=== PATIENT | male | born 1945 | race Caucasian/White ===

== ENCOUNTER → 2017-05-08 | Outpatient (CLI) | payer MEDICARE ==
[~2017-05-08] MED LIST: ALPR1TAB7 PO; ASPIRIN PO; BEANO PO; CHOL100040 PO; ESOM40CA PO; FAMO10TA39 PO; ISOVUE-370 50ML VIAL IV ONE; METOPROLOL PO; SIME80TA PO; [UNRECOGNIZED DRUG - OTHER] PO; [UNRECOGNIZED DRUG - OTHER] PO
== END | disposition home or self-care (01) ==
LOC: OIH 08:23
PROVIDERS: ATTEND Internal Medicine Cardiovascular Disease
DX: R42 Dizziness and giddiness (principal)
CPT/HCPCS: 70496; 70498; Q9967

== ENCOUNTER → 2018-05-14 | Outpatient (CLI) | payer MEDICARE ==
[~2018-05-14] MED LIST changes: -ISOVUE-370 50ML VIAL IV ONE
== END | disposition home or self-care (01) ==
LOC: RAH 13:44
PROVIDERS: ATTEND Urology
DX: N50.9 Disorder of male genital organs, unspecified (principal)
CPT/HCPCS: 76870

== ENCOUNTER → 2021-05-15 | Outpatient (CLI) | payer MEDICARE | END | disposition home or self-care (01) | LOC: RAH 07:57 | PROVIDERS: ATTEND Nurse Practitioner Family | DX: R16.0 Hepatomegaly, not elsewhere classified (principal); R74.8 Abnormal levels of other serum enzymes; Z90.49 Acquired absence of other specified parts of digestive tract | CPT/HCPCS: 76700 ==

== ENCOUNTER → 2021-12-04 | Outpatient (CLI) | payer MEDICARE ==
[2021-12-04 12:21] LABS: CREATININE 0.8 mg/dL (0.5-1.5)
== END | disposition home or self-care (01) ==
LOC: LAB 11:11
PROVIDERS: ATTEND Otolaryngology Plastic Surgery within the Head & Neck
DX: H90.3 Sensorineural hearing loss, bilateral (principal)
CPT/HCPCS: 36415; 82565; 84520

== ENCOUNTER → 2023-09-11 | Outpatient (CLI) | payer MEDICARE ==
[~2023-09-11] MED LIST changes: +AMOX1TAB16 PO
== END | disposition home or self-care (01) ==
LOC: RAH 13:51
PROVIDERS: ATTEND Internal Medicine Critical Care Medicine
DX: J98.11 Atelectasis (principal); J18.1 Lobar pneumonia, unspecified organism; R16.1 Splenomegaly, not elsewhere classified; M47.815 Spondylosis without myelopathy or radiculopathy, thoracolumbar region; Z90.49 Acquired absence of other specified parts of digestive tract
CPT/HCPCS: 71250

== ENCOUNTER → 2023-09-22 | Outpatient (CLI) | payer MEDICARE | END | disposition home or self-care (01) | LOC: RAH 08:56 | PROVIDERS: ATTEND Internal Medicine | DX: R16.2 Hepatomegaly with splenomegaly, not elsewhere classified (principal); K76.0 Fatty (change of) liver, not elsewhere classified; R10.9 Unspecified abdominal pain; D47.1 Chronic myeloproliferative disease; Z90.49 Acquired absence of other specified parts of digestive tract | CPT/HCPCS: 76700 ==

== ENCOUNTER → 2023-11-20 | Outpatient (CLI) | payer MEDICARE | END | disposition home or self-care (01) | LOC: RAH 14:25 | PROVIDERS: ATTEND Internal Medicine | DX: I70.203 Unspecified atherosclerosis of native arteries of extremities, bilateral legs (principal); L97.919 Non-pressure chronic ulcer of unspecified part of right lower leg with unspecified severity; L97.512 Non-pressure chronic ulcer of other part of right foot with fat layer exposed; M79.661 Pain in right lower leg; M79.662 Pain in left lower leg | CPT/HCPCS: 93925; 93971 ==

== ENCOUNTER → 2023-11-24 | Outpatient (CLI) | payer MEDICARE ==
[~2023-11-24] MED LIST changes: +LIDOCAINE HCL 4% LTA SOL 4 ML VIAL TP ONE
== END | disposition home or self-care (01) ==
LOC: WHH 09:41
PROVIDERS: ATTEND Family Medicine
DX: I70.238 Atherosclerosis of native arteries of right leg with ulceration of other part of lower leg (principal); L97.812 Non-pressure chronic ulcer of other part of right lower leg with fat layer exposed; I70.248 Atherosclerosis of native arteries of left leg with ulceration of other part of lower leg; L97.822 Non-pressure chronic ulcer of other part of left lower leg with fat layer exposed; I70.235 Atherosclerosis of native arteries of right leg with ulceration of other part of foot; L97.512 Non-pressure chronic ulcer of other part of right foot with fat layer exposed; I70.245 Atherosclerosis of native arteries of left leg with ulceration of other part of foot; L97.522 Non-pressure chronic ulcer of other part of left foot with fat layer exposed; I70.232 Atherosclerosis of native arteries of right leg with ulceration of calf; L97.211 Non-pressure chronic ulcer of right calf limited to breakdown of skin; L95.8 Other vasculitis limited to the skin; D75.81 Myelofibrosis; K21.9 Gastro-esophageal reflux disease without esophagitis; Z85.51 Personal history of malignant neoplasm of bladder; Z90.49 Acquired absence of other specified parts of digestive tract
CPT/HCPCS: G0463; A4450

== ENCOUNTER → 2023-12-01 | Outpatient (CLI) | payer MEDICARE | END | disposition home or self-care (01) | LOC: WHH 10:00 | PROVIDERS: ATTEND Family Medicine | DX: I70.238 Atherosclerosis of native arteries of right leg with ulceration of other part of lower leg (principal); L97.812 Non-pressure chronic ulcer of other part of right lower leg with fat layer exposed; I70.248 Atherosclerosis of native arteries of left leg with ulceration of other part of lower leg; L97.822 Non-pressure chronic ulcer of other part of left lower leg with fat layer exposed; I70.235 Atherosclerosis of native arteries of right leg with ulceration of other part of foot; L97.512 Non-pressure chronic ulcer of other part of right foot with fat layer exposed; I70.245 Atherosclerosis of native arteries of left leg with ulceration of other part of foot; L97.522 Non-pressure chronic ulcer of other part of left foot with fat layer exposed; I70.232 Atherosclerosis of native arteries of right leg with ulceration of calf; L97.421 Non-pressure chronic ulcer of left heel and midfoot limited to breakdown of skin; L97.211 Non-pressure chronic ulcer of right calf limited to breakdown of skin; L95.8 Other vasculitis limited to the skin; D75.81 Myelofibrosis; K21.9 Gastro-esophageal reflux disease without esophagitis; Z85.51 Personal history of malignant neoplasm of bladder; Z90.49 Acquired absence of other specified parts of digestive tract; Z95.1 Presence of aortocoronary bypass graft; Z79.82 Long term (current) use of aspirin; Z79.899 Other long term (current) drug therapy | CPT/HCPCS: G0463 ==

== ENCOUNTER → 2023-12-08 | Outpatient (CLI) | payer MEDICARE | END | disposition home or self-care (01) | LOC: WHH 08:17 | PROVIDERS: ATTEND Family Medicine | DX: I70.238 Atherosclerosis of native arteries of right leg with ulceration of other part of lower leg (principal); L97.812 Non-pressure chronic ulcer of other part of right lower leg with fat layer exposed; I70.248 Atherosclerosis of native arteries of left leg with ulceration of other part of lower leg; L97.822 Non-pressure chronic ulcer of other part of left lower leg with fat layer exposed; I70.235 Atherosclerosis of native arteries of right leg with ulceration of other part of foot; L97.512 Non-pressure chronic ulcer of other part of right foot with fat layer exposed; I70.245 Atherosclerosis of native arteries of left leg with ulceration of other part of foot; L97.522 Non-pressure chronic ulcer of other part of left foot with fat layer exposed; I70.232 Atherosclerosis of native arteries of right leg with ulceration of calf; L97.421 Non-pressure chronic ulcer of left heel and midfoot limited to breakdown of skin; L97.211 Non-pressure chronic ulcer of right calf limited to breakdown of skin; L95.8 Other vasculitis limited to the skin; D75.81 Myelofibrosis; K21.9 Gastro-esophageal reflux disease without esophagitis; Z85.51 Personal history of malignant neoplasm of bladder; Z90.49 Acquired absence of other specified parts of digestive tract; Z95.1 Presence of aortocoronary bypass graft; Z79.82 Long term (current) use of aspirin; Z79.899 Other long term (current) drug therapy | CPT/HCPCS: 11042; 11045; A4450 ==

== ENCOUNTER 2023-12-11 20:35 | Emergency (ER) | payer MEDICARE ==
[~2023-12-11] VITALS: Ht 180.3 cm; Wt 86.2 kg
[~2023-12-11 20:35] MED LIST changes: -LIDOCAINE HCL 4% LTA SOL 4 ML VIAL TP ONE
[2023-12-11 20:54] VITALS: BP 147/71; PULSE 98; RESP 16; TEMP 98.3; O2SAT 98
[2023-12-11 21:02] LABS: APPEARANCE,URINE CLEAR (CLEAR); BILIRUBIN,URINE NEGATIVE (NEGATIVE); COLOR,URINE YELLOW (YELLOW); GLUCOSE, URINE (UA) NEGATIVE (NEGATIVE); KETONES,URINE NEGATIVE (NEGATIVE); LEUKOCYTE ESTERASE ,URINE NEGATIVE Leu/uL (NEGATIVE); NITRATE,URINE NEGATIVE (NEGATIVE); OCCULT BLOOD,URINE NEGATIVE (NEGATIVE); PH,URINE 5.5 (5.0-8.0); PROTEIN,URINE NEGATIVE (NEGATIVE); UROBILINOGEN,URINE 0.2 mg/dL (0.2-1.0)
[2023-12-11 21:10] LABS: ADD UA MICROSCOPIC NO
== END 2023-12-11 21:45 | disposition home or self-care (01) ==
LOC: EDH 20:35
DX: R35.0 Frequency of micturition (principal); I10 Essential (primary) hypertension; Z90.49 Acquired absence of other specified parts of digestive tract; Z95.1 Presence of aortocoronary bypass graft
CPT/HCPCS: 81003

== ENCOUNTER → 2023-12-15 | Outpatient (CLI) | payer MEDICARE ==
[~2023-12-15] MED LIST changes: +LIDOCAINE HCL 4% LTA SOL 4 ML VIAL TP ONE
== END | disposition home or self-care (01) ==
LOC: WHH 07:55
PROVIDERS: ATTEND Family Medicine
DX: I70.238 Atherosclerosis of native arteries of right leg with ulceration of other part of lower leg (principal); L97.812 Non-pressure chronic ulcer of other part of right lower leg with fat layer exposed; I70.248 Atherosclerosis of native arteries of left leg with ulceration of other part of lower leg; L97.822 Non-pressure chronic ulcer of other part of left lower leg with fat layer exposed; I70.235 Atherosclerosis of native arteries of right leg with ulceration of other part of foot; L97.512 Non-pressure chronic ulcer of other part of right foot with fat layer exposed; I70.245 Atherosclerosis of native arteries of left leg with ulceration of other part of foot; L97.521 Non-pressure chronic ulcer of other part of left foot limited to breakdown of skin; I70.232 Atherosclerosis of native arteries of right leg with ulceration of calf; L97.211 Non-pressure chronic ulcer of right calf limited to breakdown of skin; L97.421 Non-pressure chronic ulcer of left heel and midfoot limited to breakdown of skin; L95.8 Other vasculitis limited to the skin; D75.81 Myelofibrosis; K21.9 Gastro-esophageal reflux disease without esophagitis; Z85.51 Personal history of malignant neoplasm of bladder; Z90.49 Acquired absence of other specified parts of digestive tract; Z95.1 Presence of aortocoronary bypass graft; Z79.82 Long term (current) use of aspirin; Z79.899 Other long term (current) drug therapy
CPT/HCPCS: 11042; 11045

== ENCOUNTER → 2023-12-29 | Outpatient (CLI) | payer MEDICARE | END | disposition home or self-care (01) | LOC: WHH 08:11 | PROVIDERS: ATTEND Family Medicine | DX: I70.238 Atherosclerosis of native arteries of right leg with ulceration of other part of lower leg (principal); L97.812 Non-pressure chronic ulcer of other part of right lower leg with fat layer exposed; I70.248 Atherosclerosis of native arteries of left leg with ulceration of other part of lower leg; L97.822 Non-pressure chronic ulcer of other part of left lower leg with fat layer exposed; I70.235 Atherosclerosis of native arteries of right leg with ulceration of other part of foot; L97.512 Non-pressure chronic ulcer of other part of right foot with fat layer exposed; I70.245 Atherosclerosis of native arteries of left leg with ulceration of other part of foot; L97.521 Non-pressure chronic ulcer of other part of left foot limited to breakdown of skin; I70.232 Atherosclerosis of native arteries of right leg with ulceration of calf; L97.211 Non-pressure chronic ulcer of right calf limited to breakdown of skin; L97.421 Non-pressure chronic ulcer of left heel and midfoot limited to breakdown of skin; L95.8 Other vasculitis limited to the skin; D75.81 Myelofibrosis; K21.9 Gastro-esophageal reflux disease without esophagitis; Z85.51 Personal history of malignant neoplasm of bladder; Z90.49 Acquired absence of other specified parts of digestive tract; Z95.1 Presence of aortocoronary bypass graft; Z79.82 Long term (current) use of aspirin; Z79.899 Other long term (current) drug therapy | CPT/HCPCS: G0463 ==

== ENCOUNTER → 2024-01-05 | Outpatient (CLI) | payer MEDICARE | END | disposition home or self-care (01) | LOC: WHH 08:00 | PROVIDERS: ATTEND Family Medicine | DX: I70.238 Atherosclerosis of native arteries of right leg with ulceration of other part of lower leg (principal); L97.812 Non-pressure chronic ulcer of other part of right lower leg with fat layer exposed; I70.248 Atherosclerosis of native arteries of left leg with ulceration of other part of lower leg; L97.822 Non-pressure chronic ulcer of other part of left lower leg with fat layer exposed; I70.235 Atherosclerosis of native arteries of right leg with ulceration of other part of foot; L97.512 Non-pressure chronic ulcer of other part of right foot with fat layer exposed; I70.245 Atherosclerosis of native arteries of left leg with ulceration of other part of foot; L97.521 Non-pressure chronic ulcer of other part of left foot limited to breakdown of skin; I70.232 Atherosclerosis of native arteries of right leg with ulceration of calf; L97.421 Non-pressure chronic ulcer of left heel and midfoot limited to breakdown of skin; L59.8 Other specified disorders of the skin and subcutaneous tissue related to radiation; D75.81 Myelofibrosis; K21.9 Gastro-esophageal reflux disease without esophagitis; Z85.51 Personal history of malignant neoplasm of bladder; Z90.49 Acquired absence of other specified parts of digestive tract; Z95.1 Presence of aortocoronary bypass graft; Z79.82 Long term (current) use of aspirin; Z79.899 Other long term (current) drug therapy | CPT/HCPCS: 11042; 87086; 87186; 87070; A4450 ==

== ENCOUNTER → 2024-01-12 | Outpatient (CLI) | payer MEDICARE ==
[~2024-01-12] MED LIST changes: -LIDOCAINE HCL 4% LTA SOL 4 ML VIAL TP ONE
== END | disposition home or self-care (01) ==
LOC: WHH 08:21
PROVIDERS: ATTEND Family Medicine
DX: I70.238 Atherosclerosis of native arteries of right leg with ulceration of other part of lower leg (principal); I70.248 Atherosclerosis of native arteries of left leg with ulceration of other part of lower leg; L97.822 Non-pressure chronic ulcer of other part of left lower leg with fat layer exposed; I70.235 Atherosclerosis of native arteries of right leg with ulceration of other part of foot; L97.512 Non-pressure chronic ulcer of other part of right foot with fat layer exposed; I70.245 Atherosclerosis of native arteries of left leg with ulceration of other part of foot; L97.521 Non-pressure chronic ulcer of other part of left foot limited to breakdown of skin; L97.812 Non-pressure chronic ulcer of other part of right lower leg with fat layer exposed; L97.211 Non-pressure chronic ulcer of right calf limited to breakdown of skin; L59.8 Other specified disorders of the skin and subcutaneous tissue related to radiation; D75.81 Myelofibrosis; K21.9 Gastro-esophageal reflux disease without esophagitis; Z85.51 Personal history of malignant neoplasm of bladder; Z90.49 Acquired absence of other specified parts of digestive tract; Z95.1 Presence of aortocoronary bypass graft; Z79.82 Long term (current) use of aspirin; Z79.899 Other long term (current) drug therapy
CPT/HCPCS: 11042

== ENCOUNTER → 2024-01-26 | Outpatient (CLI) | payer MEDICARE | END | disposition home or self-care (01) | LOC: WHH 07:57 | PROVIDERS: ATTEND Family Medicine | DX: I70.238 Atherosclerosis of native arteries of right leg with ulceration of other part of lower leg (principal); L97.812 Non-pressure chronic ulcer of other part of right lower leg with fat layer exposed; I70.248 Atherosclerosis of native arteries of left leg with ulceration of other part of lower leg; L97.521 Non-pressure chronic ulcer of other part of left foot limited to breakdown of skin; L97.822 Non-pressure chronic ulcer of other part of left lower leg with fat layer exposed; I70.235 Atherosclerosis of native arteries of right leg with ulceration of other part of foot; L97.512 Non-pressure chronic ulcer of other part of right foot with fat layer exposed; L97.211 Non-pressure chronic ulcer of right calf limited to breakdown of skin; L59.8 Other specified disorders of the skin and subcutaneous tissue related to radiation; D75.81 Myelofibrosis; K21.9 Gastro-esophageal reflux disease without esophagitis; Z85.51 Personal history of malignant neoplasm of bladder; Z90.49 Acquired absence of other specified parts of digestive tract; Z95.1 Presence of aortocoronary bypass graft; Z79.82 Long term (current) use of aspirin; Z79.899 Other long term (current) drug therapy | CPT/HCPCS: 11042; A6260 ==

== ENCOUNTER → 2024-02-02 | Outpatient (CLI) | payer MEDICARE ==
[~2024-02-02] MED LIST changes: +LIDOCAINE HCL 4% LTA SOL 4 ML VIAL TP ONE
== END | disposition home or self-care (01) ==
LOC: WHH 08:08
PROVIDERS: ATTEND Family Medicine
DX: I70.238 Atherosclerosis of native arteries of right leg with ulceration of other part of lower leg (principal); L97.812 Non-pressure chronic ulcer of other part of right lower leg with fat layer exposed; I70.248 Atherosclerosis of native arteries of left leg with ulceration of other part of lower leg; L97.822 Non-pressure chronic ulcer of other part of left lower leg with fat layer exposed; I70.235 Atherosclerosis of native arteries of right leg with ulceration of other part of foot; L97.512 Non-pressure chronic ulcer of other part of right foot with fat layer exposed; I70.245 Atherosclerosis of native arteries of left leg with ulceration of other part of foot; L97.521 Non-pressure chronic ulcer of other part of left foot limited to breakdown of skin; L97.211 Non-pressure chronic ulcer of right calf limited to breakdown of skin; L59.8 Other specified disorders of the skin and subcutaneous tissue related to radiation; D75.81 Myelofibrosis; K21.9 Gastro-esophageal reflux disease without esophagitis; Z85.51 Personal history of malignant neoplasm of bladder; Z90.49 Acquired absence of other specified parts of digestive tract; Z95.1 Presence of aortocoronary bypass graft; Z79.82 Long term (current) use of aspirin; Z79.899 Other long term (current) drug therapy
CPT/HCPCS: 11042; 11045; A4450

== ENCOUNTER → 2024-02-09 | Outpatient (CLI) | payer MEDICARE | END | disposition home or self-care (01) | LOC: WHH 08:24 | PROVIDERS: ATTEND Family Medicine | DX: I70.238 Atherosclerosis of native arteries of right leg with ulceration of other part of lower leg (principal); L97.812 Non-pressure chronic ulcer of other part of right lower leg with fat layer exposed; I70.248 Atherosclerosis of native arteries of left leg with ulceration of other part of lower leg; L97.822 Non-pressure chronic ulcer of other part of left lower leg with fat layer exposed; I70.235 Atherosclerosis of native arteries of right leg with ulceration of other part of foot; L97.511 Non-pressure chronic ulcer of other part of right foot limited to breakdown of skin; I70.245 Atherosclerosis of native arteries of left leg with ulceration of other part of foot; L97.521 Non-pressure chronic ulcer of other part of left foot limited to breakdown of skin; L97.211 Non-pressure chronic ulcer of right calf limited to breakdown of skin; L95.8 Other vasculitis limited to the skin; D75.81 Myelofibrosis; I10 Essential (primary) hypertension; K21.9 Gastro-esophageal reflux disease without esophagitis; Z85.51 Personal history of malignant neoplasm of bladder; Z90.49 Acquired absence of other specified parts of digestive tract; Z95.1 Presence of aortocoronary bypass graft; Z79.82 Long term (current) use of aspirin; Z79.899 Other long term (current) drug therapy | CPT/HCPCS: G0463 ==

== ENCOUNTER → 2024-02-16 | Outpatient (CLI) | payer MEDICARE | END | disposition home or self-care (01) | LOC: WHH 08:18 | PROVIDERS: ATTEND Family Medicine | DX: I70.238 Atherosclerosis of native arteries of right leg with ulceration of other part of lower leg (principal); L97.812 Non-pressure chronic ulcer of other part of right lower leg with fat layer exposed; I70.248 Atherosclerosis of native arteries of left leg with ulceration of other part of lower leg; L97.822 Non-pressure chronic ulcer of other part of left lower leg with fat layer exposed; I70.235 Atherosclerosis of native arteries of right leg with ulceration of other part of foot; L97.512 Non-pressure chronic ulcer of other part of right foot with fat layer exposed; I70.245 Atherosclerosis of native arteries of left leg with ulceration of other part of foot; L97.521 Non-pressure chronic ulcer of other part of left foot limited to breakdown of skin; L97.211 Non-pressure chronic ulcer of right calf limited to breakdown of skin; S41.102A Unspecified open wound of left upper arm, initial encounter; S41.101A Unspecified open wound of right upper arm, initial encounter; L59.8 Other specified disorders of the skin and subcutaneous tissue related to radiation; D75.81 Myelofibrosis; K21.9 Gastro-esophageal reflux disease without esophagitis; Z85.51 Personal history of malignant neoplasm of bladder; Z90.49 Acquired absence of other specified parts of digestive tract; Z95.1 Presence of aortocoronary bypass graft; Z79.82 Long term (current) use of aspirin; Z79.899 Other long term (current) drug therapy; X58.XXXA Exposure to other specified factors, initial encounter; Y93.89 Activity, other specified; Y92.89 Other specified places as the place of occurrence of the external cause; Y99.8 Other external cause status | CPT/HCPCS: G0463 ==

== ENCOUNTER → 2024-02-23 | Outpatient (CLI) | payer MEDICARE | END | disposition home or self-care (01) | LOC: WHH 08:07 | PROVIDERS: ATTEND Family Medicine | DX: I70.238 Atherosclerosis of native arteries of right leg with ulceration of other part of lower leg (principal); L97.812 Non-pressure chronic ulcer of other part of right lower leg with fat layer exposed; I70.248 Atherosclerosis of native arteries of left leg with ulceration of other part of lower leg; L97.822 Non-pressure chronic ulcer of other part of left lower leg with fat layer exposed; I70.235 Atherosclerosis of native arteries of right leg with ulceration of other part of foot; L97.512 Non-pressure chronic ulcer of other part of right foot with fat layer exposed; I70.245 Atherosclerosis of native arteries of left leg with ulceration of other part of foot; L97.521 Non-pressure chronic ulcer of other part of left foot limited to breakdown of skin; L97.211 Non-pressure chronic ulcer of right calf limited to breakdown of skin; L95.8 Other vasculitis limited to the skin; S41.102D Unspecified open wound of left upper arm, subsequent encounter; S41.101D Unspecified open wound of right upper arm, subsequent encounter; D75.81 Myelofibrosis; I10 Essential (primary) hypertension; K21.9 Gastro-esophageal reflux disease without esophagitis; Z85.51 Personal history of malignant neoplasm of bladder; Z90.49 Acquired absence of other specified parts of digestive tract; Z95.1 Presence of aortocoronary bypass graft; Z79.82 Long term (current) use of aspirin; Z79.899 Other long term (current) drug therapy; X58.XXXD Exposure to other specified factors, subsequent encounter | CPT/HCPCS: 11042; 11045 ==

== ENCOUNTER → 2024-03-01 | Outpatient (CLI) | payer MEDICARE | END | disposition home or self-care (01) | LOC: WHH 08:16 | PROVIDERS: ATTEND Family Medicine | DX: I70.238 Atherosclerosis of native arteries of right leg with ulceration of other part of lower leg (principal); L97.812 Non-pressure chronic ulcer of other part of right lower leg with fat layer exposed; I70.248 Atherosclerosis of native arteries of left leg with ulceration of other part of lower leg; L97.822 Non-pressure chronic ulcer of other part of left lower leg with fat layer exposed; L95.8 Other vasculitis limited to the skin; S41.102D Unspecified open wound of left upper arm, subsequent encounter; S41.101D Unspecified open wound of right upper arm, subsequent encounter; I10 Essential (primary) hypertension; D75.81 Myelofibrosis; K21.9 Gastro-esophageal reflux disease without esophagitis; Z85.51 Personal history of malignant neoplasm of bladder; Z90.49 Acquired absence of other specified parts of digestive tract; Z95.1 Presence of aortocoronary bypass graft; Z79.82 Long term (current) use of aspirin; Z79.899 Other long term (current) drug therapy; X58.XXXD Exposure to other specified factors, subsequent encounter | CPT/HCPCS: 11042 ==

== ENCOUNTER → 2024-03-08 | Outpatient (CLI) | payer MEDICARE ==
[~2024-03-08] MED LIST changes: -LIDOCAINE HCL 4% LTA SOL 4 ML VIAL TP ONE
== END | disposition home or self-care (01) ==
LOC: WHH 08:14
PROVIDERS: ATTEND Family Medicine
DX: I70.238 Atherosclerosis of native arteries of right leg with ulceration of other part of lower leg (principal); L97.812 Non-pressure chronic ulcer of other part of right lower leg with fat layer exposed; I70.248 Atherosclerosis of native arteries of left leg with ulceration of other part of lower leg; L97.822 Non-pressure chronic ulcer of other part of left lower leg with fat layer exposed; L95.8 Other vasculitis limited to the skin; S51.001A Unspecified open wound of right elbow, initial encounter; S41.101D Unspecified open wound of right upper arm, subsequent encounter; S41.102D Unspecified open wound of left upper arm, subsequent encounter; I10 Essential (primary) hypertension; D75.81 Myelofibrosis; K21.9 Gastro-esophageal reflux disease without esophagitis; Z85.51 Personal history of malignant neoplasm of bladder; Z90.49 Acquired absence of other specified parts of digestive tract; Z95.1 Presence of aortocoronary bypass graft; Z79.82 Long term (current) use of aspirin; Z79.899 Other long term (current) drug therapy; X58.XXXD Exposure to other specified factors, subsequent encounter; X58.XXXA Exposure to other specified factors, initial encounter; Y93.89 Activity, other specified; Y92.89 Other specified places as the place of occurrence of the external cause; Y99.8 Other external cause status
CPT/HCPCS: 11042; A4450

== ENCOUNTER → 2024-03-15 | Outpatient (CLI) | payer MEDICARE ==
[~2024-03-15] MED LIST changes: +LIDOCAINE HCL 4% LTA SOL 4 ML VIAL TP ONE
== END | disposition home or self-care (01) ==
LOC: WHH 08:27
PROVIDERS: ATTEND Family Medicine
DX: I70.248 Atherosclerosis of native arteries of left leg with ulceration of other part of lower leg (principal); L97.822 Non-pressure chronic ulcer of other part of left lower leg with fat layer exposed; I70.238 Atherosclerosis of native arteries of right leg with ulceration of other part of lower leg; L97.812 Non-pressure chronic ulcer of other part of right lower leg with fat layer exposed; L95.8 Other vasculitis limited to the skin; S51.001D Unspecified open wound of right elbow, subsequent encounter; S41.101D Unspecified open wound of right upper arm, subsequent encounter; S41.102D Unspecified open wound of left upper arm, subsequent encounter; I10 Essential (primary) hypertension; D75.81 Myelofibrosis; K21.9 Gastro-esophageal reflux disease without esophagitis; Z85.51 Personal history of malignant neoplasm of bladder; Z90.49 Acquired absence of other specified parts of digestive tract; Z95.1 Presence of aortocoronary bypass graft; Z79.82 Long term (current) use of aspirin; Z79.899 Other long term (current) drug therapy; X58.XXXD Exposure to other specified factors, subsequent encounter
CPT/HCPCS: G0463

== ENCOUNTER → 2024-03-22 | Outpatient (CLI) | payer MEDICARE ==
[~2024-03-22] MED LIST changes: -LIDOCAINE HCL 4% LTA SOL 4 ML VIAL TP ONE
== END | disposition home or self-care (01) ==
LOC: WHH 08:08
PROVIDERS: ATTEND Family Medicine
DX: I70.248 Atherosclerosis of native arteries of left leg with ulceration of other part of lower leg (principal); L97.822 Non-pressure chronic ulcer of other part of left lower leg with fat layer exposed; I70.238 Atherosclerosis of native arteries of right leg with ulceration of other part of lower leg; L97.812 Non-pressure chronic ulcer of other part of right lower leg with fat layer exposed; L95.8 Other vasculitis limited to the skin; S51.001D Unspecified open wound of right elbow, subsequent encounter; S41.101D Unspecified open wound of right upper arm, subsequent encounter; S41.102D Unspecified open wound of left upper arm, subsequent encounter; I10 Essential (primary) hypertension; D75.81 Myelofibrosis; K21.9 Gastro-esophageal reflux disease without esophagitis; Z85.51 Personal history of malignant neoplasm of bladder; Z90.49 Acquired absence of other specified parts of digestive tract; Z95.1 Presence of aortocoronary bypass graft; Z79.82 Long term (current) use of aspirin; Z79.899 Other long term (current) drug therapy; X58.XXXD Exposure to other specified factors, subsequent encounter
CPT/HCPCS: 11042; 11045; A6250

== ENCOUNTER → 2024-03-29 | Outpatient (CLI) | payer MEDICARE | END | disposition home or self-care (01) | LOC: WHH 08:11 | PROVIDERS: ATTEND Family Medicine | DX: I70.248 Atherosclerosis of native arteries of left leg with ulceration of other part of lower leg (principal); L97.822 Non-pressure chronic ulcer of other part of left lower leg with fat layer exposed; I70.238 Atherosclerosis of native arteries of right leg with ulceration of other part of lower leg; L97.812 Non-pressure chronic ulcer of other part of right lower leg with fat layer exposed; L95.8 Other vasculitis limited to the skin; S51.001D Unspecified open wound of right elbow, subsequent encounter; S41.101D Unspecified open wound of right upper arm, subsequent encounter; S41.102D Unspecified open wound of left upper arm, subsequent encounter; S90.811A Abrasion, right foot, initial encounter; I10 Essential (primary) hypertension; D75.81 Myelofibrosis; K21.9 Gastro-esophageal reflux disease without esophagitis; Z85.51 Personal history of malignant neoplasm of bladder; Z90.49 Acquired absence of other specified parts of digestive tract; Z95.1 Presence of aortocoronary bypass graft; Z79.82 Long term (current) use of aspirin; Z79.899 Other long term (current) drug therapy; X58.XXXD Exposure to other specified factors, subsequent encounter; X58.XXXA Exposure to other specified factors, initial encounter; Y93.89 Activity, other specified; Y92.89 Other specified places as the place of occurrence of the external cause; Y99.8 Other external cause status | CPT/HCPCS: 15271; A6250; Q4121; A6197 ==

== ENCOUNTER → 2024-04-05 | Outpatient (CLI) | payer MEDICARE ==
[~2024-04-05] MED LIST changes: +AEC81 PO; +CHOL2000 PO; +FERR-82 PO; +FOLI0.4T6 PO; +HYDR-4060 PO; +HYDR500C2 PO; +LIDOCAINE HCL 4% LTA SOL 4 ML VIAL TP ONE; +LISI10TA24 PO; +PREG75CA76 PO; +PYRI100L2 PO; +TAMS-1 PO
== END | disposition home or self-care (01) ==
LOC: WHH 08:03
PROVIDERS: ATTEND Family Medicine
DX: I70.248 Atherosclerosis of native arteries of left leg with ulceration of other part of lower leg (principal); L97.822 Non-pressure chronic ulcer of other part of left lower leg with fat layer exposed; I70.238 Atherosclerosis of native arteries of right leg with ulceration of other part of lower leg; L97.812 Non-pressure chronic ulcer of other part of right lower leg with fat layer exposed; L95.8 Other vasculitis limited to the skin; S51.001D Unspecified open wound of right elbow, subsequent encounter; S41.101D Unspecified open wound of right upper arm, subsequent encounter; S41.102D Unspecified open wound of left upper arm, subsequent encounter; I10 Essential (primary) hypertension; D75.81 Myelofibrosis; K21.9 Gastro-esophageal reflux disease without esophagitis; Z85.51 Personal history of malignant neoplasm of bladder; Z90.49 Acquired absence of other specified parts of digestive tract; Z95.1 Presence of aortocoronary bypass graft; Z79.82 Long term (current) use of aspirin; Z79.899 Other long term (current) drug therapy; X58.XXXD Exposure to other specified factors, subsequent encounter
CPT/HCPCS: 15271; Q4121; A6197; A4450; A6207

== ENCOUNTER → 2024-04-12 | Outpatient (CLI) | payer MEDICARE ==
--- NOTE | 2024-04-12 11:42 | HMCIMG ---
CHEST 2VWS HISTORY: Shortness of breath COMPARISON: None FINDINGS: Frontal and lateral projections of the chest were obtained. There is no acute pulmonary infiltrates or failure. The heart is oral line enlarged. Poststernotomy changes are seen. Aortic calcifications are seen. There may be small left pleural effusion. Degenerative changes are seen of the thoracolumbar spine. IMPRESSION: 1. No acute pulmonary infiltrates.
[2024-04-12 12:22] LABS: ALBUMIN 3.6 g/dL (3.5-5.0); BILIRUBIN,TOTAL 1.2 mg/dL (0.2-1.0); CREATININE 0.8 mg/dL (0.5-1.3); THYROID STIMULATING HORMONE 1.92 uIU/mL (0.36-3.74); TOTAL PROTEIN, SERUM 7.1 g/dL (6.0-8.3)
[2024-04-12 12:23] LABS: B-TYPE NATRIURETIC PEPTIDE 350 pg/mL (0-100)
[2024-04-12 12:49] LABS: BASOPHILS # (AUTO) 0.11 K/uL (0.00-0.20); BASOPHILS % (AUTO) 0.3 % (0.0-5.0); EOSINOPHILS # (AUTO) 0.04 K/uL (0.00-0.70); EOSINOPHILS % (AUTO) 0.1 % (0.0-8.0); IMMATURE GRANULOCYTE ABSOLUTE 4.55 K/uL (0-1); LYMPHOCYTES # (AUTO) 0.5 K/uL (1.0-4.8); LYMPHOCYTES % (AUTO) 1.5 % (21.0-51.0); MEAN CORPUSCULAR HEMOGLOBIN 32.8 pg (27.0-33.0); MEAN CORPUSCULAR HGB CONC 30.8 g/dL (32.0-36.0); MEAN CORPUSCULAR VOLUME 106.4 fL (79-99); MONOCYTES # (AUTO) 1.8 K/uL (0.1-1.0); MONOCYTES % (AUTO) 5.3 % (3.0-13.0); NEUTROPHILS # (AUTO) 26.8 K/uL (1.8-7.7); NEUTROPHILS % (AUTO) 79.4 % (40.0-77.0); NUCLEATED RED BLOOD CELLS 0.1 % (0.0-0.19); RED BLOOD CELL COUNT(AUTO) 2.35 MIL/uL (4.50-6.20); RED CELL DISTRIBUTION WIDTH 17.5 % (11.0-15.5)
[2024-04-12 13:16] LABS: PLATELET COUNT (AUTO) 774 K/uL (130-400)
[2024-04-12 13:17] LABS: WHITE BLOOD COUNT (AUTO) 33.8 K/uL (4.8-10.8)
[2024-04-12 14:20] LABS: BAND NEUTROPHILS % (MANUAL) 4 % (0-2); LYMPHOCYTES % (MANUAL) 3 % (22-44); MAN.DIFF COMMENT-IMPRESSION MANUAL DIFFERENTIAL; MONOCYTES % (MANUAL) 4 % (2-9); PLATELET MORPHOLOGY COMMENT INCREASED; SEGMENTED NEUTROPHILS % 89 % (40-70); TOTAL CELLS COUNTED 100; WBC MORPHOLOGY CONSISTENT W/DIFF
== END | disposition home or self-care (01) ==
LOC: WHH 08:07
PROVIDERS: ATTEND Family Medicine
DX: E11.622 Type 2 diabetes mellitus with other skin ulcer (principal); I70.248 Atherosclerosis of native arteries of left leg with ulceration of other part of lower leg; L97.822 Non-pressure chronic ulcer of other part of left lower leg with fat layer exposed; I70.238 Atherosclerosis of native arteries of right leg with ulceration of other part of lower leg; L97.812 Non-pressure chronic ulcer of other part of right lower leg with fat layer exposed; L95.8 Other vasculitis limited to the skin; S51.001D Unspecified open wound of right elbow, subsequent encounter; I10 Essential (primary) hypertension; K21.9 Gastro-esophageal reflux disease without esophagitis; I25.10 Atherosclerotic heart disease of native coronary artery without angina pectoris; E78.5 Hyperlipidemia, unspecified; D75.81 Myelofibrosis; Z85.51 Personal history of malignant neoplasm of bladder; Z90.49 Acquired absence of other specified parts of digestive tract; Z95.1 Presence of aortocoronary bypass graft; Z79.82 Long term (current) use of aspirin; Z79.899 Other long term (current) drug therapy; X58.XXXD Exposure to other specified factors, subsequent encounter
CPT/HCPCS: 15271; Q4121; 36415; 71046; 80053; 83880; 84443; 85025; A6022; A6197

== ENCOUNTER → 2024-04-19 | Outpatient (CLI) | payer MEDICARE | END | disposition home or self-care (01) | LOC: WHH 07:52 | PROVIDERS: ATTEND Family Medicine | DX: I70.248 Atherosclerosis of native arteries of left leg with ulceration of other part of lower leg (principal); L97.822 Non-pressure chronic ulcer of other part of left lower leg with fat layer exposed; I70.238 Atherosclerosis of native arteries of right leg with ulceration of other part of lower leg; L97.812 Non-pressure chronic ulcer of other part of right lower leg with fat layer exposed; L97.522 Non-pressure chronic ulcer of other part of left foot with fat layer exposed; L95.8 Other vasculitis limited to the skin; S41.101D Unspecified open wound of right upper arm, subsequent encounter; S41.102D Unspecified open wound of left upper arm, subsequent encounter; E11.621 Type 2 diabetes mellitus with foot ulcer; I10 Essential (primary) hypertension; E78.5 Hyperlipidemia, unspecified; D75.81 Myelofibrosis; K21.9 Gastro-esophageal reflux disease without esophagitis; Z85.51 Personal history of malignant neoplasm of bladder; Z90.49 Acquired absence of other specified parts of digestive tract; Z95.1 Presence of aortocoronary bypass graft; Z79.82 Long term (current) use of aspirin; Z79.899 Other long term (current) drug therapy; X58.XXXD Exposure to other specified factors, subsequent encounter | CPT/HCPCS: 15271; 11042; 15272; Q4121; A6197 ==

== ENCOUNTER 2024-04-24 21:23 | Observation (INO) | payer MEDICARE ==
[~2024-04-24] VITALS: Ht 180.3 cm; Wt 80.7 kg
[~2024-04-24 21:23] MED LIST changes: -LIDOCAINE HCL 4% LTA SOL 4 ML VIAL TP ONE
[2024-04-24 21:59] LABS: BASOPHILS # (AUTO) 0.06 K/uL (0.00-0.20); BASOPHILS % (AUTO) 0.2 % (0.0-5.0); EOSINOPHILS # (AUTO) 0.02 K/uL (0.00-0.70); EOSINOPHILS % (AUTO) 0.1 % (0.0-8.0); IMMATURE GRANULOCYTE ABSOLUTE 3.39 K/uL (0-1); LYMPHOCYTES # (AUTO) 0.4 K/uL (1.0-4.8); LYMPHOCYTES % (AUTO) 1.5 % (21.0-51.0); MEAN CORPUSCULAR HEMOGLOBIN 32.2 pg (27.0-33.0); MEAN CORPUSCULAR HGB CONC 31.7 g/dL (32.0-36.0); MEAN CORPUSCULAR VOLUME 101.7 fL (79-99); MONOCYTES # (AUTO) 2.4 K/uL (0.1-1.0); MONOCYTES % (AUTO) 8.6 % (3.0-13.0); NEUTROPHILS # (AUTO) 21.1 K/uL (1.8-7.7); NEUTROPHILS % (AUTO) 77.2 % (40.0-77.0); PLATELET COUNT (AUTO) 420 K/uL (130-400); RED BLOOD CELL COUNT(AUTO) 2.36 MIL/uL (4.50-6.20); RED CELL DISTRIBUTION WIDTH 20.9 % (11.0-15.5); WHITE BLOOD COUNT (AUTO) 27.4 K/uL (4.8-10.8)
[2024-04-24 22:12] LABS: CREATININE 0.7 mg/dL (0.5-1.3); POTASSIUM 4.8 mmol/L (3.5-5.1)
[2024-04-24 22:16] LABS: INR 1.21 (0.85-1.15); PROTHROMBIN TIME 12.6 SEC (9.6-11.6)
[2024-04-24 22:18] LABS: ALBUMIN 3.3 g/dL (3.5-5.0); BILIRUBIN,DIRECT 0.5 mg/dL (0.0-0.3); TOTAL PROTEIN, SERUM 6.1 g/dL (6.0-8.3)
[2024-04-24 22:24] LABS: BAND NEUTROPHILS % (MANUAL) 8 % (0-2); LYMPHOCYTES % (MANUAL) 5 % (22-44); MAN.DIFF COMMENT-IMPRESSION MANUAL DIFFERENTIAL; MONOCYTES % (MANUAL) 6 % (2-9); REACTIVE LYMPHOCYTES 2 % (0-0); SEGMENTED NEUTROPHILS % 79 % (40-70); TOTAL CELLS COUNTED 100; WBC MORPHOLOGY IMMATURE GRAN 1+
[2024-04-24 22:27] LABS: PLATELET MORPHOLOGY COMMENT LARGE PLTS PRESENT
[2024-04-24 22:36] LABS: SARS-CoV-2, RNA, NAAT NEGATIVE SARS CoV-2 (NEGATIVE)
[2024-04-24 22:41] LABS: INFLUENZA TYPE A Negative For Type A (NEGATIVE); INFLUENZA TYPE B Negative For Type B (NEGATIVE)
--- NOTE | 2024-04-24 23:11 | HMCIMG ---
CHEST 1VW HISTORY: Shortness of breath COMPARISON: None FINDINGS: A frontal projection of the chest was obtained. Mild bilateral pulmonary infiltrates are seen may be related to mild pulmonary vascular congestion with possible superimposed pneumonitis. The heart is borderline enlarged. Degenerative changes are seen. Aortic calcifications are seen. IMPRESSION: 1. Mild bilateral pulmonary infiltrates are seen may be related to mild pulmonary vascular congestion with possible superimposed pneumonitis.
[2024-04-25] LABS: APPEARANCE,URINE CLEAR (CLEAR); BILIRUBIN,URINE NEGATIVE (NEGATIVE); COLOR,URINE LIGHT-YELLOW (YELLOW); GLUCOSE, URINE (UA) NEGATIVE (NEGATIVE); KETONES,URINE NEGATIVE (NEGATIVE); LEUKOCYTE ESTERASE ,URINE NEGATIVE Leu/uL (NEGATIVE); NITRATE,URINE NEGATIVE (NEGATIVE); OCCULT BLOOD,URINE NEGATIVE (NEGATIVE); PH,URINE 6.5 (5.0-8.0); PROTEIN,URINE 10 mg/dL (NEGATIVE); UROBILINOGEN,URINE 0.2 mg/dL (0.2-1.0)
[2024-04-25 00:01] LABS: RBC,URINE 0-1 /HPF (0-1); SQUAMOUS EPITHELIAL CELL,UR RARE /HPF (0-2)
[2024-04-25 00:20] LABS: AMPHET/METH SCREEN,URINE NEGATIVE (NEGATIVE); BARBITURATE SCREEN, URINE NEGATIVE (NEGATIVE); BENZODIAZEPINES SCREEN,URINE NEGATIVE (NEGATIVE); CANNABINOID SCREEN,URINE NEGATIVE (NEGATIVE); COCAINE SCREEN,URINE NEGATIVE (NEGATIVE); OPIATE SCREEN,URINE POSITIVE (NEGATIVE); PHENCYCLIDINE SCREEN,URINE NEGATIVE (NEGATIVE)
--- NOTE | 2024-04-25 01:02 | NUR ---
CARE ASSUMED AT THIS TIME
--- NOTE | 2024-04-25 01:13 | ERN ---
General Chief Complaint: Weakness Stated Complaint: GENERALIZED WEAKNESS ONSET THIS AM Time Seen by MD: 21:41 History of Present Illness Initial Comments 78-year-old male came in for generalized body weakness. Patient has history of anemia normally states 70 feels this by his hemoglobin patient was usually low. Patient otherwise has no concerns. Allergies: Coded Allergies: No Known Drug Allergies (Unverified Allergy, Unknown, 12/28/13) Home Meds Active Scripts Amoxicillin/Potassium Clav (Amox Tr-K Clv 875-125 mg Tab) 875 Mg-125 Mg Tablet, 1 EACH PO BIDAC for 7 Days, #14 TAB Prov:BOBBY COSME 04/23/23 Reported Medications Hydroxyurea (Hydroxyurea) 500 Mg Capsule, 1 CAP PO QODAY for 30 Days, #30 CAP 0 Refills 04/13/24 Hydrocodone/Acetaminophen (Hydrocodon-Acetaminophen 5-325) 5 Mg-325 Mg Tablet, 1 TAB PO QODAY PRN for pain for 5 Days, #10 TAB 0 Refills 04/13/24 Hydrocodone/Acetaminophen (Hydrocodon-Acetaminophen 5-325) 5 Mg-325 Mg Tablet, 1-2 TAB PO Q4HPRN PRN for pain for 3 Days, #40 TAB 0 Refills 04/13/24 Lisinopril (Lisinopril) 10 Mg Tablet, 1 TAB PO DAILY for 30 Days, #30 TAB 0 Refills 04/13/24 Pregabalin (Pregabalin) 75 Mg Capsule, 1 CAP PO BID MDD 2 Capsule(s) for 30 Days, #60 CAP 0 Refills 04/13/24 Tamsulosin HCl (Flomax) 0.4 Mg Cap.er.24h, 1 CAP PO DAILY for 30 Days, #30 CAP 0 Refills 04/13/24 Cholecalciferol (Vitamin D3) (Vitamin D3) 50 Mcg (2000 Unit) Capsule, 1 CAP PO DAILY for 30 Days, #30 CAP 0 Refills 04/13/24 Folic Acid (Folic Acid) 0.4 Mg Tablet, 1 TAB PO DAILY for 30 Days, #30 TAB 0 Refills 04/13/24 Pyridoxine HCl (Vitamin B6) (Vitamin B6) 100 Mg/2.5 Ml Liquid, 100 MG PO DAILY 04/13/24 Ferrous Sulfate (Iron) 325 Mg (65 Mg Iron) Tablet, 1 TAB PO QODAY for 30 Days, #60 TAB 0 Refills 04/13/24 Aspirin (ASPIRIN 81 MG ECTAB) 81 Mg Ectab, 81 MG PO DAILY, TAB.EC 04/13/24 [Funnel Tea] No Conflict Check, PO PRN for PRN 12/28/13 [Charcocaps] No Conflict Check, PO PRN for PRN 12/28/13 Simethicone (Gas-X) 80 Mg Tab.chew, 80 MG PO AD PRN for PRN, TAB.CHEW 12/28/13 Famotidine (Pepcid AC) 10 Mg Tablet, 10 MG PO AD PRN for PRN, TAB 12/28/13 [Beano] No Conflict Check, PO PRN for PRN 12/28/13 Esomeprazole Magnesium (Nexium) 40 Mg Capsule.dr, 40 MG PO DAILY, CAP 12/28/13 Cholecalciferol (Vitamin D3) (Vitamin D3) 1,000 Unit Capsule, 1000 UNIT PO DAILY, CAP 12/28/13 Alprazolam (Alprazolam) 1 Mg Tablet, 1 MG PO AD PRN for PRN, TAB 12/28/13 [Aspirin ] No Conflict Check, 325 MG PO DAILY 12/28/13 [Metoprolol] No Conflict Check, 25 MG PO BID 12/28/13 Past Medical History Past Medical History: Cancer, Hypertension Medical History Other: MYELOFIBROSIS, BLOOD TRANSFUSIONS, LEG ULCERS Past Surgical History: Cholecystectomy, CABG Social History Social History: Negative, Lives with family ROS Dictation Generalized body weakness Physical Exam Physical Exam Dictation VITAL SIGNS: Reviewed. GENERAL APPEARANCE: Alert, oriented x3, no acute distress, obese. HEAD AND FACE: Non-traumatic. EYES: PERRL, pink conjunctivas, eyelid no trauma, anterior chamber clear. EARS: Pinnas intact and no signs of trauma or erythema. Ear canals clear and no discharge. TMs no erythema. NOSE: No discharge, no bleeding. OROPHARYNX: Mouth normal, teeth no caries, tongue pink. Pharynx clear, no erythema. Tonsils no exudates, no abscesses noted. Mucous membrane moist. NECK: Supple, non-tender, no thyromegaly, no masses, no JVD, no bruits. BREAST: Deferred. CHEST: No tenderness, no crepitus, no paradoxical movement, no retractions. LUNGS: Clear, well-ventilated, symmetric, no rales, no wheezing, no rhonchi, no stridor, good breath sounds bilaterally. HEART: Regular rate, regular rhythm, no murmur, no gallops. VASCULAR: No peripheral edema. ABDOMEN: Soft, positive bowel sounds, nondistended, no guarding, nontender, no rebound, no masses no hepatomegaly, no splenomegaly, no Morales's sign, no hernias. RECTAL: Deferred. GENITAL: Deferred. NEUROLOGICAL: Normal speech, gross motor function intact, gross sensory function intact. MUSCULOSKELETAL: Neck nontender, full range of motion, back nontender, full range of motion. EXTREMITIES: Nontender, full range of motion. SKIN: Color pink, dry, no turgor, no rash, no lacerations, no abrasions, no contusions. LYMPHATICS: Deferred. Results Laboratory and Microbiology Lab and Micro Result Laboratory Tests Test 04/24/24 21:51 04/24/24 22:16 04/24/24 23:53 White Blood Count 27.4 K/uL (4.8-10.8) H Red Blood Count 2.36 MIL/uL (4.50-6.20) L Hemoglobin 7.6 g/dL (14.0-18.0) L Hematocrit 24.0 % (42-54) L Mean Corpuscular Volume 101.7 fL (79-99) H Mean Corpuscular Hemoglobin 32.2 pg (27.0-33.0) Mean Corpuscular Hemoglobin Concent 31.7 g/dL (32.0-36.0) L Red Cell Distribution Width 20.9 % (11.0-15.5) H Platelet Count 420 K/uL (130-400) H Mean Platelet Volume 9.8 fL (7.5-10.5) Immature Granulocyte % (Auto) 12.4 % (0-1) H Neutrophils (%) (Auto) 77.2 % (40.0-77.0) H Lymphocytes (%) (Auto) 1.5 % (21.0-51.0) L Monocytes (%) (Auto) 8.6 % (3.0-13.0) Eosinophils (%) (Auto) 0.1 % (0.0-8.0) Basophils (%) (Auto) 0.2 % (0.0-5.0) Neutrophils # (Auto) 21.1 K/uL (1.8-7.7) H Lymphocytes # (Auto) 0.4 K/uL (1.0-4.8) L Monocytes # (Auto) 2.4 K/uL (0.1-1.0) H Eosinophils # (Auto) 0.02 K/uL (0.00-0.70) Basophils # (Auto) 0.06 K/uL (0.00-0.20) Absolute Immature Granulocyte (auto 3.39 K/uL (0-1) H Segmented Neutrophils % 79 % (40-70) H Band Neutrophils % 8 % (0-2) H Lymphocytes % (Manual) 5 % (22-44) L Monocytes % (Manual) 6 % (2-9) Nucleated Red Blood Cells 0.0 % (0.0-0.19) Differential Comment MANUAL DIFFERENTIAL Reactive Lymphocytes 2 % (0-0) H White Cell Morphology Comment IMMATURE GRAN 1+ Platelet Morphology Comment LARGE PLTS PRESENT Red Blood Cell Morphology See comments Prothrombin Time 12.6 SEC (9.6-11.6) H Prothromb Time International Ratio 1.21 (0.85-1.15) H Activated Partial Thromboplast Time 33.0 SEC (26.3-35.5) Sodium Level 127 mmol/L (136-145) L Potassium Level 4.8 mmol/L (3.5-5.1) Chloride Level 92 mmol/L (101-111) L Carbon Dioxide Level 32 mmol/L (21-32) Blood Urea Nitrogen 16 mg/dL (7-18) Creatinine 0.7 mg/dL (0.5-1.3) Glomerular Filtration Rate Calc 94 mL/min (>90) Random Glucose 114 mg/dL (70-105) H Lactic Acid Level 1.4 mmol/L (0.8-2.5) Total Calcium 8.5 mg/dL (8.5-10.1) Total Bilirubin 1.0 mg/dL (0.2-1.0) Direct Bilirubin 0.5 mg/dL (0.0-0.3) H Aspartate Amino Transf (AST/SGOT) 34 U/L (10-37) Alanine Aminotransferase (ALT/SGPT) 144 U/L (12-78) H Alkaline Phosphatase 86 U/L (50-136) Total Creatine Kinase 14 U/L (21-232) L Troponin I High Sensitivity 7 ng/L (4-75) Total Protein 6.1 g/dL (6.0-8.3) Albumin 3.3 g/dL (3.5-5.0) L Lipase 27 U/L (16-77) Procalcitonin 0.29 ng/mL (0.05-0.5) Influenza Type A Antigen Negative For Type A Influenza Type B Antigen Negative For Type B SARS-CoV-2, RNA, NAAT NEGATIVE SARS CoV-2 Urine Color LIGHT-YELLOW (YELLOW) Urine Appearance CLEAR (CLEAR) Urine pH 6.5 (5.0-8.0) Urine Specific [place] 1.019 (1.001-1.031) Urine Protein 10 mg/dL (NEGATIVE) H Urine Glucose (UA) NEGATIVE mg/dL (NEGATIVE) Urine Ketones NEGATIVE mg/dL (NEGATIVE) Urine Occult Blood NEGATIVE (NEGATIVE) Urine Nitrate NEGATIVE (NEGATIVE) Urine Bilirubin NEGATIVE mg/dL (NEGATIVE) Urine Urobilinogen 0.2 mg/dL (0.2-1.0) Urine Leukocyte Esterase NEGATIVE Ochoa/uL Urine RBC 0-1 /HPF (0-1) Urine WBC 2-5 /HPF (0-1) H Urine Squamous Epithelial Cells RARE /HPF (0-2) Urine Bacteria None /HPF (None Seen) Urine Opiates Screen POSITIVE (NEGATIVE) H Urine Barbiturates Screen NEGATIVE (NEGATIVE) Urine Phencyclidine Screen NEGATIVE (NEGATIVE) Urine Amphetamines Screen NEGATIVE (NEGATIVE) Urine Benzodiazepines Screen NEGATIVE (NEGATIVE) Urine Cocaine Screen NEGATIVE (NEGATIVE) Urine Marijuana (THC) Screen NEGATIVE (NEGATIVE) MDM MDM: Differential diagnosis: Rationale: Tests considered and ordered secondary to shared decision making include: labs, ECG and radiology Previous outside records reviewed: Old ER visits. Risk of complication and/or morbidity or mortality of patient management: None Medications-Per medication reconciliation Need for hospitalization: Patient does meet criteria for hospitalization. Need for emergency major/minor surgery: No There are no social concerns with this patient. Prescription drug management Prescriptions will include symptomatic care Patient's prior external medical records from other ER visits were reviewed by me as indicated. Prior testing and results from previous visits were reviewed. Prior tests were taken into account with medical decision making and resource utilization, independent historian/historians were used to obtain complete medical history. I independently interpreted the test that were performed, results were reviewed by me and considered findings on radiology if ordered. Medical management and examination interpretation discussions were had by me with other qualified healthcare professionals as indicated for the patient's care. ED Course Orders Procedure Category Date Status Time 12 Lead Ekg Tracing- EKG 04/24/24 Logged Technical 21:45 Cbc With Differential LAB 04/24/24 Complete 21:45 Basic Metabolic Panel LAB 04/24/24 Complete 21:45 Covid Rna Naat LAB 04/24/24 Complete 21:45 Creatine Kinase, Total LAB 04/24/24 Complete 21:45 Drug Screen Urine LAB 04/24/24 Complete 21:45 Hepatic Function Panel LAB 04/24/24 Complete 21:45 Influenza Type A & B, LAB 04/24/24 Complete Rapid 21:45 Lactic Acid LAB 04/24/24 Complete 21:45 Lipase LAB 04/24/24 Complete 21:45 Procalcitonin LAB 04/24/24 Complete 21:45 Pt And Ptt LAB 04/24/24 Complete 21:45 Troponin I High LAB 04/24/24 Complete Sensitivity 21:45 Urinalysis LAB 04/24/24 Complete W/Microscopic 21:45 Chest 1vw RAD 04/24/24 Resulted 21:45 Manual Differential LAB 04/24/24 Complete 21:51 Type And Screen BBK 04/24/24 In Process 23:53 Rbc-No Active Bleeding BBK 04/24/24 In Process 23:53 Rbc-No Active Bleeding BBK 04/24/24 In Process 23:54 Vital Signs Date Time Temp Pulse Resp B/P (MAP) Pulse Ox O2 Delivery O2 Flow Rate FiO2 04/25/24 00:27 93 16 132/54 100 Room Air* 0 21 04/24/24 22:19 95 15 128/53 99 Room Air* 0 21 04/24/24 21:28 99.1 101 15 131/72 97 Room Air 0 04/24/24 21:27 99.1 101 16 131/72 97 Room Air* 0 21 DX & DISP Disposition: Inpatient Departure Impression: Primary Impression: Anemia Condition: Stable Referrals: SELF,REFERRAL (PCP) SHADI BARROSO MD Apr 25, 2024 01:13
--- NOTE | 2024-04-25 01:32 | EKG ---
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
--- NOTE | 2024-04-25 01:53 | HP ---
[facility] HISTORY AND PHYSICAL Date of Service: Apr 25, 2024 Time of Service: 01:53 Attending/supervising physicians: Dr. Coelho and Dr. Monterroso HISTORY OF PRESENT ILLNESS: Mr. Mancia is a 78-year-old male with a history of a myeloproliferative disorder, history of bladder cancer, hyperlipidemia, bilateral lower extremity wounds who presented to [facility] ED for evaluation of generally body weakness. Patient has history of chronic anemia and reported he usually feels weak when his hemoglobin is usually low. The patient denied chest pain, shortness of breath, fevers, chills, any recent illness, any pain, other problem or concern. The patient was recently admitted on 04/13/2024 and was discharged on 04/14/2024 with the diagnosis of acute symptomatic anemia and leukocytosis. The patient reports that he saw Dr. Zamora going week ago and is taking oral medications for the myeloproliferative disorder. He states he is receiving wound care to bilateral lower extremities as outpatient by Dr. Salcedo. The patient arrived to the ED with a hemoglobin of 7.6 and 1 unit of PRBC was administered. WBCs were 27.4 on arrival (Per chart review WBCs have been chronically elevated. Since one year ago WBC gave been chronically elevated, in 04/20/2023 WBCs were 27.0). UA was negative for leuk EST and nitrites. UDS: Positive opiates. Patient was negative for influenza and COVID. Chest x-ray: Mild bilateral pulmonary infiltrates, maybe related to mild pulmonary vascular congestion with possible superimposed pneumonitis. ED provider request patient be admitted with the diagnosis of anemia. The patient was admitted under the [facility] hospitalist team. I assessed patient in ED 13. The patient appeared comfortable, breathing was even and unlabored, and in no distress. Patient has bilateral lower extremities with a dressing with minimal discharge. The patient was receiving blood transfusion during my assessment. I informed patient of labs, diagnostics, and plan of care. The patient verbalizes understanding and is in agreement with the plan. Plan and assessment are listed below. REVIEW OF SYSTEMS 12-point ROS reviewed with patient. All pertinent positives are listed above. Otherwise negative, noncontributory, or non-pertinent. PAST MEDICAL HISTORY: As listed above PAST SURGICAL HISTORY: Cholecystectomy, CABG PAST SOCIAL HISTORY: Patient denied alcohol, tobacco, illicit drug use. Patient lives with family. FAMILY HISTORY: Noncontributory Coded Allergies: No Known Drug Allergies (Unverified Allergy, Unknown, 12/28/13) PHYSICAL EXAM GENERAL APPEARANCE: The patient is awake, alert, and oriented, in no acute cardiopulmonary distress. NEUROLOGICAL: Cranial nerves II-XII grossly intact. Motor is 5/5 in bilateral upper and lower extremities proximal to distal. No sensory deficits. HEENT: Face is symmetric. Pupils are equal and reactive. Extraocular movements are intact. NECK: Supple. No JVD. No thyromegaly. No submental, submandibular, pre- /postauricular, occipital or supraclavicular lymphadenopathy. CHEST: Normal chest expansion. No Telemetry. LUNGS: Absence of any rales, rhonchi or any wheezing. CARDIOVASCULAR: Regular. S1 and S2 normal. No appreciable rubs, murmurs or gallops. ABDOMEN: Soft, nontender, and nondistended. There is no rebound, voluntary guarding, or rigidity. : Deferred. No Priest. EXTREMITIES: Non-edematous and not cyanotic. No clubbing. Good capillary refill. Bilateral lower extremities have a dressing with minimal discharge. SKIN: No skin breakdown. Vital Sign (Last 24 Hours) 04/24/24 04/25/24 21:28 00:27 Temp 99.1 Pulse 93 Resp 16 B/P (MAP) 132/54 Pulse Ox 100 O2 Delivery Room Air* O2 Flow Rate 0 FiO2 21 LABS: Laboratory: Test 04/24/24 23:53 04/24/24 22:16 04/24/24 21:51 Range/Units Urine Color LIGHT-YELLOW YELLOW Urine Appearance CLEAR CLEAR Urine pH 6.5 5.0-8.0 Urine Specific [place] 1.019 1.001-1.031 Urine Protein 10 H NEGATIVE mg/dL Urine Glucose (UA) NEGATIVE NEGATIVE mg/dL Urine Ketones NEGATIVE NEGATIVE mg/dL Urine Occult Blood NEGATIVE NEGATIVE Urine Nitrate NEGATIVE NEGATIVE Urine Bilirubin NEGATIVE NEGATIVE mg/dL Urine Urobilinogen 0.2 0.2-1.0 mg/dL Urine Leukocyte Esterase NEGATIVE NEGATIVE Ochoa/uL Urine RBC 0-1 0-1 /HPF Urine WBC 2-5 H 0-1 /HPF Urine Squamous Epithelial Cells RARE 0-2 /HPF Urine Bacteria None None Seen /HPF Urine Opiates Screen POSITIVE H NEGATIVE Urine Barbiturates Screen NEGATIVE NEGATIVE Urine Phencyclidine Screen NEGATIVE NEGATIVE Urine Amphetamines Screen NEGATIVE NEGATIVE Urine Benzodiazepines Screen NEGATIVE NEGATIVE Urine Cocaine Screen NEGATIVE NEGATIVE Urine Marijuana (THC) Screen NEGATIVE NEGATIVE Influenza Type A Antigen Negative For Type A NEGATIVE Influenza Type B Antigen Negative For Type B NEGATIVE SARS-CoV-2, RNA, NAAT NEGATIVE SARS CoV-2 NEGATIVE White Blood Count 27.4 H 4.8-10.8 K/uL Red Blood Count 2.36 L 4.50-6.20 MIL/uL Hemoglobin 7.6 L 14.0-18.0 g/dL Hematocrit 24.0 L 42-54 % Mean Corpuscular Volume 101.7 H 79-99 fL Mean Corpuscular Hemoglobin 32.2 27.0-33.0 pg Mean Corpuscular Hemoglobin Concent 31.7 L 32.0-36.0 g/dL Red Cell Distribution Width 20.9 H 11.0-15.5 % Platelet Count 420 H 130-400 K/uL Mean Platelet Volume 9.8 7.5-10.5 fL Immature Granulocyte % (Auto) 12.4 H 0-1 % Neutrophils (%) (Auto) 77.2 H 40.0-77.0 % Lymphocytes (%) (Auto) 1.5 L 21.0-51.0 % Monocytes (%) (Auto) 8.6 3.0-13.0 % Eosinophils (%) (Auto) 0.1 0.0-8.0 % Basophils (%) (Auto) 0.2 0.0-5.0 % Neutrophils # (Auto) 21.1 H 1.8-7.7 K/uL Lymphocytes # (Auto) 0.4 L 1.0-4.8 K/uL Monocytes # (Auto) 2.4 H 0.1-1.0 K/uL Eosinophils # (Auto) 0.02 0.00-0.70 K/uL Basophils # (Auto) 0.06 0.00-0.20 K/uL Absolute Immature Granulocyte (auto 3.39 H 0-1 K/uL Segmented Neutrophils % 79 H 40-70 % Band Neutrophils % 8 H 0-2 % Lymphocytes % (Manual) 5 L 22-44 % Monocytes % (Manual) 6 2-9 % Nucleated Red Blood Cells 0.0 0.0-0.19 % Differential Comment MANUAL DIFFERENTIAL Reactive Lymphocytes 2 H 0-0 % White Cell Morphology Comment IMMATURE GRAN 1+ Platelet Morphology Comment LARGE PLTS PRESENT Red Blood Cell Morphology See comments Prothrombin Time 12.6 H 9.6-11.6 SEC Prothromb Time International Ratio 1.21 H 0.85-1.15 Activated Partial Thromboplast Time 33.0 26.3-35.5 SEC Sodium Level 127 L 136-145 mmol/L Potassium Level 4.8 3.5-5.1 mmol/L Chloride Level 92 L 101-111 mmol/L Carbon Dioxide Level 32 21-32 mmol/L Blood Urea Nitrogen 16 7-18 mg/dL Creatinine 0.7 0.5-1.3 mg/dL Glomerular Filtration Rate Calc 94 >90 mL/min Random Glucose 114 H 70-105 mg/dL Lactic Acid Level 1.4 0.8-2.5 mmol/L Total Calcium 8.5 8.5-10.1 mg/dL Total Bilirubin 1.0 0.2-1.0 mg/dL Direct Bilirubin 0.5 H 0.0-0.3 mg/dL Aspartate Amino Transf (AST/SGOT) 34 10-37 U/L Alanine Aminotransferase (ALT/SGPT) 144 H 12-78 U/L Alkaline Phosphatase 86 50-136 U/L Total Creatine Kinase 14 L 21-232 U/L Troponin I High Sensitivity 7 4-75 ng/L Total Protein 6.1 6.0-8.3 g/dL Albumin 3.3 L 3.5-5.0 g/dL Lipase 27 16-77 U/L Procalcitonin 0.29 0.05-0.5 ng/mL DIAGNOSTICS / RADIOLOGY: [ ] ASSESSMENT: Acute on chronic symptomatic anemia, POA Chronic leukocytosis 2/2 myeloproliferative disorder Chronic bilateral lower extremity wounds Left lower extremity skin graft Hypertension Mild bilateral pulmonary infiltrates, mild pulmonary vascular congestion with possible superimposed pneumonitis. Chronic problem list: myeloproliferative disorder, history of bladder cancer, hyperlipidemia, bilateral lower extremity wounds, CAD s/p remote CABG History of left-sided pleural effusion PLAN: Admit to medical-surgical floor. Transfuse 1 unit of PRBC. Monitor for bleed and H&H q.6 hours. Start Protonix 40 mg IV b.i.d.. Start Aspirin 81 mg PO daily, Ferrous sulfate, floic acid, Lisinopril, Flomax. Remaining home mediations once provided. Obtain stool guaiac. Consult with photo finish photographer. Consult Dr. Salcedo, Wound Care. (On prior admission Dr. Salcedo recommended not to remove dressing from left lower extremity due to skin graft) P.r.n. medications for: Pain management, fever, hypertension, nausea, vomiting, constipation. Glucometer checks a.c. and HS with insulin regular sliding scale coverage per protocol as needed. Blood pressure checks every4 hours and as needed. Monitor renal and liver function. Monitor electrolytes and treat accordingly. A.m. labs: CBC, BMP, Mag, phos. For orders per hospitalization. ADVANCED CARE PLANNING 1. Which of the following were discussed? Hospice Care - No Therapeutic options - Yes Advance Directives - Yes Other discussions - 2. Discussed with who? Patient 3. Voluntary nature of this service was explained to the patient? Yes 4. Amount of time spent - __ over 35 minutes 5. Reviewed by Physician? (if this service was performed by MORENO) Yes ADDENDUM: - Will order LDH - WIll order reticulocyte count - Follow up with oncology recommendations ATTENDING PHYSICIAN ATTESTATION: I have seen and discussed this patient with the midlevel and I agree with their plan. See my addendum for updates to the medical plan MD ASIYA Biggs [facility] Apr 25, 2024 01:53 ELLIS COELHO MD Apr 25, 2024 16:56
[2024-04-25] MEDS ORDERED: LACTULOSE 20 GM/30 ML UDCUP PO PRN (02:00)
[2024-04-25] MEDS ORDERED: acetaMINOPHEN 650 MG SUPPOSITORY RC PRN (02:00)
[2024-04-25] MEDS ORDERED: acetaMINOPHEN 325 MG TAB PO PRN (02:00)
[2024-04-25] MEDS ORDERED: hydrALAZine 20MG/ML VIAL IV PRN (02:00)
[2024-04-25] MEDS ORDERED: TEMAZepam 15 MG CAPSULE PO PRN (02:00)
[2024-04-25] MEDS ORDERED: ondanSETRON 4MG INJ IVP PRN (02:00)
[2024-04-25] MEDS ORDERED: morPHINE 2 MG SYG IVP PRN (02:00)
[2024-04-25] MEDS ORDERED: doCUSate SODIUM 100 MG CAP PO PRN (02:00)
--- NOTE | 2024-04-25 03:30 | NUR ---
HOME MEDS; PATIENT DOES NOT HAVE HOME MEDS WITH HIM AT THIS TIME; PER PATIENT IS AVAILABLE TO BRING MEDICATIONS IN AM FOR RECONCILLIATION. PATIENT EDUCATED ON IMPORTANCE OF MED RECONCILLIATION. PATIENT STATES UNDERSTANDING.
[2024-04-25 06:02] LABS: BASOPHILS # (AUTO) 0.14 K/uL (0.00-0.20); BASOPHILS % (AUTO) 0.5 % (0.0-5.0); EOSINOPHILS # (AUTO) 0.02 K/uL (0.00-0.70); EOSINOPHILS % (AUTO) 0.1 % (0.0-8.0); HEMATOCRIT 27.9 % (42-54); IMMATURE GRANULOCYTE ABSOLUTE 4.47 K/uL (0-1); LYMPHOCYTES # (AUTO) 0.6 K/uL (1.0-4.8); LYMPHOCYTES % (AUTO) 2.1 % (21.0-51.0); MEAN CORPUSCULAR HEMOGLOBIN 31.4 pg (27.0-33.0); MEAN CORPUSCULAR HGB CONC 31.9 g/dL (32.0-36.0); MEAN CORPUSCULAR VOLUME 98.6 fL (79-99); MONOCYTES # (AUTO) 1.9 K/uL (0.1-1.0); MONOCYTES % (AUTO) 6.5 % (3.0-13.0); NEUTROPHILS # (AUTO) 22.4 K/uL (1.8-7.7); NEUTROPHILS % (AUTO) 75.7 % (40.0-77.0); NUCLEATED RED BLOOD CELLS 0.1 % (0.0-0.19); PLATELET COUNT (AUTO) 571 K/uL (130-400); RED BLOOD CELL COUNT(AUTO) 2.83 MIL/uL (4.50-6.20); RED CELL DISTRIBUTION WIDTH 20.7 % (11.0-15.5); WHITE BLOOD COUNT (AUTO) 29.6 K/uL (4.8-10.8)
[2024-04-25 06:08] LABS: HEMOGLOBIN A1C 6.3 % (4.0-6.0)
[2024-04-25] MEDS: INSULIN humuLIN R 100 UNIT/ML 3ML SQ SCH (07:30)
[2024-04-25 09:32] LABS: CREATININE 0.7 mg/dL (0.5-1.3); POTASSIUM 4.6 mmol/L (3.5-5.1)
[2024-04-25] MEDS ORDERED: PoTASSium chl 10% ELIXIR 20MEQ 20 MEQ/15 ML UDCUP PO PRN (10:30)
[2024-04-25] MEDS ORDERED: PoTASSium chloRIDE 20MEQ ER 20 MEQ ERTAB PO PRN (10:30)
[2024-04-25] MEDS ORDERED: PoTASSium chloRIDE 20MEQ/100ML 100 ML IV PRN (10:30)
[2024-04-25] MEDS ORDERED: GLUCAGON 1MG KIT 1 MG ML IM PRN (10:30)
[2024-04-25] MEDS ORDERED: DEXTROSE 50%-WATER 50 ML DISP.SYRIN IV PRN (10:30)
[2024-04-25] MEDS ORDERED: MAGNESIUM 2GM PREMIX 50ML 50 ML IV PRN (10:30)
[2024-04-25] MEDS: PANTOPrazole 40 MG/VIAL IVP SCH (11:10)
[2024-04-25] MEDS: FOLic ACID 1 MG TABLET PO SCH (11:10)
[2024-04-25] MEDS: tamSULOsin HCL 0.4 MG CAP.ER.24H PO SCH (11:10)
[2024-04-25] MEDS: FERROUS SULFATE 325 MG TABLET.DR PO SCH (11:10)
[2024-04-25 11:19] VITALS: BP 126/57; PULSE 80; RESP 18; TEMP 98
[2024-04-25 13:23] LABS: BASOPHILS # (AUTO) 0.08 K/uL (0.00-0.20); BASOPHILS % (AUTO) 0.4 % (0.0-5.0); EOSINOPHILS # (AUTO) 0.02 K/uL (0.00-0.70); EOSINOPHILS % (AUTO) 0.1 % (0.0-8.0); HEMATOCRIT 25.6 % (42-54); IMMATURE GRANULOCYTE ABSOLUTE 2.75 K/uL (0-1); LYMPHOCYTES # (AUTO) 0.4 K/uL (1.0-4.8); MEAN CORPUSCULAR HEMOGLOBIN 31.5 pg (27.0-33.0); MEAN CORPUSCULAR HGB CONC 31.6 g/dL (32.0-36.0); MEAN CORPUSCULAR VOLUME 99.6 fL (79-99); MONOCYTES % (AUTO) 9.1 % (3.0-13.0); NEUTROPHILS # (AUTO) 16.2 K/uL (1.8-7.7); NEUTROPHILS % (AUTO) 75.6 % (40.0-77.0); PLATELET COUNT (AUTO) 358 K/uL (130-400); RED BLOOD CELL COUNT(AUTO) 2.57 MIL/uL (4.50-6.20); RED CELL DISTRIBUTION WIDTH 20.9 % (11.0-15.5); WHITE BLOOD COUNT (AUTO) 21.5 K/uL (4.8-10.8)
--- NOTE | 2024-04-25 13:32 | NUR ---
DCP Patient lives in a house with walk in shower that has a bench; lives with Ivy Mancia, Spouse [phone]. is retired, remains independent and drives self. able to complete ADL's on his own with occasion help dressing, "putting on socks." has a regular walker, wheelchair and an adjustable bed. [facility] nurse visits his home seven days a week for wound care for bilateral lower extremity wounds post surgical graft. PCP - Pako Zamora MD [facility]. Upon discharge, Ivy Mancia, Spouse [phone] Ivy Mancia, Spouse [phone] requests information for a home care provider to assist with care. Notified CM. Addendum: 04/25/24 at 1340 by KARINA BRIDGES RN CM Amended: Links added.
[2024-04-25 15:30] VITALS: O2SAT 98
[2024-04-25 16:43] VITALS: BP 114/53; PULSE 86; RESP 18; TEMP 97.8
[2024-04-25 17:17] LABS: RETICULOCYTE % (AUTO) 3.85 % (0.42-2.23)
[2024-04-25 19:00] VITALS: BP 130/59; PULSE 90; RESP 16; TEMP 97.3
[2024-04-25 19:00] LABS: BASOPHILS # (AUTO) 0.05 K/uL (0.00-0.20); BASOPHILS % (AUTO) 0.2 % (0.0-5.0); EOSINOPHILS # (AUTO) 0.03 K/uL (0.00-0.70); EOSINOPHILS % (AUTO) 0.1 % (0.0-8.0); HEMATOCRIT 26.8 % (42-54); LYMPHOCYTES # (AUTO) 0.4 K/uL (1.0-4.8); MEAN CORPUSCULAR HEMOGLOBIN 31.4 pg (27.0-33.0); MEAN CORPUSCULAR HGB CONC 31.7 g/dL (32.0-36.0); MEAN CORPUSCULAR VOLUME 98.9 fL (79-99); MONOCYTES # (AUTO) 1.8 K/uL (0.1-1.0); MONOCYTES % (AUTO) 7.9 % (3.0-13.0); NEUTROPHILS # (AUTO) 17.4 K/uL (1.8-7.7); NEUTROPHILS % (AUTO) 77.7 % (40.0-77.0); PLATELET COUNT (AUTO) 344 K/uL (130-400); RED BLOOD CELL COUNT(AUTO) 2.71 MIL/uL (4.50-6.20); RED CELL DISTRIBUTION WIDTH 20.7 % (11.0-15.5); WHITE BLOOD COUNT (AUTO) 22.3 K/uL (4.8-10.8)
[2024-04-25 19:24] LABS: WBC MORPHOLOGY IMMATURE GRAN 1+
[2024-04-25 20:00] VITALS: O2SAT 98
[2024-04-25] MEDS: 0.9%NACL 10ML VIAL ONE (20:23)
[2024-04-25] MEDS: pregABALin 75 MG CAPSULE PO SCH (20:23)
[2024-04-26 00:24] VITALS: BP 155/79; PULSE 97; RESP 16; TEMP 97.6
[2024-04-26 04:00] VITALS: BP 145/72; PULSE 101; RESP 18; TEMP 97.6
[2024-04-26 06:32] LABS: BASOPHILS # (AUTO) 0.09 K/uL (0.00-0.20); BASOPHILS % (AUTO) 0.5 % (0.0-5.0); EOSINOPHILS # (AUTO) 0.03 K/uL (0.00-0.70); EOSINOPHILS % (AUTO) 0.2 % (0.0-8.0); HEMATOCRIT 25.3 % (42-54); IMMATURE GRANULOCYTE ABSOLUTE 1.99 K/uL (0-1); LYMPHOCYTES # (AUTO) 0.4 K/uL (1.0-4.8); LYMPHOCYTES % (AUTO) 2.1 % (21.0-51.0); MEAN CORPUSCULAR HEMOGLOBIN 31.6 pg (27.0-33.0); MEAN CORPUSCULAR HGB CONC 31.6 g/dL (32.0-36.0); MONOCYTES # (AUTO) 1.5 K/uL (0.1-1.0); MONOCYTES % (AUTO) 7.8 % (3.0-13.0); NEUTROPHILS % (AUTO) 78.9 % (40.0-77.0); NUCLEATED RED BLOOD CELLS 0.1 % (0.0-0.19); PLATELET COUNT (AUTO) 344 K/uL (130-400); RED BLOOD CELL COUNT(AUTO) 2.53 MIL/uL (4.50-6.20); RED CELL DISTRIBUTION WIDTH 20.6 % (11.0-15.5)
[2024-04-26 06:56] LABS: CREATININE 0.7 mg/dL (0.5-1.3); PHOSPHORUS 4.2 mg/dL (2.5-4.9); POTASSIUM 4.4 mmol/L (3.5-5.1)
[2024-04-26 08:00] VITALS: BP 130/60; PULSE 97; RESP 20; TEMP 97.8
[2024-04-26] MEDS: LISINOPRIL 10 MG TABLET PO SCH (08:34)
[2024-04-26] MEDS: ASPIRIN 81MG CHEW TAB PO SCH (08:34)
[2024-04-26] MEDS ORDERED: FOLIC ACID PO SCH (09:00)
[2024-04-26] MEDS ORDERED: LISINOPRIL 10 MG TABLET PO SCH (09:00)
[2024-04-26] MEDS ORDERED: ASPIRIN 81 MG EC TAB PO SCH (09:00)
[2024-04-26] MEDS ORDERED: tamSULOsin HCL 0.4 MG CAP.ER.24H PO SCH (09:00)
[2024-04-26 10:19] VITALS: O2SAT 98
[2024-04-26 12:00] VITALS: BP 106/60; PULSE 81; RESP 20; TEMP 97.9
--- NOTE | 2024-04-26 13:50 | NUR ---
[facility] Consult: Patient assessed by wound healing team. See wound assessment. Assessment and recommendations provided to primary nurse. Education provided. Wound care done. Addendum: 04/27/24 at 1527 by ANDRE GAYLE RN RN/ Amended: Links added.
--- NOTE | 2024-04-26 14:30 | NUR ---
REQUESTING AMA FORM. STATES HE DOESN'T WANT TO WAIT FOR THE MD TO ROUND AND HAS A F/U APPT ON FRIDAY WITH DR NAQVI. AMA FORM SIGNED. IV LINE REMOVED. DR URBAN AWARE
[2024-04-27] MEDS ORDERED: FERROUS SULFATE PO SCH (09:00)
[2024-04-27] MEDS ORDERED: hydROXYurea 500 MG CAP PO SCH (09:00)
== END 2024-04-26 15:00 | disposition home or self-care (01) ==
LOC: EDH 21:23 → EDHIP 04-25 01:36 → 3DH 04-25 17:20
PROVIDERS: ADMIT Internal Medicine; ATTEND Internal Medicine
DX: D64.9 Anemia, unspecified (principal); D72.829 Elevated white blood cell count, unspecified; E78.5 Hyperlipidemia, unspecified; I10 Essential (primary) hypertension; I25.10 Atherosclerotic heart disease of native coronary artery without angina pectoris; K59.00 Constipation, unspecified; D47.1 Chronic myeloproliferative disease; Z79.82 Long term (current) use of aspirin; Z20.822 Contact with and (suspected) exposure to COVID-19; Z85.51 Personal history of malignant neoplasm of bladder; Z95.1 Presence of aortocoronary bypass graft; Z79.899 Other long term (current) drug therapy; Z98.890 Other specified postprocedural states
CPT/HCPCS: 81001; 99285; 82550; 80076; 84484; 80048 ×3; 80305; 83690; 85025 ×5; 85610; 85730; 87804 ×2; 83605; 36415 ×3; 87635; 71045; 93005; 84145; 96374; 96376 ×2; 36430; 83036; 84443; 83615; 85045; 86850; 86900; 86901; 86923 ×2; 82948 ×5; 83735; 84100; G0378 ×36; P9016; J2470 ×3

== ENCOUNTER → 2024-05-03 | Outpatient (CLI) | payer MEDICARE ==
[~2024-05-03] MED LIST changes: +LIDOCAINE HCL 4% LTA SOL 4 ML VIAL TP ONE
== END | disposition home or self-care (01) ==
LOC: WHH 08:11
PROVIDERS: ATTEND Family Medicine
DX: I70.248 Atherosclerosis of native arteries of left leg with ulceration of other part of lower leg (principal); E11.622 Type 2 diabetes mellitus with other skin ulcer; L97.822 Non-pressure chronic ulcer of other part of left lower leg with fat layer exposed; I70.238 Atherosclerosis of native arteries of right leg with ulceration of other part of lower leg; L97.812 Non-pressure chronic ulcer of other part of right lower leg with fat layer exposed; E11.621 Type 2 diabetes mellitus with foot ulcer; L97.522 Non-pressure chronic ulcer of other part of left foot with fat layer exposed; L95.8 Other vasculitis limited to the skin; S91.102A Unspecified open wound of left great toe without damage to nail, initial encounter; S41.101D Unspecified open wound of right upper arm, subsequent encounter; S41.102D Unspecified open wound of left upper arm, subsequent encounter; D75.81 Myelofibrosis; I10 Essential (primary) hypertension; E78.5 Hyperlipidemia, unspecified; K21.9 Gastro-esophageal reflux disease without esophagitis; Z85.51 Personal history of malignant neoplasm of bladder; Z90.49 Acquired absence of other specified parts of digestive tract; Z95.1 Presence of aortocoronary bypass graft; Z79.82 Long term (current) use of aspirin; Z79.899 Other long term (current) drug therapy; X58.XXXD Exposure to other specified factors, subsequent encounter; X58.XXXA Exposure to other specified factors, initial encounter; Y93.89 Activity, other specified; Y92.89 Other specified places as the place of occurrence of the external cause; Y99.8 Other external cause status
CPT/HCPCS: 15271; 15272; Q4121; A6197; A6022; A4450

== ENCOUNTER → 2024-05-10 | Outpatient (CLI) | payer MEDICARE ==
[~2024-05-10] MED LIST changes: +LIDOCAINE HCL 1% 20 ML VIAL MISC ONE; -LIDOCAINE HCL 4% LTA SOL 4 ML VIAL TP ONE
== END | disposition home or self-care (01) ==
LOC: WHH 08:08
PROVIDERS: ATTEND Family Medicine
DX: I70.248 Atherosclerosis of native arteries of left leg with ulceration of other part of lower leg (principal); E11.622 Type 2 diabetes mellitus with other skin ulcer; L97.822 Non-pressure chronic ulcer of other part of left lower leg with fat layer exposed; I70.238 Atherosclerosis of native arteries of right leg with ulceration of other part of lower leg; L97.812 Non-pressure chronic ulcer of other part of right lower leg with fat layer exposed; L95.8 Other vasculitis limited to the skin; E11.621 Type 2 diabetes mellitus with foot ulcer; L97.522 Non-pressure chronic ulcer of other part of left foot with fat layer exposed; S91.102D Unspecified open wound of left great toe without damage to nail, subsequent encounter; S41.101D Unspecified open wound of right upper arm, subsequent encounter; S41.102D Unspecified open wound of left upper arm, subsequent encounter; D75.81 Myelofibrosis; I10 Essential (primary) hypertension; E78.5 Hyperlipidemia, unspecified; B35.1 Tinea unguium; K21.9 Gastro-esophageal reflux disease without esophagitis; Z85.51 Personal history of malignant neoplasm of bladder; Z90.49 Acquired absence of other specified parts of digestive tract; Z95.1 Presence of aortocoronary bypass graft; Z79.82 Long term (current) use of aspirin; Z79.899 Other long term (current) drug therapy; X58.XXXD Exposure to other specified factors, subsequent encounter
CPT/HCPCS: 11042; 11730; 15272 ×3; 15271 ×3; A6209; Q4121 ×3; A6197; A6207

== ENCOUNTER → 2024-05-17 | Outpatient (CLI) | payer MEDICARE ==
[~2024-05-17] MED LIST changes: -LIDOCAINE HCL 1% 20 ML VIAL MISC ONE; +LIDOCAINE HCL 4% LTA SOL 4 ML VIAL TP ONE
[2024-05-17 10:00] LABS: HEMATOCRIT 23.1 % (42-54)
== END | disposition home or self-care (01) ==
LOC: WHH 08:13
PROVIDERS: ATTEND Family Medicine
DX: I70.238 Atherosclerosis of native arteries of right leg with ulceration of other part of lower leg (principal); L97.812 Non-pressure chronic ulcer of other part of right lower leg with fat layer exposed; I70.248 Atherosclerosis of native arteries of left leg with ulceration of other part of lower leg; L97.822 Non-pressure chronic ulcer of other part of left lower leg with fat layer exposed; L95.8 Other vasculitis limited to the skin; S91.102D Unspecified open wound of left great toe without damage to nail, subsequent encounter; S41.101D Unspecified open wound of right upper arm, subsequent encounter; S41.102D Unspecified open wound of left upper arm, subsequent encounter; I10 Essential (primary) hypertension; E78.5 Hyperlipidemia, unspecified; K21.9 Gastro-esophageal reflux disease without esophagitis; D75.81 Myelofibrosis; Z85.51 Personal history of malignant neoplasm of bladder; Z90.49 Acquired absence of other specified parts of digestive tract; Z95.1 Presence of aortocoronary bypass graft; Z79.82 Long term (current) use of aspirin; Z79.899 Other long term (current) drug therapy; X58.XXXD Exposure to other specified factors, subsequent encounter
CPT/HCPCS: 11042; 85014; 85018; 36415; A6209; A6197

== ENCOUNTER → 2024-05-24 | Outpatient (CLI) | payer MEDICARE ==
[~2024-05-24] MED LIST changes: -TAMS-1 PO; +TAMS-55 PO
== END | disposition home or self-care (01) ==
LOC: WHH 08:20
PROVIDERS: ATTEND Family Medicine
DX: I70.238 Atherosclerosis of native arteries of right leg with ulceration of other part of lower leg (principal); L97.812 Non-pressure chronic ulcer of other part of right lower leg with fat layer exposed; I70.248 Atherosclerosis of native arteries of left leg with ulceration of other part of lower leg; L97.822 Non-pressure chronic ulcer of other part of left lower leg with fat layer exposed; L95.8 Other vasculitis limited to the skin; S91.102D Unspecified open wound of left great toe without damage to nail, subsequent encounter; S41.101D Unspecified open wound of right upper arm, subsequent encounter; S41.102D Unspecified open wound of left upper arm, subsequent encounter; D75.81 Myelofibrosis; I10 Essential (primary) hypertension; E78.5 Hyperlipidemia, unspecified; K21.9 Gastro-esophageal reflux disease without esophagitis; Z85.51 Personal history of malignant neoplasm of bladder; Z90.49 Acquired absence of other specified parts of digestive tract; Z95.1 Presence of aortocoronary bypass graft; Z79.82 Long term (current) use of aspirin; Z79.899 Other long term (current) drug therapy; X58.XXXD Exposure to other specified factors, subsequent encounter
CPT/HCPCS: 15271; 15272; A6209; Q4121; A6197

== ENCOUNTER → 2024-05-31 | Outpatient (CLI) | payer MEDICARE | END | disposition home or self-care (01) | LOC: WHH 08:04 | PROVIDERS: ATTEND Family Medicine | DX: I70.238 Atherosclerosis of native arteries of right leg with ulceration of other part of lower leg (principal); L97.812 Non-pressure chronic ulcer of other part of right lower leg with fat layer exposed; I70.248 Atherosclerosis of native arteries of left leg with ulceration of other part of lower leg; L97.822 Non-pressure chronic ulcer of other part of left lower leg with fat layer exposed; L97.512 Non-pressure chronic ulcer of other part of right foot with fat layer exposed; L95.8 Other vasculitis limited to the skin; S91.102D Unspecified open wound of left great toe without damage to nail, subsequent encounter; S41.101D Unspecified open wound of right upper arm, subsequent encounter; S41.102D Unspecified open wound of left upper arm, subsequent encounter; D75.81 Myelofibrosis; I10 Essential (primary) hypertension; E78.5 Hyperlipidemia, unspecified; K21.9 Gastro-esophageal reflux disease without esophagitis; Z85.51 Personal history of malignant neoplasm of bladder; Z90.49 Acquired absence of other specified parts of digestive tract; Z95.1 Presence of aortocoronary bypass graft; Z79.82 Long term (current) use of aspirin; Z79.899 Other long term (current) drug therapy; X58.XXXD Exposure to other specified factors, subsequent encounter | CPT/HCPCS: 15271; 11042; 87086; 87186; 15272; 87070; A6209; Q4121; A6197; A6207 ==

== ENCOUNTER → 2024-06-08 | Outpatient (CLI) | payer MEDICARE | END | disposition home or self-care (01) | LOC: WHH 07:50 | PROVIDERS: ATTEND Family Medicine | DX: E11.622 Type 2 diabetes mellitus with other skin ulcer (principal); I70.238 Atherosclerosis of native arteries of right leg with ulceration of other part of lower leg; L97.812 Non-pressure chronic ulcer of other part of right lower leg with fat layer exposed; I70.248 Atherosclerosis of native arteries of left leg with ulceration of other part of lower leg; L97.822 Non-pressure chronic ulcer of other part of left lower leg with fat layer exposed; E11.621 Type 2 diabetes mellitus with foot ulcer; L97.512 Non-pressure chronic ulcer of other part of right foot with fat layer exposed; L97.522 Non-pressure chronic ulcer of other part of left foot with fat layer exposed; L95.8 Other vasculitis limited to the skin; L84 Corns and callosities; S91.102D Unspecified open wound of left great toe without damage to nail, subsequent encounter; S41.101D Unspecified open wound of right upper arm, subsequent encounter; S41.102D Unspecified open wound of left upper arm, subsequent encounter; D75.81 Myelofibrosis; R26.89 Other abnormalities of gait and mobility; I10 Essential (primary) hypertension; B35.1 Tinea unguium; E78.5 Hyperlipidemia, unspecified; K21.9 Gastro-esophageal reflux disease without esophagitis; Z85.51 Personal history of malignant neoplasm of bladder; Z90.49 Acquired absence of other specified parts of digestive tract; Z95.1 Presence of aortocoronary bypass graft; Z79.82 Long term (current) use of aspirin; Z79.899 Other long term (current) drug therapy; Z98.890 Other specified postprocedural states; X58.XXXD Exposure to other specified factors, subsequent encounter | CPT/HCPCS: 15271; 11721; A6209; Q4121; A6197; A4450 ==

== ENCOUNTER → 2024-06-15 | Outpatient (CLI) | payer MEDICARE | END | disposition home or self-care (01) | LOC: WHH 08:53 | PROVIDERS: ATTEND Family Medicine | DX: I70.238 Atherosclerosis of native arteries of right leg with ulceration of other part of lower leg (principal); L97.812 Non-pressure chronic ulcer of other part of right lower leg with fat layer exposed; I70.248 Atherosclerosis of native arteries of left leg with ulceration of other part of lower leg; L97.822 Non-pressure chronic ulcer of other part of left lower leg with fat layer exposed; L97.512 Non-pressure chronic ulcer of other part of right foot with fat layer exposed; L97.522 Non-pressure chronic ulcer of other part of left foot with fat layer exposed; L95.8 Other vasculitis limited to the skin; L84 Corns and callosities; S91.102D Unspecified open wound of left great toe without damage to nail, subsequent encounter; S41.101D Unspecified open wound of right upper arm, subsequent encounter; S41.102D Unspecified open wound of left upper arm, subsequent encounter; D75.81 Myelofibrosis; I10 Essential (primary) hypertension; E78.5 Hyperlipidemia, unspecified; K21.9 Gastro-esophageal reflux disease without esophagitis; Z85.51 Personal history of malignant neoplasm of bladder; Z90.49 Acquired absence of other specified parts of digestive tract; Z95.1 Presence of aortocoronary bypass graft; Z79.82 Long term (current) use of aspirin; Z79.899 Other long term (current) drug therapy; X58.XXXD Exposure to other specified factors, subsequent encounter | CPT/HCPCS: 15271; A6209; Q4121; A6197 ==

== ENCOUNTER → 2024-06-22 | Outpatient (CLI) | payer MEDICARE | END | disposition home or self-care (01) | LOC: WHH 08:46 | PROVIDERS: ATTEND Family Medicine | DX: I70.238 Atherosclerosis of native arteries of right leg with ulceration of other part of lower leg (principal); L97.812 Non-pressure chronic ulcer of other part of right lower leg with fat layer exposed; I70.248 Atherosclerosis of native arteries of left leg with ulceration of other part of lower leg; L97.822 Non-pressure chronic ulcer of other part of left lower leg with fat layer exposed; L97.512 Non-pressure chronic ulcer of other part of right foot with fat layer exposed; L97.522 Non-pressure chronic ulcer of other part of left foot with fat layer exposed; L95.8 Other vasculitis limited to the skin; L84 Corns and callosities; S91.102D Unspecified open wound of left great toe without damage to nail, subsequent encounter; S41.101D Unspecified open wound of right upper arm, subsequent encounter; S41.102D Unspecified open wound of left upper arm, subsequent encounter; D75.81 Myelofibrosis; I10 Essential (primary) hypertension; E78.5 Hyperlipidemia, unspecified; K21.9 Gastro-esophageal reflux disease without esophagitis; Z85.51 Personal history of malignant neoplasm of bladder; Z90.49 Acquired absence of other specified parts of digestive tract; Z95.1 Presence of aortocoronary bypass graft; Z79.82 Long term (current) use of aspirin; Z79.899 Other long term (current) drug therapy; X58.XXXD Exposure to other specified factors, subsequent encounter | CPT/HCPCS: G0463; A6209; A6197 ==

== ENCOUNTER → 2024-06-29 | Outpatient (CLI) | payer MEDICARE | END | disposition home or self-care (01) | LOC: WHH 08:56 | PROVIDERS: ATTEND Family Medicine | DX: I70.238 Atherosclerosis of native arteries of right leg with ulceration of other part of lower leg (principal); L97.812 Non-pressure chronic ulcer of other part of right lower leg with fat layer exposed; I70.248 Atherosclerosis of native arteries of left leg with ulceration of other part of lower leg; L97.822 Non-pressure chronic ulcer of other part of left lower leg with fat layer exposed; L97.522 Non-pressure chronic ulcer of other part of left foot with fat layer exposed; L97.512 Non-pressure chronic ulcer of other part of right foot with fat layer exposed; L95.8 Other vasculitis limited to the skin; L84 Corns and callosities; S91.102D Unspecified open wound of left great toe without damage to nail, subsequent encounter; S41.101D Unspecified open wound of right upper arm, subsequent encounter; S41.102D Unspecified open wound of left upper arm, subsequent encounter; D75.81 Myelofibrosis; I10 Essential (primary) hypertension; E78.5 Hyperlipidemia, unspecified; K21.9 Gastro-esophageal reflux disease without esophagitis; Z85.51 Personal history of malignant neoplasm of bladder; Z90.49 Acquired absence of other specified parts of digestive tract; Z95.1 Presence of aortocoronary bypass graft; Z79.82 Long term (current) use of aspirin; Z79.899 Other long term (current) drug therapy; X58.XXXD Exposure to other specified factors, subsequent encounter | CPT/HCPCS: 11042; A6021; A6209; A6197 ==

== ENCOUNTER → 2024-07-05 | Outpatient (CLI) | payer MEDICARE ==
[~2024-07-05] MED LIST changes: -LIDOCAINE HCL 4% LTA SOL 4 ML VIAL TP ONE
== END | disposition home or self-care (01) ==
LOC: WHH 08:02
PROVIDERS: ATTEND Family Medicine
DX: I70.238 Atherosclerosis of native arteries of right leg with ulceration of other part of lower leg (principal); L97.812 Non-pressure chronic ulcer of other part of right lower leg with fat layer exposed; I70.248 Atherosclerosis of native arteries of left leg with ulceration of other part of lower leg; L97.822 Non-pressure chronic ulcer of other part of left lower leg with fat layer exposed; L97.522 Non-pressure chronic ulcer of other part of left foot with fat layer exposed; L97.512 Non-pressure chronic ulcer of other part of right foot with fat layer exposed; L95.8 Other vasculitis limited to the skin; L84 Corns and callosities; S91.102D Unspecified open wound of left great toe without damage to nail, subsequent encounter; S41.101D Unspecified open wound of right upper arm, subsequent encounter; S41.102D Unspecified open wound of left upper arm, subsequent encounter; D75.81 Myelofibrosis; I10 Essential (primary) hypertension; E78.5 Hyperlipidemia, unspecified; K21.9 Gastro-esophageal reflux disease without esophagitis; Z85.51 Personal history of malignant neoplasm of bladder; Z90.49 Acquired absence of other specified parts of digestive tract; Z95.1 Presence of aortocoronary bypass graft; Z79.82 Long term (current) use of aspirin; Z79.899 Other long term (current) drug therapy; X58.XXXD Exposure to other specified factors, subsequent encounter
CPT/HCPCS: G0463; A6021; A6209; A4450

== ENCOUNTER → 2024-07-12 | Outpatient (CLI) | payer MEDICARE ==
[~2024-07-12] MED LIST changes: +LIDOCAINE HCL 4% LTA SOL 4 ML VIAL TP ONE
== END | disposition home or self-care (01) ==
LOC: WHH 08:03
PROVIDERS: ATTEND Family Medicine
DX: I70.238 Atherosclerosis of native arteries of right leg with ulceration of other part of lower leg (principal); L97.812 Non-pressure chronic ulcer of other part of right lower leg with fat layer exposed; I70.248 Atherosclerosis of native arteries of left leg with ulceration of other part of lower leg; L97.822 Non-pressure chronic ulcer of other part of left lower leg with fat layer exposed; L97.522 Non-pressure chronic ulcer of other part of left foot with fat layer exposed; L97.512 Non-pressure chronic ulcer of other part of right foot with fat layer exposed; L95.8 Other vasculitis limited to the skin; L84 Corns and callosities; S91.102D Unspecified open wound of left great toe without damage to nail, subsequent encounter; S41.101D Unspecified open wound of right upper arm, subsequent encounter; S41.102D Unspecified open wound of left upper arm, subsequent encounter; D75.81 Myelofibrosis; I10 Essential (primary) hypertension; E78.5 Hyperlipidemia, unspecified; K21.9 Gastro-esophageal reflux disease without esophagitis; Z85.51 Personal history of malignant neoplasm of bladder; Z90.49 Acquired absence of other specified parts of digestive tract; Z95.1 Presence of aortocoronary bypass graft; Z79.82 Long term (current) use of aspirin; Z79.899 Other long term (current) drug therapy; X58.XXXD Exposure to other specified factors, subsequent encounter
CPT/HCPCS: G0463; A6021; A6209

== ENCOUNTER → 2024-07-19 | Outpatient (CLI) | payer MEDICARE | END | disposition home or self-care (01) | LOC: WHH 07:59 | PROVIDERS: ATTEND Family Medicine | DX: I70.238 Atherosclerosis of native arteries of right leg with ulceration of other part of lower leg (principal); L97.812 Non-pressure chronic ulcer of other part of right lower leg with fat layer exposed; I70.248 Atherosclerosis of native arteries of left leg with ulceration of other part of lower leg; L97.822 Non-pressure chronic ulcer of other part of left lower leg with fat layer exposed; L97.522 Non-pressure chronic ulcer of other part of left foot with fat layer exposed; L97.512 Non-pressure chronic ulcer of other part of right foot with fat layer exposed; L95.8 Other vasculitis limited to the skin; L84 Corns and callosities; S91.102D Unspecified open wound of left great toe without damage to nail, subsequent encounter; S41.101D Unspecified open wound of right upper arm, subsequent encounter; S41.102D Unspecified open wound of left upper arm, subsequent encounter; D75.81 Myelofibrosis; I10 Essential (primary) hypertension; E78.5 Hyperlipidemia, unspecified; K21.9 Gastro-esophageal reflux disease without esophagitis; Z85.51 Personal history of malignant neoplasm of bladder; Z90.49 Acquired absence of other specified parts of digestive tract; Z95.1 Presence of aortocoronary bypass graft; Z79.82 Long term (current) use of aspirin; Z79.899 Other long term (current) drug therapy; X58.XXXD Exposure to other specified factors, subsequent encounter | CPT/HCPCS: G0463; A6021; A6209 ==

== ENCOUNTER 2024-08-06 22:54 | Inpatient (IN) | payer MEDICARE ==
[~2024-08-06] VITALS: Ht 177.8 cm; Wt 89.0 kg
[~2024-08-06 22:54] MED LIST changes: -LIDOCAINE HCL 4% LTA SOL 4 ML VIAL TP ONE
[2024-08-06] MEDS: acetaMINOPHEN 500 MG TABLET PO ONE (23:22)
[2024-08-06] MEDS: 0.9%NACL 1000ML 1,000 ML IV ONE (23:22)
--- NOTE | 2024-08-06 23:23 | EKG ---
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
[2024-08-06 23:44] LABS: BASOPHILS # (AUTO) 0.05 K/uL (0.00-0.20); BASOPHILS % (AUTO) 0.2 % (0.0-5.0); EOSINOPHILS # (AUTO) 0.01 K/uL (0.00-0.70); HEMATOCRIT 29.9 % (42-54); IMMATURE GRANULOCYTE ABSOLUTE 0.28 K/uL (0-1); LYMPHOCYTES # (AUTO) 0.1 K/uL (1.0-4.8); LYMPHOCYTES % (AUTO) 0.6 % (21.0-51.0); MEAN CORPUSCULAR HEMOGLOBIN 32.9 pg (27.0-33.0); MEAN CORPUSCULAR HGB CONC 32.8 g/dL (32.0-36.0); MEAN CORPUSCULAR VOLUME 100.3 fL (79-99); MONOCYTES # (AUTO) 0.8 K/uL (0.1-1.0); MONOCYTES % (AUTO) 3.4 % (3.0-13.0); NEUTROPHILS # (AUTO) 20.9 K/uL (1.8-7.7); NEUTROPHILS % (AUTO) 94.5 % (40.0-77.0); PLATELET COUNT (AUTO) 252 K/uL (130-400); RED BLOOD CELL COUNT(AUTO) 2.98 MIL/uL (4.50-6.20); RED CELL DISTRIBUTION WIDTH 20.6 % (11.0-15.5); WHITE BLOOD COUNT (AUTO) 22.1 K/uL (4.8-10.8)
[2024-08-06 23:50] LABS: CREATININE 0.6 mg/dL (0.5-1.3); POTASSIUM 4.8 mmol/L (3.5-5.1)
[2024-08-06 23:55] LABS: MAGNESIUM 1.9 mg/dL (1.80-2.40)
[2024-08-07] VITALS (8 sets, daily range): BP systolic 100–140; BP diastolic 52–80; PULSE 86–109; RESP 18–20; TEMP 97.3–100; O2SAT 97–99
[2024-08-07 00:25] LABS: B-TYPE NATRIURETIC PEPTIDE 372 pg/mL (0-100)
[2024-08-07 00:32] LABS: SARS-CoV-2, RNA, NAAT NEGATIVE SARS CoV-2 (NEGATIVE)
[2024-08-07] MEDS: ZOSYN 3.375GM +NS 50ML IV ONE (00:37)
[2024-08-07 00:39] LABS: INFLUENZA TYPE A Negative For Type A (NEGATIVE); INFLUENZA TYPE B Negative For Type B (NEGATIVE)
--- NOTE | 2024-08-07 03:07 | ERN ---
General Chief Complaint: Fatigue Stated Complaint: FEVER AND GBW Time Seen by MD: 23:03 Time Seen by Midlevel: 23:03 Source: patient History of Present Illness Initial Comments The patient is a 78-year-old male with a past medical history of hypertension presents to the emergency department for evaluation of generalized body weakness and fever onset this morning. The patient was admitted to [facility] last week for sepsis. Patient was discharged three days ago. Allergies: Coded Allergies: No Known Drug Allergies (Unverified Allergy, Unknown, 12/28/13) Home Meds Active Scripts Amoxicillin/Potassium Clav (Amox Tr-K Clv 875-125 mg Tab) 875 Mg-125 Mg Tablet, 1 EACH PO BIDAC for 7 Days, #14 TAB Prov:BOBBY COSME 04/23/23 Reported Medications Hydroxyurea (Hydroxyurea) 500 Mg Capsule, 1 CAP PO QODAY for 30 Days, #30 CAP 0 Refills 04/13/24 Hydrocodone/Acetaminophen (Hydrocodon-Acetaminophen 5-325) 5 Mg-325 Mg Tablet, 1 TAB PO QODAY PRN for pain for 5 Days, #10 TAB 0 Refills 04/13/24 Hydrocodone/Acetaminophen (Hydrocodon-Acetaminophen 5-325) 5 Mg-325 Mg Tablet, 1-2 TAB PO Q4HPRN PRN for pain for 3 Days, #40 TAB 0 Refills 04/13/24 Lisinopril (Lisinopril) 10 Mg Tablet, 1 TAB PO DAILY for 30 Days, #30 TAB 0 Re fills 04/13/24 Pregabalin (Pregabalin) 75 Mg Capsule, 1 CAP PO BID MDD 2 Capsule(s) for 30 Days, #60 CAP 0 Refills 04/13/24 Tamsulosin HCl (Flomax) 0.4 Mg Cap.er.24h, 1 CAP PO DAILY for 30 Days, #30 CAP 0 Refills 04/13/24 Cholecalciferol (Vitamin D3) (Vitamin D3) 50 Mcg (2000 Unit) Capsule, 1 CAP PO DAILY for 30 Days, #30 CAP 0 Refills 04/13/24 Folic Acid (Folic Acid) 0.4 Mg Tablet, 1 TAB PO DAILY for 30 Days, #30 TAB 0 Refills 04/13/24 Pyridoxine HCl (Vitamin B6) (Vitamin B6) 100 Mg/2.5 Ml Liquid, 100 MG PO DAILY 04/13/24 Ferrous Sulfate (Iron) 325 Mg (65 Mg Iron) Tablet, 1 TAB PO QODAY for 30 Days, #60 TAB 0 Refills 04/13/24 Aspirin (ASPIRIN 81 MG ECTAB) 81 Mg Ectab, 81 MG PO DAILY, TAB.EC 04/13/24 [Funnel Tea] No Conflict Check, PO PRN for PRN 12/28/13 [Charcocaps] No Conflict Check, PO PRN for PRN 12/28/13 Simethicone (Gas-X) 80 Mg Tab.chew, 80 MG PO AD PRN for PRN, TAB.CHEW 12/28/13 Famotidine (Pepcid AC) 10 Mg Tablet, 10 MG PO AD PRN for PRN, TAB 12/28/13 [Beano] No Conflict Check, PO PRN for PRN 12/28/13 Esomeprazole Magnesium (Nexium) 40 Mg Capsule.dr, 40 MG PO DAILY, CAP 12/28/13 Cholecalciferol (Vitamin D3) (Vitamin D3) 1,000 Unit Capsule, 1000 UNIT PO DAILY, CAP 12/28/13 Alprazolam (Alprazolam) 1 Mg Tablet, 1 MG PO AD PRN for PRN, TAB 12/28/13 [Aspirin ] No Conflict Check, 325 MG PO DAILY 12/28/13 [Metoprolol] No Conflict Check, 25 MG PO BID 12/28/13 Past Medical History Past Medical History: No Pertinent History Medical History Other: MYELOFIBROSIS, BLOOD TRANSFUSIONS, LEG ULCERS Past Surgical History: None Social History Social History: Negative, Lives with family ROS Dictation CONSTITUTIONAL: Negative except for HPI HEAD/FACE: Negative except for HPI EENT: Negative except for HPI RESPIRATORY: Negative except for HPI GASTROINTESTINAL/ABDOMINAL: Negative except for HPI GENITOURINARY: Negative except for HPI MUSCULOSKELETAL: Negative except for HPI INTEGUMENTARY: Negative except for HPI NEUROLOGICAL/PSYCH: Negative except for HPI HEMATOLOGIC/LYMPHATIC: Negative except for HPI All Systems Negative, Except as noted above. 13 point review of systems assessed and all negative except for above. Physical Exam Physical Exam Dictation Vital Signs reviewed General Appearance: Alert, oriented x 3, no acute distress, well developed, nourished. Head and Face: non-traumatic. Eyes: PERRL, pink conjunctivas, eyelid no trauma, anterior chamber with arcus senilis. Ears: Pinnas intact and no signs of trauma or erythema ear canals clear and no discharge TM no erythema Nose: No discharge, no bleeding. Oropharynx: Mouth normal, tongue pink, pharynx clear,no erythema, tonsils no exudates, no abscesses noted, mucous membrane moist Neck: Supple, non-tender, no thyromegaly, no masses, no JVD, no bruits Breast:Deferred Chest:No tenderness, no crepitus, no paradoxical movement, no retractions Lungs:Clear, well-ventilated, symmetric, no rales, no wheezing, no rhonchi, no stridor, good breath sounds bilaterally Heart: Regular rate, regular rhythm, no murmur, no gallops Vascular: no peripheral edema, Abdomen: Soft, positive bowel sounds, nondistended, no guarding, nontender, no rebound, no masses no hepatomegaly, no splenomegaly, no Morales's sign, no hernias. Rectal: Deferred Genital: Deferred Neurological: Normal speech, motor function intact, sensory function intact Musculoskeletal: Neck nontender, full range of motion, back nontender, full range of motion, Extremities: nontender, full range of motion Skin: Multiple open wounds to bilateral lower extremities Lymphatic: Deferred Results Laboratory and Microbiology Lab and Micro Result Laboratory Tests Test 08/06/24 23:35 08/07/24 00:06 White Blood Count 22.1 K/uL (4.8-10.8) H Red Blood Count 2.98 MIL/uL (4.50-6.20) L Hemoglobin 9.8 g/dL (14.0-18.0) L Hematocrit 29.9 % (42-54) L Mean Corpuscular Volume 100.3 fL (79-99) H Mean Corpuscular Hemoglobin 32.9 pg (27.0-33.0) Mean Corpuscular Hemoglobin Concent 32.8 g/dL (32.0-36.0) Red Cell Distribution Width 20.6 % (11.0-15.5) H Platelet Count 252 K/uL (130-400) Mean Platelet Volume 10.6 fL (7.5-10.5) H Immature Granulocyte % (Auto) 1.3 % (0-1) H Neutrophils (%) (Auto) 94.5 % (40.0-77.0) H Lymphocytes (%) (Auto) 0.6 % (21.0-51.0) L Monocytes (%) (Auto) 3.4 % (3.0-13.0) Eosinophils (%) (Auto) 0.0 % (0.0-8.0) Basophils (%) (Auto) 0.2 % (0.0-5.0) Neutrophils # (Auto) 20.9 K/uL (1.8-7.7) H Lymphocytes # (Auto) 0.1 K/uL (1.0-4.8) L Monocytes # (Auto) 0.8 K/uL (0.1-1.0) Eosinophils # (Auto) 0.01 K/uL (0.00-0.70) Basophils # (Auto) 0.05 K/uL (0.00-0.20) Absolute Immature Granulocyte (auto 0.28 K/uL (0-1) Nucleated Red Blood Cells 0.0 % (0.0-0.19) Sodium Level 129 mmol/L (136-145) L Potassium Level 4.8 mmol/L (3.5-5.1) Chloride Level 96 mmol/L (101-111) L Carbon Dioxide Level 27 mmol/L (21-32) Blood Urea Nitrogen 22 mg/dL (7-18) H Creatinine 0.6 mg/dL (0.5-1.3) Glomerular Filtration Rate Calc 99 mL/min (>90) Random Glucose 133 mg/dL (70-105) H Lactic Acid Level 1.8 mmol/L (0.8-2.5) Total Calcium 8.3 mg/dL (8.5-10.1) L Magnesium Level 1.90 mg/dL (1.80-2.40) Total Creatine Kinase 18 U/L (21-232) #L Troponin I High Sensitivity 12 ng/L (4-75) B-Type Natriuretic Peptide 372 pg/mL (0-100) H Influenza Type A Antigen Negative For Type A Influenza Type B Antigen Negative For Type B SARS-CoV-2, RNA, NAAT NEGATIVE SARS CoV-2 Labs Reviewed?: Yes MDM MDM: Differential diagnosis: Sepsis, cellulitis, upper respiratory infection, pneumonia, urinary tract infection Rationale: Tests considered and ordered secondary to shared decision making include: Previous outside records reviewed: Old ER visits. Risk of complication and/or morbidity or mortality of patient management: None Medications-Per medication reconciliation Need for hospitalization: Patient does meet criteria for hospitalization. Need for emergency major/minor surgery: No There are no social concerns with this patient. Prescription drug management Prescriptions will include symptomatic care Patient's prior external medical records from other ER visits were reviewed by me as indicated. Prior testing and results from previous visits were reviewed. Prior tests were taken into account with medical decision making and resource utilization, independent historian/historians were used to obtain complete medical history. I independently interpreted the test that were performed, results were reviewed by me and considered findings on radiology if ordered. Medical management and examination interpretation discussions were had by me with other qualified healthcare professionals as indicated for the patient's care. ED Course Orders Procedure Category Date Status Time 12 Lead Ekg Tracing- EKG 08/06/24 Complete Technical 23:03 B-Type Natriuretic LAB 08/06/24 Complete Peptide 23:03 Basic Metabolic Panel LAB 08/06/24 Complete 23:03 Blood Cult ROSETTA 08/06/24 In Process 23:03 Cbc With Differential LAB 08/06/24 Complete 23:03 Covid Rna Naat LAB 08/06/24 Complete 23:03 Creatine Kinase, Total LAB 08/06/24 Complete 23:03 Influenza Type A & B, LAB 08/06/24 Complete Rapid 23:03 Lactic Acid LAB 08/06/24 Complete 23:03 Magnesium LAB 08/06/24 Complete 23:03 Troponin I High LAB 08/06/24 Complete Sensitivity 23:03 Urinalysis Profile LAB 08/06/24 Logged 23:03 Chest 1vw RAD 08/06/24 Taken 23:03 Acetaminophen 500mg PHA 08/06/24 Complete Tab (Tylenol 500mg T 23:30 0.9%Nacl 1000ml (Ns PHA 08/06/24 Complete 1000ml) 23:30 Zosyn 3.375gm+Ns 50ml PHA 08/07/24 Complete (Zosyn 3.375gm+Ns 00:30 Current Medications Medications (Trade) Dose Ordered Sig/Javed Route PRN Reason Start Time Stop Time Status Last Admin Dose Admin Acetaminophen (TYLenol 500MG TAB) 1,000 mg ONCE ONCE PO 08/06/24 23:30 08/06/24 23:31 DC 08/06/24 23:22 Piperacillin Sod/ Tazobactam Sod (Zosyn 3.375gm+NS 50ml) 3.375 gm ONCE ONCE IV 08/07/24 00:30 08/07/24 00:31 DC 08/07/24 00:37 Sodium Chloride 1,000 ml @ 0 mls/hr ONCE ONCE IV 08/06/24 23:30 08/06/24 23:31 DC 08/06/24 23:22 Vital Signs Date Time Temp Pulse Resp B/P (MAP) Pulse Ox O2 Delivery O2 Flow Rate FiO2 08/07/24 01:04 98.2 89 18 117/52 98 Room Air* 0 21 08/07/24 00:05 99.5 95 17 142/65 97 Room Air* 0 21 08/06/24 23:22 100.9 08/06/24 23:10 101.7 102 17 152/66 98 Room Air* 0 08/06/24 22:56 101.8 92 19 157/57 99 Room Air 0 DX & DISP Disposition: Inpatient Departure Impression: Primary Impression: Sepsis Additional Impression: Cellulitis Condition: Stable Referrals: SELF,REFERRAL (PCP) I have reviewed the case, and I agree with, Diagnosis and Plan I performed the substantive portion of the visit. I have reviewed and personally made and approve the management plan that is documented in the note by myself or the MORENO. I acknowledge for responsibility for the patient's management plan. EILEEN VANESSA Aug 07, 2024 03:07
[2024-08-07] MEDS ORDERED: VANCOMYCIN PROTOCOL PER PHARMACY IV SCH (03:30)
[2024-08-07] MEDS: VANCOMYCIN 2GM/500 ML BAG 500 ML IV ONE (04:21)
[2024-08-07] MEDS ORDERED: ondanSETRON 4MG INJ IV PRN (04:30)
[2024-08-07] MEDS ORDERED: VANCOMYCIN 1G/250ML KIT 250 ML IV SCH (04:30)
--- NOTE | 2024-08-07 05:00 | NUR ---
ADMIT PT ADMITTED TO ROOM 324, AAOX4. DENIES ANY PAINS AT THIS TIME. ADMISSION CARE DONE. PLACED IN BED COMFORTABLY WITH HOB ELEVATED. ADMISSION ASSESSMENT DONE, PLEASE REFER TO CHART. ADMISSION V/S MONITORED, STABLE. PLACED ON TELE MONITOR, NSR WITH HR=88 WITH FIRST DEGREE BLOCK. CONTINUED IV VANCO FROM ER. PICTURES OF WOUNDS TO BLE TAKEN. WOUNDS CLEANSED WITH SALINE, PAT DRY AND COVERED WITH GAUZE. ADMISSION DATA BASE COMPLETED. ORIENTED TO ROOM AND UNIT. IN FOR MORE CARE AND MANAGEMENT. Addendum: 08/07/24 at 0745 by STEPHANIE IZQUIERDO RN RN Amended: Links added.
[2024-08-07 06:49] LABS: BASOPHILS # (AUTO) 0.03 K/uL (0.00-0.20); BASOPHILS % (AUTO) 0.2 % (0.0-5.0); EOSINOPHILS # (AUTO) 0.01 K/uL (0.00-0.70); EOSINOPHILS % (AUTO) 0.1 % (0.0-8.0); HEMATOCRIT 27.2 % (42-54); IMMATURE GRANULOCYTE ABSOLUTE 0.16 K/uL (0-1); LYMPHOCYTES # (AUTO) 0.1 K/uL (1.0-4.8); LYMPHOCYTES % (AUTO) 0.9 % (21.0-51.0); MEAN CORPUSCULAR HEMOGLOBIN 32.7 pg (27.0-33.0); MEAN CORPUSCULAR HGB CONC 32.7 g/dL (32.0-36.0); MONOCYTES # (AUTO) 0.5 K/uL (0.1-1.0); MONOCYTES % (AUTO) 3.3 % (3.0-13.0); NEUTROPHILS # (AUTO) 15.1 K/uL (1.8-7.7); NEUTROPHILS % (AUTO) 94.5 % (40.0-77.0); NUCLEATED RED BLOOD CELLS 0.1 % (0.0-0.19); PLATELET COUNT (AUTO) 193 K/uL (130-400); RED BLOOD CELL COUNT(AUTO) 2.72 MIL/uL (4.50-6.20); RED CELL DISTRIBUTION WIDTH 20.7 % (11.0-15.5)
[2024-08-07 06:58] LABS: HEMOGLOBIN A1C 5.7 % (4.0-6.0)
[2024-08-07 07:05] LABS: ALBUMIN 3.5 g/dL (3.5-5.0); BILIRUBIN,TOTAL 1.3 mg/dL (0.2-1.0); CREATININE 0.7 mg/dL (0.5-1.3); MAGNESIUM 1.8 mg/dL (1.80-2.40); POTASSIUM 3.9 mmol/L (3.5-5.1); TOTAL PROTEIN, SERUM 6.1 g/dL (6.0-8.3)
[2024-08-07 07:50] LABS: ERYTHROCYTE SEDIMENTATION RATE 30 MM/HR (0-20)
--- NOTE | 2024-08-07 08:53 | HMCIMG ---
Exam Type: CHEST 1VW Clinical Information: sepsis Comparison: None Findings: There is cardiomegaly and there is status post median sternotomy. The lungs are clear of infiltrates. Impression: Clear lungs.
[2024-08-07] MEDS: FAMOTIDINE 20MG TAB PO SCH (09:16)
[2024-08-07] MEDS: ZOSYN 3.375GM+NS 50ML 50 ML IV SCH (09:17)
--- NOTE | 2024-08-07 09:24 | HMCIMG ---
US VENOUS DOPPLER BILATERAL INDICATION: Swelling. Bilat. Leg cellulitis TECHNIQUE: US VENOUS DOPPLER BILATERAL Real-time venous Doppler ultrasound was performed using B mode, color flow and spectral analysis. FINDINGS: The visualized right greater saphenous junction, common femoral, deep femoral, superficial femoral, popliteal and posterior tibial veins demonstrate normal compressibility and flow. No DVT is identified. Occlusive DVT seen in the proximal left superficial femoral vein. Left posterior tibial vein was not visualized due to overlying bandage. Remaining pancreas and the left lower extremity are within normal limits. IMPRESSION: Occlusive DVT seen in the proximal left superficial femoral vein. Left posterior tibial vein was not visualized due to overlying bandage.
[2024-08-07 09:29] LABS: APPEARANCE,URINE CLEAR (CLEAR); BILIRUBIN,URINE NEGATIVE (NEGATIVE); COLOR,URINE YELLOW (YELLOW); GLUCOSE, URINE (UA) NEGATIVE (NEGATIVE); KETONES,URINE NEGATIVE (NEGATIVE); LEUKOCYTE ESTERASE ,URINE NEGATIVE Leu/uL (NEGATIVE); NITRATE,URINE NEGATIVE (NEGATIVE); OCCULT BLOOD,URINE NEGATIVE (NEGATIVE); PH,URINE 5.5 (5.0-8.0); PROTEIN,URINE 50 mg/dL (NEGATIVE); UROBILINOGEN,URINE 0.2 mg/dL (0.2-1.0)
[2024-08-07 09:30] LABS: ADD UA MICROSCOPIC YES
[2024-08-07 09:35] LABS: BACTERIA,URINE RARE /HPF (None Seen); CALCIUM OXALATE CRYSTALS,UR RARE /LPF (None Seen); MUCUS,URINE RARE LPF (None Seen); RBC,URINE 0-1 /HPF (0-1); WBC,URINE 0-1 /HPF (0-1)
[2024-08-07] MEDS ORDERED: LAbetaLOL 20MG SYG IV PRN (10:00)
[2024-08-07] MEDS ORDERED: PoTASSium chl 10% ELIXIR 20MEQ 20 MEQ/15 ML UDCUP PO PRN (10:00)
[2024-08-07] MEDS ORDERED: PoTASSium chloRIDE 20MEQ/100ML 100 ML IV PRN ×2 (10:00)
--- NOTE | 2024-08-07 10:07 | HP ---
[facility] HISTORY AND PHYSICAL Date of Service: Aug 07, 2024 Time of Service: 09:32 HISTORY OF PRESENT ILLNESS: [ ] admission date: 08/07/24 PCP: chief complaints: fever, chills This is a 78-year-old male presents in ED with chief complaints of fever and chills. ER initiated sepsis alert: Onset two days ago. Patient was taking Tylenol for fevers. Patient was recently hospitalized for lower extremity cellulitis and discharged on oral antibiotics. metronidazole for Bilateral cellulitis with venous stasis ulcers. Patient reports seen wound care center with Dr. Jason Salcedo. Patient denies abdominal pain diarrhea chest pain, shortness for breath. Sepsis alert was initiated in ED patient came in with a temperature of 101.8 heart rate 102 leukocytosis 22.1. Blood cultures obtained, influenza a and B COVID all negative UA negative. Patient received a dose of Zosyn IV and vancomycin IV ID has been consulted for antibiotics stewardship. Imaging ; venous doppler DVT seen in the proximal left superficial femoral vein. Patient was seen in room 323 patient appears acutely ill having chills. Last temperature check 99.9. Patient denied chest pain, palpitations, dizziness, shortness for breath. spouse at beside: answered all questions and concerns. REVIEW OF SYSTEMS a 14 point ROS obtained all relevant positive documented otherwise ROS negative PAST MEDICAL HISTORY: [ ] Chronic venous stasis ulcers bilateral lower extremity, hypertension, BPH, anemia PAST SURGICAL HISTORY: [ ] CABG x4 2012, heart stents 2018 GB removal PAST SOCIAL HISTORY: [ ] Former smoker denies alcohol use this with spouse FAMILY HISTORY: [ ] Noncontributory Coded Allergies: No Known Drug Allergies (Unverified Allergy, Unknown, 12/28/13) PHYSICAL EXAM GENERAL APPEARANCE: The patient is awake, alert, and oriented, in no acute cardiopulmonary distress. appears acutely ill, NEUROLOGICAL: Cranial nerves II-XII grossly intact. Motor is 5/5 in bilateral upper and lower extremities proximal to distal. No sensory deficits. HEENT: Face is symmetric. Pupils are equal and reactive. Extraocular movements are intact. NECK: Supple. No JVD. No thyromegaly. No submental, submandibular, pre- /postauricular, occipital or supraclavicular lymphadenopathy. CHEST: Normal chest expansion. No Telemetry. LUNGS: Absence of any rales, rhonchi or any wheezing. CARDIOVASCULAR: Regular. S1 and S2 normal. No appreciable rubs, murmurs or gallops. ABDOMEN: Soft, nontender, and nondistended. There is no rebound, voluntary guarding, or rigidity. : Deferred. No Priest. EXTREMITIES: + edematous and not cyanotic. No clubbing. Good capillary refill. SKIN: redness to lower ext bilateral with statis venous ulcer: left leg with dressing Vital Sign (Last 24 Hours) 08/07/24 08/07/24 05:00 08:00 Temp 98.4 Pulse 95 Resp 19 B/P (MAP) 140/74 Pulse Ox 99 O2 Delivery Room Air O2 Flow Rate 0 FiO2 21 LABS: Laboratory: Test 08/07/24 07:25 08/07/24 06:38 08/07/24 00:06 08/06/24 23:35 Range/Units Urine Color YELLOW YELLOW Urine Appearance CLEAR CLEAR Urine pH 5.5 5.0-8.0 Urine Specific [place] 1.027 1.001-1.031 Urine Protein 50 H NEGATIVE mg/dL Urine Glucose (UA) NEGATIVE NEGATIVE mg/dL Urine Ketones NEGATIVE NEGATIVE mg/dL Urine Occult Blood NEGATIVE NEGATIVE Urine Nitrate NEGATIVE NEGATIVE Urine Bilirubin NEGATIVE NEGATIVE mg/dL Urine Urobilinogen 0.2 0.2-1.0 mg/dL Urine Leukocyte Esterase NEGATIVE NEGATIVE [place]/uL White Blood Count 16.0 #H 4.8-10.8 K/uL Red Blood Count 2.72 L 4.50-6.20 MIL/uL Hemoglobin 8.9 L 14.0-18.0 g/dL Hematocrit 27.2 L 42-54 % Mean Corpuscular Volume 100.0 H 79-99 fL Mean Corpuscular Hemoglobin 32.7 27.0-33.0 pg Mean Corpuscular Hemoglobin Concent 32.7 32.0-36.0 g/dL Red Cell Distribution Width 20.7 H 11.0-15.5 % Platelet Count 193 130-400 K/uL Mean Platelet Volume 9.6 7.5-10.5 fL Immature Granulocyte % (Auto) 1.0 0-1 % Neutrophils (%) (Auto) 94.5 H 40.0-77.0 % Lymphocytes (%) (Auto) 0.9 L 21.0-51.0 % Monocytes (%) (Auto) 3.3 3.0-13.0 % Eosinophils (%) (Auto) 0.1 0.0-8.0 % Basophils (%) (Auto) 0.2 0.0-5.0 % Neutrophils # (Auto) 15.1 H 1.8-7.7 K/uL Lymphocytes # (Auto) 0.1 L 1.0-4.8 K/uL Monocytes # (Auto) 0.5 0.1-1.0 K/uL Eosinophils # (Auto) 0.01 0.00-0.70 K/uL Basophils # (Auto) 0.03 0.00-0.20 K/uL Absolute Immature Granulocyte (auto 0.16 0-1 K/uL Nucleated Red Blood Cells 0.1 0.0-0.19 % Erythrocyte Sedimentation Rate 30 H 0-20 MM/HR Sodium Level 132 L 136-145 mmol/L Potassium Level 3.9 3.5-5.1 mmol/L Chloride Level 98 L 101-111 mmol/L Carbon Dioxide Level 28 21-32 mmol/L Blood Urea Nitrogen 20 H 7-18 mg/dL Creatinine 0.7 0.5-1.3 mg/dL Glomerular Filtration Rate Calc 94 >90 mL/min Random Glucose 107 H 70-105 mg/dL Hemoglobin A1c 5.7 4.0-6.0 % Estimated Average Glucose (eAG) 117 70-126 mg/dL Total Calcium 8.3 L 8.5-10.1 mg/dL Magnesium Level 1.80 1.80-2.40 mg/dL Total Bilirubin 1.3 H 0.2-1.0 mg/dL Aspartate Amino Transf (AST/SGOT) 26 10-37 U/L Alanine Aminotransferase (ALT/SGPT) 54 12-78 U/L Alkaline Phosphatase 67 50-136 U/L Total Protein 6.1 6.0-8.3 g/dL Albumin 3.5 3.5-5.0 g/dL Influenza Type A Antigen Negative For Type A NEGATIVE Influenza Type B Antigen Negative For Type B NEGATIVE SARS-CoV-2, RNA, NAAT NEGATIVE SARS CoV-2 NEGATIVE Lactic Acid Level 1.8 0.8-2.5 mmol/L Total Creatine Kinase 18 #L 21-232 U/L Troponin I High Sensitivity 12 4-75 ng/L B-Type Natriuretic Peptide 372 H 0-100 pg/mL Current Medications Medications (Trade) Dose Ordered Sig/Javed Route PRN Reason Start Time Stop Time Status Last Admin Dose Admin Acetaminophen (TYLenol 325MG TAB) 650 mg Q4H PRN PO MILD PAIN (1-3) 08/07/24 04:30 09/06/24 04:29 Acetaminophen (TYLenol 325MG TAB) 650 mg Q6H PRN PO TEMPERATURE GREATER THAN 101.5 08/07/24 04:30 09/06/24 04:29 Famotidine (Pepcid 20mg Tab) 20 mg BID PO 08/07/24 09:00 09/06/24 08:59 Ondansetron HCl (zoFRAN 4MG INJ) 4 mg Q6H PRN IV NAUSEA/VOMITING 08/07/24 04:30 09/06/24 04:29 Piperacillin Sod/ Tazobactam Sod 50 ml @ 12.5 mls/hr Q8H IV 08/07/24 09:00 08/17/24 08:59 Vancomycin HCl 250 ml @ 125 mls/hr ONCE IV 08/07/24 04:30 08/07/24 04:12 DC Vancomycin HCl 250 ml @ 125 mls/hr Q12H IV 08/07/24 16:00 08/17/24 15:59 Vancomycin HCl (Vancomycin Protocol) 1 each AD IV 08/07/24 03:30 08/21/24 03:29 DIAGNOSTICS / RADIOLOGY: [ ] REASON: bilateral leg cellulitis ORDERING PHYSICIAN: LISA LANDERS DIGITAL MEASUREMENT ADVISOR PROCEDURE: VENOUS TOBI - US VENOUS DOPPLER BILATERAL US VENOUS DOPPLER BILATERAL INDICATION: Swelling. Bilat. Leg cellulitis TECHNIQUE: US VENOUS DOPPLER BILATERAL Real-time venous Doppler ultrasound was performed using B mode, color flow and spectral analysis. FINDINGS: The visualized right greater saphenous junction, common femoral, deep femoral, superficial femoral, popliteal and posterior tibial veins demonstrate normal compressibility and flow. No DVT is identified. Occlusive DVT seen in the proximal left superficial femoral vein. Left posterior tibial vein was not visualized due to overlying bandage. Remaining pancreas and the left lower extremity are within normal limits. IMPRESSION: Occlusive DVT seen in the proximal left superficial femoral vein. Left posterior tibial vein was not visualized due to overlying bandage. ASSESSMENT: Sepsis elevated [id number], elevated heart [id number] and WBCs 22 Bilateral cellulitis with venous stasis ulcers infection POA failed outpatient treatment POA acute on chronic anemia POA DVT seen in the proximal left superficial femoral vein. POA electrolytes derangement: hyponatremia POA hyperglycemia POA Recent hospitalization one week ago: dx: sepsis suspecting ROCHELLE POA chronic problems; CAD s/p CABG HTN Prostate PLAN: Admit medical-surgical floor: condition: Guarded Status: Full code IVF: NS at 100 mL/hour Consultants infectious disease and meat specialist: DR Jason Salcedo Antibiotics: IV vancomycin pharmacy to dose and Zosyn IV every 8 hours Test: Blood cultures in process Imaging: ECHO to eval EF and rule out endocarditis Local wound care to bilateral ext: continue Labs cbc, cmp, mag+ procalcitonin and CRP in a.m. Replace electrolytes as needed as per protocol to keep potassium above 4.0 magnesium 2.0. Home medications pending to be reviewed by RN nurse. restarted metoprolol 50 mg daily PRN: MEDICATIONS Tylenol 650 mg po every 4 hrs for fever Zofran 4 mg IV every 6 hrs for n/v Labetalol 5 mg IV every 4 hrs systolic pressure > 160 bowel regiment: lactulose 20 gm PO BID PRN constipation Pain management: Tylenol as needed Supportive measures: DVT ppx, GI ppx heparin sub q 5000 units bid and famotidine 20 mg bid all questions answered time spent: > 35 min Supervising MD: Dr. Brody c/d This document was generated in part using voice recognition software, occasional wrong word or sound alike substitutions may have occurred due to the inherent limitations of voice recognition software. Read the chart carefully and recognize using context, where the substitutions have occurred. Although every effort was made to edit the content, study lead and typing errors may occur ADVANCED CARE PLANNING 1. Which of the following were discussed? Hospice Care - Yes / No Therapeutic options - Yes / No Advance Directives - Yes / No Other discussions - 2. Discussed with who? 3. Voluntary nature of this service was explained to the patient? Yes / No 4. Amount of time spent - ___25 min to_patient and s.o ___ 5. Reviewed by Physician? (if this service was performed by NPP) Yes / No ATTESTATION BY PHYSICIAN I have seen and examined the patient. I reviewed the documentation, medical decision making, and treatment plan as noted by the mid-level provider above. I agree with the findings and plan of care. SULMA BRODY MD, ELIZABETH NP Aug 07, 2024 10:07
[2024-08-07] MEDS: HEParin 5,000 UNIT VIAL SQ SCH (10:30)
[2024-08-07] MEDS: metOPROLol sucCINATE 50 MG TAB.SR.24H PO ONE (10:42)
[2024-08-07] MEDS: acetaMINOPHEN 325 MG TAB PO PRN (10:43)
[2024-08-07] MEDS ORDERED: TAMS-55 PO (11:05)
[2024-08-07] MEDS ORDERED: SUCR1TAB2 PO (11:05)
[2024-08-07] MEDS ORDERED: MECO10005 PO (11:05)
[2024-08-07] MEDS ORDERED: FOLI0.8C PO (11:05)
[2024-08-07] MEDS ORDERED: LISI10TA24 PO (11:05)
[2024-08-07] MEDS ORDERED: ASPI-1443 PO (11:05)
[2024-08-07] MEDS ORDERED: [UNRECOGNIZED DRUG - CODE] PO (11:05)
[2024-08-07] MEDS ORDERED: DIPH50 PO (11:05)
[2024-08-07] MEDS ORDERED: METO-391 PO (11:05)
[2024-08-07] MEDS ORDERED: VITA-300 PO (11:05)
[2024-08-07] MEDS ORDERED: TRAZ-187 PO (11:05)
[2024-08-07] MEDS ORDERED: FERR29CA PO (11:05)
[2024-08-07] MEDS ORDERED: ESOM20CA51 PO (11:05)
[2024-08-07] MEDS ORDERED: PYRI100T10 PO (11:05)
[2024-08-07] MEDS: SUCRALFATE 1 GM TABLET PO SCH (12:42)
[2024-08-07] MEDS: morPHINE 2 MG SYG IVP PRN (12:49)
--- NOTE | 2024-08-07 14:47 | NUR ---
DCP: HOME Pt currently lives with Ivy Mancia [phone]. Pt does not have any insecurities with food, mcfp, and/or utilities. Pt does not any DME. Pt has home health for wound care from Dr. Salcedo. PCP is Dr. Zamora and uses [facility] for any RX needs. At MD pt will go home and family will assist with transportation. Addendum: 08/07/24 at 1451 by ONELIA ORTEGA SS Amended: Links added.
[2024-08-07] MEDS: VANCOMYCIN 1.5 GM/250 ML BAG 250 ML IV SCH (16:18)
[2024-08-07] MEDS: trAZOdone HCL 100 MG TABLET PO SCH (21:06)
[2024-08-07] MEDS: tamSULOsin HCL 0.4 MG CAP.ER.24H PO SCH (21:06)
--- NOTE | 2024-08-07 21:15 | NUR ---
MEDS SHIFT ASSESSMENT DONE, PLEASE REFER TO CHART. PT'S DAUGHTER IN ROOM AND INFORMED HAIR BALER THAT PT HAD TAKEN A DOSE OF HIS OWN TYLENOL AT 1999. INSTRUCTED PT NOT TO TAKE ANY OF HIS OWN MEDS. PT AND FAMILY VERBALIZES UNDERSTANDING. INSTRUCTED PT'S DAUGHTER TO BRING HOME ANY PILLS IN THE ROOM. DUE MEDS ADMINISTERED, TOLERATED WELL. KEPT RESTED AND COMFORTABLE IN BED. CALL LIGHT WITHIN REACH. BED ALARM KEPT ACTIVATED.
[2024-08-07] MEDS: MAGNESIUM 2GM PREMIX 50ML 50 ML IV PRN (22:43)
[2024-08-08] VITALS (9 sets, daily range): BP systolic 108–152; BP diastolic 51–68; PULSE 84–103; RESP 16–20; TEMP 97.3–98.4; O2SAT 96–99
--- NOTE | 2024-08-08 05:30 | NUR ---
ROUNDS PT SLEPT AT INTERVALS DURING THE SHIFT. NO DISTRESS NOTED. KEPT COMFORTABLE IN BED. CALL LIGHT WITHIN REACH. FOR MORE CARE.
[2024-08-08 05:52] LABS: BASOPHILS # (AUTO) 0.03 K/uL (0.00-0.20); BASOPHILS % (AUTO) 0.2 % (0.0-5.0); EOSINOPHILS # (AUTO) 0.02 K/uL (0.00-0.70); EOSINOPHILS % (AUTO) 0.1 % (0.0-8.0); HEMATOCRIT 25.5 % (42-54); LYMPHOCYTES # (AUTO) 0.1 K/uL (1.0-4.8); LYMPHOCYTES % (AUTO) 0.5 % (21.0-51.0); MEAN CORPUSCULAR HEMOGLOBIN 32.5 pg (27.0-33.0); MEAN CORPUSCULAR HGB CONC 32.5 g/dL (32.0-36.0); MONOCYTES # (AUTO) 0.4 K/uL (0.1-1.0); MONOCYTES % (AUTO) 2.6 % (3.0-13.0); NEUTROPHILS # (AUTO) 16.1 K/uL (1.8-7.7); NEUTROPHILS % (AUTO) 95.4 % (40.0-77.0); PLATELET COUNT (AUTO) 202 K/uL (130-400); RED BLOOD CELL COUNT(AUTO) 2.55 MIL/uL (4.50-6.20); RED CELL DISTRIBUTION WIDTH 20.4 % (11.0-15.5); WHITE BLOOD COUNT (AUTO) 16.8 K/uL (4.8-10.8)
[2024-08-08 06:19] LABS: ALBUMIN 3.1 g/dL (3.5-5.0); BILIRUBIN,TOTAL 1.4 mg/dL (0.2-1.0); CREATININE 0.6 mg/dL (0.5-1.3); TOTAL PROTEIN, SERUM 5.7 g/dL (6.0-8.3)
[2024-08-08] MEDS: MECOBALAMIN 1000 MCG PO SCH (09:00)
[2024-08-08] MEDS: VIT K2 PO SCH (09:00)
[2024-08-08] MEDS: CHOLECALCIFEROL PO SCH (09:00)
[2024-08-08] MEDS ORDERED: FOLIC ACID PO SCH (09:00)
--- NOTE | 2024-08-08 09:01 | PN ---
[facility] PROGRESS NOTE Date of Service: Aug 08, 2024 Time of Service: 08:58 SUBJECTIVE: [ ] admission date: 08/07/24 PCP: self referral chief complaints: fever, chills This is a 78-year-old male presents in ED with chief complaints of fever and chills. ER initiated sepsis alert: Onset two days ago. Patient was taking Tylenol for fevers. Patient was recently hospitalized for lower extremity cellulitis and discharged on oral antibiotics. metronidazole for Bilateral cellulitis with venous stasis ulcers. Patient reports seen wound care center with Dr. Jason Salcedo. Patient denies abdominal pain diarrhea chest pain, shortness for breath. Sepsis alert was initiated in ED patient came in with a temperature of 101.8 heart rate 102 leukocytosis 22.1. Blood cultures obtained, influenza a and B COVID all negative UA negative. Patient received a dose of Zosyn IV and vancomycin IV ID has been consulted for antibiotics stewardship. Imaging ; venous doppler DVT seen in the proximal left superficial femoral vein. 08/08/24 patient is seen and examined fevers have improved. Patient refused heparin subQ patient has a DVT superficial to femoral he agree with heparin drip. Patient was reports having difficulty swallowing speech consulted. Patient's skin very dry to lower extremities we will get anterior Doppler and supervisor sewing department consult. Encouraged patient to get out of bed to chair PT services to eval and treat. No chest pain no shortness a breath REVIEW OF SYSTEMS a 14 point ROS obtained all relevant positive documented otherwise ROS negative PHYSICAL EXAM GENERAL APPEARANCE: The patient is awake, alert, and oriented, in no acute cardiopulmonary distress. appears acutely ill, NEUROLOGICAL: Cranial nerves II-XII grossly intact. Motor is 5/5 in bilateral upper and lower extremities proximal to distal. No sensory deficits. HEENT: Face is symmetric. Pupils are equal and reactive. Extraocular movements are intact. NECK: Supple. No JVD. No thyromegaly. No submental, submandibular, pre- /postauricular, occipital or supraclavicular lymphadenopathy. CHEST: Normal chest expansion. No Telemetry. LUNGS: Absence of any rales, rhonchi or any wheezing. CARDIOVASCULAR: Regular. S1 and S2 normal. No appreciable rubs, murmurs or gallops. ABDOMEN: Soft, nontender, and nondistended. There is no rebound, voluntary guarding, or rigidity. : Deferred. No Priest. EXTREMITIES: + edematous and not cyanotic. No clubbing. Good capillary refill. SKIN: redness to lower ext bilateral with statis venous ulcer: left leg with dressing Vital Signs (last 8hr) Date Time Temp Pulse Resp B/P (MAP) Pulse Ox O2 Delivery O2 Flow Rate FiO2 08/08/24 08:00 97.9 91 20 125/59 99 Room Air 21 08/08/24 04:46 97.7 91 19 130/65 99 Room Air LABS: Laboratory: Test 08/08/24 05:45 08/07/24 07:25 08/07/24 06:38 08/07/24 00:06 Range/Units White Blood Count 16.8 H 4.8-10.8 K/uL Red Blood Count 2.55 L 4.50-6.20 MIL/uL Hemoglobin 8.3 L 14.0-18.0 g/dL Hematocrit 25.5 L 42-54 % Mean Corpuscular Volume 100.0 H 79-99 fL Mean Corpuscular Hemoglobin 32.5 27.0-33.0 pg Mean Corpuscular Hemoglobin Concent 32.5 32.0-36.0 g/dL Red Cell Distribution Width 20.4 H 11.0-15.5 % Platelet Count 202 130-400 K/uL Mean Platelet Volume 10.0 7.5-10.5 fL Immature Granulocyte % (Auto) 1.2 H 0-1 % Neutrophils (%) (Auto) 95.4 H 40.0-77.0 % Lymphocytes (%) (Auto) 0.5 L 21.0-51.0 % Monocytes (%) (Auto) 2.6 L 3.0-13.0 % Eosinophils (%) (Auto) 0.1 0.0-8.0 % Basophils (%) (Auto) 0.2 0.0-5.0 % Neutrophils # (Auto) 16.1 H 1.8-7.7 K/uL Lymphocytes # (Auto) 0.1 L 1.0-4.8 K/uL Monocytes # (Auto) 0.4 0.1-1.0 K/uL Eosinophils # (Auto) 0.02 0.00-0.70 K/uL Basophils # (Auto) 0.03 0.00-0.20 K/uL Absolute Immature Granulocyte (auto 0.20 0-1 K/uL Nucleated Red Blood Cells 0.0 0.0-0.19 % Sodium Level 133 L 136-145 mmol/L Potassium Level 4.0 3.5-5.1 mmol/L Chloride Level 99 L 101-111 mmol/L Carbon Dioxide Level 28 21-32 mmol/L Blood Urea Nitrogen 17 7-18 mg/dL Creatinine 0.6 0.5-1.3 mg/dL Glomerular Filtration Rate Calc 99 >90 mL/min Random Glucose 119 H 70-105 mg/dL Total Calcium 8.2 L 8.5-10.1 mg/dL Magnesium Level 2.00 1.80-2.40 mg/dL Total Bilirubin 1.4 H 0.2-1.0 mg/dL Aspartate Amino Transf (AST/SGOT) 22 10-37 U/L Alanine Aminotransferase (ALT/SGPT) 52 12-78 U/L Alkaline Phosphatase 61 50-136 U/L C-Reactive Protein, Quantitative 76.40 H 0.5-3.0 mg/L Total Protein 5.7 L 6.0-8.3 g/dL Albumin 3.1 L 3.5-5.0 g/dL Procalcitonin 0.05 0.05-0.5 ng/mL Urine Color YELLOW YELLOW Urine Appearance CLEAR CLEAR Urine pH 5.5 5.0-8.0 Urine Specific [place] 1.027 1.001-1.031 Urine Protein 50 H NEGATIVE mg/dL Urine Glucose (UA) NEGATIVE NEGATIVE mg/dL Urine Ketones NEGATIVE NEGATIVE mg/dL Urine Occult Blood NEGATIVE NEGATIVE Urine Nitrate NEGATIVE NEGATIVE Urine Bilirubin NEGATIVE NEGATIVE mg/dL Urine Urobilinogen 0.2 0.2-1.0 mg/dL Urine Leukocyte Esterase NEGATIVE NEGATIVE Ochoa/uL Urine RBC 0-1 0-1 /HPF Urine WBC 0-1 0-1 /HPF Urine Calcium Oxalate Crystals RARE None Seen /LPF Urine Bacteria RARE None Seen /HPF Erythrocyte Sedimentation Rate 30 H 0-20 MM/HR Hemoglobin A1c 5.7 4.0-6.0 % Estimated Average Glucose (eAG) 117 70-126 mg/dL Influenza Type A Antigen Negative For Type A NEGATIVE Influenza Type B Antigen Negative For Type B NEGATIVE SARS-CoV-2, RNA, NAAT NEGATIVE SARS CoV-2 NEGATIVE Test 08/06/24 23:35 Range/Units Lactic Acid Level 1.8 0.8-2.5 mmol/L Total Creatine Kinase 18 #L 21-232 U/L Troponin I High Sensitivity 12 4-75 ng/L B-Type Natriuretic Peptide 372 H 0-100 pg/mL Current Medications Medications (Trade) Dose Ordered Sig/Javed Route PRN Reason Start Time Stop Time Status Last Admin Dose Admin Acetaminophen (TYLenol 325MG TAB) 650 mg Q4H PRN PO MILD PAIN (1-3) 08/07/24 04:30 09/06/24 04:29 08/07/24 10:43 650 MG Acetaminophen (TYLenol 325MG TAB) 650 mg Q6H PRN PO TEMPERATURE GREATER THAN 101.5 08/07/24 04:30 09/06/24 04:29 Aspirin (Aspirin 81mg Ec Tab) 81 mg DAILY PO 08/08/24 09:00 09/07/24 08:59 Famotidine (Pepcid 20mg Tab) 20 mg BID PO 08/07/24 09:00 09/06/24 08:59 08/07/24 21:06 20 MG Ferrous Gluconate (Ferrous Gluconate) 325 mg DAILY PO 08/08/24 09:00 09/07/24 08:59 Folic Acid (FOLic ACID 1 MG TABLET) 1 mg DAILY PO 08/08/24 09:00 09/07/24 08:59 Heparin Sodium (Porcine) (HEParin 5,000 UNIT VIAL) 5,000 unit Q12H SQ 08/07/24 10:30 09/06/24 10:29 08/07/24 21:12 5,000 UNIT Home Med (Home Medication) (Mecobalamin (B12 Acti... DAILY PO 08/08/24 09:00 09/07/24 08:59 Home Med (Home Medication) Cholecalciferol (Vitd3)/Vit K2 (D3 Plus... DAILY PO 08/08/24 09:00 09/07/24 08:59 Labetalol HCl (TRANdate 20MG SYG) 5 mg Q6H PRN IV systolic pressure > 160 08/07/24 10:00 09/06/24 09:59 Lisinopril (Prinivil 10mg) 10 mg DAILY PO 08/08/24 09:00 09/07/24 08:59 Magnesium Sulfate 50 ml @ 0 mls/hr PROTOCOL PRN IV low mag level 08/07/24 10:00 09/06/24 09:59 08/07/24 22:43 25 MLS/HR Metoprolol Succinate (TopROL XL) 50 mg DAILY PO 08/08/24 09:00 09/07/24 08:59 Miscellaneous Medication (Folic Acid ) 1 cap DAILY PO 08/08/24 09:00 08/07/24 12:29 DC Morphine Sulfate (morPHINE 2MG SYG) 2 mg Q4H PRN IVP SEVERE PAIN (7-10) 08/07/24 12:30 08/14/24 12:29 08/07/24 22:08 2 MG Ondansetron HCl (zoFRAN 4MG INJ) 4 mg Q6H PRN IV NAUSEA/VOMITING 08/07/24 04:30 09/06/24 04:29 Piperacillin Sod/ Tazobactam Sod 50 ml @ 12.5 mls/hr Q8H IV 08/07/24 09:00 08/17/24 08:59 08/08/24 00:45 12.5 MLS/HR Potassium Chloride 100 ml @ 50 mls/hr AD PRN IV POTASSIUM PROTOCOL 08/07/24 10:00 09/06/24 09:59 Potassium Chloride 100 ml @ 100 mls/hr AD PRN IV POTASSIUM PROTOCOL 08/07/24 10:00 09/06/24 09:59 Potassium Chloride (K-Dur/Klor-Con 20meq) 20 meq AD PRN PO POTASSIUM PROTOCOL 08/07/24 10:00 09/06/24 09:59 Potassium Chloride (KCl 10% Elixir 20meq/15ml) 20 meq AD PRN PO POTASSIUM PROTOCOL 08/07/24 10:00 09/06/24 09:59 Pyridoxine HCl (PYRIDoxine HCL 50 MG TABLET) 100 mg DAILY PO 08/08/24 09:00 09/07/24 08:59 Sucralfate (Carafate) 1 gm TIDHS PO 08/07/24 13:00 09/06/24 12:59 08/07/24 21:06 1 GM Tamsulosin HCl (FloMAX) 0.4 mg HS PO 08/07/24 21:00 09/06/24 20:59 08/07/24 21:06 0.4 MG Trazodone HCl (DesyREL/OlepTRO) 100 mg HS PO 08/07/24 21:00 09/06/24 20:59 08/07/24 21:06 100 MG Vancomycin HCl 250 ml @ 125 mls/hr ONCE IV 08/07/24 04:30 08/07/24 04:12 DC Vancomycin HCl 250 ml @ 125 mls/hr Q12H IV 08/07/24 16:00 08/17/24 15:59 08/08/24 03:47 125 MLS/HR Vancomycin HCl (Vancomycin Protocol) 1 each AD IV 08/07/24 03:30 08/21/24 03:29 DIAGNOSTICS / RADIOLOGY: [ ] ASSESSMENT: Sepsis elevated [id number], elevated heart [id number] and WBCs 22 Bilateral cellulitis with venous stasis ulcers infection POA failed outpatient treatment POA acute on chronic anemia POA Iron deficiency POA DVT seen in the proximal left superficial femoral vein. POA electrolytes derangement: hyponatremia POA hyperglycemia POA Recent hospitalization one week ago: dx: sepsis suspecting ROCHELLE POA Suspecting oropharyngeal dysphagia POA chronic problems; CAD s/p CABG HTN Prostate PLAN: Admit medical-surgical floor: condition: Guarded Status: Full code IVF: NS at 100 mL/hour Consultants infectious disease and insurance customer service specialist: DR Jason Salcedo podiatry imaging: Arterial Doppler Antibiotics: IV vancomycin pharmacy to dose and Zosyn IV every 8 hours Test: Blood cultures in process Continue with antiemetics as needed Imaging: ECHO to eval EF and rule out endocarditis pending results Local wound care to bilateral ext: cream: for dry skin aggressive off loading OOB to chair. speech: aspiration precaution HOB at 45 degree at all time. PT OT eval and treat: disposition discharged Labs cbc, cmp, mag+ Replace electrolytes as needed as per protocol to keep potassium above 4.0 magnesium 2.0. Monitor H/H trends transfuse to keep HGB above 7.0 Home medications reconciled Pain management: Tylenol as needed Supportive measures: DVT ppx, GI ppx heparin drip patient refuse sub q Heparinn and famotidine 20 mg bid all questions answered Supervising MD: Dr. Olivares c/d This document was generated in part using voice recognition software, occasional wrong word or sound alike substitutions may have occurred due to the inherent limitations of voice recognition software. Read the chart carefully and recognize using context, where the substitutions have occurred. Although every effort was made to edit the content, skidder runner and typing errors may occur ATTESTATION BY PHYSICIAN I have seen and examined the patient. I reviewed the documentation, medical decision making, and treatment plan as noted by the mid-level provider above. I agree with the findings and plan of care. SULMA OLIVARES MD, ELIZABETH NP Aug 08, 2024 09:01
[2024-08-08] MEDS: ASPIRIN 81 MG EC TAB PO SCH (09:33)
[2024-08-08] MEDS: FOLic ACID 1 MG TABLET PO SCH (09:33)
[2024-08-08] MEDS: PYRIDOXINE HCL 50 MG PO SCH (09:33)
[2024-08-08] MEDS: metOPROLol sucCINATE 50 MG TAB.SR.24H PO SCH (09:33)
[2024-08-08] MEDS: LISINOPRIL 10 MG TABLET PO SCH (09:33)
[2024-08-08] MEDS: FERROUS GLUCONATE 324MG TABLET.DR PO SCH (09:33)
--- NOTE | 2024-08-08 16:12 | HMCSR ---
APPROVED REPORT EXAM: Two-dimensional and M-mode echocardiogram with Doppler and color Doppler. INDICATION ICD: Rule out endocarditis 2D Dimensions RVDd4.3 cmLVEF(%)50.6 (>50%)LVED Vol(simp.)62.0 mL IVSd0.9 (0.7-1.1cm)FS(%)26 %LVES Vol(simp.)31.0 mL LVDd5.7 (3.8-5.6cm)LA (2D)4.5 (1.6-4.0cm)LVEF(%, simp.)50 % PWd1.0 (0.7-1.1cm)Ao Root(2D)3.4 (2.0-3.7cm)LA ESV INDEX (BP)34.22 mL/m2 IVSs1.1 cmLVOT diam2.3 (1.8-2.4cm) LVDs4.2 (2.5-4.0cm)IVC diam1.7 cm PWs1.3 cm Deformation Strain Apical 4-15.5 % Apical 2-15.9 % Apical 3-13.3 % Global Strain-14.9 % M-Mode Dimensions EPSS1.1 cm LA (MM)3.9 (1.6-4.0cm) Ao Root(MM)3.8 (2.0-3.7cm) Aortic Valve AoV Vmax2.9 m/Mary Peak GR34.5 mmHgLVOT Vmax1.5 m/s AoV VTI0.5 mAo Mean GR20.9 mmHgLVOT VTI0.25 m BEVERLY (VMAX)2.12 cm2AVA (VTI) 2.0 cm2 Mitral Valve MV E Rgii141.8 cm/sDECEL Vref358 ms MV A Qasf158.4 cm/sP 1/2 T42 ms E/A ratio1.1MVA (PHT)5.2 cm2 TDI E/E' Vtueeu34.0E/E' Yhpcfuk96.5 Medial E' Peak V12.31 cm/sLateral E' Peak V9.36 cm/s Pulmonary Valve PV Vmax1.9 m/sPV VTI0.35 mPV Mean GR8.7 mmHg PV Peak GR15.0 mmHg Tricuspid Valve TR Vmax2.8 m/sRAP (EST) 8 vpAwEZKT83.7 mmHg TR Peak GR34.7 mmHg Left Ventricle The left ventricle is normal size. GLS -15.0%. There is normal LV segmental wall motion. There is nor mal left ventricular wall thickness. The LVEF is 50%. 3D volume EF 50%. Indeterminate diastolic dysfu nction. Right Ventricle The right ventricle is mildly dilated. The right ventricular systolic function is normal. Atria The left atrium is borderline dilated. The right atrium size is normal. Aortic Valve Mild aortic annular calcification noted. Aortic valve is trileaflet and the leaflets are thickenee wi th decreased motility. Mild aortic regurgitation is present. No aortic valvular vegetation noted. The re is mild aortic valvular stenosis. Mitral Valve The mitral valve is normal in structure. Thickened chordae tendinaea. There is mild or moderate mitr al valve regurgitation. There are no mitral valve vegetation noted. There is no mitral valve stenosis . Tricuspid Valve The tricuspid valve is normal in structure. There is trace of tricuspid valve regurgitation noted. Th ere is no tricuspid valve vegetation. Pulmonic Valve The pulmonary valve is normal in structure. There is mild pulmonic valvular regurgitation. Great Vessels The aortic root is normal in size. The IVC is normal in size and collapses <50% with inspiration. Pericardium There is no pericardial effusion. Other Information Quality : Technically difficult study due to body habitus Conclusion The LVEF is 50%. 3D volume EF 50%. The left atrium is borderline dilated. There is mild aortic valvular stenosis. Mild aortic regurgitation is present. There is mild or moderate mitral valve regurgitation.
--- NOTE | 2024-08-08 17:25 | NUR ---
DR. NAQVI AWARE OF CONSULT.
--- NOTE | 2024-08-08 17:26 | HMCIMG ---
US ARTERIAL BILAT LOW EXT DUPL HISTORY: pad TECHNIQUE: Real-time arterial doppler ultrasound of the lower extremity was performed using B mode, color flow and spectral analysis. FINDINGS: RIGHT: Abnormal monophasic waveforms seen in the anterior tibial and dorsalis pedis arteries suggesting flow-limiting stenosis. Remaining arteries demonstrate triphasic and biphasic waveforms. LEFT: Abnormal monophasic waveforms seen in the anterior tibial and dorsalis pedis arteries suggesting flow-limiting stenosis. Remaining arteries demonstrate triphasic and biphasic waveforms. IMPRESSION: Abnormal monophasic waveforms seen in the bilateral anterior tibial and dorsalis pedis arteries suggesting flow-limiting stenosis. Remaining arteries demonstrate triphasic and biphasic waveforms.
--- NOTE | 2024-08-08 18:04 | NUR ---
DR. ARCE AWARE OF CONSULT.
--- NOTE | 2024-08-08 19:20 | NUR ---
CONFUSED PT IS VERY CONFUSED, DOES NOT KNOW WHERE HE IS AND IS TRYING TO REMOVE HIS TELE MONITOR. TRIED TO RE-ORIENT TO PERSON, SPACE AND TIME. PT'S DAUGHTER IN THE ROOM AND HELPED TO CALM PT DOWN. PLACED BACK TELE MONITOR. KEPT COMFORTABLE IN BED. ASKED FAMILY IF SOMEONE COULD STAY WITH PT TONIGHT. CABLE TELEVISION PROGRAM DIRECTOR CALLED AND MADE AWARE OF PT'S CONDITION. NO SITTER AVAILABLE AT THIS TIME. WILL KEEP PT ON CLOSE WATCH.
--- NOTE | 2024-08-08 20:42 | CONS ---
INFECTIOUS DISEASE CONSULTATION NOTE DATE OF SERVICE: 08/07/2024 REQUESTING PHYSICIAN: Bolivar Brody MD REASON FOR CONSULTATION: Sepsis and leg ulcer. HISTORY OF PRESENT ILLNESS: This is a 78-year-old male with history of coronary artery disease, lower extremity cellulitis and chronic venous ulcer, presented to hospital with fever and chills. The patient's symptoms started two days prior to presentation. No cough, no hemoptysis or pleuritic pain. T-max in the Emergency Room was 101.2. WBC was elevated at 16,000. The patient admitted as a case of sepsis. The patient was recently admitted to this facility, was sent home with oral antibiotic. The patient' venous Doppler came back positive for thrombosis in the left superficial femoral artery. No cough. No dysuria or hematuria. No sick contact. PAST MEDICAL HISTORY: * Coronary artery disease. * Lower extremity cellulitis. * Chronic venous ulcer. * Hypertension. * Anemia. * BPH. PAST SURGICAL HISTORY: * CABG. * Cholecystectomy. * PTCA. ALLERGIES: No known drug allergies. CURRENT MEDICATIONS: Reviewed. SOCIAL HISTORY: No alcohol, tobacco or illicit drug use. FAMILY HISTORY: Noncontributory. REVIEW OF SYSTEMS: CONSTITUTIONAL: Positive for fever and chills. No weight loss or night sweats. EYES: No eye pain. No photophobia or diplopia. HENT: No sore throat. No rhinorrhea or earache. NECK: No neck pain or neck swelling. RESPIRATORY: No cough. No hemoptysis or pleuritic pain. CARDIOVASCULAR: No chest pain. No palpitations or orthopnea. GASTROINTESTINAL: Denies nausea, vomiting, or abdominal pain. GENITOURINARY: No dysuria, urgency or urinary frequency. CENTRAL NERVOUS SYSTEM: No headache, dyspnea, or slurred speech. PSYCHIATRY: No depression. No suicidal ideation. MUSCULOSKELETAL: Positive for bilateral leg ulcer, pain and swelling. PHYSICAL EXAMINATION: GENERAL: Elderly male, awake. VITAL SIGNS: Temperature 100.0, pulse 109, respiratory rate 20, BP 125/53. EYES: No icterus. Pupils equal and reactive. HENT: No oral thrush seen. Moist oral mucosa. NECK: Supple. No JVD or thyromegaly. LUNGS: Good air entry. No rales. No rhonchi. CARDIOVASCULAR: S1 and S2, regular. No murmur heard. ABDOMEN: Soft and nontender. Bowel sound is present. CENTRAL NERVOUS SYSTEM: The patient has some eczematous rashes involving the upper extremities. SKIN: No itchiness. LYMPHATIC: No peripheral lymphadenopathy. BACK: No deformity. No pressure ulcer. EXTREMITIES: Ulcer and cellulitis involving both lower legs, worse on the left side. No drainage is seen. LABORATORY DATA: BNP is 372. Sodium 132, potassium 3.9, BUN 20, creatinine 0.7. WBC 16.0, hemoglobin 8.9, platelet 193. Influenza antigen negative. Urinalysis negative. RADIOLOGY: Chest x-ray unremarkable. Venous Doppler shows left lower leg superficial vein thrombosis. ASSESSMENT: A 78-year-old male presented with fever. CURRENT PROBLEMS: Include: * Sepsis. * Left lower extremity cellulitis. * Left leg ulcer. * Left lower extremity venous thrombosis. * Hypertension. * Coronary artery disease. PLAN: * Continue vancomycin. * Continue Zosyn. * Continue wound care. * Continue pain management. * Continue anticoagulation. * Continue antiemetics. * Monitor electrolyte and correct as needed. * The patient will be followed up closely. Thank you for allowing me to participate in the care of this patient. TID: [id number] RECEIPT: [id number] [facility]
--- NOTE | 2024-08-08 20:55 | NUR ---
MEDS SHIFT ASSESSMENT DONE, PLEASE REFER TO CHART. DUE MEDS ADMINISTERED, TOLERATED WELL. KEPT RESTED AND COMFORTABLE IN BED. CALL LIGHT WITHIN REACH. FAMILY AT BEDSIDE, KEEPING CLOSE WATCH.
[2024-08-08] MEDS: MINERAL OIL/PETROLATUM,WHITE 454 GM CREAM.GM. TP SCH (20:57)
[2024-08-09] VITALS (7 sets, daily range): BP systolic 107–144; BP diastolic 46–91; PULSE 79–89; RESP 16–19; TEMP 97.5–98.3; O2SAT 97–100
--- NOTE | 2024-08-09 03:45 | NUR ---
SITTER COSMETOLOGY PROFESSOR, RICA, MADE AWARE THAT PT'S SPOUSE WILL NOT BE ABLE TO WATCH PT ALL DAY. RESOURCE NURSE INFORMS JIG BORE OPERATOR THAT A SITTER WILL BE PROVIDED FOR DAY SHIFT.
--- NOTE | 2024-08-09 05:20 | NUR ---
PIV PT IS CALM AND VERY COOPERATIVE, MORE COHERENT AT THIS TIME. NO DISTRESS NOTED. PIV NOTED TO BE LEAKING, DISCONTINUED PIV WITH CATHETER INTACT. RE-INSERTED PIV TO RT HAND G20, PT TOLERATED RE-INSERTION WELL. CONTINUED IV VANCO INFUSION. KEPT COMFORTABLE IN BED. SPOUSE AT BEDSIDE KEEPING CLOSE WATCH.
[2024-08-09 06:23] LABS: BASOPHILS # (AUTO) 0.03 K/uL (0.00-0.20); BASOPHILS % (AUTO) 0.2 % (0.0-5.0); EOSINOPHILS # (AUTO) 0.01 K/uL (0.00-0.70); EOSINOPHILS % (AUTO) 0.1 % (0.0-8.0); HEMATOCRIT 23.3 % (42-54); LYMPHOCYTES # (AUTO) 0.2 K/uL (1.0-4.8); LYMPHOCYTES % (AUTO) 0.9 % (21.0-51.0); MEAN CORPUSCULAR HEMOGLOBIN 33.3 pg (27.0-33.0); MEAN CORPUSCULAR HGB CONC 33.5 g/dL (32.0-36.0); MEAN CORPUSCULAR VOLUME 99.6 fL (79-99); MONOCYTES # (AUTO) 0.5 K/uL (0.1-1.0); MONOCYTES % (AUTO) 3.3 % (3.0-13.0); NEUTROPHILS # (AUTO) 15.5 K/uL (1.8-7.7); NEUTROPHILS % (AUTO) 94.3 % (40.0-77.0); PLATELET COUNT (AUTO) 195 K/uL (130-400); RED BLOOD CELL COUNT(AUTO) 2.34 MIL/uL (4.50-6.20); RED CELL DISTRIBUTION WIDTH 20.4 % (11.0-15.5); WHITE BLOOD COUNT (AUTO) 16.4 K/uL (4.8-10.8)
[2024-08-09 06:35] LABS: ALBUMIN 2.9 g/dL (3.5-5.0); BILIRUBIN,TOTAL 1.2 mg/dL (0.2-1.0); CREATININE 0.7 mg/dL (0.5-1.3); POTASSIUM 3.8 mmol/L (3.5-5.1); TOTAL PROTEIN, SERUM 5.5 g/dL (6.0-8.3)
--- NOTE | 2024-08-09 08:42 | HP ---
DOROTA BLOOM MD 08/09/24 0842: ADMISSION CC: Anemia, history of myeloproliferative disorder HPI: Patient is a 78-year-old male presents in ED with chief complaints of fever and chills. Patient reports a recent hospitalization for lower extremity cellulitis, where he was discharged on Metronidazole for bilateral cellulitis with venous stasis ulcers. The patient follows Dr. Jason Salcedo at the [facility]. Upon arrival to the emergency room, sepsis alert was initiated. Remarkable labs upon arrival include a temperature of 101.8, heart rate 102, leukocytosis 22.1. Blood cultures were obtained, and are negative. 2D echocardiogram was ordered showing a LVEF of 50%, and ruled out evidence of endocarditis. Influenza A, B, and COVID were all negative. Urinalysis was negative. Patient received a dose of Zosyn IV and vancomycin IV, and Infectious Disease has been consulted for antibiotics stewardship. A venous Doppler was preformed, and a DVT seen in the proximal left superficial femoral vein. Hematology/oncology was consulted due to anemia. Latest hgb 7.8 trending down, hct 23.3, MCV 99.6, platelet count 195. Patient reports having a history of myeloproliferative disorder, and is a patient of Dr. Naqvi. HISTORY PHM: Chronic venous stasis ulcers in bilateral lower extremities, hypertension, BPH, anemia. PSH: CABG x 4 in 2012, heart stents in 2018, cholecystectomy SH: former smoker, denies alcohol use FH: Noncontributory ALLERGIES: Coded Allergies: No Known Drug Allergies (Unverified Allergy, Unknown, 12/28/13) REVIEW OF SYSTEMS HEENT: No JAUNDICE, No SORE THROAT, No SINUS PRESSURE, No VISION CHANGES RESPIRATORY: No COUGH, No CHEST PAIN, No SHORTNESS OF BREATH, No HEMOPTYSIS CARDIOVASCULAR: No PALPATIONS, No DYSPNEA ON EXERTION, No SYNCOPE GASTROINTESTINAL: No NAUSEA, No VOMITING, No DIARRHEA, No DYSPHAGIA, No CONSTIPATION, No ABDOMINAL PAIN, No HEMATEMESIS, No HEMATOCHEZIA, No MELENA GENITOURINARY: DYSURIA; No HEMATURIA HEMATOLOGIC/LYMPHATIC: EASY BRUISING MUSCULOSKELETAL: No BONE PAIN, No MASS, No NORMAL RANGE OF MOTION SKIN/BREASTS: No BREAST MASS, No NIPPLE INVERSION, No RASH NEUROLOGICAL: No WEAKNESS-EXTREMETIES, No DIPLOPIA, No NUMBNESS, No TINGLING PSYCHOLOGICAL: No SUICIDAL IDEATION PHYSICAL EXAM VITALS: Vital Signs Date Time Temp Pulse Resp B/P (MAP) Pulse Ox O2 Delivery O2 Flow Rate FiO2 08/09/24 08:00 97.5 89 17 121/53 97 Room Air 21 08/08/24 20:55 0 GENERAL: ALERT, ORIENTED, APPEARS-NO ACUTE DISTRESS EYES: No SCLERAE ANICTERIC, No PUPILS EQUAL/REACTIVE, No EXTRAOCULAR MUSCLES IN TCT RESPIRATORY: LUNGS CLEAR-AUSC/PERCUS CARDIOVASCULAR: REGULAR RATE, REGULAR RHYTHM GASTROINTESTINAL: ABDOMEN IS SOFT DIAGNOSTIC STUDIES [place] [id number] [id number] IMAGING REPORT Signed PATIENT: GRETA JOHNSON MR#: [id number] : 1945 SEX: M AGE: 78 LOCATION: [facility] ORDER 1305 STATUS: ADM IN REPORT#: [id number] SERVICE 1204 REASON: pad ORDERING PHYSICIAN: SULMA OLIVARES MD PROCEDURE: ART B LE - US ARTERIAL BILAT LOW EXT DUPL US ARTERIAL BILAT LOW EXT DUPL HISTORY: pad TECHNIQUE: Real-time arterial doppler ultrasound of the lower extremity was performed using B mode, color flow and spectral analysis. FINDINGS: RIGHT: Abnormal monophasic waveforms seen in the anterior tibial and dorsalis pedis arteries suggesting flow-limiting stenosis. Remaining arteries demonstrate triphasic and biphasic waveforms. LEFT: Abnormal monophasic waveforms seen in the anterior tibial and dorsalis pedis arteries suggesting flow-limiting stenosis. Remaining arteries demonstrate triphasic and biphasic waveforms. IMPRESSION: Abnormal monophasic waveforms seen in the bilateral anterior tibial and dorsalis pedis arteries suggesting flow-limiting stenosis. Remaining arteries demonstrate triphasic and biphasic waveforms. DICTATED BY: YEMI CAVANAUGH MD DATE: 08/08/241722 ELECTRONICALLY SIGNED BY: YEMI CAVANAUGH MD DATE: 08/08/241725 [place] [id number] [place] [id number] IMAGING REPORT Signed PATIENT: GRETA JOHNSON MR#: [id number] : 1945 SEX: M AGE: 78 LOCATION: 3D ORDER STATUS: ADM IN REPORT#: [id number] SERVICE REASON: rule out endocardititis ORDERING PHYSICIAN: BELEN TIAN NP PROCEDURE: ECHO CMP - ECHO 2-D COMPLETE APPROVED REPORT EXAM: Two-dimensional and M-mode echocardiogram with Doppler and color Doppler. INDICATION ICD: Rule out endocarditis 2D Dimensions RVDd 4.3 cm LVEF(%) 50.6 (>50%) LVED Vol(simp.) 62.0 mL IVSd 0.9 (0.7-1.1cm) FS(%) 26 % LVES Vol(simp.) 31.0 mL LVDd 5.7 (3.8-5.6cm) LA (2D) 4.5 (1.6-4.0cm) LVEF(%, simp.) 50 % PWd 1.0 (0.7-1.1cm) Ao Root(2D) 3.4 (2.0-3.7cm) LA ESV INDEX (BP) 34.22 mL/m2 IVSs 1.1 cm LVOT diam 2.3 (1.8-2.4cm) LVDs 4.2 (2.5-4.0cm) IVC diam 1.7 cm PWs 1.3 cm Deformation Strain Apical 4 -15.5 % Apical 2 -15.9 % Apical 3 -13.3 % Global Strain -14.9 % M-Mode Dimensions EPSS 1.1 cm LA (MM) 3.9 (1.6-4.0cm) Ao Root(MM) 3.8 (2.0-3.7cm) Aortic Valve AoV Vmax 2.9 m/s Ao Peak GR 34.5 mmHg LVOT Vmax 1.5 m/s AoV VTI 0.5 m Ao Mean GR 20.9 mmHg LVOT VTI 0.25 m BEVERLY (VMAX) 2.12 cm2 BEVERLY (VTI) 2.0 cm2 Mitral Valve MV E Vmax 135.8 cm/s DECEL Time 124 ms MV A Vmax 124.4 cm/s P 1/2 T 42 ms E/A ratio 1.1 MVA (PHT) 5.2 cm2 TDI E/E' Medial 11.0 E/E' Lateral 14.5 Medial E' Peak V 12.31 cm/s Lateral E' Peak V 9.36 cm/s Pulmonary Valve PV Vmax 1.9 m/s PV VTI 0.35 m PV Mean GR 8.7 mmHg PV Peak GR 15.0 mmHg Tricuspid Valve TR Vmax 2.8 m/s RAP (EST) 8 mmHg RVSP 42.7 mmHg TR Peak GR 34.7 mmHg Left Ventricle The left ventricle is normal size. GLS -15.0%. There is normal LV segmental wall motion. There is normal left ventricular wall thickness. The LVEF is 50%. 3D volume EF 50%. Indeterminate diastolic dysfunction. Right Ventricle The right ventricle is mildly dilated. The right ventricular systolic function is normal. Atria The left atrium is borderline dilated. The right atrium size is normal. Aortic Valve Mild aortic annular calcification noted. Aortic valve is trileaflet and the leaflets are thickenee with decreased motility. Mild aortic regurgitation is present. No aortic valvular vegetation noted. There is mild aortic valvular stenosis. Mitral Valve The mitral valve is normal in structure. Thickened chordae tendinaea. There is mild or moderate mitral valve regurgitation. There are no mitral valve vegetation noted. There is no mitral valve stenosis. Tricuspid Valve The tricuspid valve is normal in structure. There is trace of tricuspid valve regurgitation noted. There is no tricuspid valve vegetation. Pulmonic Valve The pulmonary valve is normal in structure. There is mild pulmonic valvular regurgitation. Great Vessels The aortic root is normal in size. The IVC is normal in size and collapses <50% with inspiration. Pericardium There is no pericardial effusion. Other Information Quality : Technically difficult study due to body habitus Conclusion The LVEF is 50%. 3D volume EF 50%. The left atrium is borderline dilated. There is mild aortic valvular stenosis. Mild aortic regurgitation is present. There is mild or moderate mitral valve regurgitation. DICTATED BY: LAURA BANSAL MD DATE: 08/07/24 1142 ELECTRONICALLY SIGNED BY: LAURA BANSAL MD DATE: 08/08/[address] [place] [id number] IMAGING REPORT Signed PATIENT: GRETA JOHNSON MR#: [id number] : 1945 SEX: M AGE: 78 LOCATION: 3D ORDER 0411 STATUS: ADM IN REPORT#: [id number] SERVICE 0404 REASON: bilateral leg cellulitis ORDERING PHYSICIAN: LISA LANDERS PLUMBER HELPER PROCEDURE: VENOUS TOBI - US VENOUS DOPPLER BILATERAL US VENOUS DOPPLER BILATERAL INDICATION: Swelling. Bilat. Leg cellulitis TECHNIQUE: US VENOUS DOPPLER BILATERAL Real-time venous Doppler ultrasound was performed using B mode, color flow and spectral analysis. FINDINGS: The visualized right greater saphenous junction, common femoral, deep femoral, superficial femoral, popliteal and posterior tibial veins demonstrate normal compressibility and flow. No DVT is identified. Occlusive DVT seen in the proximal left superficial femoral vein. Left posterior tibial vein was not visualized due to overlying bandage. Remaining pancreas and the left lower extremity are within normal limits. IMPRESSION: Occlusive DVT seen in the proximal left superficial femoral vein. Left posterior tibial vein was not visualized due to overlying bandage. DICTATED BY: YEMI CAVANAUGH MD DATE: 08/07/24919 ELECTRONICALLY SIGNED BY: YEMI CAVANAUGH MD DATE: 08/07/[address] [address] IMAGING REPORT Signed PATIENT: GRETA JOHNSON MR#: [id number] : 1945 SEX: M AGE: 78 LOCATION: [facility] ORDER 2305 STATUS: ADM IN REPORT#: [id number] SERVICE 2303 REASON: sepsis ORDERING PHYSICIAN: EILEEN VANESSA PROCEDURE: CXR1VW - CHEST 1VW Exam Type: CHEST 1VW Clinical Information: sepsis Comparison: None Findings: There is cardiomegaly and there is status post median sternotomy. The lungs are clear of infiltrates. Impression: Clear lungs. DICTATED BY: TREVIN ROME MD DATE: 08/07/2450 ELECTRONICALLY SIGNED BY: TREVIN ROME MD DATE: 08/07/24 0853 IMPRESSION Assessment: -Acute on chronic anemia -Myeloproliferative disorder -Sepsis -Bilateral cellulitis with venous stasis ulcers -Deep vein thrombosis in proximal left superficial vein seen on venous doppler PLAN: Myeloproliferative disorder -Peripheral blood smear ordered and will be analyzed. -Patient has a history of myeloproliferative disorder. He was previously treated with Hydroxyurea, however due to suboptimal response, he was transitioned to an alternative therapy. Acute on chronic anemia -Discussed with primary about possible GI consultation, due to decreasing hemoglobin levels. Primary agreed, GI has been consulted. -Hgb today 7.8, down from yesterdays 8.3. Sepsis -Infectious disease consulted. -Continue IV Vancomycin and IV Zosyn -Blood cultures-negative. -2D Echocardiogram- LVEF 50%, endocarditis ruled out. Bilateral cellulitis with venous stasis ulcers -Podiatry consulted -Continue local wound care to bilateral extremities. -Continue IV antibiotics. Deep vein thrombosis in proximal left superficial vein seen on venous doppler -Lovenox ordered, per protocol. RISSA NAQVI MD 08/09/24 8859: PLAN: I attest that I was physically present to evaluate the patient and I reviewed and discussed the case with the Resident and agree with the Resident's findings and plans of care as documented above with modifications. Case discussed with resident on the date stated at the beginning of note. Patient was first seen and evaluated by me during this hospitalization. This patient with history of myeloproliferative disorder with the patient used to receive the hydroxyurea. Patient progressed. This patient was changed ruxolitinib Patient need to continue taking the medication while in the hospital. This patient was found to have left lower extremity DVT. This patient need to be treated with anticoagulation. Will start this patient on Lovenox 70 mg subcu twice daily. Then this could be changed to oral medication if there is no obvious bleeding DOROTA BLOOM MD Aug 09, 2024 08:42 RISSA NAQVI MD Aug 09, 2024 17:09
[2024-08-09] MEDS: PoTASSium chloRIDE 20MEQ ER 20 MEQ ERTAB PO PRN (08:53)
[2024-08-09] MEDS: FERROUS GLUCONATE 324MG TABLET.DR PO SCH (08:59)
--- NOTE | 2024-08-09 08:59 | HMCIMG ---
Exam Type: FOOT COMP 3+VWS RT Clinical Information: right 2nd toe ulcer Comparison: None Findings: The examination is unremarkable except for calcaneal spurs. No fractures or dislocations are seen. No radiopaque foreign bodies are noted. Soft tissues are preserved. No osteomyelitis evident. IMPRESSION: Calcaneal spurs.
--- NOTE | 2024-08-09 09:26 | PN ---
[facility] PROGRESS NOTE Date of Service: Aug 09, 2024 Time of Service: 09:23 SUBJECTIVE: [ ] admission date: 08/07/24 PCP: self referral chief complaints: fever, chills This is a 78-year-old male presents in ED with chief complaints of fever and chills. ER initiated sepsis alert: Onset two days ago. Patient was taking Tylenol for fevers. Patient was recently hospitalized for lower extremity cellulitis and discharged on oral antibiotics. metronidazole for Bilateral cellulitis with venous stasis ulcers. Patient reports seen wound care center with Dr. Jason Salcedo. Patient denies abdominal pain diarrhea chest pain, shortness for breath. Sepsis alert was initiated in ED patient came in with a temperature of 101.8 heart rate 102 leukocytosis 22.1. Blood cultures obtained, influenza a and B COVID all negative UA negative. Patient received a dose of Zosyn IV and vancomycin IV ID has been consulted for antibiotics stewardship. Imaging ; venous doppler DVT seen in the proximal left superficial femoral vein. 08/08/24 patient is seen and examined fevers have improved. Patient refused heparin subQ patient has a DVT superficial to femoral he agree with heparin drip. Patient was reports having difficulty swallowing speech consulted. Patient's skin very dry to lower extremities we will get anterior Doppler and air route controller consult. Encouraged patient to get out of bed to chair PT services to eval and treat. No chest pain no shortness a breath 08/09/24 patient is seen and examined patient appears to be doing much better today patient reports that he walks about 70 ft walker at home. Speech pending I encouraged patient out of bed to chair with meals. One-to-one was placed overnight patient has delirium at night. We will waiting for ID final recommendations on IV antibiotics. REVIEW OF SYSTEMS a 14 point ROS obtained all relevant positive documented otherwise ROS negative PHYSICAL EXAM GENERAL APPEARANCE: The patient is awake, alert, and oriented, in no acute cardiopulmonary distress. appears acutely ill, NEUROLOGICAL: Cranial nerves II-XII grossly intact. Motor is 5/5 in bilateral upper and lower extremities proximal to distal. No sensory deficits. HEENT: Face is symmetric. Pupils are equal and reactive. Extraocular movements are intact. NECK: Supple. No JVD. No thyromegaly. No submental, submandibular, pre- /postauricular, occipital or supraclavicular lymphadenopathy. CHEST: Normal chest expansion. No Telemetry. LUNGS: Absence of any rales, rhonchi or any wheezing. CARDIOVASCULAR: Regular. S1 and S2 normal. No appreciable rubs, murmurs or gallops. ABDOMEN: Soft, nontender, and nondistended. There is no rebound, voluntary guarding, or rigidity. : Deferred. No Priest. EXTREMITIES: + edematous and not cyanotic. No clubbing. Good capillary refill. SKIN: redness to lower ext bilateral with statis venous ulcer: left leg with dressing Vital Signs (last 8hr) Date Time Temp Pulse Resp B/P (MAP) Pulse Ox O2 Delivery O2 Flow Rate FiO2 08/09/24 08:00 97.5 89 17 121/53 97 Room Air 21 08/09/24 07:53 97.5 89 17 121/53 97 Room Air 08/09/24 03:36 16 LABS: Laboratory: Test 08/09/24 06:06 08/08/24 15:08 08/08/24 05:45 Range/Units White Blood Count 16.4 H 4.8-10.8 K/uL Red Blood Count 2.34 L 4.50-6.20 MIL/uL Hemoglobin 7.8 L 14.0-18.0 g/dL Hematocrit 23.3 L 42-54 % Mean Corpuscular Volume 99.6 H 79-99 fL Mean Corpuscular Hemoglobin 33.3 H 27.0-33.0 pg Mean Corpuscular Hemoglobin Concent 33.5 32.0-36.0 g/dL Red Cell Distribution Width 20.4 H 11.0-15.5 % Platelet Count 195 130-400 K/uL Mean Platelet Volume 10.6 H 7.5-10.5 fL Immature Granulocyte % (Auto) 1.2 H 0-1 % Neutrophils (%) (Auto) 94.3 H 40.0-77.0 % Lymphocytes (%) (Auto) 0.9 L 21.0-51.0 % Monocytes (%) (Auto) 3.3 3.0-13.0 % Eosinophils (%) (Auto) 0.1 0.0-8.0 % Basophils (%) (Auto) 0.2 0.0-5.0 % Neutrophils # (Auto) 15.5 H 1.8-7.7 K/uL Lymphocytes # (Auto) 0.2 L 1.0-4.8 K/uL Monocytes # (Auto) 0.5 0.1-1.0 K/uL Eosinophils # (Auto) 0.01 0.00-0.70 K/uL Basophils # (Auto) 0.03 0.00-0.20 K/uL Absolute Immature Granulocyte (auto 0.20 0-1 K/uL Nucleated Red Blood Cells 0.0 0.0-0.19 % Sodium Level 134 L 136-145 mmol/L Potassium Level 3.8 3.5-5.1 mmol/L Chloride Level 100 L 101-111 mmol/L Carbon Dioxide Level 29 21-32 mmol/L Blood Urea Nitrogen 18 7-18 mg/dL Creatinine 0.7 0.5-1.3 mg/dL Glomerular Filtration Rate Calc 94 >90 mL/min Random Glucose 114 H 70-105 mg/dL Total Calcium 8.2 L 8.5-10.1 mg/dL Magnesium Level 2.00 1.80-2.40 mg/dL Total Bilirubin 1.2 H 0.2-1.0 mg/dL Aspartate Amino Transf (AST/SGOT) 23 10-37 U/L Alanine Aminotransferase (ALT/SGPT) 46 12-78 U/L Alkaline Phosphatase 55 50-136 U/L Total Protein 5.5 L 6.0-8.3 g/dL Albumin 2.9 L 3.5-5.0 g/dL Vancomycin Level Trough 15.3 10.0-20.0 UG/ML C-Reactive Protein, Quantitative 76.40 H 0.5-3.0 mg/L Procalcitonin 0.05 0.05-0.5 ng/mL Current Medications Medications (Trade) Dose Ordered Sig/Javed Route PRN Reason Start Time Stop Time Status Last Admin Dose Admin Acetaminophen (TYLenol 325MG TAB) 650 mg Q4H PRN PO MILD PAIN (1-3) 08/07/24 04:30 09/06/24 04:29 08/09/24 08:52 650 MG Acetaminophen (TYLenol 325MG TAB) 650 mg Q6H PRN PO TEMPERATURE GREATER THAN 101.5 08/07/24 04:30 09/06/24 04:29 Aspirin (Aspirin 81mg Ec Tab) 81 mg DAILY PO 08/08/24 09:00 09/07/24 08:59 08/09/24 08:53 81 MG Famotidine (Pepcid 20mg Tab) 20 mg BID PO 08/07/24 09:00 09/06/24 08:59 08/09/24 08:53 20 MG Ferrous Gluconate (Ferrous Gluconate) 324 mg DAILY PO 08/09/24 09:00 09/07/24 08:59 08/09/24 08:59 324 MG Ferrous Gluconate (Ferrous Gluconate) 325 mg DAILY PO 08/08/24 09:00 08/09/24 08:58 DC 08/08/24 09:33 324 MG Folic Acid (FOLic ACID 1 MG TABLET) 1 mg DAILY PO 08/08/24 09:00 09/07/24 08:59 08/09/24 08:54 1 MG Heparin Sodium (Porcine) (HEParin 5,000 UNIT VIAL) 5,000 unit Q12H SQ 08/07/24 10:30 09/06/24 10:29 08/09/24 09:18 5,000 UNIT Home Med (Home Medication) (Mecobalamin (B12 Acti... DAILY PO 08/08/24 09:00 09/07/24 08:59 Home Med (Home Medication) Cholecalciferol (Vitd3)/Vit K2 (D3 Plus... DAILY PO 08/08/24 09:00 09/07/24 08:59 Labetalol HCl (TRANdate 20MG SYG) 5 mg Q6H PRN IV systolic pressure > 160 08/07/24 10:00 09/06/24 09:59 Lisinopril (Prinivil 10mg) 10 mg DAILY PO 08/08/24 09:00 09/07/24 08:59 08/09/24 08:53 10 MG Magnesium Sulfate 50 ml @ 0 mls/hr PROTOCOL PRN IV low mag level 08/07/24 10:00 09/06/24 09:59 08/07/24 22:43 25 MLS/HR Metoprolol Succinate (TopROL XL) 50 mg DAILY PO 08/08/24 09:00 09/07/24 08:59 08/09/24 08:53 50 MG Miscellaneous Medication (Folic Acid ) 1 cap DAILY PO 08/08/24 09:00 08/07/24 12:29 DC Morphine Sulfate (morPHINE 2MG SYG) 2 mg Q4H PRN IVP SEVERE PAIN (7-10) 08/07/24 12:30 08/14/24 12:29 08/08/24 17:05 2 MG Multi-Ingred Cream/Lotion/Oil/ Oint (Minerin Creme) 1 APPL BID TP 08/08/24 21:00 09/07/24 20:59 08/09/24 09:06 1 APPL Ondansetron HCl (zoFRAN 4MG INJ) 4 mg Q6H PRN IV NAUSEA/VOMITING 08/07/24 04:30 09/06/24 04:29 Piperacillin Sod/ Tazobactam Sod 50 ml @ 12.5 mls/hr Q8H IV 08/07/24 09:00 08/17/24 08:59 08/09/24 08:50 12.5 MLS/HR Potassium Chloride 100 ml @ 50 mls/hr AD PRN IV POTASSIUM PROTOCOL 08/07/24 10:00 08/09/24 08:59 DC Potassium Chloride 100 ml @ 100 mls/hr AD PRN IV POTASSIUM PROTOCOL 08/07/24 10:00 09/06/24 09:59 Potassium Chloride (K-Dur/Klor-Con 20meq) 20 meq AD PRN PO POTASSIUM PROTOCOL 08/07/24 10:00 09/06/24 09:59 08/09/24 08:53 20 MEQ Potassium Chloride (KCl 10% Elixir 20meq/15ml) 20 meq AD PRN PO POTASSIUM PROTOCOL 08/07/24 10:00 09/06/24 09:59 Pyridoxine HCl (PYRIDoxine HCL 50 MG TABLET) 100 mg DAILY PO 08/08/24 09:00 09/07/24 08:59 08/09/24 08:53 100 MG Sucralfate (Carafate) 1 gm TIDHS PO 08/07/24 13:00 09/06/24 12:59 08/09/24 08:53 1 GM Tamsulosin HCl (FloMAX) 0.4 mg HS PO 08/07/24 21:00 09/06/24 20:59 08/08/24 20:57 0.4 MG Trazodone HCl (DesyREL/OlepTRO) 100 mg HS PO 08/07/24 21:00 09/06/24 20:59 08/08/24 20:57 100 MG Vancomycin HCl 250 ml @ 125 mls/hr ONCE IV 08/07/24 04:30 08/07/24 04:12 DC Vancomycin HCl 250 ml @ 125 mls/hr Q12H IV 08/07/24 16:00 08/17/24 15:59 08/09/24 04:28 125 MLS/HR Vancomycin HCl (Vancomycin Protocol) 1 each AD IV 08/07/24 03:30 08/21/24 03:29 DIAGNOSTICS / RADIOLOGY: [ ] ASSESSMENT: Sepsis elevated [id number], elevated heart [id number] and WBCs 22 Bilateral cellulitis with venous stasis ulcers infection POA failed outpatient treatment POA acute on chronic anemia POA Iron deficiency POA DVT seen in the proximal left superficial femoral vein. POA electrolytes derangement: hyponatremia POA hyperglycemia POA Recent hospitalization one week ago: dx: sepsis suspecting ROCHELLE POA Suspecting oropharyngeal dysphagia POA nonhealing ulcer to his left great toe status post toenail removal 6 months ago Peripheral vascular disease, prior arterial Doppler studies. chronic problems; CAD s/p CABG HTN Prostate PLAN: Admit medical-surgical floor: condition: Guarded Status: Full code IVF: heplock [facility] infectious disease and waste/materials exchange specialist: DR Jason Salcedo podiatry JEWELRY JOBBER DR Lopez: dressing Xeroform Antibiotics: IV vancomycin pharmacy to dose and Zosyn IV every 8 hours Test: Blood cultures so far negative Continue with antiemetics as needed Imaging: ECHO to eval EF LVEF is 50%. 3D volume EF 50%. Local wound care to bilateral ext: cream: for dry skin aggressive off loading OOB to chair. speech: aspiration precaution HOB at 45 degree at all time. PT OT eval and treat: disposition discharged Labs cbc, cmp, mag+ Replace electrolytes as needed as per protocol to keep potassium above 4.0 magnesium 2.0. Monitor H/H trends transfuse to keep HGB above 7.0 Home medications reconciled Pain management: Tylenol as needed Supportive measures: DVT ppx, GI ppx heparin drip patient refuse sub q Heparin and famotidine 20 mg bid all questions answered Supervising MD: Dr. Esha Lawson c/d This document was generated in part using voice recognition software, occasional wrong word or sound alike substitutions may have occurred due to the inherent limitations of voice recognition software. Read the chart carefully and re cognize using context, where the substitutions have occurred. Although every effort was made to edit the content, regulation supervisor and typing errors may occur ATTESTATION BY PHYSICIAN I have seen and examined the patient. I reviewed the documentation, medical decision making, and treatment plan as noted by the mid-level provider above. I agree with the findings and plan of care. Courtney Balbuena MD, ELIZABETH NP Aug 09, 2024 09:26
--- NOTE | 2024-08-09 09:30 | HMCIMG ---
Exam Type: FOOT COMP 3+VWS LT Clinical Information: LT GREAT TOE ULCER Comparison: None Findings: There are degenerative changes of 1st metatarsophalangeal joint. In addition, there are calcaneal spurs. The examination is otherwise unremarkable. No fractures or dislocations are seen. No radiopaque foreign bodies are noted. Soft tissues are preserved. IMPRESSION: Degenerative changes of 1st metatarsophalangeal joint. Calcaneal spurs.
--- NOTE | 2024-08-09 10:05 | PN ---
INFECTIOUS DISEASE FOLLOWUP NOTE DATE OF SERVICE: 08/08/2024 SUBJECTIVE: The patient is seen and examined at bedside. No fever. No chills. No sore throat. No rhinorrhea. No heat or cold intolerance. No palpitations or orthopnea. No dysuria or hematuria. . Denies rashes. Denies neck pain or neck swelling. . PHYSICAL EXAMINATION: VITAL SIGNS: Temperature 98.9. EYES: No icterus. Pupils are equal and reactive. HENT: No oral thrush seen. Moist oral mucosa. NECK: Supple. No JVD or thyromegaly. LUNGS: Good air entry. No rales. No rhonchi. CARDIOVASCULAR: S1 and S2, regular. No murmur heard. ABDOMEN: Obese. Soft. Nontender. Bowel sound is present. CENTRAL NERVOUS SYSTEM: Awake, alert, oriented x 3. No focal deficits. SKIN: The patient has some rashes. LYMPHATIC: No peripheral lymphadenopathy. BACK: No deformity. No pressure ulcer. EXTREMITIES: Ulcer involving both lower legs with cellulitis. LABORATORY DATA: WBC 16.8, hemoglobin 8.3, platelets 202. ASSESSMENT: A 78-year-old male with multiple problems which include: * Left leg ulcer. * Bilateral lower extremities cellulitis. * Obesity. * Leukocytosis. * Hypertension. * BPH. PLAN: * Continue Zosyn. * Continue vancomycin. * Continue wound care. * Continue pain management. * Continue nutritional support. * Monitor electrolytes. * Continue DVT prophylaxis. TID: [id number] RECEIPT: [id number]
--- NOTE | 2024-08-09 10:41 | CONS ---
HISTORY OF PRESENT ILLNESS: The patient is a 78-year-old male who I was asked to see regarding an ulcer to his second toe on the right foot, and an ulcer to his first toe on the left foot. He has a white count of 16.4, H and H 7.8 and 23.3, and platelets 195. He has a venous stasis ulcer to his left ankle being [facility]. He has neutrophils of 94.3. He is being evaluated for cellulitis. He has a BUN and creatinine level of 18 and 0.7, currently receiving IV vancomycin and IV Zosyn. The patient states the swelling in his legs has significantly improved since his hospitalization. The patient states 6 months ago he had his toenail taken off his left great toe by Dr. Salcedo and it is still not healed. He has been followed by Dr. Dotson from an Infectious Disease standpoint. He has had no x-rays of his feet. No MRIs of his feet. He has had ultrasound abnormal monophasic waveforms bilateral anterior tibial and dorsalis pedis suggesting flow-limiting stenosis. PAST MEDICAL HISTORY: Significant for lower extremity edema, cellulitis, history of deep vein thrombosis, chronic venous insufficiency, hypertension, benign prostate hypertrophy, and anemia, coronary artery bypass grafting x 4 in 2012, heart stents in 2018. Gallbladder removed. SOCIAL HISTORY: Former smoker. Does not use alcohol, tobacco, or drugs. ALLERGIES: No known drug allergies. REVIEW OF SYSTEMS: GENERAL: No chills, no fever, no night sweats, no nausea, vomiting, no diarrhea. HEENT: No problems with his eyes, ears, nose or throat. CARDIOVASCULAR: Having no current chest pain. History of coronary artery bypass grafting. History of heart stenting. He has had abnormal arterial Doppler studies anterior and tibial and dorsalis pedis arteries bilateral. GENITOURINARY: No dysuria. GASTROINTESTINAL: No dysphagia. ENDOCRINE: No diabetes. PSYCHIATRIC: Denied any depression. MUSCULOSKELETAL: Bunions and hammertoe. INTEGUMENT: He has an ulcer to the dorsal aspect of the right second toe. He has an ulcer to the distal aspect of the left first toe. PHYSICAL EXAMINATION: The examination today shows I cannot palpate his pedal pulses. He has pitting edema to his feet bilaterally. He has interdigital maceration to his interspaces and he has thickened, elongated toenails. He has an ulcer to the distal tip of the left first toe. It is 8 x 4 x 1 mm. There is an ulcer on the dorsal aspect of the proximal interphalangeal joint of the right second toe. It is 3 x 3 x 1 mm. He has a venous ulcer that is wrapped on the left. ASSESSMENT: The patient 78-year-old non-diabetic male with venous insufficiency, lower extremity cellulitis, peripheral vascular disease, coronary artery disease, hypertension, benign prostatic hypertrophy, anemia, nonhealing ulcer to his left great toe status post toenail removal 6 months ago per the patient. Peripheral vascular disease, prior arterial Doppler studies. PLAN: Xeroform dressing was applied to the first toe left, and second toe, right. I will order an MRI to his feet bilaterally. I will order x-rays to his feet bilaterally. Cardiology to evaluate his abnormal arterial Doppler studies to bilateral lower extremities. Follow the patient closely while in-house. TID: [id number] RECEIPT: [id number]
--- NOTE | 2024-08-09 11:42 | NUR ---
MD SHAHANA JAY AT BEDSIDE COVERING FOR .
--- NOTE | 2024-08-09 13:10 | NUR ---
DR. NAQVI AT BEDSIDE. NEW ORDER TO STOP HEPARIN. START LOVENOX 75MG SQ BID.
--- NOTE | 2024-08-09 14:45 | NUR ---
[facility] Consult: Patient not in room at this time, at MRI. Addendum: 08/10/24 at 1636 by ANDRE GAYLE RN RN/MEENA Amended: Links added.
--- NOTE | 2024-08-09 17:00 | NUR ---
BEDSIDE SWALLOW EVAL COMPLETED. No s/s of aspiration. Recommend regular solids, thin liquids and pills whole 1 per swallow as tolerated. LIBRARY CIRCULATION ASSISTANT reviewed results and recommendations with patient and nurse Summer. LIBRARY CIRCULATION ASSISTANT educated patient on risks and consequences of aspiration. Speech therapy not warranted at this time. All questions answered. Addendum: 08/09/[address] FLACO SIDHU Amended: Links added.
--- NOTE | 2024-08-09 17:03 | HMCIMG ---
MRI of the foot, noncontrast- right Clinical Information: ulcer Comparison: None Technique: Multiecho multiplanar sequences are done without contrast administration. FINDINGS: Standard MR sequences of the foot demonstrate no evidence of soft tissue mass or neuroma. There is no osteomyelitis. The bones of the phalanges, metatarsals and tarsals all have normal marrow signal on all echo sequences. The cortices are intact. The flexor and extensor tendons of the foot have normal low signal on both T1 and T2 weighted sequences. The muscles and fascial planes are unremarkable. IMPRESSION: No evidence of osteomyelitis.
--- NOTE | 2024-08-09 17:03 | HMCIMG ---
MRI of the foot, noncontrast- left Clinical Information: ulcer Comparison: None Technique: Multiecho multiplanar sequences are done without contrast administration. FINDINGS: Standard MR sequences of the foot demonstrate no evidence of soft tissue mass or neuroma. There is no osteomyelitis. The bones of the phalanges, metatarsals and tarsals all have normal marrow signal on all echo sequences. The cortices are intact. The flexor and extensor tendons of the foot have normal low signal on both T1 and T2 weighted sequences. The muscles and fascial planes are unremarkable. IMPRESSION: No evidence of osteomyelitis.
--- NOTE | 2024-08-09 20:19 | CONS ---
GASTROENTEROLOGY CONSULTATION NOTE Date of Consultation: Aug 09, 2024 Time of Consultation: 20:19 History of Present Illness: This is a 78-year-old male with past medical history of chronic venous stasis ulcers to bilateral lower extremity, hypertension, BPH and anemia. He presented due to fever and chills. Patient has been taking Tylenol for fevers. He had a recent hospitalization due to lower extremity cellulitis and discharged on antibiotic therapy. Sepsis alert was initiated in the ER. He was febrile and tachycardic. We were consulted due to downtrending hemoglobin. Hemoglobin on admission was 9.8 and trended down yesterday to 7.8. Hemoglobin today is 8.2, MCV 100.4 with a platelet count of 185. BUN and creatinine are normal. Total bili mildly elevated measuring 1.3 with AST of 41. No abdominal imaging. EGD 12/02/2024 revealing gastritis. Prior to that he had EGD and colonoscopy March 2019 for for which EGD revealed mild erosive gastritis and colonoscopy revealed internal hemorrhoids and mild diverticulosis. Review of Systems: CONSTITUTIONAL: No malaise or change in sensation of wellbeing. ENMT: No rhinorrhea, otorrhea, sinus pain, ear ache. CARDIOVASCULAR: No angina, palpitations, orthopnea or paroxysmal dyspnea. RESPIRATORY: No SOB. GASTROINTESTINAL: No abdominal pain, nausea, vomiting, diarrhea, hematemesis, melena or change in the patient's habitual bowel movements consistency/number. GENITOURINARY: No dysuria, hematuria or change in bladder continence. MUSCULOSKELETAL: No new muscle pain or decrease in muscular strength. No new joint swelling, redness or tenderness. SKIN: No new rash. Past Medical History: [ ] Past Surgical History: [ ] Past Social History: [ ] Family History: [ ] Coded Allergies: No Known Drug Allergies (Unverified Allergy, Unknown, 12/28/13) Physical Exam: GEN: Awake, alert, oriented in person, time and place, and in no acute distress. HEENT: No sinus tenderness. Tympanic membranes were not examined. No rhinorrhea. Oral pharyngeal mucosa is pink, moist and within normal limits. Neck is supple with no cervical lymphadenopathy, thyromegaly or JVD. CHEST: Inspection, palpation and percussion of the chest were unremarkable. Lung auscultation revealed normal breath sounds bilaterally. CARDIAC: PMI is within normal limits. Heart sounds are regular. Normal S1, S2. No gallop or murmur. ABD: Soft, non-tender and not distended. No peritoneal signs on palpation. No organomegaly. Normal bowel sounds. EXT: No cyanosis or clubbing. No edema. SKIN: Intact. No rashes. JOINTS: No evidence of synovitis or acute arthritis. NEURO: Alert and oriented to name, place and person. Cranial nerve examination is unremarkable. No focal motor deficits. Normal speech. Gait is normal. Strength is normal. Vital Sign (Last 24 Hours) 08/08/24 08/09/24 08/09/24 20:55 08:00 16:00 Temp 98.2 Pulse 82 Resp 18 B/P (MAP) 107/46 Pulse Ox 100 O2 Delivery Room Air O2 Flow Rate 0 FiO2 21 Intake & Output (last 24hrs) 0 08/08/24 08/08/24 08/09/24 15:00 23:00 07:00 Intake Total 300.0 ml 345.0 ml Output Total 1 ml Balance 300.0 ml 344.0 ml Laboratory: [ ] Laboratory: Test 08/09/24 06:06 08/08/24 15:08 08/08/24 05:45 Range/Units White Blood Count 16.4 H 4.8-10.8 K/uL Red Blood Count 2.34 L 4.50-6.20 MIL/uL Hemoglobin 7.8 L 14.0-18.0 g/dL Hematocrit 23.3 L 42-54 % Mean Corpuscular Volume 99.6 H 79-99 fL Mean Corpuscular Hemoglobin 33.3 H 27.0-33.0 pg Mean Corpuscular Hemoglobin Concent 33.5 32.0-36.0 g/dL Red Cell Distribution Width 20.4 H 11.0-15.5 % Platelet Count 195 130-400 K/uL Mean Platelet Volume 10.6 H 7.5-10.5 fL Immature Granulocyte % (Auto) 1.2 H 0-1 % Neutrophils (%) (Auto) 94.3 H 40.0-77.0 % Lymphocytes (%) (Auto) 0.9 L 21.0-51.0 % Monocytes (%) (Auto) 3.3 3.0-13.0 % Eosinophils (%) (Auto) 0.1 0.0-8.0 % Basophils (%) (Auto) 0.2 0.0-5.0 % Neutrophils # (Auto) 15.5 H 1.8-7.7 K/uL Lymphocytes # (Auto) 0.2 L 1.0-4.8 K/uL Monocytes # (Auto) 0.5 0.1-1.0 K/uL Eosinophils # (Auto) 0.01 0.00-0.70 K/uL Basophils # (Auto) 0.03 0.00-0.20 K/uL Absolute Immature Granulocyte (auto 0.20 0-1 K/uL Nucleated Red Blood Cells 0.0 0.0-0.19 % Sodium Level 134 L 136-145 mmol/L Potassium Level 3.8 3.5-5.1 mmol/L Chloride Level 100 L 101-111 mmol/L Carbon Dioxide Level 29 21-32 mmol/L Blood Urea Nitrogen 18 7-18 mg/dL Creatinine 0.7 0.5-1.3 mg/dL Glomerular Filtration Rate Calc 94 >90 mL/min Random Glucose 114 H 70-105 mg/dL Total Calcium 8.2 L 8.5-10.1 mg/dL Magnesium Level 2.00 1.80-2.40 mg/dL Total Bilirubin 1.2 H 0.2-1.0 mg/dL Aspartate Amino Transf (AST/SGOT) 23 10-37 U/L Alanine Aminotransferase (ALT/SGPT) 46 12-78 U/L Alkaline Phosphatase 55 50-136 U/L Total Protein 5.5 L 6.0-8.3 g/dL Albumin 2.9 L 3.5-5.0 g/dL Vancomycin Level Trough 15.3 10.0-20.0 UG/ML C-Reactive Protein, Quantitative 76.40 H 0.5-3.0 mg/L Procalcitonin 0.05 0.05-0.5 ng/mL Current Medications Medications (Trade) Dose Ordered Sig/Javed Route PRN Reason Start Time Stop Time Status Last Admin Dose Admin Acetaminophen (TYLenol 325MG TAB) 650 mg Q4H PRN PO MILD PAIN (1-3) 08/07/24 04:30 09/06/24 04:29 08/09/24 08:52 650 MG Acetaminophen (TYLenol 325MG TAB) 650 mg Q6H PRN PO TEMPERATURE GREATER THAN 101.5 08/07/24 04:30 09/06/24 04:29 Aspirin (Aspirin 81mg Ec Tab) 81 mg DAILY PO 08/08/24 09:00 09/07/24 08:59 08/09/24 08:53 81 MG Enoxaparin Sodium (Lovenox 80mg) 70 mg DAILY SQ 08/10/24 09:00 09/09/24 08:59 Famotidine (Pepcid 20mg Tab) 20 mg BID PO 08/07/24 09:00 09/06/24 08:59 08/09/24 08:53 20 MG Ferrous Gluconate (Ferrous Gluconate) 324 mg DAILY PO 08/09/24 09:00 09/07/24 08:59 08/09/24 08:59 324 MG Ferrous Gluconate (Ferrous Gluconate) 325 mg DAILY PO 08/08/24 09:00 08/09/24 08:58 DC 08/08/24 09:33 324 MG Folic Acid (FOLic ACID 1 MG TABLET) 1 mg DAILY PO 08/08/24 09:00 09/07/24 08:59 08/09/24 08:54 1 MG Heparin Sodium (Porcine) (HEParin 5,000 UNIT VIAL) 5,000 unit Q12H SQ 08/07/24 10:30 08/09/24 13:12 DC 08/09/24 09:18 5,000 UNIT Home Med (Home Medication) (Mecobalamin (B12 Acti... DAILY PO 08/08/24 09:00 09/07/24 08:59 Home Med (Home Medication) Cholecalciferol (Vitd3)/Vit K2 (D3 Plus... DAILY PO 08/08/24 09:00 09/07/24 08:59 Labetalol HCl (TRANdate 20MG SYG) 5 mg Q6H PRN IV systolic pressure > 160 08/07/24 10:00 09/06/24 09:59 Lisinopril (Prinivil 10mg) 10 mg DAILY PO 08/08/24 09:00 09/07/24 08:59 08/09/24 08:53 10 MG Magnesium Sulfate 50 ml @ 0 mls/hr PROTOCOL PRN IV low mag level 08/07/24 10:00 09/06/24 09:59 08/07/24 22:43 25 MLS/HR Metoprolol Succinate (TopROL XL) 50 mg DAILY PO 08/08/24 09:00 09/07/24 08:59 08/09/24 08:53 50 MG Miscellaneous Medication (Folic Acid ) 1 cap DAILY PO 08/08/24 09:00 08/07/24 12:29 DC Morphine Sulfate (morPHINE 2MG SYG) 2 mg Q4H PRN IVP SEVERE PAIN (7-10) 08/07/24 12:30 08/14/24 12:29 08/08/24 17:05 2 MG Multi-Ingred Cream/Lotion/Oil/ Oint (Minerin Creme) 1 APPL BID TP 08/08/24 21:00 09/07/24 20:59 08/09/24 09:06 1 APPL Ondansetron HCl (zoFRAN 4MG INJ) 4 mg Q6H PRN IV NAUSEA/VOMITING 08/07/24 04:30 09/06/24 04:29 Pharmacy Profile Note (Pharmacy Communication) 1 each DAILY MISC 08/10/24 09:00 08/09/24 13:16 DC Piperacillin Sod/ Tazobactam Sod 50 ml @ 12.5 mls/hr Q8H IV 08/07/24 09:00 08/17/24 08:59 08/09/24 18:14 12.5 MLS/HR Potassium Chloride 100 ml @ 50 mls/hr AD PRN IV POTASSIUM PROTOCOL 08/07/24 10:00 08/09/24 08:59 DC Potassium Chloride 100 ml @ 100 mls/hr AD PRN IV POTASSIUM PROTOCOL 08/07/24 10:00 09/06/24 09:59 Potassium Chloride (K-Dur/Klor-Con 20meq) 20 meq AD PRN PO POTASSIUM PROTOCOL 08/07/24 10:00 09/06/24 09:59 08/09/24 16:40 20 MEQ Potassium Chloride (KCl 10% Elixir 20meq/15ml) 20 meq AD PRN PO POTASSIUM PROTOCOL 08/07/24 10:00 09/06/24 09:59 Pyridoxine HCl (PYRIDoxine HCL 50 MG TABLET) 100 mg DAILY PO 08/08/24 09:00 09/07/24 08:59 08/09/24 08:53 100 MG Sucralfate (Carafate) 1 gm TIDHS PO 08/07/24 13:00 09/06/24 12:59 08/09/24 15:43 1 GM Tamsulosin HCl (FloMAX) 0.4 mg HS PO 08/07/24 21:00 09/06/24 20:59 08/08/24 20:57 0.4 MG Trazodone HCl (DesyREL/OlepTRO) 100 mg HS PO 08/07/24 21:00 09/06/24 20:59 08/08/24 20:57 100 MG Vancomycin HCl 250 ml @ 125 mls/hr ONCE IV 08/07/24 04:30 08/07/24 04:12 DC Vancomycin HCl 250 ml @ 125 mls/hr Q12H IV 08/07/24 16:00 08/17/24 15:59 08/09/24 15:43 125 MLS/HR Vancomycin HCl (Vancomycin Protocol) 1 each AD IV 08/07/24 03:30 08/21/24 03:29 Diagnostics / Radiology: [COPY/PASTE HERE IF NO REPORTS PLEASE DELETE SECTION] Assessment: Concern for GI bleed Anemia Cellulitis Plan: Recommend outpatient pillcam Continue GI prophylaxis Advance diet as tolerated Avoid NSAIDs Antireflux measures Monitor H&H and transfuse as needed Call with questions, concerns or change in clinical status Patient to follow-up at clinic post discharge Thank you for this consult JAVIER LI POLICY SPECIALIST Aug 09, 2024 20:19
--- NOTE | 2024-08-09 20:45 | NUR ---
PT AWAKE/ALERT TO NAME/PLACE BUT FORGETFUL. SON AT BEDSIDE. PT HAVING HALLUCINATIONS, "LOOK AT THE FIREPLACE" PT ORIENTED TO TIME, PLACE, SITUATION. S/R UP X 3, BED ALARM IN PLACE.
--- NOTE | 2024-08-09 22:53 | PN ---
INFECTIOUS DISEASE PROGRESS NOTE Date of Service: Aug 09, 2024 SUBJECTIVE: This is a 78-year-old male patient who was seen and examined at bedside in room 324. Patient is awake, alert and oriented to person. Patient currently has a bedside 1:1 sitter due to hallucination and confusion episodes. Patient went down for an MRI of bilaterally feet, will follow up on the results. The WBC is still slightly elevated at 16.4 but no fever, temperature is 98.1. Very minimal serosanguineous drainage observed from the left lower extremity ulcer. We will continue vancomycin and Zosyn. PHYSICAL EXAM EYES: Anicteric. Pupils equal and reactive. HENT: No oral thrush seen, moist Oral mucosa. NECK: Supple, no JVD or thyromegaly. LUNGS: Good air entry. No rales, no rhonchi. CARDIOVASCULAR: S1, S2 regular. No murmur heard. ABDOMEN: Soft, non tender, bowel sounds present, no organomegaly. CENTRAL NERVOUS SYSTEM: Awake, alert, oriented x 1. SKIN: No rashes, no swelling. Bilateral lower extremity cellulitis. LYMPHATICS: No peripheral lymphadenopathy MUSCULOSKELETAL: No joint swelling, erythema or tenderness. EXTREMITIES: No cyanosis or clubbing. Left lower extremity ulcer. BACK: No deformity, no pressure ulcer. GENITOURINARY: No dysuria or hematuria. Vital Sign (Last 12 Hours) 08/09/24 08/09/24 08/09/24 12:00 16:00 20:00 Temp 98.1 98.2 97.5 Pulse 79 82 89 Resp 17 18 19 B/P (MAP) 115/55 107/46 144/91 Pulse Ox 99 100 100 O2 Delivery Room Air Room Air Room Air Intake & Output (last 24hrs) 08/08/24 08/08/24 08/09/24 15:00 23:00 07:00 Intake Total 300.0 ml 345.0 ml Output Total 1 ml Balance 300.0 ml 344.0 ml LABS: Laboratory: Test 08/09/24 06:06 08/08/24 15:08 08/08/24 05:45 Range/Units White Blood Count 16.4 H 4.8-10.8 K/uL Red Blood Count 2.34 L 4.50-6.20 MIL/uL Hemoglobin 7.8 L 14.0-18.0 g/dL Hematocrit 23.3 L 42-54 % Mean Corpuscular Volume 99.6 H 79-99 fL Mean Corpuscular Hemoglobin 33.3 H 27.0-33.0 pg Mean Corpuscular Hemoglobin Concent 33.5 32.0-36.0 g/dL Red Cell Distribution Width 20.4 H 11.0-15.5 % Platelet Count 195 130-400 K/uL Mean Platelet Volume 10.6 H 7.5-10.5 fL Immature Granulocyte % (Auto) 1.2 H 0-1 % Neutrophils (%) (Auto) 94.3 H 40.0-77.0 % Lymphocytes (%) (Auto) 0.9 L 21.0-51.0 % Monocytes (%) (Auto) 3.3 3.0-13.0 % Eosinophils (%) (Auto) 0.1 0.0-8.0 % Basophils (%) (Auto) 0.2 0.0-5.0 % Neutrophils # (Auto) 15.5 H 1.8-7.7 K/uL Lymphocytes # (Auto) 0.2 L 1.0-4.8 K/uL Monocytes # (Auto) 0.5 0.1-1.0 K/uL Eosinophils # (Auto) 0.01 0.00-0.70 K/uL Basophils # (Auto) 0.03 0.00-0.20 K/uL Absolute Immature Granulocyte (auto 0.20 0-1 K/uL Nucleated Red Blood Cells 0.0 0.0-0.19 % Sodium Level 134 L 136-145 mmol/L Potassium Level 3.8 3.5-5.1 mmol/L Chloride Level 100 L 101-111 mmol/L Carbon Dioxide Level 29 21-32 mmol/L Blood Urea Nitrogen 18 7-18 mg/dL Creatinine 0.7 0.5-1.3 mg/dL Glomerular Filtration Rate Calc 94 >90 mL/min Random Glucose 114 H 70-105 mg/dL Total Calcium 8.2 L 8.5-10.1 mg/dL Magnesium Level 2.00 1.80-2.40 mg/dL Total Bilirubin 1.2 H 0.2-1.0 mg/dL Aspartate Amino Transf (AST/SGOT) 23 10-37 U/L Alanine Aminotransferase (ALT/SGPT) 46 12-78 U/L Alkaline Phosphatase 55 50-136 U/L Total Protein 5.5 L 6.0-8.3 g/dL Albumin 2.9 L 3.5-5.0 g/dL Vancomycin Level Trough 15.3 10.0-20.0 UG/ML C-Reactive Protein, Quantitative 76.40 H 0.5-3.0 mg/L Procalcitonin 0.05 0.05-0.5 ng/mL ASSESSMENT: Left lower extremity ulcer. Bilateral lower extremities cellulitis. Left lower extremity DVT. Leukocytosis. Hypertension. Encephalopathy. PLAN: Continue vancomycin per pharmacy protocol. Continue Zosyn IV. Continue GI prophylaxis. Continue pain management. Continue wound care. Currently on a one-to-one sitter observation. This case was reviewed and discussed with my supervising physician and the above assessment and plan was formulated and agreed upon. ATTESTATION BY PHYSICIAN I have seen and examined the patient. I reviewed the documentation, medical decision making, and treatment plan as noted by the mid-level provider above. I agree with the findings and plan of care. PERRY PARKINSON MD, [facility] Aug 09, 2024 22:53
[2024-08-10] VITALS: BP 148/68; PULSE 88; RESP 18; TEMP 97.9
--- NOTE | 2024-08-10 01:00 | NUR ---
HALLUCINATIONS: PT HAVING VISUAL AND AUDITORY HALLUCINATIONS, STATES "THERE IS A WOMAN IN MY ROOM, I CAN HEAR HER." PT ORIENTED TO ROOM, TIME, SITUATION EXPLAINED THERE IS NO WOMAN IN THE ROOM. PT VERBALIZES UNDERSTANDING. S/R UP X 3, BED ALARM IN PLACE.
[2024-08-10 04:00] VITALS: BP 111/54; PULSE 82; RESP 18; TEMP 98.2
[2024-08-10 06:44] LABS: BASOPHILS # (AUTO) 0.04 K/uL (0.00-0.20); BASOPHILS % (AUTO) 0.2 % (0.0-5.0); EOSINOPHILS # (AUTO) 0.02 K/uL (0.00-0.70); EOSINOPHILS % (AUTO) 0.1 % (0.0-8.0); HEMATOCRIT 25.5 % (42-54); IMMATURE GRANULOCYTE ABSOLUTE 0.18 K/uL (0-1); LYMPHOCYTES # (AUTO) 0.2 K/uL (1.0-4.8); LYMPHOCYTES % (AUTO) 1.1 % (21.0-51.0); MEAN CORPUSCULAR HEMOGLOBIN 32.3 pg (27.0-33.0); MEAN CORPUSCULAR HGB CONC 32.2 g/dL (32.0-36.0); MEAN CORPUSCULAR VOLUME 100.4 fL (79-99); MONOCYTES # (AUTO) 0.5 K/uL (0.1-1.0); MONOCYTES % (AUTO) 2.4 % (3.0-13.0); NEUTROPHILS # (AUTO) 18.3 K/uL (1.8-7.7); NEUTROPHILS % (AUTO) 95.3 % (40.0-77.0); PLATELET COUNT (AUTO) 185 K/uL (130-400); RED BLOOD CELL COUNT(AUTO) 2.54 MIL/uL (4.50-6.20); RED CELL DISTRIBUTION WIDTH 20.3 % (11.0-15.5); WHITE BLOOD COUNT (AUTO) 19.3 K/uL (4.8-10.8)
[2024-08-10 07:19] LABS: ALBUMIN 2.9 g/dL (3.5-5.0); BILIRUBIN,TOTAL 1.3 mg/dL (0.2-1.0); CREATININE 0.7 mg/dL (0.5-1.3); MAGNESIUM 1.9 mg/dL (1.80-2.40); POTASSIUM 3.8 mmol/L (3.5-5.1); TOTAL PROTEIN, SERUM 5.6 g/dL (6.0-8.3)
[2024-08-10 08:00] VITALS: BP 129/73; PULSE 93; RESP 19; TEMP 97
[2024-08-10] MEDS ORDERED: PHARMACY COMMUNICATION MISC SCH (09:00)
[2024-08-10] MEDS: ENOXAPARIN SODIUM 80 MG/0.8 ML SQ SCH (09:35)
--- NOTE | 2024-08-10 09:44 | PN ---
[facility] PROGRESS NOTE Date of Service: Aug 10, 2024 Time of Service: 09:43 SUBJECTIVE: [ ] admission date: 08/07/24 PCP: self referral chief complaints: fever, chills This is a 78-year-old male presents in ED with chief complaints of fever and chills. ER initiated sepsis alert: Onset two days ago. Patient was taking Tylenol for fevers. Patient was recently hospitalized for lower extremity cellulitis and discharged on oral antibiotics. metronidazole for Bilateral cellulitis with venous stasis ulcers. Patient reports seen wound care center with Dr. Jason Salcedo. Patient denies abdominal pain diarrhea chest pain, shortness for breath. Sepsis alert was initiated in ED patient came in with a temperature of 101.8 heart rate 102 leukocytosis 22.1. Blood cultures obtained, influenza a and B COVID all negative UA negative. Patient received a dose of Zosyn IV and vancomycin IV ID has been consulted for antibiotics stewardship. Imaging ; venous doppler DVT seen in the proximal left superficial femoral vein. 08/08/24 patient is seen and examined fevers have improved. Patient refused heparin subQ patient has a DVT superficial to femoral he agree with heparin drip. Patient was reports having difficulty swallowing speech consulted. Patient's skin very dry to lower extremities we will get anterior Doppler and flap lining binder consult. Encouraged patient to get out of bed to chair PT services to eval and treat. No chest pain no shortness a breath 08/09/24 patient is seen and examined patient appears to be doing much better today patient reports that he walks about 70 ft walker at home. Speech pending I encouraged patient out of bed to chair with meals. One-to-one was placed overnight patient has delirium at night. We will waiting for ID final recommendations on IV antibiotics. 08/10/24 patient is seen and examined afebrile. Blood cultures so far negative waiting for ID final recommendation deescalate IV antibiotics to p.o.. Speech no signs of aspiration. We continue with wound care as directed. Patient is working with physical therapy patient walks more than 70 [address] discussed placement patient refused wants to go home wants discharge. REVIEW OF SYSTEMS a 14 point ROS obtained all relevant positive documented otherwise ROS negative PHYSICAL EXAM GENERAL APPEARANCE: The patient is awake, alert, and oriented, in no acute cardiopulmonary distress. appears acutely ill, NEUROLOGICAL: Cranial nerves II-XII grossly intact. Motor is 5/5 in bilateral upper and lower extremities proximal to distal. No sensory deficits. HEENT: Face is symmetric. Pupils are equal and reactive. Extraocular movements are intact. NECK: Supple. No JVD. No thyromegaly. No submental, submandibular, pre-/postauricular, occipital or supraclavicular lymphadenopathy. CHEST: Normal chest expansion. No Telemetry. LUNGS: Absence of any rales, rhonchi or any wheezing. CARDIOVASCULAR: Regular. S1 and S2 normal. No appreciable rubs, murmurs or gallops. ABDOMEN: Soft, nontender, and nondistended. There is no rebound, voluntary guarding, or rigidity. : Deferred. No Priest. EXTREMITIES: + edematous and not cyanotic. No clubbing. Good capillary refill. SKIN: redness to lower ext bilateral with statis venous ulcer: left leg with dressing Vital Signs (last 8hr) Date Time Temp Pulse Resp B/P (MAP) Pulse Ox O2 Delivery O2 Flow Rate FiO2 08/10/24 08:00 97.0 93 19 129/73 100 Room Air 21 08/10/24 04:00 98.2 82 18 111/54 97 Room Air LABS: Laboratory: Test 08/10/24 06:35 08/08/24 15:08 Range/Units White Blood Count 19.3 H 4.8-10.8 K/uL Red Blood Count 2.54 L 4.50-6.20 MIL/uL Hemoglobin 8.2 L 14.0-18.0 g/dL Hematocrit 25.5 L 42-54 % Mean Corpuscular Volume 100.4 H 79-99 fL Mean Corpuscular Hemoglobin 32.3 27.0-33.0 pg Mean Corpuscular Hemoglobin Concent 32.2 32.0-36.0 g/dL Red Cell Distribution Width 20.3 H 11.0-15.5 % Platelet Count 185 130-400 K/uL Mean Platelet Volume 11.0 H 7.5-10.5 fL Immature Granulocyte % (Auto) 0.9 0-1 % Neutrophils (%) (Auto) 95.3 H 40.0-77.0 % Lymphocytes (%) (Auto) 1.1 L 21.0-51.0 % Monocytes (%) (Auto) 2.4 L 3.0-13.0 % Eosinophils (%) (Auto) 0.1 0.0-8.0 % Basophils (%) (Auto) 0.2 0.0-5.0 % Neutrophils # (Auto) 18.3 H 1.8-7.7 K/uL Lymphocytes # (Auto) 0.2 L 1.0-4.8 K/uL Monocytes # (Auto) 0.5 0.1-1.0 K/uL Eosinophils # (Auto) 0.02 0.00-0.70 K/uL Basophils # (Auto) 0.04 0.00-0.20 K/uL Absolute Immature Granulocyte (auto 0.18 0-1 K/uL Nucleated Red Blood Cells 0.0 0.0-0.19 % White Cell Morphology Comment See comments Red Blood Cell Morphology See comments Sodium Level 132 L 136-145 mmol/L Potassium Level 3.8 3.5-5.1 mmol/L Chloride Level 97 L 101-111 mmol/L Carbon Dioxide Level 27 21-32 mmol/L Blood Urea Nitrogen 13 7-18 mg/dL Creatinine 0.7 0.5-1.3 mg/dL Glomerular Filtration Rate Calc 94 >90 mL/min Random Glucose 116 H 70-105 mg/dL Total Calcium 8.3 L 8.5-10.1 mg/dL Magnesium Level 1.90 1.80-2.40 mg/dL Total Bilirubin 1.3 H 0.2-1.0 mg/dL Aspartate Amino Transf (AST/SGOT) 41 H 10-37 U/L Alanine Aminotransferase (ALT/SGPT) 76 12-78 U/L Alkaline Phosphatase 63 50-136 U/L Total Protein 5.6 L 6.0-8.3 g/dL Albumin 2.9 L 3.5-5.0 g/dL Vancomycin Level Trough 15.3 10.0-20.0 UG/ML Current Medications Medications (Trade) Dose Ordered Sig/Javed Route PRN Reason Start Time Stop Time Status Last Admin Dose Admin Acetaminophen (TYLenol 325MG TAB) 650 mg Q4H PRN PO MILD PAIN (1-3) 08/07/24 04:30 09/06/24 04:29 08/10/24 01:01 650 MG Acetaminophen (TYLenol 325MG TAB) 650 mg Q6H PRN PO TEMPERATURE GREATER THAN 101.5 08/07/24 04:30 09/06/24 04:29 Aspirin (Aspirin 81mg Ec Tab) 81 mg DAILY PO 08/08/24 09:00 09/07/24 08:59 08/10/24 09:33 81 MG Enoxaparin Sodium (Lovenox 80mg) 80 mg DAILY SQ 08/10/24 09:00 09/09/24 08:59 08/10/24 09:35 80 MG Famotidine (Pepcid 20mg Tab) 20 mg BID PO 08/07/24 09:00 09/06/24 08:59 08/10/24 09:34 20 MG Ferrous Gluconate (Ferrous Gluconate) 324 mg DAILY PO 08/09/24 09:00 09/07/24 08:59 08/10/24 09:33 324 MG Ferrous Gluconate (Ferrous Gluconate) 325 mg DAILY PO 08/08/24 09:00 08/09/24 08:58 DC 08/08/24 09:33 324 MG Folic Acid (FOLic ACID 1 MG TABLET) 1 mg DAILY PO 08/08/24 09:00 09/07/24 08:59 08/10/24 09:33 1 MG Heparin Sodium (Porcine) (HEParin 5,000 UNIT VIAL) 5,000 unit Q12H SQ 08/07/24 10:30 08/09/24 13:12 DC 08/09/24 09:18 5,000 UNIT Home Med (Home Medication) (Mecobalamin (B12 Acti... DAILY PO 08/08/24 09:00 09/07/24 08:59 Home Med (Home Medication) Cholecalciferol (Vitd3)/Vit K2 (D3 Plus... DAILY PO 08/08/24 09:00 09/07/24 08:59 Labetalol HCl (TRANdate 20MG SYG) 5 mg Q6H PRN IV systolic pressure > 160 08/07/24 10:00 09/06/24 09:59 Lisinopril (Prinivil 10mg) 10 mg DAILY PO 08/08/24 09:00 09/07/24 08:59 08/10/24 09:33 10 MG Magnesium Sulfate 50 ml @ 0 mls/hr PROTOCOL PRN IV low mag level 08/07/24 10:00 09/06/24 09:59 08/07/24 22:43 25 MLS/HR Metoprolol Succinate (TopROL XL) 50 mg DAILY PO 08/08/24 09:00 09/07/24 08:59 08/10/24 09:33 50 MG Miscellaneous Medication (Folic Acid ) 1 cap DAILY PO 08/08/24 09:00 08/07/24 12:29 DC Morphine Sulfate (morPHINE 2MG SYG) 2 mg Q4H PRN IVP SEVERE PAIN (7-10) 08/07/24 12:30 08/14/24 12:29 08/08/24 17:05 2 MG Multi-Ingred Cream/Lotion/Oil/ Oint (Minerin Creme) 1 APPL BID TP 08/08/24 21:00 09/07/24 20:59 08/10/24 09:35 1 APPL Ondansetron HCl (zoFRAN 4MG INJ) 4 mg Q6H PRN IV NAUSEA/VOMITING 08/07/24 04:30 09/06/24 04:29 Pharmacy Profile Note (Pharmacy Communication) 1 each DAILY MISC 08/10/24 09:00 08/09/24 13:16 DC Piperacillin Sod/ Tazobactam Sod 50 ml @ 12.5 mls/hr Q8H IV 08/07/24 09:00 08/17/24 08:59 08/10/24 09:32 12.5 MLS/HR Potassium Chloride 100 ml @ 50 mls/hr AD PRN IV POTASSIUM PROTOCOL 08/07/24 10:00 08/09/24 08:59 DC Potassium Chloride 100 ml @ 100 mls/hr AD PRN IV POTASSIUM PROTOCOL 08/07/24 10:00 09/06/24 09:59 Potassium Chloride (K-Dur/Klor-Con 20meq) 20 meq AD PRN PO POTASSIUM PROTOCOL 08/07/24 10:00 09/06/24 09:59 08/09/24 16:40 20 MEQ Potassium Chloride (KCl 10% Elixir 20meq/15ml) 20 meq AD PRN PO POTASSIUM PROTOCOL 08/07/24 10:00 09/06/24 09:59 Pyridoxine HCl (PYRIDoxine HCL 50 MG TABLET) 100 mg DAILY PO 08/08/24 09:00 09/07/24 08:59 08/10/24 09:33 100 MG Sucralfate (Carafate) 1 gm TIDHS PO 08/07/24 13:00 09/06/24 12:59 08/10/24 09:32 1 GM Tamsulosin HCl (FloMAX) 0.4 mg HS PO 08/07/24 21:00 09/06/24 20:59 08/09/24 20:46 0.4 MG Trazodone HCl (DesyREL/OlepTRO) 100 mg HS PO 08/07/24 21:00 09/06/24 20:59 08/09/24 20:46 100 MG Vancomycin HCl 250 ml @ 125 mls/hr ONCE IV 08/07/24 04:30 08/07/24 04:12 DC Vancomycin HCl 250 ml @ 125 mls/hr Q12H IV 08/07/24 16:00 08/17/24 15:59 08/10/24 04:13 125 MLS/HR Vancomycin HCl (Vancomycin Protocol) 1 each AD IV 08/07/24 03:30 08/21/24 03:29 DIAGNOSTICS / RADIOLOGY: [ ] ASSESSMENT: Sepsis elevated [id number], elevated heart [id number] and WBCs 22 Bilateral cellulitis with venous stasis ulcers infection POA failed outpatient treatment POA acute on chronic anemia POA Iron deficiency POA DVT seen in the proximal left superficial femoral vein. POA electrolytes derangement: hyponatremia POA hyperglycemia POA Recent hospitalization one week ago: dx: sepsis suspecting ROCHELLE POA Suspecting oropharyngeal dysphagia POA ruled out aspiration and dysphasia chronic problems; CAD s/p CABG HTN Prostate PLAN: Admit medical-surgical floor: condition: Guarded Status: Full code IVF: heplock [facility] infectious disease and legal support specialist: DR Jason Salcedo podiatry Antibiotics: IV vancomycin pharmacy to dose and Zosyn IV every 8 hours Test: Blood cultures so far negative Continue with antiemetics as needed Imaging: ECHO to eval EF LVEF is 50%. 3D volume EF 50%. Local wound care to bilateral ext: cream: for dry skin aggressive off loading OOB to chair. speech: aspiration precaution HOB at 45 degree at all time. PT OT eval and treat: disposition discharged Labs cbc, cmp, mag+ Replace electrolytes as needed as per protocol to keep potassium above 4.0 magnesium 2.0. Monitor H/H trends transfuse to keep HGB above 7.0 Home medications reconciled Pain management: Tylenol as needed Supportive measures: DVT ppx, GI ppx heparin drip patient refuse sub q Heparin and famotidine 20 mg bid all questions answered Supervising MD: Dr. Esha Lawson c/d This document was generated in part using voice recognition software, occasional wrong word or sound alike substitutions may have occurred due to the inherent limitations of voice recognition software. Read the chart carefully and recognize using context, where the substitutions have occurred. Although every effort was made to edit the content, clinical consultant and typing errors may occur ATTESTATION BY PHYSICIAN I have seen and examined the patient. I reviewed the documentation, medical decision making, and treatment plan as noted by the mid-level provider above. I agree with the findings and plan of care. Courtney Balbuena MD, ELIZABETH NP Aug 10, 2024 09:44
[2024-08-10 12:00] VITALS: BP 122/52; PULSE 83; RESP 20; TEMP 98.1
--- NOTE | 2024-08-10 12:02 | NUR ---
[facility] Follow-up: Patient re-assessed by wound healing team. See wound assessment. Assessment and recommendations provided to primary nurse. Education provided. Wound care done. Addendum: 08/13/24 at 0928 by ANDRE GAYLE RN RN/ Amended: Links added.
--- NOTE | 2024-08-10 12:14 | PN ---
GASTROENTEROLOGY PROGRESS NOTE Date of Visit: Aug 10, 2024 Time of Visit: 12:14 Events / Notes: [ ] Review of Systems: CONSTITUTIONAL: No malaise or change in sensation of wellbeing. ENMT: No rhinorrhea, otorrhea, sinus pain, ear ache. CARDIOVASCULAR: No angina, palpitations, orthopnea or paroxysmal dyspnea. RESPIRATORY: No SOB. GASTROINTESTINAL: No abdominal pain, nausea, vomiting, diarrhea, hematemesis, melena or change in the patient's habitual bowel movements consistency/number. GENITOURINARY: No dysuria, hematuria or change in bladder continence. MUSCULOSKELETAL: No new muscle pain or decrease in muscular strength. No new joint swelling, redness or tenderness. SKIN: No new rash. Physical Exam: GEN: Awake, alert, oriented in person, time and place, and in no acute distress. HEENT: No sinus tenderness. Tympanic membranes were not examined. No rhinorrhea. Oral pharyngeal mucosa is pink, moist and within normal limits. Neck is supple with no cervical lymphadenopathy, thyromegaly or JVD. CHEST: Inspection, palpation and percussion of the chest were unremarkable. Lung auscultation revealed normal breath sounds bilaterally. CARDIAC: PMI is within normal limits. Heart sounds are regular. Normal S1, S2. No gallop or murmur. ABD: Soft, non-tender and not distended. No peritoneal signs on palpation. No organomegaly. Normal bowel sounds. EXT: No cyanosis or clubbing. No edema. SKIN: Intact. No rashes. JOINTS: No evidence of synovitis or acute arthritis. NEURO: Alert and oriented to name, place and person. Cranial nerve examination is unremarkable. No focal motor deficits. Normal speech. Gait is normal. Strength is normal. Vital Signs (last 8hr) Date Time Temp Pulse Resp B/P (MAP) Pulse Ox O2 Delivery O2 Flow Rate FiO2 08/10/24 08:00 97.0 93 19 129/73 100 Room Air 21 Laboratory: [ ] Laboratory: Test 08/10/24 06:35 08/08/24 15:08 Range/Units White Blood Count 19.3 H 4.8-10.8 K/uL Red Blood Count 2.54 L 4.50-6.20 MIL/uL Hemoglobin 8.2 L 14.0-18.0 g/dL Hematocrit 25.5 L 42-54 % Mean Corpuscular Volume 100.4 H 79-99 fL Mean Corpuscular Hemoglobin 32.3 27.0-33.0 pg Mean Corpuscular Hemoglobin Concent 32.2 32.0-36.0 g/dL Red Cell Distribution Width 20.3 H 11.0-15.5 % Platelet Count 185 130-400 K/uL Mean Platelet Volume 11.0 H 7.5-10.5 fL Immature Granulocyte % (Auto) 0.9 0-1 % Neutrophils (%) (Auto) 95.3 H 40.0-77.0 % Lymphocytes (%) (Auto) 1.1 L 21.0-51.0 % Monocytes (%) (Auto) 2.4 L 3.0-13.0 % Eosinophils (%) (Auto) 0.1 0.0-8.0 % Basophils (%) (Auto) 0.2 0.0-5.0 % Neutrophils # (Auto) 18.3 H 1.8-7.7 K/uL Lymphocytes # (Auto) 0.2 L 1.0-4.8 K/uL Monocytes # (Auto) 0.5 0.1-1.0 K/uL Eosinophils # (Auto) 0.02 0.00-0.70 K/uL Basophils # (Auto) 0.04 0.00-0.20 K/uL Absolute Immature Granulocyte (auto 0.18 0-1 K/uL Nucleated Red Blood Cells 0.0 0.0-0.19 % White Cell Morphology Comment See comments Red Blood Cell Morphology See comments Sodium Level 132 L 136-145 mmol/L Potassium Level 3.8 3.5-5.1 mmol/L Chloride Level 97 L 101-111 mmol/L Carbon Dioxide Level 27 21-32 mmol/L Blood Urea Nitrogen 13 7-18 mg/dL Creatinine 0.7 0.5-1.3 mg/dL Glomerular Filtration Rate Calc 94 >90 mL/min Random Glucose 116 H 70-105 mg/dL Total Calcium 8.3 L 8.5-10.1 mg/dL Magnesium Level 1.90 1.80-2.40 mg/dL Total Bilirubin 1.3 H 0.2-1.0 mg/dL Aspartate Amino Transf (AST/SGOT) 41 H 10-37 U/L Alanine Aminotransferase (ALT/SGPT) 76 12-78 U/L Alkaline Phosphatase 63 50-136 U/L Total Protein 5.6 L 6.0-8.3 g/dL Albumin 2.9 L 3.5-5.0 g/dL Vancomycin Level Trough 15.3 10.0-20.0 UG/ML Current Medications Medications (Trade) Dose Ordered Sig/Javed Route PRN Reason Start Time Stop Time Status Last Admin Dose Admin Acetaminophen (TYLenol 325MG TAB) 650 mg Q4H PRN PO MILD PAIN (1-3) 08/07/24 04:30 09/06/24 04:29 08/10/24 01:01 650 MG Acetaminophen (TYLenol 325MG TAB) 650 mg Q6H PRN PO TEMPERATURE GREATER THAN 101.5 08/07/24 04:30 09/06/24 04:29 Aspirin (Aspirin 81mg Ec Tab) 81 mg DAILY PO 08/08/24 09:00 09/07/24 08:59 08/10/24 09:33 81 MG Enoxaparin Sodium (Lovenox 80mg) 80 mg DAILY SQ 08/10/24 09:00 09/09/24 08:59 08/10/24 09:35 80 MG Famotidine (Pepcid 20mg Tab) 20 mg BID PO 08/07/24 09:00 09/06/24 08:59 08/10/24 09:34 20 MG Ferrous Gluconate (Ferrous Gluconate) 324 mg DAILY PO 08/09/24 09:00 09/07/24 08:59 08/10/24 09:33 324 MG Ferrous Gluconate (Ferrous Gluconate) 325 mg DAILY PO 08/08/24 09:00 08/09/24 08:58 DC 08/08/24 09:33 324 MG Folic Acid (FOLic ACID 1 MG TABLET) 1 mg DAILY PO 08/08/24 09:00 09/07/24 08:59 08/10/24 09:33 1 MG Heparin Sodium (Porcine) (HEParin 5,000 UNIT VIAL) 5,000 unit Q12H SQ 08/07/24 10:30 08/09/24 13:12 DC 08/09/24 09:18 5,000 UNIT Home Med (Home Medication) (Mecobalamin (B12 Acti... DAILY PO 08/08/24 09:00 09/07/24 08:59 Home Med (Home Medication) Cholecalciferol (Vitd3)/Vit K2 (D3 Plus... DAILY PO 08/08/24 09:00 09/07/24 08:59 Labetalol HCl (TRANdate 20MG SYG) 5 mg Q6H PRN IV systolic pressure > 160 08/07/24 10:00 09/06/24 09:59 Lisinopril (Prinivil 10mg) 10 mg DAILY PO 08/08/24 09:00 09/07/24 08:59 08/10/24 09:33 10 MG Magnesium Sulfate 50 ml @ 0 mls/hr PROTOCOL PRN IV low mag level 08/07/24 10:00 09/06/24 09:59 08/07/24 22:43 25 MLS/HR Metoprolol Succinate (TopROL XL) 50 mg DAILY PO 08/08/24 09:00 09/07/24 08:59 08/10/24 09:33 50 MG Miscellaneous Medication (Folic Acid ) 1 cap DAILY PO 08/08/24 09:00 08/07/24 12:29 DC Morphine Sulfate (morPHINE 2MG SYG) 2 mg Q4H PRN IVP SEVERE PAIN (7-10) 08/07/24 12:30 08/14/24 12:29 08/08/24 17:05 2 MG Multi-Ingred Cream/Lotion/Oil/ Oint (Minerin Creme) 1 APPL BID TP 08/08/24 21:00 09/07/24 20:59 08/10/24 09:35 1 APPL Ondansetron HCl (zoFRAN 4MG INJ) 4 mg Q6H PRN IV NAUSEA/VOMITING 08/07/24 04:30 09/06/24 04:29 Pharmacy Profile Note (Pharmacy Communication) 1 each DAILY MISC 08/10/24 09:00 08/09/24 13:16 DC Piperacillin Sod/ Tazobactam Sod 50 ml @ 12.5 mls/hr Q8H IV 08/07/24 09:00 08/17/24 08:59 08/10/24 09:32 12.5 MLS/HR Potassium Chloride 100 ml @ 50 mls/hr AD PRN IV POTASSIUM PROTOCOL 08/07/24 10:00 08/09/24 08:59 DC Potassium Chloride 100 ml @ 100 mls/hr AD PRN IV POTASSIUM PROTOCOL 08/07/24 10:00 09/06/24 09:59 Potassium Chloride (K-Dur/Klor-Con 20meq) 20 meq AD PRN PO POTASSIUM PROTOCOL 08/07/24 10:00 09/06/24 09:59 08/09/24 16:40 20 MEQ Potassium Chloride (KCl 10% Elixir 20meq/15ml) 20 meq AD PRN PO POTASSIUM PROTOCOL 08/07/24 10:00 09/06/24 09:59 Pyridoxine HCl (PYRIDoxine HCL 50 MG TABLET) 100 mg DAILY PO 08/08/24 09:00 09/07/24 08:59 08/10/24 09:33 100 MG Sucralfate (Carafate) 1 gm TIDHS PO 08/07/24 13:00 09/06/24 12:59 08/10/24 09:32 1 GM Tamsulosin HCl (FloMAX) 0.4 mg HS PO 08/07/24 21:00 09/06/24 20:59 08/09/24 20:46 0.4 MG Trazodone HCl (DesyREL/OlepTRO) 100 mg HS PO 08/07/24 21:00 09/06/24 20:59 08/09/24 20:46 100 MG Vancomycin HCl 250 ml @ 125 mls/hr ONCE IV 08/07/24 04:30 08/07/24 04:12 DC Vancomycin HCl 250 ml @ 125 mls/hr Q12H IV 08/07/24 16:00 08/17/24 15:59 08/10/24 04:13 125 MLS/HR Vancomycin HCl (Vancomycin Protocol) 1 each AD IV 08/07/24 03:30 08/21/24 03:29 Diagnostics / Radiology: [COPY/PASTE HERE IF NO REPORTS PLEASE DELETE SECTION] Assessment: Concern for GI bleed Anemia Cellulitis Plan: Recommend outpatient pillcam Continue GI prophylaxis Advance diet as tolerated Avoid NSAIDs Antireflux measures Monitor H&H and transfuse as needed Call with questions, concerns or change in clinical status Patient to follow-up at clinic post discharge Thank you for this consult JAVIER LI [employer] Aug 10, 2024 12:14
--- NOTE | 2024-08-10 12:30 | PN ---
SUBJECTIVE: The patient is a very pleasant 78-year-old white male who is currently afebrile 98.2, pulse 82, respirations 18, blood pressure 111/54. The patient has white count of 16.4, H and H 7.8 and 23.3, platelets 195, sed rate of 30. The patient had bilateral foot MRIs. The results of his bilateral foot MRIs were negative for osteomyelitis. The results of his bilateral foot x-rays, calcaneal spurs on the right, degenerative changes of the first metatarsophalangeal joint and calcaneal spurs on the left. Arterial studies showed abnormal monophasic waveforms bilateral anterior tibial arteries and dorsalis pedis arteries suggesting flow-limiting stenosis. The patient has a BUN and a creatinine level 18 and 0.7, albumin 2.9. The patient is being followed for the problems list that is including left ankle ulcer, bilateral lower extremity cellulitis, obesity, leukocytosis, hypertension, and benign prostate hypertrophy. He is receiving Zosyn and vancomycin. The patient is being followed for a DVT superficial femoral artery and was receiving a heparin drip. He is currently receiving the IV vancomycin and IV Zosyn. PAST MEDICAL HISTORY: Significant for lower extremity edema, cellulitis, history of deep vein thrombosis, chronic venous insufficiency, hypertension, benign prostatic hypertrophy, anemia, coronary artery disease. Former smoker. REVIEW OF SYSTEMS: CONSTITUTIONAL: No chills, no fever, no night sweats. No nausea or vomiting. No diarrhea. HEENT: No problems with eyes, ears, nose, or throat. CARDIOVASCULAR: He is having no current chest pain. He has coronary artery disease. He has peripheral vascular disease per his arterial Doppler studies. He has a history of heart stenting. GENITOURINARY: No dysuria. GASTROINTESTINAL: No dysphagia. ENDOCRINE: No diabetes. PSYCHIATRIC: Denied any depression. MUSCULOSKELETAL: Bunions and hammertoe deformities. INTEGUMENTARY: Ulcer in the dorsal aspect of his second toe on the right, dorsal of the first toe on the left. OBJECTIVE: On examination, the ulcers are superficial to the first and second toes on the right and left respectively. There are no signs of infection. ASSESSMENT: A 78-year-old nondiabetic white male with venous insufficiency, lower extremity cellulitis, peripheral vascular disease, coronary artery disease, hypertension, benign prostatic hypertrophy, anemia, nonhealing wounds of the left great toe due to suspected peripheral vascular disease. MRI is negative for osteomyelitis. The patient is receiving vancomycin and Zosyn. PLAN: Xeroform dressings to his wounds with Addison, feel the patient may benefit from evaluation of circulation due to his nonhealing wounds and abnormal arterial Doppler studies. Continue to follow the patient closely while in-house. TID: [id number] RECEIPT: [id number] MTDD
--- NOTE | 2024-08-10 13:15 | PN ---
Patient is a 78-year-old male presents in ED with chief complaints of fever and chills. Patient reports a recent hospitalization for lower extremity cellulitis, where he was discharged on Metronidazole for bilateral cellulitis with venous stasis ulcers. The patient follows Dr. Jason Salcedo at the [facility]. Upon arrival to the emergency room, sepsis alert was initiated. Remarkable labs upon arrival include a temperature of 101.8, heart rate 102, leukocytosis 22.1. Blood cultures were obtained, and are negative. 2D echocardiogram was ordered showing a LVEF of 50%, and ruled out evidence of endocarditis. Influenza A, B, and COVID were all negative. Urinalysis was negative. Patient received a dose of Zosyn IV and vancomycin IV, and Infectious Disease has been consulted for antibiotics stewardship. A venous Doppler was preformed, and a DVT seen in the proximal left superficial femoral vein. Patient was started on Lovenox. There it seems the patient is going to have MRI to the left lower extremity to rule out osteomyelitis. Patient feeling a lot better. PHYSICAL EXAM VITALS: Vital Signs Date Time Temp Pulse Resp B/P (MAP) Pulse Ox O2 Delivery O2 Flow Rate FiO2 08/09/24 08:00 97.5 89 17 121/53 97 Room Air 21 08/08/24 20:55 0 GENERAL: ALERT, ORIENTED, APPEARS-NO ACUTE DISTRESS EYES: No SCLERAE ANICTERIC, No PUPILS EQUAL/REACTIVE, No EXTRAOCULAR MUSCLES INTCT RESPIRATORY: LUNGS CLEAR-AUSC/PERCUS CARDIOVASCULAR: REGULAR RATE, REGULAR RHYTHM GASTROINTESTINAL: ABDOMEN IS SOFT Assessment 1. New onset left lower extremity DVT with the patient was started on Lovenox 2. Patient with peripheral vascular disease to the left lower extremity with the patient have anterior tibial and dorsalis problem. 3. Possible osteomyelitis to the left lower extremity with the patient is going for MRI 4. 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 Patient is receiving Sunny 2 inhibitor 5. Anemia 6. Rash with the patient have significant itching in the past improved significantly after we started ruxolitinib. Plan 1. There is no need for blood transfusion 2. This patient to continue on his JAK2 mutation inhibitor ruxolitinib. 3. CBC daily 4. Continue antibiotic treatment as per primary 5. There is plan for MRI to the left lower extremity to rule out any osteomyelitis. Vitals/Labs Vital Signs Date Time Temp Pulse Resp B/P (MAP) Pulse Ox O2 Delivery O2 Flow Rate FiO2 08/10/24 12:00 98.1 83 20 122/52 98 Room Air 21 08/09/24 20:00 0 Laboratory Tests 08/10/24 06:35 Medications Current Medications Acetaminophen 1,000 mg ONCE ONCE PO Last administered on 08/06/24at 23:22; Start 08/06/24 at 23:30; Stop 08/06/24 at 23:31; Status DC Sodium Chloride 1,000 ml @ 0 mls/hr ONCE ONCE IV Last administered on 08/06/24at 23:22; Start 08/06/24 at 23:30; Stop 08/06/24 at 23:31; Status DC Piperacillin Sod/ Tazobactam Sod 3.375 gm ONCE ONCE IV Last administered on 08/07/24at 00:37; Start 08/07/24 at 00:30; Stop 08/07/24 at 00:31; Status DC Vancomycin HCl 1 each AD IV; Start 08/07/24 at 03:30; Stop 08/21/24 at 03:29 Vancomycin HCl 500 ml @ 250 mls/hr ONCE ONCE IV Last administered on 08/07/24at 04:21; Start 08/07/24 at 04:00; Stop 08/07/24 at 05:59; Status DC Vancomycin HCl 250 ml @ 125 mls/hr Q12H IV Last administered on 08/10/24at 04:13; Start 08/07/24 at 16:00; Stop 08/17/24 at 15:59 Acetaminophen 650 mg Q6H PRN PO; Start 08/07/24 at 04:30; Stop 09/06/24 at 04:29 Acetaminophen 650 mg Q4H PRN PO Last administered on 08/10/24at 01:01; Start 08/07/24 at 04:30; Stop 09/06/24 at 04:29 Ondansetron HCl 4 mg Q6H PRN IV; Start 08/07/24 at 04:30; Stop 09/06/24 at 04:29 Famotidine 20 mg BID PO Last administered on 08/10/24at 09:34; Start 08/07/24 at 09:00; Stop 09/06/24 at 08:59 Vancomycin HCl 250 ml @ 125 mls/hr ONCE IV; Start 08/07/24 at 04:30; Stop 08/07/24 at 04:12; Status DC Piperacillin Sod/ Tazobactam Sod 50 ml @ 12.5 mls/hr Q8H IV Last administered on 08/10/24at 09:32; Start 08/07/24 at 09:00; Stop 08/17/24 at 08:59 Magnesium Sulfate 50 ml @ 0 mls/hr PROTOCOL PRN IV Last administered on 08/07/24at 22:43; Start 08/07/24 at 10:00; Stop 09/06/24 at 09:59 Potassium Chloride 100 ml @ 50 mls/hr AD PRN IV; Start 08/07/24 at 10:00; Stop 08/09/24 at 08:59; Status DC Potassium Chloride 100 ml @ 100 mls/hr AD PRN IV; Start 08/07/24 at 10:00; Stop 09/06/24 at 09:59 Potassium Chloride 20 meq AD PRN PO; Start 08/07/24 at 10:00; Stop 09/06/24 at 09:59 Potassium Chloride 20 meq AD PRN PO Last administered on 08/09/24at 16:40; Start 08/07/24 at 10:00; Stop 09/06/24 at 09:59 Ferrous Gluconate 325 mg DAILY PO Last administered on 08/08/24at 09:33; Start 08/08/24 at 09:00; Stop 08/09/24 at 08:58; Status DC Folic Acid 1 mg DAILY PO Last administered on 08/10/24at 09:33; Start 08/08/24 at 09:00; Stop 09/07/24 at 08:59 Labetalol HCl 5 mg Q6H PRN IV; Start 08/07/24 at 10:00; Stop 09/06/24 at 09:59 Metoprolol Succinate 50 mg DAILY PO Last administered on 08/10/24at 09:33; Start 08/08/24 at 09:00; Stop 09/07/24 at 08:59 Metoprolol Succinate 50 mg ONCE ONCE PO Last administered on 08/07/24at 10:42; Start 08/07/24 at 10:00; Stop 08/07/24 at 10:01; Status DC Heparin Sodium (Porcine) 5,000 unit Q12H SQ Last administered on 08/09/24at 09:18; Start 08/07/24 at 10:30; Stop 08/09/24 at 13:12; Status DC Morphine Sulfate 2 mg Q4H PRN IVP Last administered on 08/08/24at 17:05; Start 08/07/24 at 12:30; Stop 08/14/24 at 12:29 Aspirin 81 mg DAILY PO Last administered on 08/10/24 09:33; Start 08/08/24 at 09:00; Stop 09/07/24 at 08:59 Lisinopril 10 mg DAILY PO Last administered on 08/10/24at 09:33; Start 08/08/24 at 09:00; Stop 09/07/24 at 08:59 Sucralfate 1 gm TIDHS PO Last administered on 08/10/24 09:32; Start 08/07/24 at 13:00; Stop 09/06/24 at 12:59 Tamsulosin HCl 0.4 mg HS PO Last administered on 08/09/24at 20:46; Start 08/07/24 at 21:00; Stop 09/06/24 at 20:59 Trazodone HCl 100 mg HS PO Last administered on 08/09/24at 20:46; Start 08/07/24 at 21:00; Stop 09/06/24 at 20:59 Home Med Cholecalciferol (Vitd3)/Vit K2 (D3 Plus... DAILY PO; Start 08/08/24 at 09:00; Stop 09/07/24 at 08:59 Miscellaneous Medication 1 cap DAILY PO; Start 08/08/24 at 09:00; Stop 08/07/24 at 12:29; Status DC Home Med (Mecobalamin (B12 Acti... DAILY PO; Start 08/08/24 at 09:00; Stop 09/07/24 at 08:59 Pyridoxine HCl 100 mg DAILY PO Last administered on 08/10/24 09:33; Start 08/08/24 at 09:00; Stop 09/07/24 at 08:59 Multi-Ingred Cream/Lotion/Oil/ Oint 1 APPL BID TP Last administered on 08/10/24at 09:35; Start 08/08/24 at 21:00; Stop 09/07/24 at 20:59 Ferrous Gluconate 324 mg DAILY PO Last administered on 6/10/25at 09:33; Start 08/09/24 at 09:00; Stop 09/07/24 at 08:59 Pharmacy Profile Note 1 each DAILY MISC; Start 08/10/24 at 09:00; Stop 08/09/24 at 13:16; Status DC Enoxaparin Sodium 80 mg DAILY SQ Last administered on 08/10/24at 09:35; Start 08/10/24 at 09:00; Stop 09/09/24 at 08:59 RISSA NAQVI MD Aug 10, 2024 13:15
--- NOTE | 2024-08-10 14:05 | HMCIMG ---
Exam Type: MR ANKLE LEFT WO Clinical Information: EVAL FOR OSTEOMYELITIS Comparison: None Technique: The ankle MRI consists of axial fast spin echo T2, sagittal T1, coronal fast spin echo T2, and sagittal fast spin echo T2 with fat saturation. Tri-plane single localizer images were also obtained. FINDINGS: No bone destruction to suggest osteomyelitis. No bony abnormalities of the ankle. The articular surfaces are preserved. No significant osteophytosis is identified on this exam. No joint effusion is noted. No osteochondral defects are seen and the ligamentous and tendinous structures of the ankle are preserved. IMPRESSION: No osteomyelitis.
[2024-08-10 16:00] VITALS: BP 106/42; PULSE 84; RESP 20; TEMP 97.2
[2024-08-10 20:00] VITALS: BP 150/71; PULSE 88; RESP 18; TEMP 97.6; O2SAT 100
[2024-08-10] MEDS: acetaMINOPHEN 325 MG TAB PO PRN (21:25)
--- NOTE | 2024-08-10 22:54 | PN ---
INFECTIOUS DISEASE PROGRESS NOTE Date of Service: Aug 10, 2024 SUBJECTIVE: Patient is awake, alert and oriented to person and place. The one-to-one sitter has been discontinued. No dyspnea observe and saturating 98-99% on room air. Patient continues on Eliquis for left lower extremity DVT. The MRI of the bilateral lower extremities is negative for osteomyelitis. Patient is afebrile, temperature is 98.1 and the WBC is still elevated at 19.3. We will continue on vancomycin and Zosyn. PHYSICAL EXAM EYES: Anicteric. Pupils equal and reactive. HENT: No oral thrush seen, moist Oral mucosa. NECK: Supple, no JVD or thyromegaly. LUNGS: Good air entry. No rales, no rhonchi. CARDIOVASCULAR: S1, S2 regular. No murmur heard. ABDOMEN: Soft, non tender, bowel sounds present, no organomegaly. CENTRAL NERVOUS SYSTEM: Awake, alert, oriented x 1. SKIN: No rashes, no swelling. Bilateral lower extremity cellulitis. LYMPHATICS: No peripheral lymphadenopathy MUSCULOSKELETAL: No joint swelling, erythema or tenderness. EXTREMITIES: No cyanosis or clubbing. Left lower extremity ulcer. BACK: No deformity, no pressure ulcer. GENITOURINARY: No dysuria or hematuria. Vital Sign (Last 12 Hours) 08/10/24 08/10/24 08/10/24 08/10/24 12:00 16:00 20:00 20:00 Temp 98.1 97.2 97.5 Pulse 83 84 88 Resp 20 20 18 B/P (MAP) 122/52 106/42 150/71 Pulse Ox 98 98 100 100 O2 Delivery Room Air Room Air Room Air Room Air* O2 Flow Rate 0 FiO2 21 21 21 Intake & Output (last 24hrs) 08/09/24 08/09/24 08/10/24 15:00 23:00 07:00 Intake Total 380.0 ml 300.0 ml Output Total 400 ml Balance -400 ml 380.0 ml 300.0 ml LABS: Laboratory: Test 08/10/24 14:50 08/10/24 06:35 Range/Units Vancomycin Level Trough 20.7 #H 10.0-20.0 UG/ML White Blood Count 19.3 H 4.8-10.8 K/uL Red Blood Count 2.54 L 4.50-6.20 MIL/uL Hemoglobin 8.2 L 14.0-18.0 g/dL Hematocrit 25.5 L 42-54 % Mean Corpuscular Volume 100.4 H 79-99 fL Mean Corpuscular Hemoglobin 32.3 27.0-33.0 pg Mean Corpuscular Hemoglobin Concent 32.2 32.0-36.0 g/dL Red Cell Distribution Width 20.3 H 11.0-15.5 % Platelet Count 185 130-400 K/uL Mean Platelet Volume 11.0 H 7.5-10.5 fL Immature Granulocyte % (Auto) 0.9 0-1 % Neutrophils (%) (Auto) 95.3 H 40.0-77.0 % Lymphocytes (%) (Auto) 1.1 L 21.0-51.0 % Monocytes (%) (Auto) 2.4 L 3.0-13.0 % Eosinophils (%) (Auto) 0.1 0.0-8.0 % Basophils (%) (Auto) 0.2 0.0-5.0 % Neutrophils # (Auto) 18.3 H 1.8-7.7 K/uL Lymphocytes # (Auto) 0.2 L 1.0-4.8 K/uL Monocytes # (Auto) 0.5 0.1-1.0 K/uL Eosinophils # (Auto) 0.02 0.00-0.70 K/uL Basophils # (Auto) 0.04 0.00-0.20 K/uL Absolute Immature Granulocyte (auto 0.18 0-1 K/uL Nucleated Red Blood Cells 0.0 0.0-0.19 % White Cell Morphology Comment See comments Red Blood Cell Morphology See comments Sodium Level 132 L 136-145 mmol/L Potassium Level 3.8 3.5-5.1 mmol/L Chloride Level 97 L 101-111 mmol/L Carbon Dioxide Level 27 21-32 mmol/L Blood Urea Nitrogen 13 7-18 mg/dL Creatinine 0.7 0.5-1.3 mg/dL Glomerular Filtration Rate Calc 94 >90 mL/min Random Glucose 116 H 70-105 mg/dL Total Calcium 8.3 L 8.5-10.1 mg/dL Magnesium Level 1.90 1.80-2.40 mg/dL Total Bilirubin 1.3 H 0.2-1.0 mg/dL Aspartate Amino Transf (AST/SGOT) 41 H 10-37 U/L Alanine Aminotransferase (ALT/SGPT) 76 12-78 U/L Alkaline Phosphatase 63 50-136 U/L Total Protein 5.6 L 6.0-8.3 g/dL Albumin 2.9 L 3.5-5.0 g/dL ASSESSMENT: Left lower extremity ulcer. Bilateral lower extremities cellulitis. Left lower extremity DVT. Leukocytosis. Hypertension. Encephalopathy, resolving. PLAN: Continue vancomycin per pharmacy protocol. Continue Zosyn IV. Continue GI prophylaxis. Continue pain management. Continue wound care. Continue anticoagulants and monitor hemoglobin hematocrit. This case was reviewed and discussed with my supervising physician and the above assessment and plan was formulated and agreed upon. ATTESTATION BY PHYSICIAN I have seen and examined the patient. I reviewed the documentation, medical decision making, and treatment plan as noted by the mid-level provider above. I agree with the findings and plan of care. PERRY PARKINSON MD, [facility] Aug 10, 2024 22:54
[2024-08-11] VITALS (9 sets, daily range): BP systolic 121–140; BP diastolic 47–72; PULSE 80–97; RESP 17–20; TEMP 97.5–98.4; O2SAT 98–100
[2024-08-11] MEDS: VANCOMYCIN 1.25 GM/250 ML BAG 250 ML IV SCH (04:44)
--- NOTE | 2024-08-11 09:41 | PN ---
[facility] PROGRESS NOTE Date of Service: Aug 11, 2024 Time of Service: 09:34 SUBJECTIVE: [ ] admission date: 08/07/24 PCP: self referral chief complaints: fever, chills This is a 78-year-old male presents in ED with chief complaints of fever and chills. ER initiated sepsis alert: Onset two days ago. Patient was taking Tylenol for fevers. Patient was recently hospitalized for lower extremity cellulitis and discharged on oral antibiotics. metronidazole for Bilateral cellulitis with venous stasis ulcers. Patient reports seen wound care center with Dr. Jason Salcedo. Patient denies abdominal pain diarrhea chest pain, shortness for breath. Sepsis alert was initiated in ED patient came in with a temperature of 101.8 heart rate 102 leukocytosis 22.1. Blood cultures obtained, influenza a and B COVID all negative UA negative. Patient received a dose of Zosyn IV and vancomycin IV ID has been consulted for antibiotics stewardship. Imaging ; venous doppler DVT seen in the proximal left superficial femoral vein. 08/08/24 patient is seen and examined fevers have improved. Patient refused heparin subQ patient has a DVT superficial to femoral he agree with heparin drip. Patient was reports having difficulty swallowing speech consulted. Patient's skin very dry to lower extremities we will get anterior Doppler and ingot car operator consult. Encouraged patient to get out of bed to chair PT services to eval and treat. No chest pain no shortness a breath 08/09/24 patient is seen and examined patient appears to be doing much better today patient reports that he walks about 70 ft walker at home. Speech pending I encouraged patient out of bed to chair with meals. One-to-one was placed overnight patient has delirium at night. We will waiting for ID final recommendations on IV antibiotics. 08/10/24 patient is seen and examined afebrile. Blood cultures so far negative waiting for ID final recommendation deescalate IV antibiotics to p.o.. Speech no signs of aspiration. We continue with wound care as directed. Patient is working with physical therapy patient walks more than 70 [address] discussed placement patient refused wants to go home wants discharge. 08/11/24 seen patient continues with IV antibiotics ruled out osteomyelitis to left ankle. GI recommended pill cam outpatient setting upon discharge. 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 Cultures negative. Afebrile we will wait for ID recommendations. 1300 Dr Zamora will start the patient on Eliquis [address] po bid[address] Mauri jaquez for Wound cultures: persisent leukocytosis however the patient has be afebrile. REVIEW OF SYSTEMS a 14 point ROS obtained all relevant positive documented otherwise ROS negative PHYSICAL EXAM GENERAL APPEARANCE: The patient is awake, alert, and oriented, in no acute cardiopulmonary distress. appears acutely ill, NEUROLOGICAL: Cranial nerves II-XII grossly intact. Motor is 5/5 in bilateral upper and lower extremities proximal to distal. No sensory deficits. HEENT: Face is symmetric. Pupils are equal and reactive. Extraocular movements are intact. NECK: Supple. No JVD. No thyromegaly. No submental, submandibular, pre- /postauricular, occipital or supraclavicular lymphadenopathy. CHEST: Normal chest expansion. No Telemetry. LUNGS: Absence of any rales, rhonchi or any wheezing. CARDIOVASCULAR: Regular. S1 and S2 normal. No appreciable rubs, murmurs or gallops. ABDOMEN: Soft, nontender, and nondistended. There is no rebound, voluntary guarding, or rigidity. : Deferred. No Priest. EXTREMITIES: + edematous and not cyanotic. No clubbing. Good capillary refill. SKIN: redness to lower ext bilateral with statis venous ulcer: left leg with dressing Vital Signs (last 8hr) Date Time Temp Pulse Resp B/P (MAP) Pulse Ox O2 Delivery O2 Flow Rate FiO2 08/11/24 03:58 97.9 97 19 123/72 99 Room Air LABS: Laboratory: Test 08/11/24 02:45 08/10/24 14:50 08/10/24 06:35 Range/Units Vancomycin Level 14.2 L 20.0-30.0 mcg/mL Vancomycin Level Trough 20.7 #H 10.0-20.0 UG/ML White Blood Count 19.3 H 4.8-10.8 K/uL Red Blood Count 2.54 L 4.50-6.20 MIL/uL Hemoglobin 8.2 L 14.0-18.0 g/dL Hematocrit 25.5 L 42-54 % Mean Corpuscular Volume 100.4 H 79-99 fL Mean Corpuscular Hemoglobin 32.3 27.0-33.0 pg Mean Corpuscular Hemoglobin Concent 32.2 32.0-36.0 g/dL Red Cell Distribution Width 20.3 H 11.0-15.5 % Platelet Count 185 130-400 K/uL Mean Platelet Volume 11.0 H 7.5-10.5 fL Immature Granulocyte % (Auto) 0.9 0-1 % Neutrophils (%) (Auto) 95.3 H 40.0-77.0 % Lymphocytes (%) (Auto) 1.1 L 21.0-51.0 % Monocytes (%) (Auto) 2.4 L 3.0-13.0 % Eosinophils (%) (Auto) 0.1 0.0-8.0 % Basophils (%) (Auto) 0.2 0.0-5.0 % Neutrophils # (Auto) 18.3 H 1.8-7.7 K/uL Lymphocytes # (Auto) 0.2 L 1.0-4.8 K/uL Monocytes # (Auto) 0.5 0.1-1.0 K/uL Eosinophils # (Auto) 0.02 0.00-0.70 K/uL Basophils # (Auto) 0.04 0.00-0.20 K/uL Absolute Immature Granulocyte (auto 0.18 0-1 K/uL Nucleated Red Blood Cells 0.0 0.0-0.19 % White Cell Morphology Comment See comments Red Blood Cell Morphology See comments Sodium Level 132 L 136-145 mmol/L Potassium Level 3.8 3.5-5.1 mmol/L Chloride Level 97 L 101-111 mmol/L Carbon Dioxide Level 27 21-32 mmol/L Blood Urea Nitrogen 13 7-18 mg/dL Creatinine 0.7 0.5-1.3 mg/dL Glomerular Filtration Rate Calc 94 >90 mL/min Random Glucose 116 H 70-105 mg/dL Total Calcium 8.3 L 8.5-10.1 mg/dL Magnesium Level 1.90 1.80-2.40 mg/dL Total Bilirubin 1.3 H 0.2-1.0 mg/dL Aspartate Amino Transf (AST/SGOT) 41 H 10-37 U/L Alanine Aminotransferase (ALT/SGPT) 76 12-78 U/L Alkaline Phosphatase 63 50-136 U/L Total Protein 5.6 L 6.0-8.3 g/dL Albumin 2.9 L 3.5-5.0 g/dL Current Medications Medications (Trade) Dose Ordered Sig/Javed Route PRN Reason Start Time Stop Time Status Last Admin Dose Admin Acetaminophen (TYLenol 325MG TAB) 650 mg Q4H PRN PO MILD PAIN (1-3) 08/07/24 04:30 09/06/24 04:29 08/11/24 06:45 650 MG Acetaminophen (TYLenol 325MG TAB) 650 mg Q6H PRN PO TEMPERATURE GREATER THAN 101.5 08/07/24 04:30 09/06/24 04:29 08/10/24 21:25 650 MG Aspirin (Aspirin 81mg Ec Tab) 81 mg DAILY PO 08/08/24 09:00 09/07/24 08:59 08/10/24 09:33 81 MG Enoxaparin Sodium (Lovenox 80mg) 80 mg DAILY SQ 08/10/24 09:00 09/09/24 08:59 08/10/24 09:35 80 MG Famotidine (Pepcid 20mg Tab) 20 mg BID PO 08/07/24 09:00 09/06/24 08:59 08/10/24 21:21 20 MG Ferrous Gluconate (Ferrous Gluconate) 324 mg DAILY PO 08/09/24 09:00 09/07/24 08:59 08/10/24 09:33 324 MG Ferrous Gluconate (Ferrous Gluconate) 325 mg DAILY PO 08/08/24 09:00 08/09/24 08:58 DC 08/08/24 09:33 324 MG Folic Acid (FOLic ACID 1 MG TABLET) 1 mg DAILY PO 08/08/24 09:00 09/07/24 08:59 08/10/24 09:33 1 MG Heparin Sodium (Porcine) (HEParin 5,000 UNIT VIAL) 5,000 unit Q12H SQ 08/07/24 10:30 08/09/24 13:12 DC 08/09/24 09:18 5,000 UNIT Home Med (Home Medication) (Mecobalamin (B12 Acti... DAILY PO 08/08/24 09:00 09/07/24 08:59 Home Med (Home Medication) Cholecalciferol (Vitd3)/Vit K2 (D3 Plus... DAILY PO 08/08/24 09:00 09/07/24 08:59 Labetalol HCl (TRANdate 20MG SYG) 5 mg Q6H PRN IV systolic pressure > 160 08/07/24 10:00 09/06/24 09:59 Lisinopril (Prinivil 10mg) 10 mg DAILY PO 08/08/24 09:00 09/07/24 08:59 08/10/24 09:33 10 MG Magnesium Sulfate 50 ml @ 0 mls/hr PROTOCOL PRN IV low mag level 08/07/24 10:00 09/06/24 09:59 08/07/24 22:43 25 MLS/HR Metoprolol Succinate (TopROL XL) 50 mg DAILY PO 08/08/24 09:00 09/07/24 08:59 08/10/24 09:33 50 MG Miscellaneous Medication (Folic Acid ) 1 cap DAILY PO 08/08/24 09:00 08/07/24 12:29 DC Morphine Sulfate (morPHINE 2MG SYG) 2 mg Q4H PRN IVP SEVERE PAIN (7-10) 08/07/24 12:30 08/14/24 12:29 08/08/24 17:05 2 MG Multi-Ingred Cream/Lotion/Oil/ Oint (Minerin Creme) 1 APPL BID TP 08/08/24 21:00 09/07/24 20:59 08/10/24 21:21 1 APPL Ondansetron HCl (zoFRAN 4MG INJ) 4 mg Q6H PRN IV NAUSEA/VOMITING 08/07/24 04:30 09/06/24 04:29 Pharmacy Profile Note (Pharmacy Communication) 1 each DAILY MISC 08/10/24 09:00 08/09/24 13:16 DC Piperacillin Sod/ Tazobactam Sod 50 ml @ 12.5 mls/hr Q8H IV 08/07/24 09:00 08/17/24 08:59 08/11/24 00:27 12.5 MLS/HR Potassium Chloride 100 ml @ 50 mls/hr AD PRN IV POTASSIUM PROTOCOL 08/07/24 10:00 08/09/24 08:59 DC Potassium Chloride 100 ml @ 100 mls/hr AD PRN IV POTASSIUM PROTOCOL 08/07/24 10:00 09/06/24 09:59 Potassium Chloride (K-Dur/Klor-Con 20meq) 20 meq AD PRN PO POTASSIUM PROTOCOL 08/07/24 10:00 09/06/24 09:59 08/09/24 16:40 20 MEQ Potassium Chloride (KCl 10% Elixir 20meq/15ml) 20 meq AD PRN PO POTASSIUM PROTOCOL 08/07/24 10:00 09/06/24 09:59 Pyridoxine HCl (PYRIDoxine HCL 50 MG TABLET) 100 mg DAILY PO 08/08/24 09:00 09/07/24 08:59 08/10/24 09:33 100 MG Sucralfate (Carafate) 1 gm TIDHS PO 08/07/24 13:00 09/06/24 12:59 08/10/24 21:20 1 GM Tamsulosin HCl (FloMAX) 0.4 mg HS PO 08/07/24 21:00 09/06/24 20:59 08/10/24 21:21 0.4 MG Trazodone HCl (DesyREL/OlepTRO) 100 mg HS PO 08/07/24 21:00 09/06/24 20:59 08/10/24 21:20 100 MG Vancomycin HCl 250 ml @ 125 mls/hr ONCE IV 08/07/24 04:30 08/07/24 04:12 DC Vancomycin HCl 250 ml @ 125 mls/hr Q12H IV 08/11/24 04:00 08/21/24 03:59 08/11/24 04:44 125 MLS/HR Vancomycin HCl 250 ml @ 125 mls/hr Q12H IV 08/07/24 16:00 08/10/24 15:36 DC 08/10/24 04:13 125 MLS/HR Vancomycin HCl (Vancomycin Protocol) 1 each AD IV 08/07/24 03:30 08/21/24 03:29 DIAGNOSTICS / RADIOLOGY: [ ] ASSESSMENT: Sepsis elevated .8, elevated heart gece771 and WBCs 22 Bilateral cellulitis with venous stasis ulcers infection POA failed outpatient treatment POA acute on chronic anemia POA Iron deficiency POA new onset: DVT seen in the proximal left superficial femoral vein. POA electrolytes derangement: hyponatremia POA hyperglycemia POA Recent hospitalization one week ago: dx: sepsis suspecting ROCHELLE POA Suspecting oropharyngeal dysphagia POA ruled out aspiration and dysphasia suspecting osteomyelitis left lower ext: POA ruled out chronic problems; CAD s/p CABG HTN Prostate PLAN: Admit medical-surgical floor: condition: Guarded Status: Full code IVF: heplock Consultants infectious disease and diesel engine specialist: DR Jason Salcedo podiatry GI Antibiotics: IV vancomycin pharmacy to dose and Zosyn IV every 8 hours Test: Blood cultures so far negative wound cx pending Eliquis 5 mg po bid will monitor bleeding Imaging: MRI of left ankle ruled out osteomyelitis Local wound care to bilateral ext: cream: for dry skin aggressive off loading OOB to chair. aspiration precaution HOB at 45 degree at all time. PT OT eval and treat: patient will be going home as per his request. GI: no procedure on this admission: outpatient setting PILL CAM follow up outpatient setting. Labs cbc, cmp, mag+ Replace electrolytes as needed as per protocol to keep potassium above 4.0 magnesium 2.0. Monitor H/H trends transfuse to keep HGB above 7.0 Home medications reconciled Pain management: Tylenol as needed Supportive measures: DVT ppx, GI ppx on Eliquis and famotidine 20 mg bid all questions answered Supervising MD: Dr. Balbuena P c/d This document was generated in part using voice recognition software, occasional wrong word or sound alike substitutions may have occurred due to the inherent limitations of voice recognition software. Read the chart carefully and recognize using context, where the substitutions have occurred. Although every effort was made to edit the content, rn transport and typing errors may occur ATTESTATION BY PHYSICIAN I have seen and examined the patient. I reviewed the documentation, medical decision making, and treatment plan as noted by the mid-level provider above. I agree with the findings and plan of care. Courtney Balbuena MD, [facility] NP Aug 11, 2024 09:41
--- NOTE | 2024-08-11 11:32 | NUR ---
attempted to bring pt down for tib fib MRI around 1030. unable to perform the exam due to patient refusal. This is his second refusal for this exam. Nurse to call with further instructions if reattempt is requested.
--- NOTE | 2024-08-11 12:45 | NUR ---
[facility] Follow-up: Patient re-assessed by wound healing team. Dr. Matias enriquez, Dressing done by primary nurse, dressing d/i. Education provided to patient. Addendum: 08/13/24 at 1010 by ANDRE GAYLE RN RN/ Amended: Links added.
--- NOTE | 2024-08-11 13:44 | PN ---
GASTROENTEROLOGY PROGRESS NOTE Date of Visit: Aug 11, 2024 Time of Visit: 13:44 Events / Notes: [ ] Review of Systems: CONSTITUTIONAL: No malaise or change in sensation of wellbeing. ENMT: No rhinorrhea, otorrhea, sinus pain, ear ache. CARDIOVASCULAR: No angina, palpitations, orthopnea or paroxysmal dyspnea. RESPIRATORY: No SOB. GASTROINTESTINAL: No abdominal pain, nausea, vomiting, diarrhea, hematemesis, melena or change in the patient's habitual bowel movements consistency/number. GENITOURINARY: No dysuria, hematuria or change in bladder continence. MUSCULOSKELETAL: No new muscle pain or decrease in muscular strength. No new joint swelling, redness or tenderness. SKIN: No new rash. Physical Exam: GEN: Awake, alert, oriented in person, time and place, and in no acute distress. HEENT: No sinus tenderness. Tympanic membranes were not examined. No rhinorrhea. Oral pharyngeal mucosa is pink, moist and within normal limits. Neck is supple with no cervical lymphadenopathy, thyromegaly or JVD. CHEST: Inspection, palpation and percussion of the chest were unremarkable. Lung auscultation revealed normal breath sounds bilaterally. CARDIAC: PMI is within normal limits. Heart sounds are regular. Normal S1, S2. No gallop or murmur. ABD: Soft, non-tender and not distended. No peritoneal signs on palpation. No organomegaly. Normal bowel sounds. EXT: No cyanosis or clubbing. No edema. SKIN: Intact. No rashes. JOINTS: No evidence of synovitis or acute arthritis. NEURO: Alert and oriented to name, place and person. Cranial nerve examination is unremarkable. No focal motor deficits. Normal speech. Gait is normal. Strength is normal. Vital Signs (last 8hr) Date Time Temp Pulse Resp B/P (MAP) Pulse Ox O2 Delivery O2 Flow Rate FiO2 08/11/24 12:00 97.9 80 19 121/53 99 Room Air 08/11/24 08:00 97.5 82 17 121/47 98 Room Air Laboratory: [ ] Laboratory: Test 08/11/24 02:45 08/10/24 14:50 08/10/24 06:35 Range/Units Vancomycin Level 14.2 L 20.0-30.0 mcg/mL Vancomycin Level Trough 20.7 #H 10.0-20.0 UG/ML White Blood Count 19.3 H 4.8-10.8 K/uL Red Blood Count 2.54 L 4.50-6.20 MIL/uL Hemoglobin 8.2 L 14.0-18.0 g/dL Hematocrit 25.5 L 42-54 % Mean Corpuscular Volume 100.4 H 79-99 fL Mean Corpuscular Hemoglobin 32.3 27.0-33.0 pg Mean Corpuscular Hemoglobin Concent 32.2 32.0-36.0 g/dL Red Cell Distribution Width 20.3 H 11.0-15.5 % Platelet Count 185 130-400 K/uL Mean Platelet Volume 11.0 H 7.5-10.5 fL Immature Granulocyte % (Auto) 0.9 0-1 % Neutrophils (%) (Auto) 95.3 H 40.0-77.0 % Lymphocytes (%) (Auto) 1.1 L 21.0-51.0 % Monocytes (%) (Auto) 2.4 L 3.0-13.0 % Eosinophils (%) (Auto) 0.1 0.0-8.0 % Basophils (%) (Auto) 0.2 0.0-5.0 % Neutrophils # (Auto) 18.3 H 1.8-7.7 K/uL Lymphocytes # (Auto) 0.2 L 1.0-4.8 K/uL Monocytes # (Auto) 0.5 0.1-1.0 K/uL Eosinophils # (Auto) 0.02 0.00-0.70 K/uL Basophils # (Auto) 0.04 0.00-0.20 K/uL Absolute Immature Granulocyte (auto 0.18 0-1 K/uL Nucleated Red Blood Cells 0.0 0.0-0.19 % White Cell Morphology Comment See comments Red Blood Cell Morphology See comments Sodium Level 132 L 136-145 mmol/L Potassium Level 3.8 3.5-5.1 mmol/L Chloride Level 97 L 101-111 mmol/L Carbon Dioxide Level 27 21-32 mmol/L Blood Urea Nitrogen 13 7-18 mg/dL Creatinine 0.7 0.5-1.3 mg/dL Glomerular Filtration Rate Calc 94 >90 mL/min Random Glucose 116 H 70-105 mg/dL Total Calcium 8.3 L 8.5-10.1 mg/dL Magnesium Level 1.90 1.80-2.40 mg/dL Total Bilirubin 1.3 H 0.2-1.0 mg/dL Aspartate Amino Transf (AST/SGOT) 41 H 10-37 U/L Alanine Aminotransferase (ALT/SGPT) 76 12-78 U/L Alkaline Phosphatase 63 50-136 U/L Total Protein 5.6 L 6.0-8.3 g/dL Albumin 2.9 L 3.5-5.0 g/dL Current Medications Medications (Trade) Dose Ordered Sig/Javed Route PRN Reason Start Time Stop Time Status Last Admin Dose Admin Acetaminophen (TYLenol 325MG TAB) 650 mg Q4H PRN PO MILD PAIN (1-3) 08/07/24 04:30 09/06/24 04:29 08/11/24 06:45 650 MG Acetaminophen (TYLenol 325MG TAB) 650 mg Q6H PRN PO TEMPERATURE GREATER THAN 101.5 08/07/24 04:30 09/06/24 04:29 08/10/24 21:25 650 MG Apixaban (EliquIS) 5 mg BID PO 08/11/24 19:00 09/10/24 18:59 Aspirin (Aspirin 81mg Ec Tab) 81 mg DAILY PO 08/08/24 09:00 09/07/24 08:59 08/11/24 09:56 81 MG Enoxaparin Sodium (Lovenox 80mg) 80 mg DAILY SQ 08/10/24 09:00 08/11/24 13:28 DC 08/11/24 09:55 80 MG Famotidine (Pepcid 20mg Tab) 20 mg BID PO 08/07/24 09:00 09/06/24 08:59 08/11/24 09:56 20 MG Ferrous Gluconate (Ferrous Gluconate) 324 mg DAILY PO 08/09/24 09:00 09/07/24 08:59 08/11/24 09:56 324 MG Ferrous Gluconate (Ferrous Gluconate) 325 mg DAILY PO 08/08/24 09:00 08/09/24 08:58 DC 08/08/24 09:33 324 MG Folic Acid (FOLic ACID 1 MG TABLET) 1 mg DAILY PO 08/08/24 09:00 09/07/24 08:59 08/11/24 09:56 1 MG Heparin Sodium (Porcine) (HEParin 5,000 UNIT VIAL) 5,000 unit Q12H SQ 08/07/24 10:30 08/09/24 13:12 DC 08/09/24 09:18 5,000 UNIT Home Med (Home Medication) (Mecobalamin (B12 Acti... DAILY PO 08/08/24 09:00 09/07/24 08:59 Home Med (Home Medication) Cholecalciferol (Vitd3)/Vit K2 (D3 Plus... DAILY PO 08/08/24 09:00 09/07/24 08:59 Labetalol HCl (TRANdate 20MG SYG) 5 mg Q6H PRN IV systolic pressure > 160 08/07/24 10:00 09/06/24 09:59 Lisinopril (Prinivil 10mg) 10 mg DAILY PO 08/08/24 09:00 09/07/24 08:59 08/11/24 09:56 10 MG Magnesium Sulfate 50 ml @ 0 mls/hr PROTOCOL PRN IV low mag level 08/07/24 10:00 09/06/24 09:59 08/07/24 22:43 25 MLS/HR Metoprolol Succinate (TopROL XL) 50 mg DAILY PO 08/08/24 09:00 09/07/24 08:59 08/11/24 09:56 50 MG Miscellaneous Medication (Folic Acid ) 1 cap DAILY PO 08/08/24 09:00 08/07/24 12:29 DC Morphine Sulfate (morPHINE 2MG SYG) 2 mg Q4H PRN IVP SEVERE PAIN (7-10) 08/07/24 12:30 08/14/24 12:29 08/08/24 17:05 2 MG Multi-Ingred Cream/Lotion/Oil/ Oint (Minerin Creme) 1 APPL BID TP 08/08/24 21:00 09/07/24 20:59 08/11/24 09:57 1 APPL Ondansetron HCl (zoFRAN 4MG INJ) 4 mg Q6H PRN IV NAUSEA/VOMITING 08/07/24 04:30 09/06/24 04:29 Pharmacy Profile Note (Pharmacy Communication) 1 each DAILY MISC 08/10/24 09:00 08/09/24 13:16 DC Piperacillin Sod/ Tazobactam Sod 50 ml @ 12.5 mls/hr Q8H IV 08/07/24 09:00 08/17/24 08:59 08/11/24 09:55 12.5 MLS/HR Potassium Chloride 100 ml @ 50 mls/hr AD PRN IV POTASSIUM PROTOCOL 08/07/24 10:00 08/09/24 08:59 DC Potassium Chloride 100 ml @ 100 mls/hr AD PRN IV POTASSIUM PROTOCOL 08/07/24 10:00 09/06/24 09:59 Potassium Chloride (K-Dur/Klor-Con 20meq) 20 meq AD PRN PO POTASSIUM PROTOCOL 08/07/24 10:00 09/06/24 09:59 08/09/24 16:40 20 MEQ Potassium Chloride (KCl 10% Elixir 20meq/15ml) 20 meq AD PRN PO POTASSIUM PROTOCOL 08/07/24 10:00 09/06/24 09:59 Pyridoxine HCl (PYRIDoxine HCL 50 MG TABLET) 100 mg DAILY PO 08/08/24 09:00 09/07/24 08:59 08/11/24 09:56 100 MG Sucralfate (Carafate) 1 gm TIDHS PO 08/07/24 13:00 09/06/24 12:59 08/11/24 12:55 1 GM Tamsulosin HCl (FloMAX) 0.4 mg HS PO 08/07/24 21:00 09/06/24 20:59 08/10/24 21:21 0.4 MG Trazodone HCl (DesyREL/OlepTRO) 100 mg HS PO 08/07/24 21:00 09/06/24 20:59 08/10/24 21:20 100 MG Vancomycin HCl 250 ml @ 125 mls/hr ONCE IV 08/07/24 04:30 08/07/24 04:12 DC Vancomycin HCl 250 ml @ 125 mls/hr Q12H IV 08/11/24 04:00 08/21/24 03:59 08/11/24 04:44 125 MLS/HR Vancomycin HCl 250 ml @ 125 mls/hr Q12H IV 08/07/24 16:00 08/10/24 15:36 DC 08/10/24 04:13 125 MLS/HR Vancomycin HCl (Vancomycin Protocol) 1 each AD IV 08/07/24 03:30 08/21/24 03:29 Diagnostics / Radiology: [COPY/PASTE HERE IF NO REPORTS PLEASE DELETE SECTION] Assessment: Concern for GI bleed Anemia Cellulitis Plan: Recommend outpatient pillcam Continue GI prophylaxis Advance diet as tolerated Avoid NSAIDs Antireflux measures Monitor H&H and transfuse as needed Call with questions, concerns or change in clinical status Patient to follow-up at clinic post discharge Thank you for this consult JAVIER LI [facility] Aug 11, 2024 13:44
--- NOTE | 2024-08-11 15:42 | PN ---
INFECTIOUS DISEASE PROGRESS NOTE Date of Service: Aug 11, 2024 SUBJECTIVE: Patient was seen and examined at bedside in room 324. Patient is awake, alert and oriented. No fever, temperature is 97.9. Per nursing report the wound culture of the left lower extremity was collected yesterday and no preliminary results available yet. Nursing to contact the wound care center to follow up on the culture results that were collected there to be able to give antibiotics recommendations. For now we will continue on vancomycin and Zosyn. PHYSICAL EXAM EYES: Anicteric. Pupils equal and reactive. HENT: No oral thrush seen, moist Oral mucosa. NECK: Supple, no JVD or thyromegaly. LUNGS: Good air entry. No rales, no rhonchi. CARDIOVASCULAR: S1, S2 regular. No murmur heard. ABDOMEN: Soft, non tender, bowel sounds present, no organomegaly. CENTRAL NERVOUS SYSTEM: Awake, alert, oriented x 1. SKIN: No rashes, no swelling. Bilateral lower extremity cellulitis. LYMPHATICS: No peripheral lymphadenopathy MUSCULOSKELETAL: No joint swelling, erythema or tenderness. EXTREMITIES: No cyanosis or clubbing. Left lower extremity ulcer. BACK: No deformity, no pressure ulcer. GENITOURINARY: No dysuria or hematuria. Vital Sign (Last 12 Hours) 08/11/24 08/11/24 08/11/24 03:58 08:00 12:00 Temp 97.9 97.5 97.9 Pulse 97 82 80 Resp 19 17 19 B/P (MAP) 123/72 121/47 121/53 Pulse Ox 99 98 99 O2 Delivery Room Air Room Air Room Air Intake & Output (last 24hrs) 08/10/24 08/10/24 08/11/24 14:59 22:59 06:59 Intake Total 1800 ml Balance 1800 ml LABS: Laboratory: Test 08/11/24 02:45 08/10/24 14:50 08/10/24 06:35 Range/Units Vancomycin Level 14.2 L 20.0-30.0 mcg/mL Vancomycin Level Trough 20.7 #H 10.0-20.0 UG/ML White Blood Count 19.3 H 4.8-10.8 K/uL Red Blood Count 2.54 L 4.50-6.20 MIL/uL Hemoglobin 8.2 L 14.0-18.0 g/dL Hematocrit 25.5 L 42-54 % Mean Corpuscular Volume 100.4 H 79-99 fL Mean Corpuscular Hemoglobin 32.3 27.0-33.0 pg Mean Corpuscular Hemoglobin Concent 32.2 32.0-36.0 g/dL Red Cell Distribution Width 20.3 H 11.0-15.5 % Platelet Count 185 130-400 K/uL Mean Platelet Volume 11.0 H 7.5-10.5 fL Immature Granulocyte % (Auto) 0.9 0-1 % Neutrophils (%) (Auto) 95.3 H 40.0-77.0 % Lymphocytes (%) (Auto) 1.1 L 21.0-51.0 % Monocytes (%) (Auto) 2.4 L 3.0-13.0 % Eosinophils (%) (Auto) 0.1 0.0-8.0 % Basophils (%) (Auto) 0.2 0.0-5.0 % Neutrophils # (Auto) 18.3 H 1.8-7.7 K/uL Lymphocytes # (Auto) 0.2 L 1.0-4.8 K/uL Monocytes # (Auto) 0.5 0.1-1.0 K/uL Eosinophils # (Auto) 0.02 0.00-0.70 K/uL Basophils # (Auto) 0.04 0.00-0.20 K/uL Absolute Immature Granulocyte (auto 0.18 0-1 K/uL Nucleated Red Blood Cells 0.0 0.0-0.19 % White Cell Morphology Comment See comments Red Blood Cell Morphology See comments Sodium Level 132 L 136-145 mmol/L Potassium Level 3.8 3.5-5.1 mmol/L Chloride Level 97 L 101-111 mmol/L Carbon Dioxide Level 27 21-32 mmol/L Blood Urea Nitrogen 13 7-18 mg/dL Creatinine 0.7 0.5-1.3 mg/dL Glomerular Filtration Rate Calc 94 >90 mL/min Random Glucose 116 H 70-105 mg/dL Total Calcium 8.3 L 8.5-10.1 mg/dL Magnesium Level 1.90 1.80-2.40 mg/dL Total Bilirubin 1.3 H 0.2-1.0 mg/dL Aspartate Amino Transf (AST/SGOT) 41 H 10-37 U/L Alanine Aminotransferase (ALT/SGPT) 76 12-78 U/L Alkaline Phosphatase 63 50-136 U/L Total Protein 5.6 L 6.0-8.3 g/dL Albumin 2.9 L 3.5-5.0 g/dL ASSESSMENT: Left lower extremity ulcer. Bilateral lower extremities cellulitis. Left lower extremity DVT. Leukocytosis. Hypertension. Encephalopathy, resolving. PLAN: Continue vancomycin per pharmacy protocol. Continue Zosyn IV. Continue GI prophylaxis. Continue pain management. Continue wound care. Continue anticoagulants and monitor hemoglobin hematocrit. This case was reviewed and discussed with my supervising physician and the above assessment and plan was formulated and agreed upon. ATTESTATION BY PHYSICIAN I have seen and examined the patient. I reviewed the documentation, medical decision making, and treatment plan as noted by the mid-level provider above. I agree with the findings and plan of care. PERRY PARKINSON MD, MIRTA L [facility] Aug 11, 2024 15:42
--- NOTE | 2024-08-11 16:17 | PN ---
Patient is a 78-year-old male presents in ED with chief complaints of fever and chills. Patient reports a recent hospitalization for lower extremity cellulitis, where he was discharged on Metronidazole for bilateral cellulitis with venous stasis ulcers. The patient follows Dr. Jason Salcedo at the [facility]. Upon arrival to the emergency room, sepsis alert was initiated. Remarkable labs upon arrival include a temperature of 101.8, heart rate 102, leukocytosis 22.1. Blood cultures were obtained, and are negative. 2D echocardiogram was ordered showing a LVEF of 50%, and ruled out evidence of endocarditis. Influenza A, B, and COVID were all negative. Urinalysis was negative. Patient received a dose of Zosyn IV and vancomycin IV, and Infectious Disease has been consulted for antibiotics stewardship. A venous Doppler was preformed, and a DVT seen in the proximal left superficial femoral vein. Patient was started on Lovenox. There it seems the patient is going to have MRI to the left lower extremity to rule out osteomyelitis. Patient feeling a lot better. PHYSICAL EXAM VITALS: Vital Signs Date Time Temp Pulse Resp B/P (MAP) Pulse Ox O2 Delivery O2 Flow Rate FiO2 08/09/24 08:00 97.5 89 17 121/53 97 Room Air 21 08/08/24 20:55 0 GENERAL: ALERT, ORIENTED, APPEARS-NO ACUTE DISTRESS EYES: No SCLERAE ANICTERIC, No PUPILS EQUAL/REACTIVE, No EXTRAOCULAR MUSCLES INTCT RESPIRATORY: LUNGS CLEAR-AUSC/PERCUS CARDIOVASCULAR: REGULAR RATE, REGULAR RHYTHM GASTROINTESTINAL: ABDOMEN IS SOFT Assessment 1. New onset left lower extremity DVT with the patient was started on Lovenox 2. Patient with peripheral vascular disease to the left lower extremity with the patient have anterior tibial and dorsalis problem. 3. Possible osteomyelitis to the left lower extremity with the patient is going for MRI 4. 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 Patient is receiving Sunny 2 inhibitor 5. Anemia 6. Rash with the patient have significant itching in the past improved significantly after we started ruxolitinib. Plan 1. There is no need for blood transfusion 2. This patient to continue on his JAK2 mutation inhibitor ruxolitinib. 3. CBC daily 4. Continue antibiotic treatment as per primary 5. There is plan for MRI to the left lower extremity to rule out any osteomyelitis. Patient refused to do the MRI. 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 I discussed the case with infectious disease specialist. They will continue antibiotic treatment as a schedule Vitals/Labs Vital Signs Date Time Temp Pulse Resp B/P (MAP) Pulse Ox O2 Delivery O2 Flow Rate FiO2 08/11/24 12:00 97.9 80 19 121/53 99 Room Air 08/10/24 20:00 0 21 Medications Current Medications Acetaminophen 1,000 mg ONCE ONCE PO Last administered on 08/06/24at 23:22; Start 08/06/24 at 23:30; Stop 08/06/24 at 23:31; Status DC Sodium Chloride 1,000 ml @ 0 mls/hr ONCE ONCE IV Last administered on 08/06/24at 23:22; Start 08/06/24 at 23:30; Stop 08/06/24 at 23:31; Status DC Piperacillin Sod/ Tazobactam Sod 3.375 gm ONCE ONCE IV Last administered on 08/07/24at 00:37; Start 08/07/24 at 00:30; Stop 08/07/24 at 00:31; Status DC Vancomycin HCl 1 each AD IV; Start 08/07/24 at 03:30; Stop 08/21/24 at 03:29 Vancomycin HCl 500 ml @ 250 mls/hr ONCE ONCE IV Last administered on 08/07/24at 04:21; Start 08/07/24 at 04:00; Stop 08/07/24 at 05:59; Status DC Vancomycin HCl 250 ml @ 125 mls/hr Q12H IV Last administered on 08/10/24at 04:13; Start 08/07/24 at 16:00; Stop 08/10/24 at 15:36; Status DC Acetaminophen 650 mg Q6H PRN PO Last administered on 08/10/24at 21:25; Start 08/07/24 at 04:30; Stop 09/06/24 at 04:29 Acetaminophen 650 mg Q4H PRN PO Last administered on 08/11/24at 06:45; Start 08/07/24 at 04:30; Stop 09/06/24 at 04:29 Ondansetron HCl 4 mg Q6H PRN IV; Start 08/07/24 at 04:30; Stop 09/06/24 at 04:29 Famotidine 20 mg BID PO Last administered on 08/11/24at 09:56; Start 08/07/24 at 09:00; Stop 09/06/24 at 08:59 Vancomycin HCl 250 ml @ 125 mls/hr ONCE IV; Start 08/07/24 at 04:30; Stop 08/07/24 at 04:12; Status DC Piperacillin Sod/ Tazobactam Sod 50 ml @ 12.5 mls/hr Q8H IV Last administered on 08/11/24at 09:55; Start 08/07/24 at 09:00; Stop 08/17/24 at 08:59 Magnesium Sulfate 50 ml @ 0 mls/hr PROTOCOL PRN IV Last administered on 08/07/24at 22:43; Start 08/07/24 at 10:00; Stop 09/06/24 at 09:59 Potassium Chloride 100 ml @ 50 mls/hr AD PRN IV; Start 08/07/24 at 10:00; Stop 08/09/24 at 08:59; Status DC Potassium Chloride 100 ml @ 100 mls/hr AD PRN IV; Start 08/07/24 at 10:00; Stop 09/06/24 at 09:59 Potassium Chloride 20 meq AD PRN PO; Start 08/07/24 at 10:00; Stop 09/06/24 at 09:59 Potassium Chloride 20 meq AD PRN PO Last administered on 08/09/24at 16:40; Start 08/07/24 at 10:00; Stop 09/06/24 at 09:59 Ferrous Gluconate 325 mg DAILY PO Last administered on 08/08/24at 09:33; Start 08/08/24 at 09:00; Stop 08/09/24 at 08:58; Status DC Folic Acid 1 mg DAILY PO Last administered on 08/11/24at 09:56; Start 08/08/24 at 09:00; Stop 09/07/24 at 08:59 Labetalol HCl 5 mg Q6H PRN IV; Start 08/07/24 at 10:00; Stop 09/06/24 at 09:59 Metoprolol Succinate 50 mg DAILY PO Last administered on 08/11/24at 09:56; Start 08/08/24 at 09:00; Stop 09/07/24 at 08:59 Metoprolol Succinate 50 mg ONCE ONCE PO Last administered on 08/07/24at 10:42; Start 08/07/24 at 10:00; Stop 08/07/24 at 10:01; Status DC Heparin Sodium (Porcine) 5,000 unit Q12H SQ Last administered on 08/09/24at 09:18; Start 08/07/24 at 10:30; Stop 08/09/24 at 13:12; Status DC Morphine Sulfate 2 mg Q4H PRN IVP Last administered on 08/08/24at 17:05; Start 08/07/24 at 12:30; Stop 08/14/24 at 12:29 Aspirin 81 mg DAILY PO Last administered on 08/11/24at 09:56; Start 08/08/24 at 09:00; Stop 09/07/24 at 08:59 Lisinopril 10 mg DAILY PO Last administered on 08/11/24at 09:56; Start 08/08/24 at 09:00; Stop 09/07/24 at 08:59 Sucralfate 1 gm TIDHS PO Last administered on 08/11/24at 12:55; Start 08/07/24 at 13:00; Stop 09/06/24 at 12:59 Tamsulosin HCl 0.4 mg HS PO Last administered on 08/10/24at 21:21; Start 08/07/24 at 21:00; Stop 09/06/24 at 20:59 Trazodone HCl 100 mg HS PO Last administered on 08/10/24at 21:20; Start 08/07/24 at 21:00; Stop 09/06/24 at 20:59 Home Med Cholecalciferol (Vitd3)/Vit K2 (D3 Plus... DAILY PO; Start 08/08/24 at 09:00; Stop 09/07/24 at 08:59 Miscellaneous Medication 1 cap DAILY PO; Start 08/08/24 at 09:00; Stop 08/07/24 at 12:29; Status DC Home Med (Mecobalamin (B12 Acti... DAILY PO; Start 08/08/24 at 09:00; Stop 09/07/24 at 08:59 Pyridoxine HCl 100 mg DAILY PO Last administered on 08/11/24at 09:56; Start 08/08 at 09:00; Stop 09/07/24 at 08:59 Multi-Ingred Cream/Lotion/Oil/ Oint 1 APPL BID TP Last administered on 08/11/24at 09:57; Start 08/08/24 at 21:00; Stop 09/07/24 at 20:59 Ferrous Gluconate 324 mg DAILY PO Last administered on 08/11/24at 09:56; Start 08/09/24 at 09:00; Stop 09/07/24 at 08:59 Pharmacy Profile Note 1 each DAILY MISC; Start 08/10/24 at 09:00; Stop 08/09/24 at 13:16; Status DC Enoxaparin Sodium 80 mg DAILY SQ Last administered on 08/11/24at 09:55; Start 08/10/24 at 09:00; Stop 08/11/24 at 13:28; Status DC Vancomycin HCl 250 ml @ 125 mls/hr Q12H IV Last administered on 08/11/24at 04:44; Start 08/11/24 at 04:00; Stop 08/21/24 at 03:59 Apixaban 5 mg BID PO; Start 08/11/24 at 19:00; Stop 09/10/24 at 18:59 RISSA NAQVI MD Aug 11, 2024 16:17
[2024-08-11] MEDS: APIXaban 5 MG TABLET PO SCH (19:32)
[2024-08-12] VITALS (9 sets, daily range): BP systolic 121–164; BP diastolic 51–78; PULSE 81–100; RESP 16–20; TEMP 97.3–98.1; O2SAT 95–96
[2024-08-12] MEDS: traMADol HCL 50 MG TABLET PO PRN (03:38)
[2024-08-12] MEDS: ZOSYN 3.375GM+NS 50ML 50 ML IV SCH (05:32)
[2024-08-12 06:25] LABS: HEMATOCRIT 26.6 % (42-54); MEAN CORPUSCULAR HEMOGLOBIN 31.9 pg (27.0-33.0); MEAN CORPUSCULAR HGB CONC 32.7 g/dL (32.0-36.0); MEAN CORPUSCULAR VOLUME 97.4 fL (79-99); RED BLOOD CELL COUNT(AUTO) 2.73 MIL/uL (4.50-6.20); RED CELL DISTRIBUTION WIDTH 20.2 % (11.0-15.5); WHITE BLOOD COUNT (AUTO) 20.6 K/uL (4.8-10.8)
[2024-08-12 06:33] LABS: INR 1.19 (0.85-1.15); PROTHROMBIN TIME 12.4 SEC (9.6-11.6)
[2024-08-12 06:44] LABS: CREATININE 0.7 mg/dL (0.5-1.3); POTASSIUM 3.5 mmol/L (3.5-5.1)
[2024-08-12] MEDS ORDERED: APIX5TAB PO (10:14)
--- NOTE | 2024-08-12 10:15 | PN ---
[facility] PROGRESS NOTE Date of Service: Aug 12, 2024 Time of Service: 10:04 SUBJECTIVE: [ ] admission date: 08/07/24 PCP: self referral chief complaints: fever, chills This is a 78-year-old male presents in ED with chief complaints of fever and chills. ER initiated sepsis alert: Onset two days ago. Patient was taking Tylenol for fevers. Patient was recently hospitalized for lower extremity cellulitis and discharged on oral antibiotics. metronidazole for Bilateral cellulitis with venous stasis ulcers. Patient reports seen wound care center with Dr. Jason Salcedo. Patient denies abdominal pain diarrhea chest pain, shortness for breath. Sepsis alert was initiated in ED patient came in with a temperature of 101.8 heart rate 102 leukocytosis 22.1. Blood cultures obtained, influenza a and B COVID all negative UA negative. Patient received a dose of Zosyn IV and vancomycin IV ID has been consulted for antibiotics stewardship. Imaging ; venous doppler DVT seen in the proximal left superficial femoral vein. 08/08/24 patient is seen and examined fevers have improved. Patient refused heparin subQ patient has a DVT superficial to femoral he agree with heparin drip. Patient was reports having difficulty swallowing speech consulted. Patient's skin very dry to lower extremities we will get anterior Doppler and weight yardage checker consult. Encouraged patient to get out of bed to chair PT services to eval and treat. No chest pain no shortness a breath 08/09/24 patient is seen and examined patient appears to be doing much better today patient reports that he walks about 70 ft walker at home. Speech pending I encouraged patient out of bed to chair with meals. One-to-one was placed overnight patient has delirium at night. We will waiting for ID final recommendations on IV antibiotics. 08/10/24 patient is seen and examined afebrile. Blood cultures so far negative waiting for ID final recommendation deescalate IV antibiotics to p.o.. Speech no signs of aspiration. We continue with wound care as directed. Patient is working with physical therapy patient walks more than 70 [address] discussed placement patient refused wants to go home wants discharge. 08/11/24 seen patient continues with IV antibiotics ruled out osteomyelitis to left ankle. GI recommended pill cam outpatient setting upon discharge. Patient continues on Lovenox we will defer p.o. anticoagulation taping machine operator's. Cultures negative. Afebrile we will wait for ID recommendations. 08/12/24 patient was seen earlier. Spouse at bedside went over plan of care and updates. The patient is fully alert oriented x3. waiting for ID final recommendations continues leukocytosis and afebrile: waiting for wound cultures. Patient has been primary nurse reports no events overnight. REVIEW OF SYSTEMS a 14 point ROS obtained all relevant positive documented otherwise ROS negative PHYSICAL EXAM GENERAL APPEARANCE: The patient is awake, alert, and oriented, in no acute cardiopulmonary distress. appears acutely ill, NEUROLOGICAL: Cranial nerves II-XII grossly intact. Motor is 5/5 in bilateral upper and lower extremities proximal to distal. No sensory deficits. HEENT: Face is symmetric. Pupils are equal and reactive. Extraocular movements are intact. NECK: Supple. No JVD. No thyromegaly. No submental, submandibular, pre- /postauricular, occipital or supraclavicular lymphadenopathy. CHEST: Normal chest expansion. No Telemetry. LUNGS: Absence of any rales, rhonchi or any wheezing. CARDIOVASCULAR: Regular. S1 and S2 normal. No appreciable rubs, murmurs or gallops. ABDOMEN: Soft, nontender, and nondistended. There is no rebound, voluntary guarding, or rigidity. : Deferred. No Priest. EXTREMITIES: + edematous and not cyanotic. No clubbing. Good capillary refill. SKIN: redness to lower ext bilateral with statis venous ulcer: left leg with dressing Vital Signs (last 8hr) Date Time Temp Pulse Resp B/P (MAP) Pulse Ox O2 Delivery O2 Flow Rate FiO2 08/12/24 08:00 98.1 94 19 144/60 100 Room Air 08/12/24 04:00 97.5 81 18 121/51 100 Room Air LABS: Laboratory: Test 08/12/24 05:55 08/11/24 02:45 08/10/24 14:50 Range/Units White Blood Count 20.6 H 4.8-10.8 K/uL Red Blood Count 2.73 L 4.50-6.20 MIL/uL Hemoglobin 8.7 L 14.0-18.0 g/dL Hematocrit 26.6 L 42-54 % Mean Corpuscular Volume 97.4 79-99 fL Mean Corpuscular Hemoglobin 31.9 27.0-33.0 pg Mean Corpuscular Hemoglobin Concent 32.7 32.0-36.0 g/dL Red Cell Distribution Width 20.2 H 11.0-15.5 % Platelet Count 259 # 130-400 K/uL Mean Platelet Volume 10.4 7.5-10.5 fL Nucleated Red Blood Cells 0.0 0.0-0.19 % Prothrombin Time 12.4 H 9.6-11.6 SEC Prothromb Time International Ratio 1.19 H 0.85-1.15 Sodium Level 133 L 136-145 mmol/L Potassium Level 3.5 3.5-5.1 mmol/L Chloride Level 99 L 101-111 mmol/L Carbon Dioxide Level 29 21-32 mmol/L Blood Urea Nitrogen 11 7-18 mg/dL Creatinine 0.7 0.5-1.3 mg/dL Glomerular Filtration Rate Calc 94 >90 mL/min Random Glucose 117 H 70-105 mg/dL Total Calcium 8.6 8.5-10.1 mg/dL Vancomycin Level 14.2 L 20.0-30.0 mcg/mL Vancomycin Level Trough 20.7 #H 10.0-20.0 UG/ML Current Medications Medications (Trade) Dose Ordered Sig/Javed Route PRN Reason Start Time Stop Time Status Last Admin Dose Admin Acetaminophen (TYLenol 325MG TAB) 650 mg Q4H PRN PO MILD PAIN (1-3) 08/07/24 04:30 09/06/24 04:29 08/11/24 21:58 650 MG Acetaminophen (TYLenol 325MG TAB) 650 mg Q6H PRN PO TEMPERATURE GREATER THAN 101.5 08/07/24 04:30 09/06/24 04:29 08/10/24 21:25 650 MG Apixaban (EliquIS) 5 mg BID PO 08/11/24 19:00 09/10/24 18:59 08/12/24 09:14 5 MG Aspirin (Aspirin 81mg Ec Tab) 81 mg DAILY PO 08/08/24 09:00 09/07/24 08:59 08/12/24 09:13 81 MG Enoxaparin Sodium (Lovenox 80mg) 80 mg DAILY SQ 08/10/24 09:00 08/11/24 13:28 DC 08/11/24 09:55 80 MG Famotidine (Pepcid 20mg Tab) 20 mg BID PO 08/07/24 09:00 09/06/24 08:59 08/12/24 09:14 20 MG Ferrous Gluconate (Ferrous Gluconate) 324 mg DAILY PO 08/09/24 09:00 09/07/24 08:59 08/12/24 09:13 324 MG Ferrous Gluconate (Ferrous Gluconate) 325 mg DAILY PO 08/08/24 09:00 08/09/24 08:58 DC 08/08/24 09:33 324 MG Folic Acid (FOLic ACID 1 MG TABLET) 1 mg DAILY PO 08/08/24 09:00 09/07/24 08:59 08/12/24 09:14 1 MG Gentamicin Sulfate (GENTAmicin SULFate 15 gm cream) 1 APPL TP DAILY DAILY TP 08/12/24 09:00 08/26/24 08:59 Heparin Sodium (Porcine) (HEParin 5,000 UNIT VIAL) 5,000 unit Q12H SQ 08/07/24 10:30 08/09/24 13:12 DC 08/09/24 09:18 5,000 UNIT Home Med (Home Medication) (Mecobalamin (B12 Acti... DAILY PO 08/08/24 09:00 09/07/24 08:59 Home Med (Home Medication) Cholecalciferol (Vitd3)/Vit K2 (D3 Plus... DAILY PO 08/08/24 09:00 09/07/24 08:59 Labetalol HCl (TRANdate 20MG SYG) 5 mg Q6H PRN IV systolic pressure > 160 08/07/24 10:00 09/06/24 09:59 Lisinopril (Prinivil 10mg) 10 mg DAILY PO 08/08/24 09:00 09/07/24 08:59 08/12/24 09:14 10 MG Magnesium Sulfate 50 ml @ 0 mls/hr PROTOCOL PRN IV low mag level 08/07/24 10:00 09/06/24 09:59 08/07/24 22:43 25 MLS/HR Metoprolol Succinate (TopROL XL) 50 mg DAILY PO 08/08/24 09:00 09/07/24 08:59 08/12/24 09:14 50 MG Miscellaneous Medication (Folic Acid ) 1 cap DAILY PO 08/08/24 09:00 08/07/24 12:29 DC Morphine Sulfate (morPHINE 2MG SYG) 2 mg Q4H PRN IVP SEVERE PAIN (7-10) 08/07/24 12:30 08/14/24 12:29 08/08/24 17:05 2 MG Multi-Ingred Cream/Lotion/Oil/ Oint (Minerin Creme) 1 APPL BID TP 08/08/24 21:00 09/07/24 20:59 08/12/24 09:14 1 APPL Ondansetron HCl (zoFRAN 4MG INJ) 4 mg Q6H PRN IV NAUSEA/VOMITING 08/07/24 04:30 09/06/24 04:29 Pharmacy Profile Note (Pharmacy Communication) 1 each DAILY MISC 08/10/24 09:00 08/09/24 13:16 DC Piperacillin Sod/ Tazobactam Sod 50 ml @ 12.5 mls/hr Q8H IV 08/12/24 05:00 08/22/24 04:59 08/12/24 05:32 12.5 MLS/HR Piperacillin Sod/ Tazobactam Sod 50 ml @ 12.5 mls/hr Q8H IV 08/07/24 09:00 08/12/24 03:39 DC 08/11/24 19:32 12.5 MLS/HR Potassium Chloride 100 ml @ 50 mls/hr AD PRN IV POTASSIUM PROTOCOL 08/07/24 10:00 08/09/24 08:59 DC Potassium Chloride 100 ml @ 100 mls/hr AD PRN IV POTASSIUM PROTOCOL 08/07/24 10:00 09/06/24 09:59 Potassium Chloride (K-Dur/Klor-Con 20meq) 20 meq AD PRN PO POTASSIUM PROTOCOL 08/07/24 10:00 09/06/24 09:59 08/12/24 09:14 20 MEQ Potassium Chloride (KCl 10% Elixir 20meq/15ml) 20 meq AD PRN PO POTASSIUM PROTOCOL 08/07/24 10:00 09/06/24 09:59 Pyridoxine HCl (PYRIDoxine HCL 50 MG TABLET) 100 mg DAILY PO 08/08/24 09:00 09/07/24 08:59 08/12/24 09:13 100 MG Sucralfate (Carafate) 1 gm TIDHS PO 08/07/24 13:00 09/06/24 12:59 08/12/24 09:13 1 GM Tamsulosin HCl (FloMAX) 0.4 mg HS PO 08/07/24 21:00 09/06/24 20:59 08/11/24 21:57 0.4 MG Tramadol HCl (UltRAM) 50 mg Q6H PRN PO PAIN LEVEL 7 TO 10 08/12/24 03:30 08/17/24 03:29 08/12/24 03:38 50 MG Trazodone HCl (DesyREL/OlepTRO) 100 mg HS PO 08/07/24 21:00 09/06/24 20:59 08/11/24 21:57 100 MG Vancomycin HCl 250 ml @ 125 mls/hr ONCE IV 08/07/24 04:30 08/07/24 04:12 DC Vancomycin HCl 250 ml @ 125 mls/hr Q12H IV 08/11/24 04:00 08/21/24 03:59 08/12/24 03:20 125 MLS/HR Vancomycin HCl 250 ml @ 125 mls/hr Q12H IV 08/07/24 16:00 08/10/24 15:36 DC 08/10/24 04:13 125 MLS/HR Vancomycin HCl (Vancomycin Protocol) 1 each AD IV 08/07/24 03:30 08/21/24 03:29 DIAGNOSTICS / RADIOLOGY: [ ] ASSESSMENT: Persistent Leukocytosis Sepsis elevated [id number], elevated heart [id number] and WBCs 22 Bilateral cellulitis with venous stasis ulcers infection POA failed outpatient treatment POA acute on chronic anemia POA Iron deficiency POA new onset: DVT seen in the proximal left superficial femoral vein. POA will be discharged on Eliquis 5 mg po bid as per Dr Zamora. electrolytes derangement: hyponatremia POA hyperglycemia POA Recent hospitalization one week ago: dx: sepsis suspecting ROCHELLE POA Suspecting oropharyngeal dysphagia POA ruled out aspiration and dysphasia suspecting osteomyelitis left lower ext: POA ruled out chronic problems; CAD s/p CABG HTN Prostate PLAN: Admit medical-surgical floor: condition: Guarded Status: Full code IVF: heplock Consultants infectious disease and site identification specialist: DR Jason Salcedo podiatry GI Antibiotics: IV vancomycin pharmacy to dose and Zosyn IV every 8 hours Test: pending wound cultures Local wound care to bilateral ext: cream: for dry skin aggressive off loading OOB to chair. aspiration precaution HOB at 45 degree at all time. continue with Eliquis 5 mg po bid will monitor bleeding. PT OT continues: patient will be going home as per his request. GI: no procedure on this admission: outpatient setting PILL CAM follow up outpatient setting. Labs cbc, cmp, mag+ Replace electrolytes as needed as per protocol to keep potassium above 4.0 magnesium 2.0. Monitor H/H trends transfuse to keep HGB above 7.0 Home medications reconciled Pain management: Tylenol as needed Supportive measures: DVT ppx, GI ppx on Eliquis and famotidine 20 mg bid all questions answered Supervising MD: Dr. Balbuena P c/d This document was generated in part using voice recognition software, occasional wrong word or sound alike substitutions may have occurred due to the inherent limitations of voice recognition software. Read the chart carefully and recognize using context, where the substitutions have occurred. Although every effort was made to edit the content, wall crane operator and typing errors may occur ATTESTATION BY PHYSICIAN I have seen and examined the patient. I reviewed the documentation, medical decision making, and treatment plan as noted by the mid-level provider above. I agree with the findings and plan of care. Courtney Balbuena MD, [facility]ABETH NP Aug 12, 2024 10:15
--- NOTE | 2024-08-12 10:21 | PN ---
GASTROENTEROLOGY PROGRESS NOTE Date of Visit: Aug 12, 2024 Time of Visit: 10:21 Events / Notes: [ ] Review of Systems: CONSTITUTIONAL: No malaise or change in sensation of wellbeing. ENMT: No rhinorrhea, otorrhea, sinus pain, ear ache. CARDIOVASCULAR: No angina, palpitations, orthopnea or paroxysmal dyspnea. RESPIRATORY: No SOB. GASTROINTESTINAL: No abdominal pain, nausea, vomiting, diarrhea, hematemesis, melena or change in the patient's habitual bowel movements consistency/number. GENITOURINARY: No dysuria, hematuria or change in bladder continence. MUSCULOSKELETAL: No new muscle pain or decrease in muscular strength. No new joint swelling, redness or tenderness. SKIN: No new rash. Physical Exam: GEN: Awake, alert, oriented in person, time and place, and in no acute distress. HEENT: No sinus tenderness. Tympanic membranes were not examined. No rhinorrhea. Oral pharyngeal mucosa is pink, moist and within normal limits. Neck is supple with no cervical lymphadenopathy, thyromegaly or JVD. CHEST: Inspection, palpation and percussion of the chest were unremarkable. Lung auscultation revealed normal breath sounds bilaterally. CARDIAC: PMI is within normal limits. Heart sounds are regular. Normal S1, S2. No gallop or murmur. ABD: Soft, non-tender and not distended. No peritoneal signs on palpation. No organomegaly. Normal bowel sounds. EXT: No cyanosis or clubbing. No edema. SKIN: Intact. No rashes. JOINTS: No evidence of synovitis or acute arthritis. NEURO: Alert and oriented to name, place and person. Cranial nerve examination is unremarkable. No focal motor deficits. Normal speech. Gait is normal. Strength is normal. Vital Signs (last 8hr) Date Time Temp Pulse Resp B/P (MAP) Pulse Ox O2 Delivery O2 Flow Rate FiO2 08/12/24 08:00 98.1 94 19 144/60 100 Room Air 08/12/24 04:00 97.5 81 18 121/51 100 Room Air Laboratory: [ ] Laboratory: Test 08/12/24 05:55 08/11/24 02:45 08/10/24 14:50 Range/Units White Blood Count 20.6 H 4.8-10.8 K/uL Red Blood Count 2.73 L 4.50-6.20 MIL/uL Hemoglobin 8.7 L 14.0-18.0 g/dL Hematocrit 26.6 L 42-54 % Mean Corpuscular Volume 97.4 79-99 fL Mean Corpuscular Hemoglobin 31.9 27.0-33.0 pg Mean Corpuscular Hemoglobin Concent 32.7 32.0-36.0 g/dL Red Cell Distribution Width 20.2 H 11.0-15.5 % Platelet Count 259 # 130-400 K/uL Mean Platelet Volume 10.4 7.5-10.5 fL Nucleated Red Blood Cells 0.0 0.0-0.19 % Prothrombin Time 12.4 H 9.6-11.6 SEC Prothromb Time International Ratio 1.19 H 0.85-1.15 Sodium Level 133 L 136-145 mmol/L Potassium Level 3.5 3.5-5.1 mmol/L Chloride Level 99 L 101-111 mmol/L Carbon Dioxide Level 29 21-32 mmol/L Blood Urea Nitrogen 11 7-18 mg/dL Creatinine 0.7 0.5-1.3 mg/dL Glomerular Filtration Rate Calc 94 >90 mL/min Random Glucose 117 H 70-105 mg/dL Total Calcium 8.6 8.5-10.1 mg/dL Vancomycin Level 14.2 L 20.0-30.0 mcg/mL Vancomycin Level Trough 20.7 #H 10.0-20.0 UG/ML Current Medications Medications (Trade) Dose Ordered Sig/Javed Route PRN Reason Start Time Stop Time Status Last Admin Dose Admin Acetaminophen (TYLenol 325MG TAB) 650 mg Q4H PRN PO MILD PAIN (1-3) 08/07/24 04:30 09/06/24 04:29 08/11/24 21:58 650 MG Acetaminophen (TYLenol 325MG TAB) 650 mg Q6H PRN PO TEMPERATURE GREATER THAN 101.5 08/07/24 04:30 09/06/24 04:29 08/10/24 21:25 650 MG Apixaban (EliquIS) 5 mg BID PO 08/11/24 19:00 09/10/24 18:59 08/12/24 09:14 5 MG Aspirin (Aspirin 81mg Ec Tab) 81 mg DAILY PO 08/08/24 09:00 09/07/24 08:59 08/12/24 09:13 81 MG Enoxaparin Sodium (Lovenox 80mg) 80 mg DAILY SQ 08/10/24 09:00 08/11/24 13:28 DC 08/11/24 09:55 80 MG Famotidine (Pepcid 20mg Tab) 20 mg BID PO 08/07/24 09:00 09/06/24 08:59 08/12/24 09:14 20 MG Ferrous Gluconate (Ferrous Gluconate) 324 mg DAILY PO 08/09/24 09:00 09/07/24 08:59 08/12/24 09:13 324 MG Ferrous Gluconate (Ferrous Gluconate) 325 mg DAILY PO 08/08/24 09:00 08/09/24 08:58 DC 08/08/24 09:33 324 MG Folic Acid (FOLic ACID 1 MG TABLET) 1 mg DAILY PO 08/08/24 09:00 09/07/24 08:59 08/12/24 09:14 1 MG Gentamicin Sulfate (GENTAmicin SULFate 15 gm cream) 1 APPL TP DAILY DAILY TP 08/12/24 09:00 08/26/24 08:59 Heparin Sodium (Porcine) (HEParin 5,000 UNIT VIAL) 5,000 unit Q12H SQ 08/07/24 10:30 08/09/24 13:12 DC 08/09/24 09:18 5,000 UNIT Home Med (Home Medication) (Mecobalamin (B12 Acti... DAILY PO 08/08/24 09:00 09/07/24 08:59 Home Med (Home Medication) Cholecalciferol (Vitd3)/Vit K2 (D3 Plus... DAILY PO 08/08/24 09:00 09/07/24 08:59 Labetalol HCl (TRANdate 20MG SYG) 5 mg Q6H PRN IV systolic pressure > 160 08/07/24 10:00 09/06/24 09:59 Lisinopril (Prinivil 10mg) 10 mg DAILY PO 08/08/24 09:00 09/07/24 08:59 08/12/24 09:14 10 MG Magnesium Sulfate 50 ml @ 0 mls/hr PROTOCOL PRN IV low mag level 08/07/24 10:00 09/06/24 09:59 08/07/24 22:43 25 MLS/HR Metoprolol Succinate (TopROL XL) 50 mg DAILY PO 08/08/24 09:00 09/07/24 08:59 08/12/24 09:14 50 MG Miscellaneous Medication (Folic Acid ) 1 cap DAILY PO 08/08/24 09:00 08/07/24 12:29 DC Morphine Sulfate (morPHINE 2MG SYG) 2 mg Q4H PRN IVP SEVERE PAIN (7-10) 08/07/24 12:30 08/14/24 12:29 08/08/24 17:05 2 MG Multi-Ingred Cream/Lotion/Oil/ Oint (Minerin Creme) 1 APPL BID TP 08/08/24 21:00 09/07/24 20:59 08/12/24 09:14 1 APPL Ondansetron HCl (zoFRAN 4MG INJ) 4 mg Q6H PRN IV NAUSEA/VOMITING 08/07/24 04:30 09/06/24 04:29 Pharmacy Profile Note (Pharmacy Communication) 1 each DAILY MISC 08/10/24 09:00 08/09/24 13:16 DC Piperacillin Sod/ Tazobactam Sod 50 ml @ 12.5 mls/hr Q8H IV 08/12/24 05:00 08/22/24 04:59 08/12/24 05:32 12.5 MLS/HR Piperacillin Sod/ Tazobactam Sod 50 ml @ 12.5 mls/hr Q8H IV 08/07/24 09:00 08/12/24 03:39 DC 08/11/24 19:32 12.5 MLS/HR Potassium Chloride 100 ml @ 50 mls/hr AD PRN IV POTASSIUM PROTOCOL 08/07/24 10:00 08/09/24 08:59 DC Potassium Chloride 100 ml @ 100 mls/hr AD PRN IV POTASSIUM PROTOCOL 08/07/24 10:00 09/06/24 09:59 Potassium Chloride (K-Dur/Klor-Con 20meq) 20 meq AD PRN PO POTASSIUM PROTOCOL 08/07/24 10:00 09/06/24 09:59 08/12/24 09:14 20 MEQ Potassium Chloride (KCl 10% Elixir 20meq/15ml) 20 meq AD PRN PO POTASSIUM PROTOCOL 08/07/24 10:00 09/06/24 09:59 Pyridoxine HCl (PYRIDoxine HCL 50 MG TABLET) 100 mg DAILY PO 08/08/24 09:00 09/07/24 08:59 08/12/24 09:13 100 MG Sucralfate (Carafate) 1 gm TIDHS PO 08/07/24 13:00 09/06/24 12:59 08/12/24 09:13 1 GM Tamsulosin HCl (FloMAX) 0.4 mg HS PO 08/07/24 21:00 09/06/24 20:59 08/11/24 21:57 0.4 MG Tramadol HCl (UltRAM) 50 mg Q6H PRN PO PAIN LEVEL 7 TO 10 08/12/24 03:30 08/17/24 03:29 08/12/24 03:38 50 MG Trazodone HCl (DesyREL/OlepTRO) 100 mg HS PO 08/07/24 21:00 09/06/24 20:59 08/11/24 21:57 100 MG Vancomycin HCl 250 ml @ 125 mls/hr ONCE IV 08/07/24 04:30 08/07/24 04:12 DC Vancomycin HCl 250 ml @ 125 mls/hr Q12H IV 08/11/24 04:00 08/21/24 03:59 08/12/24 03:20 125 MLS/HR Vancomycin HCl 250 ml @ 125 mls/hr Q12H IV 08/07/24 16:00 08/10/24 15:36 DC 08/10/24 04:13 125 MLS/HR Vancomycin HCl (Vancomycin Protocol) 1 each AD IV 08/07/24 03:30 08/21/24 03:29 Diagnostics / Radiology: [COPY/PASTE HERE IF NO REPORTS PLEASE DELETE SECTION] Assessment: Concern for GI bleed Anemia Cellulitis Plan: Recommend outpatient pillcam Continue GI prophylaxis Advance diet as tolerated Avoid NSAIDs Antireflux measures Monitor H&H and transfuse as needed Call with questions, concerns or change in clinical status Patient to follow-up at clinic post discharge Thank you for this consult JAVIER LI CIRCULAR RIPSAW OPERATOR Aug 12, 2024 10:21
--- NOTE | 2024-08-12 12:34 | PN ---
INFECTIOUS DISEASE PROGRESS NOTE Date of Service: Aug 12, 2024 SUBJECTIVE: Patient was seen and examined at bedside in room 324. Patient is sitting up on the edge of the bed. Per records the last wound culture results were collected back in May. We will follow up on the wound culture that was collected from the left lower extremity here at [facility] on 08/10/2024. Will continue on vancomycin and Zosyn. PHYSICAL EXAM EYES: Anicteric. Pupils equal and reactive. HENT: No oral thrush seen, moist Oral mucosa. NECK: Supple, no JVD or thyromegaly. LUNGS: Good air entry. No rales, no rhonchi. CARDIOVASCULAR: S1, S2 regular. No murmur heard. ABDOMEN: Soft, non tender, bowel sounds present, no organomegaly. CENTRAL NERVOUS SYSTEM: Awake, alert, oriented x 1. SKIN: No rashes, no swelling. Bilateral lower extremity cellulitis. LYMPHATICS: No peripheral lymphadenopathy MUSCULOSKELETAL: No joint swelling, erythema or tenderness. EXTREMITIES: No cyanosis or clubbing. Left lower extremity ulcer. BACK: No deformity, no pressure ulcer. GENITOURINARY: No dysuria or hematuria. Vital Sign (Last 12 Hours) 08/12/24 08/12/24 04:00 08:00 Temp 97.5 98.1 Pulse 81 94 Resp 18 19 B/P (MAP) 121/51 144/60 Pulse Ox 100 100 O2 Delivery Room Air Room Air Intake & Output (last 24hrs) 08/11/24 08/11/24 08/12/24 14:59 22:59 06:59 Intake Total 600.0 ml 150 ml 300.0 ml Balance 600.0 ml 150 ml 300.0 ml LABS: Laboratory: Test 08/12/24 05:55 08/11/24 02:45 08/10/24 14:50 Range/Units White Blood Count 20.6 H 4.8-10.8 K/uL Red Blood Count 2.73 L 4.50-6.20 MIL/uL Hemoglobin 8.7 L 14.0-18.0 g/dL Hematocrit 26.6 L 42-54 % Mean Corpuscular Volume 97.4 79-99 fL Mean Corpuscular Hemoglobin 31.9 27.0-33.0 pg Mean Corpuscular Hemoglobin Concent 32.7 32.0-36.0 g/dL Red Cell Distribution Width 20.2 H 11.0-15.5 % Platelet Count 259 # 130-400 K/uL Mean Platelet Volume 10.4 7.5-10.5 fL Nucleated Red Blood Cells 0.0 0.0-0.19 % Prothrombin Time 12.4 H 9.6-11.6 SEC Prothromb Time International Ratio 1.19 H 0.85-1.15 Sodium Level 133 L 136-145 mmol/L Potassium Level 3.5 3.5-5.1 mmol/L Chloride Level 99 L 101-111 mmol/L Carbon Dioxide Level 29 21-32 mmol/L Blood Urea Nitrogen 11 7-18 mg/dL Creatinine 0.7 0.5-1.3 mg/dL Glomerular Filtration Rate Calc 94 >90 mL/min Random Glucose 117 H 70-105 mg/dL Total Calcium 8.6 8.5-10.1 mg/dL Vancomycin Level 14.2 L 20.0-30.0 mcg/mL Vancomycin Level Trough 20.7 #H 10.0-20.0 UG/ML ASSESSMENT: Left lower extremity ulcer. Bilateral lower extremities cellulitis. Left lower extremity DVT. Leukocytosis. Hypertension. Encephalopathy, resolved. PLAN: Continue vancomycin per pharmacy protocol. Continue Zosyn IV. Continue GI prophylaxis. Continue pain management. Continue wound care. We will follow up on the wound cultures results. This case was reviewed and discussed with my supervising physician and the above assessment and plan was formulated and agreed upon. ATTESTATION BY PHYSICIAN I have seen and examined the patient. I reviewed the documentation, medical decision making, and treatment plan as noted by the mid-level provider above. I agree with the findings and plan of care. PERRY PARKINSON MD, [facility]TA [facility] Aug 12, 2024 12:34
[2024-08-12] MEDS: GENTAmicin 15 GM CREAM TP SCH (18:46)
[2024-08-13] VITALS: BP 137/65; PULSE 103; RESP 20; TEMP 98
[2024-08-13 04:00] VITALS: BP 146/61; PULSE 102; RESP 20; TEMP 97.9
[2024-08-13 06:25] LABS: BASOPHILS # (AUTO) 0.07 K/uL (0.00-0.20); BASOPHILS % (AUTO) 0.3 % (0.0-5.0); EOSINOPHILS # (AUTO) 0.03 K/uL (0.00-0.70); EOSINOPHILS % (AUTO) 0.1 % (0.0-8.0); HEMATOCRIT 25.1 % (42-54); IMMATURE GRANULOCYTE ABSOLUTE 1.14 K/uL (0-1); LYMPHOCYTES # (AUTO) 0.2 K/uL (1.0-4.8); LYMPHOCYTES % (AUTO) 0.5 % (21.0-51.0); MEAN CORPUSCULAR HEMOGLOBIN 32.6 pg (27.0-33.0); MEAN CORPUSCULAR HGB CONC 33.9 g/dL (32.0-36.0); MEAN CORPUSCULAR VOLUME 96.2 fL (79-99); MONOCYTES # (AUTO) 0.5 K/uL (0.1-1.0); MONOCYTES % (AUTO) 1.9 % (3.0-13.0); NEUTROPHILS # (AUTO) 25.4 K/uL (1.8-7.7); NUCLEATED RED BLOOD CELLS 0.1 % (0.0-0.19); PLATELET COUNT (AUTO) 264 K/uL (130-400); RED BLOOD CELL COUNT(AUTO) 2.61 MIL/uL (4.50-6.20); RED CELL DISTRIBUTION WIDTH 19.9 % (11.0-15.5); WHITE BLOOD COUNT (AUTO) 27.3 K/uL (4.8-10.8)
[2024-08-13 06:45] LABS: ALBUMIN 2.8 g/dL (3.5-5.0); BILIRUBIN,TOTAL 1.4 mg/dL (0.2-1.0); CREATININE 0.6 mg/dL (0.5-1.3); MAGNESIUM 1.8 mg/dL (1.80-2.40); POTASSIUM 3.5 mmol/L (3.5-5.1); TOTAL PROTEIN, SERUM 5.8 g/dL (6.0-8.3)
[2024-08-13 08:00] VITALS: BP 129/53; PULSE 102; RESP 18; TEMP 97.7; O2SAT 96
--- NOTE | 2024-08-13 11:03 | PN ---
[facility] PROGRESS NOTE Date of Service: Aug 13, 2024 Time of Service: 10:59 SUBJECTIVE: [ ] admission date: 08/07/24 PCP: self referral chief complaints: fever, chills This is a 78-year-old male presents in ED with chief complaints of fever and chills. ER initiated sepsis alert: Onset two days ago. Patient was taking Tylenol for fevers. Patient was recently hospitalized for lower extremity cellulitis and discharged on oral antibiotics. metronidazole for Bilateral cellulitis with venous stasis ulcers. Patient reports seen wound care center with Dr. Jason Salcedo. Patient denies abdominal pain diarrhea chest pain, shortness for breath. Sepsis alert was initiated in ED patient came in with a temperature of 101.8 heart rate 102 leukocytosis 22.1. Blood cultures obtained, influenza a and B COVID all negative UA negative. Patient received a dose of Zosyn IV and vancomycin IV ID has been consulted for antibiotics stewardship. Imaging ; venous doppler DVT seen in the proximal left superficial femoral vein. 08/08/24 patient is seen and examined fevers have improved. Patient refused heparin subQ patient has a DVT superficial to femoral he agree with heparin drip. Patient was reports having difficulty swallowing speech consulted. Patient's skin very dry to lower extremities we will get anterior Doppler and birth certificate clerk consult. Encouraged patient to get out of bed to chair PT services to eval and treat. No chest pain no shortness a breath 08/09/24 patient is seen and examined patient appears to be doing much better today patient reports that he walks about 70 ft walker at home. Speech pending I encouraged patient out of bed to chair with meals. One-to-one was placed overnight patient has delirium at night. We will waiting for ID final recommendations on IV antibiotics. 08/10/24 patient is seen and examined afebrile. Blood cultures so far negative waiting for ID final recommendation deescalate IV antibiotics to p.o.. Speech no signs of aspiration. We continue with wound care as directed. Patient is working with physical therapy patient walks more than 70 [address] discussed placement patient refused wants to go home wants discharge. 08/11/24 seen patient continues with IV antibiotics ruled out osteomyelitis to left ankle. GI recommended pill cam outpatient setting upon discharge. 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 Cultures negative. Afebrile we will wait for ID recommendations. 1300 Dr Zamora will start the patient on Eliquis 5 [address] po bid,. DR Mauri jaquez for Wound cultures: persisent leukocytosis however the patient has be afebrile. 08/12/24 patient was seen earlier. Spouse at bedside went over plan of care and updates. The patient is fully alert oriented x3. waiting for ID final recommendations continues leukocytosis and afebrile: waiting for wound cultures. Patient has been primary nurse reports no events overnight. 08/13/24 the patient was seen earlier: Alert oriented x3. We will waiting for wound cultures: ID will determine on deescalated IV antibiotics: afebrile. at bedside Update and questions answered. REVIEW OF SYSTEMS a 14 point ROS obtained all relevant positive documented otherwise ROS negative PHYSICAL EXAM GENERAL APPEARANCE: The patient is awake, alert, and oriented, in no acute cardiopulmonary distress. appears acutely ill, NEUROLOGICAL: Cranial nerves II-XII grossly intact. Motor is 5/5 in bilateral upper and lower extremities proximal to distal. No sensory deficits. HEENT: Face is symmetric. Pupils are equal and reactive. Extraocular movements are intact. NECK: Supple. No JVD. No thyromegaly. No submental, submandibular, pre- /postauricular, occipital or supraclavicular lymphadenopathy. CHEST: Normal chest expansion. No Telemetry. LUNGS: Absence of any rales, rhonchi or any wheezing. CARDIOVASCULAR: Regular. S1 and S2 normal. No appreciable rubs, murmurs or gallops. ABDOMEN: Soft, nontender, and nondistended. There is no rebound, voluntary guarding, or rigidity. : Deferred. No Priest. EXTREMITIES: + edematous and not cyanotic. No clubbing. Good capillary refill. SKIN: redness to lower ext bilateral with statis venous ulcer: left leg with dressing Vital Signs (last 8hr) Date Time Temp Pulse Resp B/P (MAP) Pulse Ox O2 Delivery O2 Flow Rate FiO2 08/13/24 08:00 97.7 102 18 129/53 96 Room Air 08/13/24 04:00 97.9 102 20 146/61 97 Room Air LABS: Laboratory: Test 08/13/24 06:20 08/12/24 14:32 08/12/24 05:55 Range/Units White Blood Count 27.3 H 4.8-10.8 K/uL Red Blood Count 2.61 L 4.50-6.20 MIL/uL Hemoglobin 8.5 L 14.0-18.0 g/dL Hematocrit 25.1 L 42-54 % Mean Corpuscular Volume 96.2 79-99 fL Mean Corpuscular Hemoglobin 32.6 27.0-33.0 pg Mean Corpuscular Hemoglobin Concent 33.9 32.0-36.0 g/dL Red Cell Distribution Width 19.9 H 11.0-15.5 % Platelet Count 264 130-400 K/uL Mean Platelet Volume 9.8 7.5-10.5 fL Immature Granulocyte % (Auto) 4.2 H 0-1 % Neutrophils (%) (Auto) 93.0 H 40.0-77.0 % Lymphocytes (%) (Auto) 0.5 L 21.0-51.0 % Monocytes (%) (Auto) 1.9 L 3.0-13.0 % Eosinophils (%) (Auto) 0.1 0.0-8.0 % Basophils (%) (Auto) 0.3 0.0-5.0 % Neutrophils # (Auto) 25.4 H 1.8-7.7 K/uL Lymphocytes # (Auto) 0.2 L 1.0-4.8 K/uL Monocytes # (Auto) 0.5 0.1-1.0 K/uL Eosinophils # (Auto) 0.03 0.00-0.70 K/uL Basophils # (Auto) 0.07 0.00-0.20 K/uL Absolute Immature Granulocyte (auto 1.14 H 0-1 K/uL Nucleated Red Blood Cells 0.1 0.0-0.19 % Sodium Level 131 L 136-145 mmol/L Potassium Level 3.5 3.5-5.1 mmol/L Chloride Level 97 L 101-111 mmol/L Carbon Dioxide Level 27 21-32 mmol/L Blood Urea Nitrogen 10 7-18 mg/dL Creatinine 0.6 0.5-1.3 mg/dL Glomerular Filtration Rate Calc 99 >90 mL/min Random Glucose 205 H 70-105 mg/dL Total Calcium 8.2 L 8.5-10.1 mg/dL Magnesium Level 1.80 1.80-2.40 mg/dL Total Bilirubin 1.4 H 0.2-1.0 mg/dL Aspartate Amino Transf (AST/SGOT) 19 10-37 U/L Alanine Aminotransferase (ALT/SGPT) 63 12-78 U/L Alkaline Phosphatase 68 50-136 U/L Total Protein 5.8 L 6.0-8.3 g/dL Albumin 2.8 L 3.5-5.0 g/dL Vancomycin Level Trough 18.2 10.0-20.0 UG/ML Prothrombin Time 12.4 H 9.6-11.6 SEC Prothromb Time International Ratio 1.19 H 0.85-1.15 Current Medications Medications (Trade) Dose Ordered Sig/Javed Route PRN Reason Start Time Stop Time Status Last Admin Dose Admin Acetaminophen (TYLenol 325MG TAB) 650 mg Q4H PRN PO MILD PAIN (1-3) 08/07/24 04:30 09/06/24 04:29 08/11/24 21:58 650 MG Acetaminophen (TYLenol 325MG TAB) 650 mg Q6H PRN PO TEMPERATURE GREATER THAN 101.5 08/07/24 04:30 09/06/24 04:29 08/10/24 21:25 650 MG Apixaban (EliquIS) 5 mg BID PO 08/11/24 19:00 09/10/24 18:59 08/13/24 08:37 5 MG Aspirin (Aspirin 81mg Ec Tab) 81 mg DAILY PO 08/08/24 09:00 09/07/24 08:59 08/13/24 08:37 81 MG Enoxaparin Sodium (Lovenox 80mg) 80 mg DAILY SQ 08/10/24 09:00 08/11/24 13:28 DC 08/11/24 09:55 80 MG Famotidine (Pepcid 20mg Tab) 20 mg BID PO 08/07/24 09:00 09/06/24 08:59 08/13/24 08:37 20 MG Ferrous Gluconate (Ferrous Gluconate) 324 mg DAILY PO 08/09/24 09:00 09/07/24 08:59 08/13/24 08:37 324 MG Ferrous Gluconate (Ferrous Gluconate) 325 mg DAILY PO 08/08/24 09:00 08/09/24 08:58 DC 08/08/24 09:33 324 MG Folic Acid (FOLic ACID 1 MG TABLET) 1 mg DAILY PO 08/08/24 09:00 09/07/24 08:59 08/13/24 08:37 1 MG Gentamicin Sulfate (GENTAmicin SULFate 15 gm cream) 1 APPL TP DAILY DAILY TP 08/12/24 09:00 08/26/24 08:59 08/13/24 08:41 1 APPL Heparin Sodium (Porcine) (HEParin 5,000 UNIT VIAL) 5,000 unit Q12H SQ 08/07/24 10:30 08/09/24 13:12 DC 08/09/24 09:18 5,000 UNIT Home Med (Home Medication) (Mecobalamin (B12 Acti... DAILY PO 08/08/24 09:00 09/07/24 08:59 Home Med (Home Medication) Cholecalciferol (Vitd3)/Vit K2 (D3 Plus... DAILY PO 08/08/24 09:00 09/07/24 08:59 Labetalol HCl (TRANdate 20MG SYG) 5 mg Q6H PRN IV systolic pressure > 160 08/07/24 10:00 09/06/24 09:59 Lisinopril (Prinivil 10mg) 10 mg DAILY PO 08/08/24 09:00 09/07/24 08:59 08/13/24 08:37 10 MG Magnesium Sulfate 50 ml @ 0 mls/hr PROTOCOL PRN IV low mag level 08/07/24 10:00 09/06/24 09:59 08/07/24 22:43 25 MLS/HR Metoprolol Succinate (TopROL XL) 50 mg DAILY PO 08/08/24 09:00 09/07/24 08:59 08/13/24 08:41 50 MG Miscellaneous Medication (Folic Acid ) 1 cap DAILY PO 08/08/24 09:00 08/07/24 12:29 DC Morphine Sulfate (morPHINE 2MG SYG) 2 mg Q4H PRN IVP SEVERE PAIN (7-10) 08/07/24 12:30 08/12/24 15:29 DC 08/08/24 17:05 2 MG Multi-Ingred Cream/Lotion/Oil/ Oint (Minerin Creme) 1 APPL BID TP 08/08/24 21:00 09/07/24 20:59 08/13/24 08:41 1 APPL Ondansetron HCl (zoFRAN 4MG INJ) 4 mg Q6H PRN IV NAUSEA/VOMITING 08/07/24 04:30 09/06/24 04:29 Pharmacy Profile Note (Pharmacy Communication) 1 each DAILY MISC 08/10/24 09:00 08/09/24 13:16 DC Piperacillin Sod/ Tazobactam Sod 50 ml @ 12.5 mls/hr Q8H IV 08/12/24 05:00 08/22/24 04:59 08/13/24 05:24 12.5 MLS/HR Piperacillin Sod/ Tazobactam Sod 50 ml @ 12.5 mls/hr Q8H IV 08/07/24 09:00 08/12/24 03:39 DC 08/11/24 19:32 12.5 MLS/HR Potassium Chloride 100 ml @ 50 mls/hr AD PRN IV POTASSIUM PROTOCOL 08/07/24 10:00 08/09/24 08:59 DC Potassium Chloride 100 ml @ 100 mls/hr AD PRN IV POTASSIUM PROTOCOL 08/07/24 10:00 09/06/24 09:59 Potassium Chloride (K-Dur/Klor-Con 20meq) 20 meq AD PRN PO POTASSIUM PROTOCOL 08/07/24 10:00 09/06/24 09:59 08/12/24 13:05 20 MEQ Potassium Chloride (KCl 10% Elixir 20meq/15ml) 20 meq AD PRN PO POTASSIUM PROTOCOL 08/07/24 10:00 09/06/24 09:59 Pyridoxine HCl (PYRIDoxine HCL 50 MG TABLET) 100 mg DAILY PO 08/08/24 09:00 09/07/24 08:59 08/13/24 08:37 100 MG Sucralfate (Carafate) 1 gm TIDHS PO 08/07/24 13:00 09/06/24 12:59 08/13/24 08:37 1 GM Tamsulosin HCl (FloMAX) 0.4 mg HS PO 08/07/24 21:00 09/06/24 20:59 08/12/24 20:57 0.4 MG Tramadol HCl (UltRAM) 50 mg Q6H PRN PO PAIN LEVEL 7 TO 10 08/12/24 03:30 08/17/24 03:29 08/13/24 01:58 50 MG Trazodone HCl (DesyREL/OlepTRO) 100 mg HS PO 08/07/24 21:00 09/06/24 20:59 08/12/24 20:57 100 MG Vancomycin HCl 250 ml @ 125 mls/hr ONCE IV 08/07/24 04:30 08/07/24 04:12 DC Vancomycin HCl 250 ml @ 125 mls/hr Q12H IV 08/11/24 04:00 08/21/24 03:59 08/13/24 03:27 125 MLS/HR Vancomycin HCl 250 ml @ 125 mls/hr Q12H IV 08/07/24 16:00 08/10/24 15:36 DC 08/10/24 04:13 125 MLS/HR Vancomycin HCl (Vancomycin Protocol) 1 each AD IV 08/07/24 03:30 08/21/24 03:29 DIAGNOSTICS / RADIOLOGY: [ ] ASSESSMENT: Sepsis elevated [id number], elevated heart [id number] and WBCs 22 Bilateral cellulitis with venous stasis ulcers infection POA failed outpatient treatment POA acute on chronic anemia POA Iron deficiency POA new onset: DVT seen in the proximal left superficial femoral vein. POA electrolytes derangement: hyponatremia POA hyperglycemia POA Recent hospitalization one week ago: dx: sepsis suspecting ROCHELLE POA Suspecting oropharyngeal dysphagia POA ruled out aspiration and dysphasia suspecting osteomyelitis left lower ext: POA ruled out Myeloproliferative disorder POA chronic problems; CAD s/p CABG HTN Prostate PLAN: Admit medical-surgical floor: condition: Guarded Status: Full code IVF: heplock Consultants infectious disease and consumer affairs specialist: DR Jason Salcedo podiatry GI Antibiotics: IV vancomycin pharmacy to dose and Zosyn IV every 8 hours Test: Blood cultures so far negative wound cx pending Eliquis 5 mg po bid will monitor bleeding Local wound care to bilateral ext: cream: for dry skin aggressive off loading OOB to chair. aspiration precaution HOB at 45 degree at all time. PT OT eval and treat: patient will be going home as per his request. GI: no procedure on this admission: outpatient setting PILL CAM follow up outpatient setting. Labs cbc, cmp, mag+ Replace electrolytes as needed as per protocol to keep potassium above 4.0 m agnesium 2.0. Monitor H/H trends transfuse to keep HGB above 7.0 Home medications reconciled Pain management: Tylenol as needed Supportive measures: DVT ppx, GI ppx on Eliquis and famotidine 20 mg bid all questions answered Supervising MD: Dr.Ellis Briones c/d This document was generated in part using voice recognition software, occasional wrong word or sound alike substitutions may have occurred due to the inherent limitations of voice recognition software. Read the chart carefully and recognize using context, where the substitutions have occurred. Although every effort was made to edit the content, rn primary care and typing errors may occur ATTESTATION BY PHYSICIAN I have seen and examined the patient. I reviewed the documentation, medical decision making, and treatment plan as noted by the mid-level provider above. I agree with the findings and plan of care. SULMA OLIVARES MD, ELIZABETH NP Aug 13, 2024 11:03
[2024-08-13 12:00] VITALS: BP 151/91; PULSE 82; RESP 19; TEMP 98
--- NOTE | 2024-08-13 12:03 | PN ---
Patient is a 78-year-old male presents in ED with chief complaints of fever and chills. Patient reports a recent hospitalization for lower extremity cellulitis, where he was discharged on Metronidazole for bilateral cellulitis with venous stasis ulcers. The patient follows Dr. Jason Salcedo at the [facility] [place]. Upon arrival to the emergency room, sepsis alert was initiated. Remarkable labs upon arrival include a temperature of 101.8, heart rate 102, leukocytosis 22.1. Blood cultures were obtained, and are negative. 2D echocardiogram was ordered showing a LVEF of 50%, and ruled out evidence of endocarditis. Influenza A, B, and COVID were all negative. Urinalysis was negative. Patient received a dose of Zosyn IV and vancomycin IV, and Infectious Disease has been consulted for antibiotics stewardship. A venous Doppler was preformed, and a DVT seen in the proximal left superficial femoral vein. Patient was started on Lovenox. There it seems the patient is going to have MRI to the left lower extremity to rule out osteomyelitis. Patient feeling a lot better. PHYSICAL EXAM VITALS: Vital Signs Date Time Temp Pulse Resp B/P (MAP) Pulse Ox O2 Delivery O2 Flow Rate FiO2 08/09/24 08:00 97.5 89 17 121/53 97 Room Air 21 08/08/24 20:55 0 GENERAL: ALERT, ORIENTED, APPEARS-NO ACUTE DISTRESS EYES: No SCLERAE ANICTERIC, No PUPILS EQUAL/REACTIVE, No EXTRAOCULAR MUSCLES INTCT RESPIRATORY: LUNGS CLEAR-AUSC/PERCUS CARDIOVASCULAR: REGULAR RATE, REGULAR RHYTHM GASTROINTESTINAL: ABDOMEN IS SOFT Assessment 1. New onset left lower extremity DVT with the patient was started on Lovenox 2. Patient with peripheral vascular disease to the left lower extremity with the patient have anterior tibial and dorsalis problem. 3. Possible osteomyelitis to the left lower extremity with the patient is going for MRI 4. 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 Patient is receiving Sunny 2 inhibitor 5. Anemia 6. Rash with the patient have significant itching in the past improved significantly after we started ruxolitinib. Plan 1. There is no need for blood transfusion 2. This patient to continue on his JAK2 mutation inhibitor ruxolitinib. 3. CBC daily 4. Continue antibiotic treatment as per primary 5. There is plan for MRI to the left lower extremity to rule out any osteomyelitis. Patient refused to do the MRI. 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 I discussed the case with infectious disease specialist. They will continue antibiotic treatment as a schedule Vitals/Labs Vital Signs Date Time Temp Pulse Resp B/P (MAP) Pulse Ox O2 Delivery O2 Flow Rate FiO2 08/13/24 08:00 97.7 102 18 129/53 96 Room Air 08/12/24 19:50 0 21 Laboratory Tests 08/13/24 06:20 Medications Current Medications Acetaminophen 1,000 mg ONCE ONCE PO Last administered on 08/06/24at 23:22; Start 08/06/24 at 23:30; Stop 08/06/24 at 23:31; Status DC Sodium Chloride 1,000 ml @ 0 mls/hr ONCE ONCE IV Last administered on 08/06/24at 23:22; Start 08/06/24 at 23:30; Stop 08/06/24 at 23:31; Status DC Piperacillin Sod/ Tazobactam Sod 3.375 gm ONCE ONCE IV Last administered on 08/07/24at 00:37; Start 08/07/24 at 00:30; Stop 08/07/24 at 00:31; Status DC Vancomycin HCl 1 each AD IV; Start 08/07/24 at 03:30; Stop 08/21/24 at 03:29 Vancomycin HCl 500 ml @ 250 mls/hr ONCE ONCE IV Last administered on 08/07/24at 04:21; Start 08/07/24 at 04:00; Stop 08/07/24 at 05:59; Status DC Vancomycin HCl 250 ml @ 125 mls/hr Q12H IV Last administered on 08/10/24at 04:13; Start 08/07/24 at 16:00; Stop 08/10/24 at 15:36; Status DC Acetaminophen 650 mg Q6H PRN PO Last administered on 08/10/24at 21:25; Start 08/07/24 at 04:30; Stop 09/06/24 at 04:29 Acetaminophen 650 mg Q4H PRN PO Last administered on 08/11/24at 21:58; Start 08/07/24 at 04:30; Stop 09/06/24 at 04:29 Ondansetron HCl 4 mg Q6H PRN IV; Start 08/07/24 at 04:30; Stop 09/06/24 at 04:29 Famotidine 20 mg BID PO Last administered on 08/13/24at 08:37; Start 08/07/24 at 09:00; Stop 09/06/24 at 08:59 Vancomycin HCl 250 ml @ 125 mls/hr ONCE IV; Start 08/07/24 at 04:30; Stop 08/07/24 at 04:12; Status DC Piperacillin Sod/ Tazobactam Sod 50 ml @ 12.5 mls/hr Q8H IV Last administered on 08/11/24at 19:32; Start 08/07/24 at 09:00; Stop 08/12/24 at 03:39; Status DC Magnesium Sulfate 50 ml @ 0 mls/hr PROTOCOL PRN IV Last administered on 08/07/24at 22:43; Start 08/07/24 at 10:00; Stop 09/06/24 at 09:59 Potassium Chloride 100 ml @ 50 mls/hr AD PRN IV; Start 08/07/24 at 10:00; Stop 08/09/24 at 08:59; Status DC Potassium Chloride 100 ml @ 100 mls/hr AD PRN IV; Start 08/07/24 at 10:00; Stop 09/06/24 at 09:59 Potassium Chloride 20 meq AD PRN PO; Start 08/07/24 at 10:00; Stop 09/06/24 at 09:59 Potassium Chloride 20 meq AD PRN PO Last administered on 08/12/24at 13:05; Start 08/07/24 at 10:00; Stop 09/06/24 at 09:59 Ferrous Gluconate 325 mg DAILY PO Last administered on 08/08/24at 09:33; Start 08/08/24 at 09:00; Stop 08/09/24 at 08:58; Status DC Folic Acid 1 mg DAILY PO Last administered on 08/13/24at 08:37; Start 08/08/24 at 09:00; Stop 09/07/24 at 08:59 Labetalol HCl 5 mg Q6H PRN IV; Start 08/07/24 at 10:00; Stop 09/06/24 at 09:59 Metoprolol Succinate 50 mg DAILY PO Last administered on 08/13/24at 08:41; Start 08/08/24 at 09:00; Stop 09/07/24 at 08:59 Metoprolol Succinate 50 mg ONCE ONCE PO Last administered on 08/07/24at 10:42; Start 08/07/24 at 10:00; Stop 08/07/24 at 10:01; Status DC Heparin Sodium (Porcine) 5,000 unit Q12H SQ Last administered on 08/09/24at 09:18; Start 08/07/24 at 10:30; Stop 08/09/24 at 13:12; Status DC Morphine Sulfate 2 mg Q4H PRN IVP Last administered on 08/08/24at 17:05; Start 08/07/24 at 12:30; Stop 08/12/24 at 15:29; Status DC Aspirin 81 mg DAILY PO Last administered on 08/13/24at 08:37; Start 08/08/24 at 09:00; Stop 09/07/24 at 08:59 Lisinopril 10 mg DAILY PO Last administered on 08/13/24at 08:37; Start 08/08/24 at 09:00; Stop 09/07/24 at 08:59 Sucralfate 1 gm TIDHS PO Last administered on 08/13/24at 08:37; Start 08/07/24 at 13:00; Stop 09/06/24 at 12:59 Tamsulosin HCl 0.4 mg HS PO Last administered on 08/12/24at 20:57; Start 08/07/24 at 21:00; Stop 09/06/24 at 20:59 Trazodone HCl 100 mg HS PO Last administered on 08/12/24at 20:57; Start 08/07/24 at 21:00; Stop 09/06/24 at 20:59 Home Med Cholecalciferol (Vitd3)/Vit K2 (D3 Plus... DAILY PO; Start 08/08/24 at 09:00; Stop 09/07/24 at 08:59 Miscellaneous Medication 1 cap DAILY PO; Start 08/08/24 at 09:00; Stop 08/07/24 at 12:29; Status DC Home Med (Mecobalamin (B12 Acti... DAILY PO; Start 08/08/24 at 09:00; Stop 09/07/24 at 08:59 Pyridoxine HCl 100 mg DAILY PO Last administered on 08/13/24at 08:37; Start 08/08/24 at 09:00; Stop 09/07/24 at 08:59 Multi-Ingred Cream/Lotion/Oil/ Oint 1 APPL BID TP Last administered on 08/13/24at 08:41; Start 08/08/24 at 21:00; Stop 09/07/24 at 20:59 Ferrous Gluconate 324 mg DAILY PO Last administered on 08/13/24at 08:37; Start 08/09/24 at 09:00; Stop 09/07/24 at 08:59 Pharmacy Profile Note 1 each DAILY MISC; Start 08/10/24 at 09:00; Stop 08/09/24 at 13:16; Status DC Enoxaparin Sodium 80 mg DAILY SQ Last administered on 08/11/24at 09:55; Start 08/10/24 at 09:00; Stop 08/11/24 at 13:28; Status DC Vancomycin HCl 250 ml @ 125 mls/hr Q12H IV Last administered on 08/13/24at 03:27; Start 08/11/24 at 04:00; Stop 08/21/24 at 03:59 Apixaban 5 mg BID PO Last administered on 08/13/24at 08:37; Start 08/11/24 at 19:00; Stop 09/10/24 at 18:59 Gentamicin Sulfate 1 APPL TP DAILY DAILY TP Last administered on 08/13/24at 08:41; Start 08/12/24 at 09:00; Stop 08/26/24 at 08:59 Tramadol HCl 50 mg Q6H PRN PO Last administered on 08/13/24at 01:58; Start 08/12/24 at 03:30; Stop 08/17/24 at 03:29 Piperacillin Sod/ Tazobactam Sod 50 ml @ 12.5 mls/hr Q8H IV Last administered on 08/13/24at 05:24; Start 08/12/24 at 05:00; Stop 08/22/24 at 04:59 RISSA NAQVI MD Aug 13, 2024 12:03
--- NOTE | 2024-08-13 13:37 | NUR ---
[facility] Follow-up: Patient re-assessed by wound healing team, Wound care done by primary nurse, no changes in wound status. Addendum: 08/13/24 at 1338 by ANDRE GAYLE RN RN/ Amended: Links added.
--- NOTE | 2024-08-13 13:52 | PN ---
GASTROENTEROLOGY PROGRESS NOTE Date of Visit: Aug 13, 2024 Time of Visit: 13:52 Events / Notes: [ ] Review of Systems: CONSTITUTIONAL: No malaise or change in sensation of wellbeing. ENMT: No rhinorrhea, otorrhea, sinus pain, ear ache. CARDIOVASCULAR: No angina, palpitations, orthopnea or paroxysmal dyspnea. RESPIRATORY: No SOB. GASTROINTESTINAL: No abdominal pain, nausea, vomiting, diarrhea, hematemesis, melena or change in the patient's habitual bowel movements consistency/number. GENITOURINARY: No dysuria, hematuria or change in bladder continence. MUSCULOSKELETAL: No new muscle pain or decrease in muscular strength. No new joint swelling, redness or tenderness. SKIN: No new rash. Physical Exam: GEN: Awake, alert, oriented in person, time and place, and in no acute distress. HEENT: No sinus tenderness. Tympanic membranes were not examined. No rhinorrhea. Oral pharyngeal mucosa is pink, moist and within normal limits. Neck is supple with no cervical lymphadenopathy, thyromegaly or JVD. CHEST: Inspection, palpation and percussion of the chest were unremarkable. Lung auscultation revealed normal breath sounds bilaterally. CARDIAC: PMI is within normal limits. Heart sounds are regular. Normal S1, S2. No gallop or murmur. ABD: Soft, non-tender and not distended. No peritoneal signs on palpation. No organomegaly. Normal bowel sounds. EXT: No cyanosis or clubbing. No edema. SKIN: Intact. No rashes. JOINTS: No evidence of synovitis or acute arthritis. NEURO: Alert and oriented to name, place and person. Cranial nerve examination is unremarkable. No focal motor deficits. Normal speech. Gait is normal. Strength is normal. Vital Signs (last 8hr) Date Time Temp Pulse Resp B/P (MAP) Pulse Ox O2 Delivery O2 Flow Rate FiO2 08/13/24 12:00 98.1 82 19 151/91 94 Room Air 08/13/24 08:00 97.7 102 18 129/53 96 Room Air Laboratory: [ ] Laboratory: Test 08/13/24 06:20 08/12/24 14:32 08/12/24 05:55 Range/Units White Blood Count 27.3 H 4.8-10.8 K/uL Red Blood Count 2.61 L 4.50-6.20 MIL/uL Hemoglobin 8.5 L 14.0-18.0 g/dL Hematocrit 25.1 L 42-54 % Mean Corpuscular Volume 96.2 79-99 fL Mean Corpuscular Hemoglobin 32.6 27.0-33.0 pg Mean Corpuscular Hemoglobin Concent 33.9 32.0-36.0 g/dL Red Cell Distribution Width 19.9 H 11.0-15.5 % Platelet Count 264 130-400 K/uL Mean Platelet Volume 9.8 7.5-10.5 fL Immature Granulocyte % (Auto) 4.2 H 0-1 % Neutrophils (%) (Auto) 93.0 H 40.0-77.0 % Lymphocytes (%) (Auto) 0.5 L 21.0-51.0 % Monocytes (%) (Auto) 1.9 L 3.0-13.0 % Eosinophils (%) (Auto) 0.1 0.0-8.0 % Basophils (%) (Auto) 0.3 0.0-5.0 % Neutrophils # (Auto) 25.4 H 1.8-7.7 K/uL Lymphocytes # (Auto) 0.2 L 1.0-4.8 K/uL Monocytes # (Auto) 0.5 0.1-1.0 K/uL Eosinophils # (Auto) 0.03 0.00-0.70 K/uL Basophils # (Auto) 0.07 0.00-0.20 K/uL Absolute Immature Granulocyte (auto 1.14 H 0-1 K/uL Nucleated Red Blood Cells 0.1 0.0-0.19 % Sodium Level 131 L 136-145 mmol/L Potassium Level 3.5 3.5-5.1 mmol/L Chloride Level 97 L 101-111 mmol/L Carbon Dioxide Level 27 21-32 mmol/L Blood Urea Nitrogen 10 7-18 mg/dL Creatinine 0.6 0.5-1.3 mg/dL Glomerular Filtration Rate Calc 99 >90 mL/min Random Glucose 205 H 70-105 mg/dL Total Calcium 8.2 L 8.5-10.1 mg/dL Magnesium Level 1.80 1.80-2.40 mg/dL Total Bilirubin 1.4 H 0.2-1.0 mg/dL Aspartate Amino Transf (AST/SGOT) 19 10-37 U/L Alanine Aminotransferase (ALT/SGPT) 63 12-78 U/L Alkaline Phosphatase 68 50-136 U/L Total Protein 5.8 L 6.0-8.3 g/dL Albumin 2.8 L 3.5-5.0 g/dL Vancomycin Level Trough 18.2 10.0-20.0 UG/ML Prothrombin Time 12.4 H 9.6-11.6 SEC Prothromb Time International Ratio 1.19 H 0.85-1.15 Current Medications Medications (Trade) Dose Ordered Sig/Javed Route PRN Reason Start Time Stop Time Status Last Admin Dose Admin Acetaminophen (TYLenol 325MG TAB) 650 mg Q4H PRN PO MILD PAIN (1-3) 08/07/24 04:30 09/06/24 04:29 08/11/24 21:58 650 MG Acetaminophen (TYLenol 325MG TAB) 650 mg Q6H PRN PO TEMPERATURE GREATER THAN 101.5 08/07/24 04:30 09/06/24 04:29 08/10/24 21:25 650 MG Apixaban (EliquIS) 5 mg BID PO 08/11/24 19:00 09/10/24 18:59 08/13/24 08:37 5 MG Aspirin (Aspirin 81mg Ec Tab) 81 mg DAILY PO 08/08/24 09:00 09/07/24 08:59 08/13/24 08:37 81 MG Enoxaparin Sodium (Lovenox 80mg) 80 mg DAILY SQ 08/10/24 09:00 08/11/24 13:28 DC 08/11/24 09:55 80 MG Famotidine (Pepcid 20mg Tab) 20 mg BID PO 08/07/24 09:00 09/06/24 08:59 08/13/24 08:37 20 MG Ferrous Gluconate (Ferrous Gluconate) 324 mg DAILY PO 08/09/24 09:00 09/07/24 08:59 08/13/24 08:37 324 MG Ferrous Gluconate (Ferrous Gluconate) 325 mg DAILY PO 08/08/24 09:00 08/09/24 08:58 DC 08/08/24 09:33 324 MG Folic Acid (FOLic ACID 1 MG TABLET) 1 mg DAILY PO 08/08/24 09:00 09/07/24 08:59 08/13/24 08:37 1 MG Gentamicin Sulfate (GENTAmicin SULFate 15 gm cream) 1 APPL TP DAILY DAILY TP 08/12/24 09:00 08/26/24 08:59 08/13/24 08:41 1 APPL Heparin Sodium (Porcine) (HEParin 5,000 UNIT VIAL) 5,000 unit Q12H SQ 08/07/24 10:30 08/09/24 13:12 DC 08/09/24 09:18 5,000 UNIT Home Med (Home Medication) (Mecobalamin (B12 Acti... DAILY PO 08/08/24 09:00 09/07/24 08:59 Home Med (Home Medication) Cholecalciferol (Vitd3)/Vit K2 (D3 Plus... DAILY PO 08/08/24 09:00 09/07/24 08:59 Labetalol HCl (TRANdate 20MG SYG) 5 mg Q6H PRN IV systolic pressure > 160 08/07/24 10:00 09/06/24 09:59 Lisinopril (Prinivil 10mg) 10 mg DAILY PO 08/08/24 09:00 09/07/24 08:59 08/13/24 08:37 10 MG Magnesium Sulfate 50 ml @ 0 mls/hr PROTOCOL PRN IV low mag level 08/07/24 10:00 09/06/24 09:59 08/07/24 22:43 25 MLS/HR Metoprolol Succinate (TopROL XL) 50 mg DAILY PO 08/08/24 09:00 09/07/24 08:59 08/13/24 08:41 50 MG Miscellaneous Medication (Folic Acid ) 1 cap DAILY PO 08/08/24 09:00 08/07/24 12:29 DC Morphine Sulfate (morPHINE 2MG SYG) 2 mg Q4H PRN IVP SEVERE PAIN (7-10) 08/07/24 12:30 08/12/24 15:29 DC 08/08/24 17:05 2 MG Multi-Ingred Cream/Lotion/Oil/ Oint (Minerin Creme) 1 APPL BID TP 08/08/24 21:00 09/07/24 20:59 08/13/24 08:41 1 APPL Ondansetron HCl (zoFRAN 4MG INJ) 4 mg Q6H PRN IV NAUSEA/VOMITING 08/07/24 04:30 09/06/24 04:29 Pharmacy Profile Note (Pharmacy Communication) 1 each DAILY MISC 08/10/24 09:00 08/09/24 13:16 DC Piperacillin Sod/ Tazobactam Sod 50 ml @ 12.5 mls/hr Q8H IV 08/12/24 05:00 08/22/24 04:59 08/13/24 12:50 12.5 MLS/HR Piperacillin Sod/ Tazobactam Sod 50 ml @ 12.5 mls/hr Q8H IV 08/07/24 09:00 08/12/24 03:39 DC 08/11/24 19:32 12.5 MLS/HR Potassium Chloride 100 ml @ 50 mls/hr AD PRN IV POTASSIUM PROTOCOL 08/07/24 10:00 08/09/24 08:59 DC Potassium Chloride 100 ml @ 100 mls/hr AD PRN IV POTASSIUM PROTOCOL 08/07/24 10:00 09/06/24 09:59 Potassium Chloride (K-Dur/Klor-Con 20meq) 20 meq AD PRN PO POTASSIUM PROTOCOL 08/07/24 10:00 09/06/24 09:59 08/12/24 13:05 20 MEQ Potassium Chloride (KCl 10% Elixir 20meq/15ml) 20 meq AD PRN PO POTASSIUM PROTOCOL 08/07/24 10:00 09/06/24 09:59 Pyridoxine HCl (PYRIDoxine HCL 50 MG TABLET) 100 mg DAILY PO 08/08/24 09:00 09/07/24 08:59 08/13/24 08:37 100 MG Sucralfate (Carafate) 1 gm TIDHS PO 08/07/24 13:00 09/06/24 12:59 08/13/24 12:50 1 GM Tamsulosin HCl (FloMAX) 0.4 mg HS PO 08/07/24 21:00 09/06/24 20:59 08/12/24 20:57 0.4 MG Tramadol HCl (UltRAM) 50 mg Q6H PRN PO PAIN LEVEL 7 TO 10 08/12/24 03:30 08/17/24 03:29 08/13/24 01:58 50 MG Trazodone HCl (DesyREL/OlepTRO) 100 mg HS PO 08/07/24 21:00 09/06/24 20:59 08/12/24 20:57 100 MG Vancomycin HCl 250 ml @ 125 mls/hr ONCE IV 08/07/24 04:30 08/07/24 04:12 DC Vancomycin HCl 250 ml @ 125 mls/hr Q12H IV 08/11/24 04:00 08/21/24 03:59 08/13/24 03:27 125 MLS/HR Vancomycin HCl 250 ml @ 125 mls/hr Q12H IV 08/07/24 16:00 08/10/24 15:36 DC 08/10/24 04:13 125 MLS/HR Vancomycin HCl (Vancomycin Protocol) 1 each AD IV 08/07/24 03:30 08/21/24 03:29 Diagnostics / Radiology: [COPY/PASTE HERE IF NO REPORTS PLEASE DELETE SECTION] Assessment: Concern for GI bleed Anemia Cellulitis Plan: Recommend outpatient pillcam Continue GI prophylaxis Advance diet as tolerated Avoid NSAIDs Antireflux measures Monitor H&H and transfuse as needed Call with questions, concerns or change in clinical status Patient to follow-up at clinic post discharge Thank you for this consult JAVIER LI [employer] Aug 13, 2024 13:52
--- NOTE | 2024-08-13 14:13 | DS ---
Discharge Summary Hospital Course Summary: admission date: 08/07/24 PCP: self referral chief complaints: fever, chills This is a 78-year-old male presents in ED with chief complaints of fever and chills. ER initiated sepsis alert: Onset two days ago. Patient was taking Tylenol for fevers. Patient was recently hospitalized for lower ext remity cellulitis and discharged on oral antibiotics. metronidazole for Bilateral cellulitis with venous stasis ulcers. Patient reports seen wound care center with Dr. Shawn Salcedo. Patient denies abdominal pain diarrhea chest pain, shortness for breath. Sepsis alert was initiated in ED patient came in with a temperature of 101.8 heart rate 102 leukocytosis 22.1. Blood cultures obtained, influenza a and B COVID all negative UA negative. Patient received a dose of Zosyn IV and vancomycin IV ID has been consulted for antibiotics stewardship. Imaging ; venous doppler DVT seen in the proximal left superficial femoral vein. 08/08/24 patient is seen and examined fevers have improved. Patient refused heparin subQ patient has a DVT superficial to femoral he agree with heparin drip. Patient was reports having difficulty swallowing speech consulted. Patient's skin very dry to lower extremities we will get anterior Doppler and gambling supervisor consult. Encouraged patient to get out of bed to chair PT services to eval and treat. No chest pain no shortness a breath 08/09/24 patient is seen and examined patient appears to be doing much better today patient reports that he walks about 70 ft walker at home. Speech pending I encouraged patient out of bed to chair with meals. One-to-one was placed overnight patient has delirium at night. We will waiting for ID final recommendations on IV antibiotics. 08/10/24 patient is seen and examined afebrile. Blood cultures so far negative waiting for ID final recommendation deescalate IV antibiotics to p.o.. Speech no signs of aspiration. We continue with wound care as directed. Patient is working with physical therapy patient walks more than 70 ft discussed placement patient refused wants to go home wants discharge. 08/11/24 seen patient continues with IV antibiotics ruled out osteomyelitis to left ankle. GI recommended pill cam outpatient setting upon discharge. Patient continues on Lovenox we will defer p.o. anticoagulation field control inspector's. Cultures negative. Afebrile we will wait for ID recommendations. 1300 Dr Zamora will start the patient on Eliquis 5 mg po bid,. DR Dotson waiting for Wound cultures: persisent leukocytosis however the patient has be afebrile. 08/12/24 patient was seen earlier. Spouse at bedside went over plan of care and updates. The patient is fully alert oriented x3. waiting for ID final recommendations continues leukocytosis and afebrile: waiting for wound cultures. Patient has been primary nurse reports no events overnight. 08/13/24 the patient was seen earlier: Alert oriented x3. We will waiting for wound cultures: ID will determine on deescalated IV antibiotics: afebrile. at bedside Update and questions answered. the patient was discharged on oral abts as directed by ID: We discussed placement with patient in he refused wants to go home. He is hemodynamically stable for discharge he reports he has someone to help him at home Borderer(s): REASON: rule out endocardititis ORDERING PHYSICIAN: BELEN TIAN NP PROCEDURE: ECHO [facility] - ECHO 2-D COMPLETE APPROVED REPORT EXAM: Two-dimensional and M-mode echocardiogram with Doppler and color Doppler. INDICATION ICD: Rule out endocarditis 2D Dimensions RVDd 4.3 cm LVEF(%) 50.6 (>50%) LVED Vol(simp.) 62.0 mL IVSd 0.9 (0.7-1.1cm) FS(%) 26 % LVES Vol(simp.) 31.0 mL LVDd 5.7 (3.8-5.6cm) LA (2D) 4.5 (1.6-4.0cm) LVEF(%, simp.) 50 % PWd 1.0 (0.7-1.1cm) Ao Root(2D) 3.4 (2.0-3.7cm) LA ESV INDEX (BP) 34.22 mL/m2 IVSs 1.1 cm LVOT diam 2.3 (1.8-2.4cm) LVDs 4.2 (2.5-4.0cm) IVC diam 1.7 cm PWs 1.3 cm Deformation Strain Apical 4 -15.5 % Apical 2 -15.9 % Apical 3 -13.3 % Global Strain -14.9 % M-Mode Dimensions EPSS 1.1 cm LA (MM) 3.9 (1.6-4.0cm) Ao Root(MM) 3.8 (2.0-3.7cm) Aortic Valve AoV Vmax 2.9 m/s Ao Peak GR 34.5 mmHg LVOT Vmax 1.5 m/s AoV VTI 0.5 m Ao Mean GR 20.9 mmHg LVOT VTI 0.25 m BEVERLY (VMAX) 2.12 cm2 BEVERLY (VTI) 2.0 cm2 Mitral Valve MV E Vmax 135.8 cm/s DECEL Time 124 ms MV A Vmax 124.4 cm/s P 1/2 T 42 ms E/A ratio 1.1 MVA (PHT) 5.2 cm2 TDI E/E' Medial 11.0 E/E' Lateral 14.5 Medial E' Peak V 12.31 cm/s Lateral E' Peak V 9.36 cm/s Pulmonary Valve PV Vmax 1.9 m/s PV VTI 0.35 m PV Mean GR 8.7 mmHg PV Peak GR 15.0 mmHg Tricuspid Valve TR Vmax 2.8 m/s RAP (EST) 8 mmHg RVSP 42.7 mmHg TR Peak GR 34.7 mmHg Left Ventricle The left ventricle is normal size. GLS -15.0%. There is normal LV segmental wall motion. There is normal left ventricular wall thickness. The LVEF is 50%. 3D volume EF 50%. Indeterminate diastolic dysfunction. Right Ventricle The right ventricle is mildly dilated. The right ventricular systolic function is normal. Atria The left atrium is borderline dilated. The right atrium size is normal. Aortic Valve Mild aortic annular calcification noted. Aortic valve is trileaflet and the leaflets are thickenee with decreased motility. Mild aortic regurgitation is present. No aortic valvular vegetation noted. There is mild aortic valvular stenosis. Mitral Valve The mitral valve is normal in structure. Thickened chordae tendinaea. There is mild or moderate mitral valve regurgitation. There are no mitral valve vegetation noted. There is no mitral valve stenosis. Tricuspid Valve The tricuspid valve is normal in structure. There is trace of tricuspid valve regurgitation noted. There is no tricuspid valve vegetation. Pulmonic Valve The pulmonary valve is normal in structure. There is mild pulmonic valvular regurgitation. Great Vessels The aortic root is normal in size. The IVC is normal in size and collapses <50% with inspiration. Pericardium There is no pericardial effusion. Other Information Quality : Technically difficult study due to body habitus Conclusion The LVEF is 50%. 3D volume EF 50%. The left atrium is borderline dilated. There is mild aortic valvular stenosis. Mild aortic regurgitation is present. There is mild or moderate mitral valve regurgitation. REASON: pad ORDERING PHYSICIAN: SULMA OLIVARES MD PROCEDURE: ART B LE - US ARTERIAL BILAT LOW EXT DUPL US ARTERIAL BILAT LOW EXT DUPL HISTORY: pad TECHNIQUE: Real-time arterial doppler ultrasound of the lower extremity was performed using B mode, color flow and spectral analysis. FINDINGS: RIGHT: Abnormal monophasic waveforms seen in the anterior tibial and dorsalis pedis arteries suggesting flow-limiting stenosis. Remaining arteries demonstrate triphasic and biphasic waveforms. LEFT: Abnormal monophasic waveforms seen in the anterior tibial and dorsalis pedis arteries suggesting flow-limiting stenosis. Remaining arteries demonstrate triphasic and biphasic waveforms. IMPRESSION: Abnormal monophasic waveforms seen in the bilateral anterior tibial and dorsalis pedis arteries suggesting flow-limiting stenosis. Remaining arteries demonstrate triphasic and biphasic waveforms. REASON: 2nd toe ulcer ORDERING PHYSICIAN: SHARIFA ARCE DPM PROCEDURE: FT RT WO - MR FOOT RIGHT WO MRI of the foot, noncontrast- right Clinical Information: ulcer Comparison: None Technique: Multiecho multiplanar sequences are done without contrast administration. FINDINGS: Standard MR sequences of the foot demonstrate no evidence of soft tissue mass or neuroma. There is no osteomyelitis. The bones of the phalanges, metatarsals and tarsals all have normal marrow signal on all echo sequences. The cortices are intact. The flexor and extensor tendons of the foot have normal low signal on both T1 and T2 weighted sequences. The muscles and fascial planes are unremarkable. IMPRESSION: No evidence of osteomyelitis. REASON: lt grea toe ulcer ORDERING PHYSICIAN: SHARIFA ARCE DPM REASON: EVAL FOR OSTEOMYELITIS ORDERING PHYSICIAN: SHARIFA ARCE DPM PROCEDURE: ANK LT WO - MR ANKLE LEFT WO Exam Type: MR ANKLE LEFT WO Clinical Information: EVAL FOR OSTEOMYELITIS Comparison: None Technique: The ankle MRI consists of axial fast spin echo T2, sagittal T1, coronal fast spin echo T2, and sagittal fast spin echo T2 with fat saturation. Tri-plane single localizer images were also obtained. FINDINGS: No bone destruction to suggest osteomyelitis. No bony abnormalities of the ankle. The articular surfaces are preserved. No significant osteophytosis is identified on this exam. No joint effusion is noted. No osteochondral defects are seen and the ligamentous and tendinous structures of the ankle are preserved. IMPRESSION: No osteomyelitis. PROCEDURE: FT LT WO - MR FOOT LEFT WO MRI of the foot, noncontrast- left Clinical Information: ulcer Comparison: None Technique: Multiecho multiplanar sequences are done without contrast administration. FINDINGS: Standard MR sequences of the foot demonstrate no evidence of soft tissue mass or neuroma. There is no osteomyelitis. The bones of the phalanges, metatarsals and tarsals all have normal marrow signal on all echo sequences. The cortices are intact. The flexor and extensor tendons of the foot have normal low signal on both T1 and T2 weighted sequences. The muscles and fascial planes are unremarkable. IMPRESSION: No evidence of osteomyelitis. REASON: LT GREAT TOE ULCER ORDERING PHYSICIAN: SHARIFA ARCE DPM PROCEDURE: FT 3VW LT - FOOT COMP 3+VWS LT Exam Type: FOOT COMP 3+VWS LT Clinical Information: LT GREAT TOE ULCER Comparison: None Findings: There are degenerative changes of 1st metatarsophalangeal joint. In addition, there are calcaneal spurs. The examination is otherwise unremarkable. No fractures or dislocations are seen. No radiopaque foreign bodies are noted. Soft tissues are preserved. IMPRESSION: Degenerative changes of 1st metatarsophalangeal joint. Calcaneal spurs. REASON: right 2nd toe ulcer ORDERING PHYSICIAN: SHARIFA ARCE DPM PROCEDURE: FT 3VW RT - FOOT COMP 3+VWS RT Exam Type: FOOT COMP 3+VWS RT Clinical Information: right 2nd toe ulcer Comparison: None Findings: The examination is unremarkable except for calcaneal spurs. No fractures or dislocations are seen. No radiopaque foreign bodies are noted. Soft tissues are preserved. No osteomyelitis evident. IMPRESSION: Calcaneal spurs. Procedure(s): Item Value Date Time White Blood Count 27.3 K/uL H 08/13/24 0620 Red Blood Count 2.61 MIL/uL L 08/13/24 0620 Hemoglobin 8.5 g/dL L 08/13/24 0620 Hematocrit 25.1 % L 08/13/24 0620 Mean Corpuscular Volume 96.2 fL 08/13/24 06 Mean Corpuscular Hemoglobin 32.6 pg 08/13/24 06 Mean Corpuscular Hemoglobin Concent 33.9 g/dL 08/13/24619 Red Cell Distribution Width 19.9 % H 08/13/24619 Platelet Count 264 K/uL 08/13/24619 Mean Platelet Volume 9.8 fL 08/13/24619 Immature Granulocyte % (Auto) 4.2 % H 08/13/24619 Neutrophils (%) (Auto) 93.0 % H 08/13/24619 Lymphocytes (%) (Auto) 0.5 % L 08/13/24619 Monocytes (%) (Auto) 1.9 % L 08/13/24619 Eosinophils (%) (Auto) 0.1 % 08/13/24619 Neutrophils # (Auto) 25.4 K/uL H 08/13/24619 Basophils (%) (Auto) 0.3 % 08/13/24619 Lymphocytes # (Auto) 0.2 K/uL L 08/13/24619 Monocytes # (Auto) 0.5 K/uL 08/13/24619 Eosinophils # (Auto) 0.03 K/uL 08/13/24619 Basophils # (Auto) 0.07 K/uL 08/13/24619 Absolute Immature Granulocyte (auto 1.14 K/uL H 08/13/2420 Sodium Level 131 mmol/L L 08/13/2420 Potassium Level 3.5 mmol/L 08/13/2420 Sodium Level 133 mmol/L L 08/12/24 0555 Chloride Level 97 mmol/L L 08/13/2420 Carbon Dioxide Level 27 mmol/L 08/13/2420 Blood Urea Nitrogen 10 mg/dL 08/13/2420 Creatinine 0.6 mg/dL 08/13/2420 Glomerular Filtration Rate Calc 99 mL/min 08/13/24 0620 Random Glucose 205 mg/dL H 08/13/2420 Total Calcium 8.2 mg/dL L 08/13/2420 Magnesium Level 1.80 mg/dL 08/13/2420 Total Bilirubin 1.4 mg/dL H 08/13/2420 Aspartate Amino Transf (AST/SGOT) 19 U/L 08/13/24 0620 Alkaline Phosphatase 68 U/L 08/13/24 0620 Alanine Aminotransferase (ALT/SGPT) 63 U/L 6/13/25 0620 Total Protein 5.8 g/dL L 08/13/24 0620 Albumin 2.8 g/dL L 08/13/24 0620 Urine Color YELLOW 08/07/24 0725 Urine pH 5.5 08/07/24 0725 Urine Specific [place] 1.027 08/07/24 0725 Urine Protein 50 mg/dL H 08/07/24 0725 Urine Glucose (UA) NEGATIVE mg/dL 08/07/24 07 Urine Ketones NEGATIVE mg/dL 08/07/24724 Urine Occult Blood NEGATIVE 08/07/24 0725 Urine Nitrate NEGATIVE 08/07/24 07 Urine Bilirubin NEGATIVE mg/dL 08/07/24724 Urine Urobilinogen 0.2 mg/dL 08/07/24 07 Urine Leukocyte Esterase NEGATIVE [place]/uL 08/07/24 0725 Urine RBC 0-1 /HPF 08/07/24 0725 Urine WBC 0-1 /HPF 08/07/24 0725 Urine Calcium Oxalate Crystals RARE /LPF 08/07/24 0725 Urine Bacteria RARE /HPF 08/07/24 0725 Urine Appearance CLEAR 08/07/24 0725 Influenza Type A Antigen Negative For Type A 08/07/24 0006 Influenza Type B Antigen Negative For Type B 08/07/24 0006 SARS-CoV-2, RNA, NAAT NEGATIVE SARS CoV-2 08/07/24 0006 Assessment/Plan: Discharged dx's; Sepsis elevated [id number], elevated heart [id number] and WBCs 22 Bilateral cellulitis with venous stasis ulcers infection POA failed outpatient treatment POA acute on chronic anemia POA Iron deficiency POA new onset: DVT seen in the proximal left superficial femoral vein. POA electrolytes derangement: hyponatremia POA hyperglycemia POA Recent hospitalization one week ago: dx: sepsis suspecting ROCHELLE POA Suspecting oropharyngeal dysphagia POA ruled out aspiration and dysphasia suspecting osteomyelitis left lower ext: POA ruled out Myeloproliferative disorder POA chronic problems; CAD s/p CABG HTN Prostate PLAN: ADMISSION DATE: 08/09/24 DISCHARGE DATE: 08/13/24 DISPOSITION: home CONDITION: stable TUNG NUT GROWER(S): Infectious disease Oncologist: Dr Zamora, Wound care; DR Shawn Jacobs and GI: FOLLOW UP APPOINTMENT(S): PCP: 2-3 days, Dr Zamora 1-[address] Shawn Jacobs 1 week. GI 2-3 wks outpatient setting PILL CAM PROCEDURES: none IMAGING (S) report attached to summary : Echo,venous doppler, arterial US Foot MRI F xray and ankle MRI MICROBIOLOGY: report attached to summary;urine , blood and wound cultures ACTIVITY: ab juancarlos HOME MEDICATIONS remain the same CHANGES ON HOME MEDICATIONS none NEW MEDICATIONS Eliquis 5 mg po bid , oral antibiotics: TEACHING: fall precaution side effects and adverse reaction:Eliquis Emergency instructions: The patient was instructed to present to the nearest Emergency Department or call 911 should their symptoms return or worsen. Discharge Instructions: RUN DATE: 08/13/24 [facility] PAGE 1 RUN TIME: [id number] [address], [place] [address] Department of Laboratories [place] # [id number] Health Promoter: Jona Vázquez DO Specimen Report PATIENT: GRETA JOHNSON ACCT: [id number] LOC: 3D U: [id number] AGE/SX: 78/M ROOM: [facility] RE08/07/[address]: SULMA OLIVARES MD : 1945 BED: 1 DIS: STATUS: ADM IN TLOC: SPEC: [id number] ROSALINDA: 08/10/24-1207 STATUS: RES REQ: [id number] RECD: 08/10/241522 [facility] DR: SHAWN SALCEDO MD SOURCE: LEG ENTR: 08/10/24-[address]: PERRY DOTSON MD [facility]: LEFT ELISE,SULMA SANCHEZ,RISSA LONDON MD, MD SELF,REFERRAL ORDERED: KARINA CULTURE, AEROBIC CULTURE COMMENTS: Has specimen been collected/obtained? Y Specimen Comment: left lower leg Has specimen been collected/obtained? Y Specimen Comment: left lower leg Has specimen been collected/obtained? Y Specimen Comment: left lower leg Has specimen been collected/obtained? Y Specimen Comment: left lower leg Has specimen been collected/obtained? Y Specimen Comment: left lower leg Has specimen been collected/obtained? Y Specimen Comment: left lower leg Has specimen been collected/obtained? Y Specimen Comment: left lower leg Has specimen been collected/obtained? Y Specimen Comment: left lower leg Has specimen been collected/obtained? Y Specimen Comment: left lower leg Has specimen been collected/obtained? Y Specimen Comment: left lower leg Has specimen been collected/obtained? Y Specimen Comment: left lower leg Has specimen been collected/obtained? Y Specimen Comment: left lower leg Has specimen been collected/obtained? Y Specimen Comment: left lower leg Procedure Result Jessica Date-Time ANAEROBIC CULTURE Preliminary 08/13/24-1045 MRL COLONY DESCRIPTION: REPORT 1: NO ANAEROBES AT 24-35 HOURS; STUDIES TO CONTINUE REPORT 2: NO ANAEROBES AT 48-59 HOURS; STUDIES TO CONTINUE CONTINUED ON NEXT PAGE RUN DATE: 08/13/24 [facility] PAGE 2 RUN TIME: [id number] [address], [place] [address] Department of Laboratories [place] # [id number] Health Promoter: Jona Vázquez DO Specimen Report SPEC: [id number] PATIENT: GRETA JOHNSON [id number] (Continued) Procedure Result Jessica Date-Time -- ANAEROBIC CULTURE Preliminary (continued) 08/13/24 Test(s) performed by: [facility] [address] [place] [address] AEROBIC CULTURE Preliminary 08/13/24 MRL COLONY DESCRIPTION: REPORT 1: 3+ GRAM NEGATIVE RODS IDENTIFICATION AND SENSITIVITY TO FOLLOW REPORT 2: SLOW-GROWER; RESULTS PENDING 1+ SKIN DILLAN ; STUDIES TO CONTINUE COAGULASE NEGATIVE STAPHYLOCOCCUS @ [facility] Test Performed at: [facility] [address], [place], [place] Medical Flask Pusher: Darrius Tenorio D.O. RUN DATE: 08/11/24 [facility] PAGE 1 RUN TIME: 9868 [id number] [place] [address] Department of Laboratories [place] # [id number] Health Promoter: Jona Vázquez DO Specimen Report PATIENT: GRETA JOHNSON ACCT: [id number] LOC: [facility] U: [id number] AGE/SX: 78/M ROOM: 324 RE08/07/[address]: SULMA OLIVARES MD : 1945 BED: 1 DIS: STATUS: ADM IN TLOC: SPEC: [id number] ROSALINDA: 08/06/24 STATUS: COMP REQ: [id number] RECD: 08/06/[address] [facility] [address]: EILEEN VANESSA SOURCE: BLOOD ENTR: 08/06/24-[address]: MICHELLE SPDESC: SELF,REFERRAL ORDERED: BLOOD CULTURE COMMENTS: What is the Source? BLOOD Procedure Result Jessica Date-Time BLOOD CULT Final 08/11/24 NO GROWTH AFTER 5 DAYS -- RUN DATE: 08/11/24 [facility] PAGE 1 RUN TIME: [id number] [address], [place] [address] Department of Laboratories CLIA # [id number] Health Promoter: Jona Vázquez DO Specimen Report PATIENT: GRETA JOHNSON ACCT: [id number] LOC: 3DH U: [id number] AGE/SX: 78/M ROOM: [facility] RE08/07/[address]: SULMA OLIVARES MD : 1945 BED: 1 DIS: STATUS: ADM IN TLOC: SPEC: [id number] ROSALINDA: 08/06/24 STATUS: COMP REQ: [id number] RECD: 08/06/[address]: EILEEN VANESSA SOURCE: BLOOD ENTR: 08/06/[address]: MICHELLE SPDESC: SELF,REFERRAL ORDERED: BLOOD CULTURE COMMENTS: What is the Source? BLOOD Procedure Result Jessica Date-Time BLOOD CULT Final 08/11/24 NO GROWTH AFTER 5 DAYS Home Medications: Active Scripts Apixaban (Eliquis) 5 Mg Tablet, 1 TAB PO BID for 30 Days, #60 TAB 0 Refills Prov:BELEN TIAN NP 08/12/24 Reported Medications Mecobalamin (B12 Active) 1,000 Mcg Tab.chew, 1 TAB PO DAILY for 30 Days, #30 TAB 0 Refills 08/07/24 Folic Acid (Folic Acid) 0.8 Mg Capsule, 1 CAP PO DAILY for 30 Days, #30 CAP 0 Refills 08/07/24 Ferrous Bis-Glycinate Chelate (Iron Glycinate) 29 Mg Iron Capsule, 29 MG PO DAILY, CAP 08/07/24 Cholecalciferol (Vitd3)/Vit K2 (D3 Plus K2 Dots 1,000 Unit Tab) 25 Mcg (1000 Unit)-90 Mcg Tab.rapdis, 1 TAB PO DAILY for 30 Days, #30 TAB 0 Refills 08/07/24 Aspirin (Aspirin EC) 81 Mg Tablet.dr, 1 TAB PO DAILY for 30 Days, #30 TAB 0 Refills 08/07/24 Esomeprazole Magnesium (Esomeprazole Magnesium) 20 Mg Capsule.dr, 1 CAP PO DAILY for acid reflux for 30 Days, #30 CAP 0 Refills 08/07/24 Pyridoxine HCl (Vitamin B-6) 100 Mg Tablet, 1 TAB PO DAILY for 30 Days, #30 TAB 0 Refills 08/07/24 Metoprolol Succinate (Metoprolol Succinate) 50 Mg Tab.er.24h, 1 TAB PO DAILY for 30 Days, #30 TAB 0 Refills 08/07/24 Diphenhydramine HCl (Benadryl) 50 Mg Cap, 50 MG PO AD PRN for ITCHING, CAP 08/07/24 Lisinopril (Lisinopril) 10 Mg Tablet, 1 TAB PO DAILY for 30 Days, #30 TAB 0 Refills 08/07/24 Trazodone HCl (Trazodone HCl) 100 Mg Tablet, 100 MG PO HS, TAB 08/07/24 Tamsulosin HCl (Flomax) 0.4 Mg Cap.er.24h, 1 CAP PO HS for 30 Days, #30 CAP 0 Refills 08/07/24 Sucralfate (Sucralfate) 1 Gram Tablet, 1 GM PO TIDHS, TAB 08/07/24 Discontinued Reported Medications Saw [place] (Saw [place]) 585 Mg Capsule, 585 MG PO AM, CAP 08/07/24 New Medications: Apixaban (Eliquis) 5 Mg Tablet 1 TAB PO BID for 30 Days, #60 TAB 0 Refills Continued Medications: Aspirin (Aspirin EC) 81 Mg Tablet.dr 1 TAB PO DAILY for 30 Days, #30 TAB 0 Refills Cholecalciferol (Vitd3)/Vit K2 (D3 Plus K2 Dots 1,000 Unit Tab) 25 Mcg (1000 Unit)-90 Mcg Tab.rapdis 1 TAB PO DAILY for 30 Days, #30 TAB 0 Refills Diphenhydramine HCl (Benadryl) 50 Mg Cap 50 MG PO AD PRN for ITCHING, CAP Esomeprazole Magnesium (Esomeprazole Magnesium) 20 Mg Capsule.dr 1 CAP PO DAILY for acid reflux for 30 Days, #30 CAP 0 Refills Ferrous Bis-Glycinate Chelate (Iron Glycinate) 29 Mg Iron Capsule 29 MG PO DAILY, CAP Folic Acid (Folic Acid) 0.8 Mg Capsule 1 CAP PO DAILY for 30 Days, #30 CAP 0 Refills Lisinopril (Lisinopril) 10 Mg Tablet 1 TAB PO DAILY for 30 Days, #30 TAB 0 Refills Mecobalamin (B12 Active) 1,000 Mcg Tab.chew 1 TAB PO DAILY for 30 Days, #30 TAB 0 Refills Metoprolol Succinate (Metoprolol Succinate) 50 Mg Tab.er.24h 1 TAB PO DAILY for 30 Days, #30 TAB 0 Refills Pyridoxine HCl (Vitamin B-6) 100 Mg Tablet 1 TAB PO DAILY for 30 Days, #30 TAB 0 Refills Sucralfate (Sucralfate) 1 Gram Tablet 1 GM PO TIDHS, TAB Tamsulosin HCl (Flomax) 0.4 Mg Cap.er.24h 1 CAP PO HS for 30 Days, #30 CAP 0 Refills Trazodone HCl (Trazodone HCl) 100 Mg Tablet 100 MG PO HS, TAB Discontinued Medications: Saw [place] (Saw [place]) 585 Mg Capsule 585 MG PO AM, BELEN RANDLE NP Aug 13, 2024 14:12
--- NOTE | 2024-08-13 17:29 | NUR ---
PATIENT DISCHARGED HOME ID BAND AND IV REMOVED. DISCHARGE INSTRUCTIONS EXPLAINED AND GIVEN TO PATIENT. MEDICINE SCRIPT GIVEN TO PATIENT. PATIENT VERBALIZED UNDERSTANDING. BELONGINGS PACEKD AND TAKEN BY PATIENT. WHEELED DOWN TO PRIVATE CAR.
--- NOTE | 2024-08-16 11:10 | NUR ---
Transitional Phone Call Patient admitted to [facility] room 224 c/o lower extremity cellulitis on . Addendum: 08/16/24 at 1112 by KARINA BRIDGES RN CM Correction admitted 08/13/2024
== END 2024-08-13 17:29 | disposition home or self-care (01) | DRG 871 ==
LOC: EDH 22:54 → EDHIP 08-07 04:04 → 3DH 08-07 04:53
PROVIDERS: ADMIT Internal Medicine; ATTEND Internal Medicine
DX: A41.9 Sepsis, unspecified organism (principal); G93.41 Metabolic encephalopathy; E87.1 Hypo-osmolality and hyponatremia; L03.115 Cellulitis of right lower limb; L03.116 Cellulitis of left lower limb; D47.1 Chronic myeloproliferative disease; I82.512 Chronic embolism and thrombosis of left femoral vein; D64.9 Anemia, unspecified; E66.9 Obesity, unspecified; I10 Essential (primary) hypertension; I25.10 Atherosclerotic heart disease of native coronary artery without angina pectoris; G47.33 Obstructive sleep apnea (adult) (pediatric); R73.9 Hyperglycemia, unspecified; N40.0 Benign prostatic hyperplasia without lower urinary tract symptoms; I73.9 Peripheral vascular disease, unspecified; Z20.822 Contact with and (suspected) exposure to COVID-19; I08.0 Rheumatic disorders of both mitral and aortic valves; L97.519 Non-pressure chronic ulcer of other part of right foot with unspecified severity; L97.529 Non-pressure chronic ulcer of other part of left foot with unspecified severity; Z95.1 Presence of aortocoronary bypass graft; Z95.5 Presence of coronary angioplasty implant and graft; Z87.891 Personal history of nicotine dependence; Z68.28 Body mass index [BMI] 28.0-28.9, adult; Z79.899 Other long term (current) drug therapy
CPT/HCPCS: 36415; 71045; 73630; 73718; 73721; 76376; 80048; 80053; 80202; 81001; 82550; 83036; 83605; 83735; 83880; 84145; 84484; 85025; 85027; 85610; 85651; 86140; 87040; 87070; 87076; 87086; 87186; 87635; 87804; 92610; 93005; 93306; 93356; 93925; 93970; 99285; A6248; G0378; J1644; J1650; J2270; J2543; J3475; J7030; A6260; J3370